=== PATIENT | female | born 1940 | race Caucasian/White ===

== ENCOUNTER 2019-08-21 01:46 | Emergency (ER) | payer OTHER, MEDICARE ==
[2019-08-21] MEDS ORDERED: LIDOCAINE 1% MPF 5 ML VIAL ONE (03:45)
[2019-08-21] MEDS ORDERED: TETANUS & DIPHTHERIA TOX,ADULT 0.5 ML VIAL ONE (05:00)
--- NOTE | 2019-08-21 06:25 | EDPHYS ---
Physician Documentation [facility] Name: Martina Martini Age: 79 yrs Sex: Female : 1940 Arrival Date: 08/21/2019 Time: 01:55 Bed 3 Private MD: ED Physician Osvaldo Mckeon HPI: 08/20 03:03 This 79 yrs old Female presents to ER via EMS with complaints of Fall Injury. 7 03:03 Details of fall: The patient fell from an upright position, while walking. Onset: The [facility] symptoms/episode began/occurred today. Associated injuries: The patient sustained injury to the head, laceration. Severity of symptoms: At their worst the symptoms were moderate, earlier today, in the emergency department the symptoms have improved, moderately. Patient states that she slipped and fell while walking to bathroom. She hit her head on some furniture during the fall and sustained a laceration to her right forehead area. She denies any LOC or other injuries. She denies any symptoms prior to falling including headache, chest pain, abdominal pain, SOB, nausea, vomiting, dizziness, numbness/tingling, or weakness.. Historical: - Allergies: 02:00 "pain meds make me crazy"; rr5 02:00 PENICILLINS; rr5 02:00 Phenergan; rr5 - Home Meds: 03:03 levothyroxine oral [Active]; Atenolol Oral [Active]; Prednisone Oral [Active]; rr5 Amiodarone Oral [Active]; citalopram oral [Active]; pravastatin oral oral [Active]; Furosemide Oral [Active]; gabapentin oral oral [Active]; Omeprazole Oral [Active]; Metformin Oral [Active]; cetirizine oral oral [Active]; areds 2 [Active]; Vitamin B-12 Oral [Active]; pramipexole oral oral [Active]; Aspirin Oral [Active]; Ferrous Sulfate Oral [Active]; donepezil oral oral [Active]; - PMHx: 02:00 Anemia; Asthma; Diabetes - NIDDM; Hyperlipidemia; Hypertension; Hypothyroidism; rr5 Myocardial infarction; open heart sx; - PSHx: 02:00 Appendectomy; Cholecystectomy; rr5 - Immunization history:: Adult Immunizations up to date, Last tetanus immunization: unknown. - Social history:: Smoking status: unknown Patient/guardian denies using alcohol, street drugs. ROS: 03:03 Constitutional: Negative for fever, chills, and weight loss, Eyes: Negative for injury, mh7 pain, redness, and discharge, ENT: Negative for injury, pain, and discharge, Neck: Negative for injury, pain, and swelling, Cardiovascular: Negative for chest pain, palpitations, and edema, Respiratory: Negative for shortness of breath, cough, wheezing, and pleuritic chest pain, Abdomen/GI: Negative for abdominal pain, nausea, vomiting, diarrhea, and constipation, Back: Negative for injury and pain, : Negative for injury, bleeding, discharge, and swelling, MS/Extremity: Negative for injury and deformity, Neuro: Negative for headache, weakness, numbness, tingling, and seizure, Psych: Negative for depression, anxiety, suicide ideation, homicidal ideation, and hallucinations, Allergy/Immunology: Negative for hives, rash, and allergies, Endocrine: Negative for neck swelling, polydipsia, polyuria, polyphagia, and marked weight changes, Hematologic/Lymphatic: Negative for swollen nodes, abnormal bleeding, and unusual bruising. Exam: 03:03 Constitutional: This is a well developed, well nourished patient who is awake, alert, mh7 and in no acute distress. 03:03 Eyes: Pupils equal round and reactive to light, extra-ocular motions intact. Lids and lashes normal. Conjunctiva and sclera are non-icteric and not injected. Cornea within normal limits. Periorbital areas with no swelling, redness, or edema. ENT: Nares patent. No nasal discharge, no septal abnormalities noted. Tympanic membranes are normal and external auditory canals are clear. Oropharynx with no redness, swelling, or masses, exudates, or evidence of obstruction, uvula midline. Mucous membranes moist. Neck: Trachea midline, no thyromegaly or masses palpated, and no cervical lymphadenopathy. Supple, full range of motion without nuchal rigidity, or vertebral point tenderness. No Meningismus. Chest/axilla: Normal chest wall appearance and motion. Nontender with no deformity. No lesions are appreciated. Cardiovascular: Regular rate and rhythm with a normal S1 and S2. No gallops, murmurs, or rubs. Normal PMI, no JVD. No pulse deficits. Respiratory: Lungs have equal breath sounds bilaterally, clear to auscultation and percussion. No rales, rhonchi or wheezes noted. No increased work of breathing, no retractions or nasal flaring. Abdomen/GI: Soft, non-tender, with normal bowel sounds. No distension or tympany. No guarding or rebound. No evidence of tenderness throughout. Back: No spinal tenderness. No costovertebral tenderness. Full range of motion. MS/ Extremity: Pulses equal, no cyanosis. Neurovascular intact. Full, normal range of motion. Neuro: Awake and alert, GCS 15, oriented to person, place, time, and situation. Cranial nerves II-XII grossly intact. Motor strength 5/5 in all extremities. Sensory grossly intact. Cerebellar exam normal. Normal gait. Psych: Awake, alert, with orientation to person, place and time. Behavior, mood, and affect are within normal limits. 03:03 Head/face: Noted is a laceration(s), that is deep. 03:03 Skin: injury, laceration(s). Vital Signs: 02:00 BP 210 / 105; Pulse 71; Resp 16; Temp 98.2; Pulse Ox 100% ; Weight 65.77 kg; Height 5 rr5 ft. 1 in. (154.94 cm); 03:00 BP 175 / 89; Pulse 75; Resp 17; Pulse Ox 99% ; rr5 04:00 BP 156 / 85; Pulse 80; Resp 19; Pulse Ox 98% ; rr5 05:00 BP 149 / 95; Pulse 70; Resp 16; Pulse Ox 98% on R/A; rr5 06:00 BP 199 / 98; Pulse 79; Resp 17; Pulse Ox 100% ; rr5 06:44 BP 188 / 84; Pulse 75; Resp 19; Pulse Ox 98% ; rr5 02:00 Body Mass Index 27.40 (65.77 kg, 154.94 cm) rr5 [place] Coma Score: 02:00 Eye Response: spontaneous(4). Verbal Response: oriented(5). Motor Response: obeys rr5 commands(6). Total: 15. Trauma Score (Adult): 02:00 Eye Response: spontaneous(1); Verbal Response: oriented(1); Motor Response: obeys rr5 commands(2); Systolic BP: > 89 mm Hg(4); Respiratory Rate: 10 to 29 per min(4); Samantha Score: 15; Trauma Score: 12 Laceration: 06:19 Wound Repair of 6cm ( 2.4in ) subcutaneous laceration to forehead. Distal mh7 neuro/vascular/tendon intact. Anesthesia: Local anesthetic administered with 5 mls of 1% lidocaine. Wound prep: Extensive cleansing with hibiclenz by me, Wound irrigation with saline by me, Wound explored extensively. Subcutaneous tissue closed with 8 5-0 Vicryl using simple sutures and sterile technique. Skin closed with 16 6-0 Prolene using interrupted sutures and sterile technique. Dressed with Neosporin, 4x4's. Patient tolerated well. MDM: 02:27 Patient medically screened. [facility] 06:19 Differential diagnosis: abrasion, closed head injury, contusion, fracture, laceration. [facility] Data reviewed: vital signs, nurses notes, EMS record, radiologic studies, CT scan. Data interpreted: pvc monitor: rate is 70 beats/min, rhythm is normal sinus rhythm, regular, Interpretation: normal rate, normal rhythm, Pulse oximetry: on room air is 98 %. Interpretation: normal. Counseling: I had a detailed discussion with the patient and/or guardian regarding: the historical points, exam findings, and any diagnostic results supporting the discharge/admit diagnosis, the presence of at least one elevated blood pressure reading (>120/80) during this emergency department visit, radiology results, the need for outpatient follow up, to return to the emergency department if symptoms worsen or persist or if there are any questions or concerns that arise at home. Response to treatment: the patient's symptoms have markedly improved after treatment. 07:01 Refusal of service: The patient/guardian displays adequate decision making capability [facility] and despite a detailed discussion of alternatives, benefits, risks, and consequences refuses: all lab tests. 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 Exp: rr5 03/27/2021. Lot #: [id number]. } Route: IM; Site: right deltoid; 06:00 Follow up: Response: No adverse reaction rr5 05:10 Drug: Lidocaine (1 %) 5 ml {Note: Administered by MD Mckeon.} Volume: 5 ml; Route: wh Infiltration; Site: affected area; Disposition: 08/21/19 06:24 Discharged to Home. Impression: Fall-Mechanical, Facial Laceration. - Condition is Stable. - Discharge Instructions: Laceration Care, Adult, [id number], Facial Laceration, [id number], Fall Prevention in the Home, [id number]. - Medication Reconciliation Form, Thank You Letter, Antibiotic Education, Prescription Opioid Use form. - Follow up: Private Physician; When: 1 - 2 days; Reason: Worsening of condition, Recheck today's complaints, Re-evaluation by your physician. Follow up: Emergency Department; When: 48 Hours; Reason: Wound Recheck, Worsening of condition, Recheck today's complaints. Follow up: Magdiel Matamoros MD; When: 1 - 2 days; Reason: Worsening of condition, Recheck today's complaints. - Problem is an acute exacerbation. - Symptoms have improved. Signatures: Dispatcher [employer] EDMS Jose Mendez Raymond, RN RN rr5 Osvaldo Mckeon MD MD mh7 Corrections: (The following items were deleted from the chart) 06:54 06:24 08/21/2019 06:24 Discharged to Home. Impression: Fall-Mechanical; Facial rr5 Laceration. Condition is Stable. Forms are Medication Reconciliation Form, Thank You Letter, Antibiotic Education, Prescription Opioid Use. Follow up: Private Physician; When: 1 - 2 days; Reason: Worsening of condition, Recheck today's complaints, Re-evaluation by your physician. Follow up: Emergency Department; When: 48 Hours; Reason: Wound Recheck, Worsening of condition, Recheck today's complaints. Follow up: Magdiel Matamoros; When: 1 - 2 days; Reason: Worsening of condition, Recheck today's complaints. Problem is an acute exacerbation. Symptoms have improved. mh7
--- NOTE | 2019-08-21 06:25 | ER ---
Nurse's Notes [facility] Name: Martina Martini Age: 79 yrs Sex: Female : 1940 Arrival Date: 08/21/2019 Time: 01:55 Bed 3 Private MD: Diagnosis: Fall-Mechanical;Facial Laceration Presentation: 08/20 02:00 Chief complaint: EMS states: patient sits up, lose footing and hit her head on the rr5 corner of filling cabinet. denies LOC, not on blood thinner. 02:00 Coronavirus screen: Proceed with normal triage. Ebola Screen: Patient negative for rr5 fever greater than or equal to 101.5 degrees Fahrenheit, and additional compatible Ebola Virus Disease symptoms Patient denies exposure to infectious person. Patient denies travel to an Ebola-affected area in the 21 days before illness onset. Initial Sepsis Screen: Does the patient meet any 2 criteria? No. Patient's initial sepsis screen is negative. Does the patient have a suspected source of infection? No. Patient's initial sepsis screen is negative. Risk Assessment: Do you want to hurt yourself or someone else? Patient reports no desire to harm self or others. Onset of symptoms was August 21, 2019. 02:00 Method Of Arrival: EMS: [facility] rr5 02:00 Acuity: KRISTA 3 rr5 02:00 Care prior to arrival: None. Mechanism of Injury: Fall from standing position. Trauma rr5 event details: Injury occurred in the [facility], Injury occurred: at home. Injury occurred: August 21, 2019. Trauma Activation: Not Applicable Physician: ED Physician; Name: ; Notified At: ; Arrived At: Physician: General Surgeon; Name: ; Notified At: ; Arrived At: Physician: Radiology; Name: ; Notified At: ; Arrived At: Physician: Respiratory; Name: ; Notified At: ; Arrived At: Physician: Lab; Name: ; Notified At: ; Arrived At: Historical: - Allergies: 02:00 "pain meds make me crazy"; rr5 02:00 PENICILLINS; rr5 02:00 Phenergan; rr5 - Home Meds: 03:03 levothyroxine oral [Active]; Atenolol Oral [Active]; Prednisone Oral [Active]; rr5 Amiodarone Oral [Active]; citalopram oral [Active]; pravastatin oral oral [Active]; Furosemide Oral [Active]; gabapentin oral oral [Active]; Omeprazole Oral [Active]; Metformin Oral [Active]; cetirizine oral oral [Active]; areds 2 [Active]; Vitamin B-12 Oral [Active]; pramipexole oral oral [Active]; Aspirin Oral [Active]; Ferrous Sulfate Oral [Active]; donepezil oral oral [Active]; - PMHx: 02:00 Anemia; Asthma; Diabetes - NIDDM; Hyperlipidemia; Hypertension; Hypothyroidism; rr5 Myocardial infarction; open heart sx; - PSHx: 02:00 Appendectomy; Cholecystectomy; rr5 - Immunization history:: Adult Immunizations up to date, Last tetanus immunization: unknown. - Social history:: Smoking status: unknown Patient/guardian denies using alcohol, street drugs. Screenin:10 Abuse screen: Denies threats or abuse. Denies injuries from another. Nutritional rr5 screening: On. Tuberculosis screening: No symptoms or risk factors identified. Fall Risk Fall in past 12 months (25 points). IV access (20 points). Total Lerner Fall Scale indicates High Risk Score (45 or more points). Fall prevention measures have been instituted. Side Rails Up X 2 Frequent Obs/Assessments Occuring As available patient and family educated on Fall Prevention Program and Strategies. Primary Survey: 02:05 NO uncontrolled hemorrhage observed. A: The patient is alert. Airway: patent. rr5 Breathing/Chest: Respiratory pattern: regular, Respiratory effort: spontaneous, unlabored, Breath sounds: clear, bilaterally. Chest inspection: symmetrical rise and fall of the chest. Circulation: Heart tones present. Pulses: palpable right radial artery, right dorsalis pedis artery, left radial artery and left dorsalis pedis artery. Skin color: pink, Skin temperature: warm, dry. Disability Alert. Exposure/Environment: Obvious injury(ies) are noted at this time: avulsed wound right forehead A warming method has been applied:. 03:00 Reassessment Airway Airway Patent Breathing/Chest Respiratory pattern Regular rr5 Respiratory effort Spontaneous Unlabored Breath sounds Clear Chest inspection Symmetrical Circulation Heart tones Present Pulses Palpable Color [place] Disability Alert. Secondary Survey: 02:10 HEENT: Face Other avulsed wound right side of forehead Eyes: Ecchymosis noted right rr5 upper eyelid. 02:10 Gastrointestinal: No deficits noted. : No signs and/or symptoms were reported rr5 regarding the genitourinary system. Musculoskeletal: No signs and/or symptoms reported regarding the musculoskeletal system. Injury Description: Avulsion sustained to forehead. Assessment: 02:00 General: Appears in no apparent distress. comfortable, Behavior is calm, cooperative, rr5 appropriate for age. 02:00 Pain: Complains of pain in forehead Pain does not radiate. Pain currently is 5 out of rr5 10 on a pain scale. Quality of pain is described as aching, Pain began suddenly, Is intermittent. Neuro: Oriented to person, place, time, situation, Denies dizziness, loc. Cardiovascular: Capillary refill < 3 seconds Patient's skin is warm and dry. Respiratory: Airway is patent Respiratory effort is even, unlabored, Respiratory pattern is regular, symmetrical. GI: No signs and/or symptoms were reported involving the gastrointestinal system. Patient currently denies nausea, vomiting. : Parent/caregiver report the patient having urinary frequency. EENT: No signs and/or symptoms were reported regarding the EENT system. Derm: Wound noted forehead Wound is avulsed wound right side of the forehead. Musculoskeletal: Capillary refill < 3 seconds. 03:00 Reassessment: Patient appears in no apparent distress at this time. No changes from rr5 previously documented assessment. Patient is alert, oriented x 3, equal unlabored respirations, skin warm/dry/pink. 03:30 Reassessment: according to the patient's daughter the BP of the patient always on the rr5 higher side. 04:10 Reassessment: Patient appears in no apparent distress at this time. Patient is alert, rr5 oriented x 3, equal unlabored respirations, skin warm/dry/pink. awaiting for result of CT scan. 05:30 Reassessment: Patient appears in no apparent distress at this time. Patient and/or rr5 family updated on plan of care and expected duration. Pain level reassessed. Patient is alert, oriented x 3, equal unlabored respirations, skin warm/dry/pink. 06:44 Reassessment: Patient appears in no apparent distress at this time. Patient is alert, rr5 oriented x 3, equal unlabored respirations, skin warm/dry/pink. discharge instruction given and explained without complaints made. Vital Signs: 02:00 BP 210 / 105; Pulse 71; Resp 16; Temp 98.2; Pulse Ox 100% ; Weight 65.77 kg; Height 5 rr5 ft. 1 in. (154.94 cm); 03:00 BP 175 / 89; Pulse 75; Resp 17; Pulse Ox 99% ; rr5 04:00 BP 156 / 85; Pulse 80; Resp 19; Pulse Ox 98% ; rr5 05:00 BP 149 / 95; Pulse 70; Resp 16; Pulse Ox 98% on R/A; rr5 06:00 BP 199 / 98; Pulse 79; Resp 17; Pulse Ox 100% ; rr5 06:44 BP 188 / 84; Pulse 75; Resp 19; Pulse Ox 98% ; rr5 02:00 Body Mass Index 27.40 (65.77 kg, 154.94 cm) rr5 [place] Coma Score: 02:00 Eye Response: spontaneous(4). Verbal Response: oriented(5). Motor Response: obeys rr5 commands(6). Total: 15. Trauma Score (Adult): 02:00 Eye Response: spontaneous(1); Verbal Response: oriented(1); Motor Response: obeys rr5 commands(2); Systolic BP: > 89 mm Hg(4); Respiratory Rate: 10 to 29 per min(4); Samantha Score: 15; Trauma Score: 12 ED Course: 01:55 Patient arrived in ED. cl3 01:59 Charbel Rascon, RN is Primary Nurse. rr5 02:00 Arm band placed on. rr5 02:03 Patient maintains SpO2 saturation greater than 95% on room air. rr5 02:05 Patient has correct armband on for positive identification. Placed in gown. Bed in low rr5 position. Call light in reach. 02:05 Thermoregulation: warm blanket given to patient. rr5 02:10 Triage completed. rr5 02:12 Osvaldo Mckeon MD is Attending Physician. mh7 03:45 CT Head C Spine In Process Unspecified. EDMS 03:46 CT Facial Bones W/O Con In Process Unspecified. EDMS 05:23 Assist provider with laceration repair on forehead that was between 2.6 to 7.5 cm using rr5 sutures. Set up tray. Performed by Osvaldo Mckeon MD Dressed with 4X4s, Neosporin, Patient tolerated well. 06:23 Magdiel Matamoros MD is Referral Physician. [facility] 06:45 Patient did not have IV access during this emergency room visit. 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 Exp: rr5 03/27/2021. Lot #: [id number]. } Route: IM; Site: right deltoid; 06:00 Follow up: Response: No adverse reaction rr5 05:10 Drug: Lidocaine (1 %) 5 ml {Note: Administered by MD Mckeon.} Volume: 5 ml; Route: wh Infiltration; Site: affected area; Intake: 06:30 PO: 0ml; Total: 0ml. rr5 Outcome: 06:24 Discharge ordered by . [facility] 06:45 Discharged to home via wheelchair, with family. rr5 06:45 Condition: stable 06:45 Discharge instructions given to patient, family, Instructed on discharge instructions, follow up and referral plans. Demonstrated understanding of instructions, follow-up care. 06:50 Patient's length of stay was not longer than 2 hours. not a code traumaPatient's length rr5 of stay extended due to 06:54 Patient left the ED. rr5 Signatures: Dispatcher [employer] EDMS Jose Mendez Raymond, RN RN rr5 Erica Stoll cl3 Osvaldo Mckeon MD MD 7 Corrections: (The following items were deleted from the chart) 03:23 03:23 HEENT: Head rr5 rr5
[2019-08-21 07:26] VITALS: TEMP 98.2
[2019-08-21 07:32] VITALS: BP 188/84; O2SAT 98
--- NOTE | 2019-08-21 19:25 | RAD REPORT ---
EXAM DESCRIPTION: CT HEAD AND CT CERVICAL SPINE WITHOUT CONTRAST 08/21/2019 CLINICAL HISTORY: Fall COMPARISON: None TECHNIQUE: Axial [address] imaging of the brain. Axial [address] imaging of the cervical spine. Reformatted coronal and sagittal images obtai richie. This examination was performed according to our departmental dose optimization program, which include s automated exposure control, adjustment of the mA and/or kV according to patient size and/or use of iterative reconstruction technique. FINDINGS: CT Head: Moderate prominence of the ventricles and sulci due to cortical volume loss. There is mild decreased white matter attenuation due to chronic vascular ischemic change. There are senescent bilateral basal ganglia calcifications. There is no intracranial bleed, mass, edema, or midline shift. No acute infa rction evident. Normal cerebellum and vermis. Fourth ventricle is midline. Prepontine cisterns are no t effaced. Normal sella contents. There is significant right periorbital and right frontal scalp edema with superficial skin irregulari ty compatible with laceration. No foreign body. There is no depressed or linear skull fracture. Skull base is intact. Clear mastoid air cells. CT cervical spine: There is mild reversal of midcervical lordosis. There is no compression fracture. There is no traumat ic subluxation. There is slight degenerative anterior subluxation of C3 on C4. There is moderate dege nerative disc space narrowing with hypertrophic end plate changes at C4-5 and C5-6. Uncovertebral ozzie nt hypertrophy at C5-6 contributes to mild bilateral foraminal stenosis. There is moderate right C2-3 and left C3-4 facet arthropathy. There is no fracture within the posterior elements, odontoid proces s, lateral masses. No prevertebral edema. The parapharyngeal soft tissues and mucosal spaces appear unremarkable. Normal thyroid. Minimal left apical atelectasis. IMPRESSION: 1. Mild to moderate senescent brain changes. No intracranial hemorrhage or skull fractur e. 2. Right frontal and periorbital soft tissue edema with a laceration. No foreign body or subcutaneous emphysema. 3. Left sphenoid sinus fluid could represent minimal blood products or incidental sinusitis. 4. Cervical spondylosis as detailed above. No acute cervical spine fracture or traumatic subluxation. Electronically signed by: Donna Garner DO 08/21/2019 3:56 AM CDT Due to temporary technical issues with the PACS/Fluency reporting system, reports are being signed by the in house radiologist without review as a courtesy to ensure prompt reporting. The interpreting r adiologist is fully responsible for the content of the report.
--- NOTE | 2019-08-21 19:26 | RAD REPORT ---
EXAM DESCRIPTION: Facial Bones W/ Mpr CLINICAL HISTORY: FACIAL PAIN COMPARISON: None available TECHNIQUE: Axial CT of the facial bone obtained without contrast. Coronal and sagittal reformatted i mages available. FINDINGS: Orbits: Orbital floors and mancini are intact. Intraorbital contents: The globes are intact. Extraocular muscles are symmetric. No intraconal fat st randing. Nasal bones: Intact. Maxilla: The maxillary hard palate is intact. Maxillary antral mancini are intact. Sinuses: Paranasal sinuses are well aerated. Zygomatic processes: Intact Pterygoid plates: Intact Mandible: Intact. No mandibular condylar dislocation. Skull base/cervical spine: Visualized portions of the skull base and cervical spine are intact. Visua lized mastoid air cells are well aerated. Subcutaneous soft tissues: Laceration and contusion in the right frontal subcutaneous soft tissues. Neck soft tissues: No definite abnormality involving the nasopharynx, oropharynx, or hypopharynx. Fos sa of [place] are clear. Parotid glands and submandibular glands are unremarkable. No cervical ly mphadenopathy. Carotid artery atherosclerosis. IMPRESSION: 1. No acute facial bone fracture identified. This exam was performed according to our departmental dose-optimization program, which includes autom ated exposure control, adjustment of the mA and/or kV according to patient size and/or use of iterati ve reconstruction technique. Electronically signed by: Stephen Covington 08/21/2019 3:56 AM CDT Due to temporary technical issues with the PACS/Fluency reporting system, reports are being signed by the in house radiologist without review as a courtesy to ensure prompt reporting. The interpreting r adiologist is fully responsible for the content of the report.
== END 2019-08-21 06:54 | disposition home or self-care (01) ==
LOC: ER 01:46
PROC: 0JQ10ZZ Repair Face Subcutaneous Tissue and Fascia, Open Approach (ICD-10-PCS; principal; 2019-08-21)
DX: S01.81XA Laceration without foreign body of other part of head, initial encounter (principal); W01.0XXA Fall on same level from slipping, tripping and stumbling without subsequent striking against object, initial encounter; Y93.01 Activity, walking, marching and hiking; Y92.89 Other specified places as the place of occurrence of the external cause; Z23 Encounter for immunization; I10 Essential (primary) hypertension; E11.9 Type 2 diabetes mellitus without complications; E78.5 Hyperlipidemia, unspecified; E03.9 Hypothyroidism, unspecified; Z88.0 Allergy status to penicillin; Z88.6 Allergy status to analgesic agent; Z88.8 Allergy status to other drugs, medicaments and biological substances
CPT/HCPCS: 70450; 70486; 72125; 76377; 90471; 90714; 99284

== ENCOUNTER 2019-08-23 11:41 | Emergency (ER) | payer OTHER, MEDICARE ==
--- OUTSIDE RECORDS SUMMARY | 2019-08-23 11:44 | XMS REPORT | Clinical Summary ---
:1940 Author Organization [facility] Address [address] [place] [address] Care Team Providers Name Role Phone José Miguel Landa MD Primary Care Provider Allergies Active Allergy Reactions Severity Noted Date Comments Lorazepam Other (See Comments) High 12/16/2016 "Acts l elizabeth a crazy person," per family repo rt Penicillins 11/01/2016 Promethazine 11/01/2016 Medications Medication Sig Dispensed Refills Start Date End Date Status omeprazole (PriLOSEC) Take 1 capsule 1 07/31/2016 Active 40 MG capsule by mouth 2 (two) times a day. gabapentin Take 1 capsule 0 10/03/2016 Act lesley (NEURONTIN) 300 mg by mouth 2 (two) capsule times a day. aspirin (ECOTRIN) 81 Take 81 mg by 0 Active MG enteric coated mouth daily. tablet biotin 5,000 mcg Take 1 tablet by 0 Active tablet,disintegrating mouth daily. cyanocobalamin 1000 Take 1,000 mcg 0 Active MCG tablet by mouth daily. budesonide-formoterol Inhale 2 puffs 2 0 Active (SYMBICORT) 160-4.5 (two) times a mcg/actuation inhaler day. docusate sodium Take 100 mg by 0 Active (COLACE) 100 MG mouth daily as capsule needed for constipation. tiotropium bromide Inhale 2.5 mcg 0 Active (SPIRIVA RESPIMAT) daily. 2.5 mcg/actuation mist VIT Take 1 tablet by 0 Act lesley C/E/ZN/COPPR/LUTEIN/Z mouth 2 (two) EAXAN (PRESERVISION times a day. AREDS 2 ORAL) albuterol (PROAIR Inhale 2 puffs 0 03/14/2017 Active HFA,PROVENTIL every 4 (four) HFA,VENTOLIN HFA) 90 hours as needed mcg/actuation inhaler for wheezing or shortness of breath. metFORMIN Take 500 mg by 0 Activ e (GLUCOPHAGE) 500 mg mouth 2 (two) tablet times a day with meals. levothyroxine Take 50 mcg by 0 A ctive (SYNTHROID, LEVOXYL) mouth every 50 mcg tablet morning. amIODarone (PACERONE) Take 200 mg by 0 Active 200 MG tablet mouth daily before breakfast. citalopram (CeleXA) Take 40 mg by 0 Active 40 MG tablet mouth every morning. pravastatin Take 40 mg by 0 Acti ve (PRAVACHOL) 40 MG mouth daily. tablet furosemide (LASIX) 20 Take 20 mg by 0 Active mg tablet mouth daily. senna (SENOKOT) 8.6 Take 1 tablet by 0 Active mg tablet mouth daily. CALCIUM ORAL Take 1 tablet by 0 Active mouth daily. cholecalciferol, Take 1 tablet by 0 Active vitamin D3, (VITAMIN mouth daily. D3 ORAL) magnesium oxide Take 400 mg by 0 Active (MAG-OX) 400 mg mouth 2 (two) (241.3 mg magnesium) times a day. tablet ferrous sulfate 325 Take 325 mg by 0 Active (65 FE) MG tablet mouth 2 (two) times a day. ascorbic acid, Take 500 mg by 0 Active vitamin C, (VITAMIN mouth 2 (two) C) 500 MG tablet times a day. pramipexole (MIRAPEX) Take 0.25 mg by 0 Active 0.25 MG tablet mouth every evening. temazepam (RESTORIL) Take 15 mg by 0 Active 15 mg capsule mouth nightly. linaclotide (LINZESS Take 1 tablet by 0 Active ORAL) mouth daily as needed (constipation). polyethylene glycol Take 17 g by 0 Active (MIRALAX) 17 gram mouth daily as packet needed for constipation. donepezil (ARICEPT) Take 1 tablet 30 tablet 11 02/28/201802/28 10 MG tablet (10 mg total) by mouth nightly. Active Problems Problem Noted Date Hypertension 07/13/2018 UTI (urinary tract infection) 07/11/2018 Rash 05/18/2018 Mild cognitive impairment 02/09/2018 Gait disorder 05/26/2017 S/P vertebroplasty 05/26/2017 Fracture of lumbar spine 04/25/2017 T12 compression fracture 04/24/2017 Iron deficiency anemia 03/16/2017 Shortness of breath 03/14/2017 Acute diastolic congestive heart failure 12/17/2016 Temporal arteritis 12/17/2016 NSTEMI (non-ST elevated myocardial infarction) 017 Vision disturbance 11/01/2016 Type 2 diabetes mellitus 11/01/2016 Essential hypertension 11/01/2016 Hypothyroidism due to acquired atrophy of thyroid 10/13 Encounters Date Type Specialty Care Team Description 05/17/2019 Refill Neurology Leon Strickland MD 02/15/2019 Refill Neurology Leon Strickland MD 01/27/2019 Office Visit Orthopedic Surgery Gary Hadley Chondro calcMD jeny Cordero (Pr imary Dx) 01/27/2019 Orders Only Orthopedic Surgery Carballo, Right kne e pain, [place], [place] unspecified chr onicity (Primary Dx) 01/13/2019 Office Visit Orthopedic Surgery Gary Hadley Chondro calcMD jeny Cordero (Pr imary Dx) 01/12/2019 Orders Only Orthopedic Surgery Carballo, Right kne e pain, [place], [place] unspecified chr onicity (Primary Dx) 12/31/2018 Transcribe Orders Access Cordell, Right knee pain, José Miguel O. Sr., unspecified c hronicity (Primary Dx) 11/21/2018 Hospital Encounter Radiology Cordell, Impending José Miguel O. Sr., cerebrovascul ar accident ([facility]) 11/20/2018 Transcribe Orders Access Cordell, Impending José Miguel O. Sr., cerebrovascul ar accident ([facility]) (Primary Dx) after 08/22/2018 Family History Medical History Relation Name Comments Heart block Father Colon cancer Mother Stroke Mother Cancer Sister Diabetes Sister Relation Name Status Comments Father Mother Sister Sister Alive Social History Tobacco Use Types Packs/Day Years Used Date Never Smoker Smokeless Tobacco: Never Used Alcohol Use Drinks/Week oz/Week Comments No Sex Assigned at Date Recorded Not on file Job Start Date Occupation Industry Not on file Not on file Not on file Travel History Travel Start Travel End No recent travel history available. Last Filed Vital Signs Vital Sign Reading Time Taken Comments Blood Pressure - - Pulse - - Temperature - - Respiratory Rate - - Oxygen Saturation - - Inhaled Oxygen Concentration - - Weight 72.1 kg (159 lb) 01/13/2019 2:45 PM [facility] Height 154.9 cm (5' 1") 01/13/2019 2:45 PM [facility] Body Mass Index 30.04 01/13/2019 2:45 PM [facility] Plan of Treatment Health Maintenance Due Date Last Done Comments DIABETIC RETINAL EYE EXAM 1940 DIABETIC FOOT EXAM 02/23/1948 URINE MICROALBUMIN 02/23/1948 SHINGLES VACCINES (#1) 02/23/1988 65+ PNEUMOCOCCAL VACCINE (1 of 2 - PCV13) 2003 INFLUENZA VACCINE 09/12/2019 Implants Implanted Type [facility] Insurance Clerk Device Shelf Model / Identifier Expiration Serial / Lot Date Kit Cmnt Spinal Hiviscocty 11ml Confidence Plus - [id number] Spi nal N/A: N/A DEPUY SPINE 01/10/2019 [id number] / Implanted: 04/26/2017 at [facility] (Quantity not on file) Implants / [id number] Procedures Procedure Name Priority Date/Time Associated Diagnosis Comme nts XR KNEE 3 VW RIGHT Routine 01/27/2019 1:35 Right knee pain, R esults for PM [facility] unspecified chronicity this procedure are in the results section. XR KNEE 3 VW RIGHT Routine 01/13/2019 2:48 Right knee pain, R esults for PM [facility] unspecified chronicity this procedure are in the results section. XR LEG LENGTH Routine 01/13/2019 2:48 Right knee pain, Result s for EVALUATION PM [facility] unspecified chronicity this procedure are in the results section. NM ARTHROCENTESIS Routine 01/13/2019 2:30 Chondrocalcinosis R esults for ASPIR&/INJ MAJOR PM [facility] articularis this proced ure JT/BURSA W/O US are in the results section. MRI LOWER EXTREMITY Routine 01/01/2019 12:28 Right knee pain, Results for JOINT WO CONTRAST PM [facility] unspecified chronicity this procedure RIGHT are in the results section. CT HEAD WO CONTRAST Routine 11/21/2018 12:53 Impending Resu lts for PM CDT cerebrovascular accident thi s procedure (HCC) are in the results section. after 08/22/2018 Results XR Knee 3 Vw Right (01/27/2019 1:35 PM [facility])Only the most recent of2 results within the time period is included. Specimen Narrative Performed At This result has an attachment that is no t available. AP of both knees and 3 views of the right knee reveal mild varus deformity [facility] with narrowing of the medial joint space of the right knee. 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 This is very dense calci fic deposition disease. Performing Organization Address City/[facility]/Zipcode Phone Number [facility] [address] [place] [address] XR Leg Length Evaluation (01/13/2019 2:48 PM [facility]) Specimen Narrative Performed At This result has an attachment that is no t available. Long leg films reveal good general overall alignment of both lower HM [facility] extremities with mild narrowing of the medial joint sp aces of the knees bilaterally and evidence of chondrocalcinosis articula ris noted in both knees. 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 and site/side marked as required Supporting Documentation Indications: joint swelling and pain Procedure Details Preparation: Patient was prepped and miguel ped in the usual sterile fashion Ultrasound guided: no Location: knee - R knee Right side: Needle size: 20 G Approach: anterolateral Right knee medications administered: 1 each triamcinol one acetonide 32 mg Patient tolerance: patient tolerated the procedure wel l with no immediate complications MRI Lower Extremity Joint Wo Contrast Right (01/01/2019 12:28 PM [facility]) Specimen Narrative Performed At This result has an attachment that is no t available. EXAMINATION: MRI LOWER EXTREMITY JOINT WO CONTRAST RIGHT [facility] CLINICAL HISTORY: M25.561 Pain in right knee, KNEE P AIN TECHNIQUE: Multiplanar multisequence M R imaging of the knee was performed without contrast. COMPARISON: None FINDINGS: Please note that sequences are limited by mo tion artifacts. Cruciate ligaments: Intact. Collateral ligaments: Intact. Medial Meniscus: Degeneration and degene rative type tearing of the posterior horn medial meniscus at the root attachment. Medial Compartment Cartilage: Areas of h igh-grade partial-thickness cartilage loss of the posterior medial femoral condyle and areas of surface fissuring involving the medial tibial plateau. Lateral Meniscus: Degeneration of the anterior horn, b darcy and posterior horn. Lateral Compartment Cartilage: Multifoca l areas of surface fissuring without focal full-thickness defects. Patellofemoral Compartment:Full-thicknes s cartilage loss at the median ridge and medial patellar facet. Areas of full-thickness fissuring of the trochlear/trochlear sulcus Extensor mechanism: Intact. Effusion: Moderate joint effusion. Bone marrow: No fracture or marrow placement lesion. Soft tissues: Nonspecific subcutaneous edema of the an terolateral knee. IMPRESSION: 1.Complex and degenerative type tearing of the posterior horn medial meniscus at the posterior root attachment. 2.Qzpm-we-daqiqaaj medial and moderate p atellofemoral compartment degenerative changes. [facility]-[id number] Procedure Note Hm Interface, Radiology Results Incoming - 01/01/2019 3:08 PM [facility] EXAMINATION: MRI LOWER EXTREMITY JOINT WO CONTRAST RIGHT CLINICAL HISTORY: M25.561 Pain in right knee, KNEE PAIN TECHNIQUE: Multiplanar multisequence MR imaging of the knee was performed without contrast. COMPARISON: None FINDINGS: Please note that sequences are limited by motion artifacts. Cruciate ligaments: Intact. Collateral ligaments: Intact. Medial Meniscus: Degeneration and degene rative type tearing of the posterior horn medial meniscus at the root attachment. Medial Compartment Cartilage: Areas of h igh-grade partial-thickness cartilage loss of the posterior medial femoral condyle and areas of surface fissuring involving the medial tibial plateau. Lateral Meniscus: Degeneration of the an terior horn, body and posterior horn. Lateral Compartment Cartilage: Multifoca l areas of surface fissuring without focal full-thickness defects. Patellofemoral Compartment:Full-thicknes s cartilage loss at the median ridge and medial patellar facet. Areas of full-thickness fissuring of the trochlear/trochlear sulcus Extensor mechanism: Intact. Effusion: Moderate joint effusion. Bone marrow: No fracture or marrow place ment lesion. Soft tissues: Nonspecific subcutaneous e irina of the anterolateral knee. IMPRESSION: 1.Complex and degenerative type tearing of the posterior horn medial meniscus at the posterior root attachment. 2.Nvxg-ne-ajlyrajv medial and moderate p atellofemoral compartment degenerative changes. [facility]-[id number] Performing Organization Address [facility]/Zipcode Phone Number [facility] [address] [place] [address] CT Head Wo Contrast (11/21/2018 12:53 PM CDT) Specimen Narrative Performed At EXAMINATION: CT HEAD WO CONTRAST [facility] COMPARISON: July 14, 2018 CLINICAL HISTORY I63.9 Cerebral infarcti on unspecified, I63.9. TECHNIQUE: Non-contrast CT scan of the head with thin- section contiguous transaxial images from the skull base to the vertex. CT scans are performed using radiation dose reduction techniques. Technical factors are evaluated and adjusted to ensure appropriate moderation of exposure. Automated dose management architect nology is applied to adjust radiation exposure while achie ving a highly diagnostic quality image. FINDINGS: Nonenhanced emergency cranial CT was performed at appr oximately 1238 hours. There is atrophic ventricular and sulcal dilatation. There are mild chronic nonspecific microvascular ische ct changes in the centrum semiovale bilaterally. There is no acute hemorrhage or interval changes. There is no evidence of skull fracture. IMPRESSION: Stable generalized involutional changes. No definite acute hemorrhage or hyperden se vessels. [facility]-[id number] Procedure Note Hm Interface, Radiology Results Incoming - 11/21/2018 12:57 PM CDT EXAMINATION: CT HEAD WO CONTRAST COMPARISON: July 14, 2018 CLINICAL HISTORY I63.9 Cerebral infarcti on unspecified, I63.9. TECHNIQUE: Non-contrast CT scan of the h ead with thin-section contiguous transaxial images from the skull base to the vertex. CT scans are performed using radiation dose reduction techniques. Technical factors are evaluated and adjusted to ensure appropriate moderation of exposure. Automated dose management technology is applied to adjust radiation exposure while achievin g a highly diagnostic quality image. FINDINGS: Nonenhanced emergency cranial CT was per formed at approximately 1238 hours. There is atrophic ventricular and sulcal dilatation. There are mild chronic nonspecific micro vascular ischemic changes in the centrum semiovale bilaterally. There is no acute hemorrhage or interval changes. There is no evidence of skull fracture. IMPRESSION: Stable generalized involutional changes. No definite acute hemorrhage or hyperden se vessels. [facility]-[id number] Performing Organization Address City/[facility]/Zipcode Phone Number [facility] [address] [place] [address] after 08/22/2018 Insurance Payer Benefit Plan / Subscriber ID Effective Dates Phone Addre ss Type Group MEDICARE MEDICARE PART A xxxxxxxxxxx 2003-Present [place], [place] Medicare AND B AARP AARP SUPPLEMENT xxxxxxxxxxx 2005-Present Commercial Guarantor Name Account Type Relation to Date of Phone Bill ing Patient Address Martina Martini Personal/Family Self 1940 [address] (Home) [place] [address] Advance Directives For more information, please contact: [phone] Type Date Recorded Patient Drafter Patent Explanati on Advance Directives, Living Will 03/14/2017 1:42 PM and Medical Power of Facility Worker Code Status Date Activated Date Inactivated Comments Full Code 04/24/2017 1:43 PM 04/27/2017 5:06 PM Code Status decision reached by: Patient Full Code 04/24/2017 1:26 PM 04/24/2017 1:43 PM Code Status decision reached by: Patient Full Code 03/14/2017 5:39 PM 03/20/2017 9:09 PM Code Status decision reached by: Patient Full Code 03/14/2017 5:05 PM 03/14/2017 5:39 PM Code Status decision reached by: Patient Full Code 12/16/2016 11:25 PM 12/20/2016 7:18 PM Code Status decision reached by: Patient
--- NOTE | 2019-08-23 12:25 | ER ---
Nurse's Notes [facility] Name: Martina Martini Age: 79 yrs Sex: Female : 1940 Arrival Date: 08/23/2019 Time: 11:43 Bed 13 Private MD: Diagnosis: Forehead laceration - wound recheck Presentation: 08/22 12:18 Chief complaint: Patient states: needs wound check on lac repair to head that occurred iw 08-20, has follow up with her PCP on Saturday to have sutures removed. Coronavirus screen: Proceed with normal triage. Patient denies a cough. Patient denies shortness of breath or difficulty breathing. Patient denies measured and/or subjective temperature greater than 100.4F prior to today's visit. Patient denies travel on a cruise ship or to a country the [facility] currently lists as an affected area. Patient denies contact with known and/or suspected case of COVID-19. Ebola Screen: Patient negative for fever greater than or equal to 101.5 degrees Fahrenheit, and additional compatible Ebola Virus Disease symptoms Patient denies exposure to infectious person. Patient denies travel to an Ebola-affected area in the 21 days before illness onset. No symptoms or risks identified at this time. Initial Sepsis Screen: Does the patient meet any 2 criteria? No. Patient's initial sepsis screen is negative. Does the patient have a suspected source of infection? No. Patient's initial sepsis screen is negative. Risk Assessment: Do you want to hurt yourself or someone else? Patient reports no desire to harm self or others. Onset of symptoms was August 21, 2019. 12:18 Method Of Arrival: Wheelchair iw 12:18 Acuity: KRISTA 5 iw Historical: - Allergies: 12:22 "pain meds make me crazy"; iw 12:22 PENICILLINS; iw 12:22 Phenergan; iw - PMHx: 12:22 Anemia; Asthma; Diabetes - NIDDM; Hyperlipidemia; Hypertension; Hypothyroidism; iw Myocardial infarction; open heart sx; - Immunization history:: Adult Immunizations up to date. - Social history:: Smoking status: Patient denies any tobacco usage or history of. - Family history:: not pertinent. - Hospitalizations: : No recent hospitalization is reported. Screenin:23 Abuse screen: Denies threats or abuse. Denies injuries from another. Nutritional iw screening: No deficits noted. Tuberculosis screening: No symptoms or risk factors identified. Fall Risk Fall in past 12 months (25 points). Assessment: 12:22 General: Appears in no apparent distress. Behavior is calm, cooperative. Pain: iw Complains of pain in face. Neuro: Level of Consciousness is awake, alert, obeys commands, Oriented to person, place, time, situation, Moves all extremities. Cardiovascular: Patient's skin is warm and dry. Respiratory: Respiratory effort is even, unlabored, Respiratory pattern is symmetrical. Derm: Skin is fragile. Musculoskeletal: Range of motion: intact in all extremities. Injury Description: large lac repair with sutures in place to right forehead , no s/s infection. Vital Signs: 12:30 BP 159 / 67; Pulse 63; Resp 17 S; Temp 97.4(TE); Pulse Ox 95% on R/A; ca1 12:30 BP 159 / 67; Pulse 63; Resp 17 S; Temp 97.4(TE); Pulse Ox 95% on R/A; ca1 ED Course: 11:43 Patient arrived in ED. ag5 12:12 Dony Tong MD is Attending Physician. rn 12:18 Elsie Landa RN is Primary Nurse. iw 12:21 Triage completed. iw 12:22 Arm band placed on. iw 12:25 Patient has correct armband on for positive identification. Bed in low position. Call ca1 light in reach. Side rails up X 1. Pulse ox on. NIBP on. 12:45 No provider procedures requiring assistance completed. Patient did not have IV access ca1 during this emergency room visit. Administered Medications: No medications were administered Outcome: 12:24 Discharge ordered by . rn 12:50 Discharged to home via wheelchair, with family. ca1 12:50 Condition: stable 12:50 Discharge instructions given to patient, Instructed on discharge instructions, follow up and referral plans. Demonstrated understanding of instructions, follow-up care. 12:54 Patient left the ED. mt Signatures: Elsie Landa RN RN iw Nieto, Roman, MD MD rn Thompson, Moriah ky Parviz, ABIMBOLA Santos RN, Ajare ag5
--- NOTE | 2019-08-23 12:25 | EDPHYS ---
Physician Documentation [facility] Name: Martina Martini Age: 79 yrs Sex: Female : 1940 Arrival Date: 08/23/2019 Time: 11:43 Bed 13 Private MD: ED Physician Dony Tong HPI: 08/22 12:19 This 79 yrs old Female presents to ER via Unassigned with complaints of rn Follow Up. 12:19 Patient presents to ED for recheck of: laceration. The affected area is on the right rn forehead. Previous treatment: The patient was initially treated 2 day(s) ago, the care was rendered at [facility]. Progress: The patient reports excellent improvement in the affected area. There has been resolution, improvement, or non-development of any drainage, fever, pain, redness or swelling. The patient has not experienced similar symptoms in the past. Reports fall, head laceration 2 days ago, told to come back for wound recheck, no new problems, is doing well, no focal neuro complaints, no new injuries found. . Historical: - Allergies: 12:22 "pain meds make me crazy"; iw 12:22 PENICILLINS; iw 12:22 Phenergan; iw - PMHx: 12:22 Anemia; Asthma; Diabetes - NIDDM; Hyperlipidemia; Hypertension; Hypothyroidism; iw Myocardial infarction; open heart sx; - Immunization history:: Adult Immunizations up to date. - Social history:: Smoking status: Patient denies any tobacco usage or history of. - Family history:: not pertinent. - Hospitalizations: : No recent hospitalization is reported. ROS: 12:19 Constitutional: Negative for fever, chills, and weight loss, Cardiovascular: Negative rn for chest pain, palpitations, and edema, Respiratory: Negative for shortness of breath, cough, wheezing, and pleuritic chest pain, Abdomen/GI: Negative for abdominal pain, nausea, vomiting, diarrhea, and constipation, Back: Negative for injury and pain, MS/Extremity: Negative for injury and deformity, Skin: + healing laceration to right forehead Neuro: Negative for headache, weakness, numbness, tingling, and seizure. Exam: 12:19 Constitutional: This is a well developed, well nourished patient who is awake, alert, rn and in no acute distress. Head/Face: + right forehead laceration, curvilinear, with prolene sutures in place, healing well, intact, + mild right periorbital ecchymosis. Eyes: Pupils equal round and reactive to light Respiratory: Speaking full sentences. No increased work of breathing, no retractions or nasal flaring. MS/ Extremity: Pulses equal, no cyanosis. Neurovascular intact. Full, normal range of motion. Equal circumference. Neuro: Awake and alert, GCS 15, oriented to person, place, time, and situation. Cranial nerves II-XII grossly intact. Motor strength 5/5 in all extremities. Sensory grossly intact. Cerebellar exam normal. Vital Signs: 12:30 BP 159 / 67; Pulse 63; Resp 17 S; Temp 97.4(TE); Pulse Ox 95% on R/A; ca1 12:30 BP 159 / 67; Pulse 63; Resp 17 S; Temp 97.4(TE); Pulse Ox 95% on R/A; ca1 MDM: 12:12 Patient medically screened. rn 12:19 Data reviewed: vital signs, nurses notes, and as a result, I will discharge patient. rn Counseling: I had a detailed discussion with the patient and/or guardian regarding: the historical points, exam findings, and any diagnostic results supporting the discharge/admit diagnosis, the need for outpatient follow up, to return to the emergency department if symptoms worsen or persist or if there are any questions or concerns that arise at home. Special discussion: I discussed with the patient/guardian in detail that at this point there is no indication for admission to the hospital. It is understood, however, that if the symptoms persist or worsen the patient needs to return immediately for re-evaluation. ED course: Has appt with pcp for suture removal on Saturday, which would be 7 days, told her she can either keep the appt for wound check and if ready can be removed, or can reschedule to make appt the following Saturday to ensure wound healing time and minimize chance of wound dehiscence. . Administered Medications: No medications were administered Disposition: 08/23/19 12:24 Discharged to Home. Impression: Forehead laceration - wound recheck. - Condition is Stable. - Discharge Instructions: Sutured Wound Care. - Medication Reconciliation Form, Thank You Letter, Antibiotic Education, Prescription Opioid Use form. - Follow up: Private Physician; When: 5 - 6 days; Reason: Wound Recheck, Staple/Suture removal. - Problem is new. - Symptoms have improved. Signatures: Elsie Landa RN RN iw Nieto, Roman, MD MD rn Thompson, Virgen la Corrections: (The following items were deleted from the chart) 12:54 12:24 08/23/2019 12:24 Discharged to Home. Impression: Forehead laceration - wound mt recheck. Condition is Stable. Forms are Medication Reconciliation Form, Thank You Letter, Antibiotic Education, Prescription Opioid Use. Follow up: Private Physician; When: 5 - 6 days; Reason: Wound Recheck, Staple/Suture removal. Problem is new. Symptoms have improved. rn
== END 2019-08-23 12:54 | disposition home or self-care (01) ==
LOC: ER 11:41
DX: Z48.00 Encounter for change or removal of nonsurgical wound dressing (principal)
CPT/HCPCS: 99283

== ENCOUNTER 2020-06-13 12:54 | Emergency (ER) | payer OTHER, MEDICARE ==
--- OUTSIDE RECORDS SUMMARY | 2020-06-13 12:56 | XMS REPORT | Continuity of Care Document ---
:1940 Author Organization [facility] t Address [address] [place] [address] Care Team Providers Name Role Phone Vinod Moreno MD, O. Primary Care Physician VINOD Attending Clinician Unavailable Payers Payer Name Policy Type Policy Effective Date Expiration Date Sour ce Number MEDICAREMEDICARE PART [id number] 2003 Laith Solorio AND 00:00:00 [facility] [id number] 2003[place] [id number] 2005 [place] [id number] 00:00:00 Met soto 2005-PresentCom rcial Problems Condition Condition Condition Status Onset Resolution Last Treating Co mments Source Name Details Category Date Date Treatment Clinician Date Hypertensi Hypertensi Disease Active [place] on on 07-13 [facility] 00:00: st 00 UTI UTI Disease Active [place] (urinary (urinary 5-31 Method i tract tract 00:00: st infection) infection) 00 Rash Rash Disease Active [place] 07 [facility] 00:00: st 00 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 2-30 Meth angel impairment impairment 00:00: st 00 Gait Gait 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 4-15 Method i 00:00: st 00 S/P S/P Disease Active [place] vertebropl vertebropl 4-15 Me thodi asty asty 00:00: st 00 Fracture Fracture Disease Active [place] of lumbar of lumbar 3-15 Meth angel spine spine 00:00: st 00 T12 T12 Disease Active [place] compressio compressio 3-14 Me thodi n fracture n fracture 00:00: st 00 Iron Iron Disease Active [place] deficiency deficiency 2-03 Me [facility] anemia anemia 00:00: st 00 Shortness Shortness Disease Active [facility] ston of breath of breath 2-01 Meth anegl 00:00: st 00 Acute Acute Disease Active 2016-02 [place] diastolic diastolic 1-06 [facility] congestive congestive 00:00: st heart heart 00 failure failure Temporal [facility] angel 00:00: st 00 NSTEMI NSTEMI Disease Active 2016-02 [place] (non-ST (non-ST 02-15 [facility] elevated elevated 00:00: st myocardial myocardial 00 infarction infarction ) ) Vision Vision Disease Active [place] disturbanc disturbanc 11-01 Me [facility] e e 00:00: st 00 Type 2 Type 2 Disease Active [place]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 11-01 Method i mellitus mellitus 00:00: st 00 Essential Essential Disease Active [facility] hypertensi hypertensi 11-01 [facility] on on 00:00: st 00 Hypothyroi Hypothyroi Disease Active [place] dism due dism due 11-01 Method i to to 00:00: st 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 Allergies, Adverse Reactions, Alerts Allergy Allergy Status Severity Reaction(s) Onset Inactive Treating Comm ents Source Name Type Date Date Clinician Navjot Hernandezi Active Other (See 2016-02 "Acts Ho alice m ty to Comments) 02-15 like a [facility] adverse 00:00: crazy st reaction 00 person," s to per drug family report Prometha Propensi Active [place] zine ty to 11-01 [facility] adverse 00:00: st reaction 00 s to drug Penicill Propensi Active [place] ins ty to 11-01 [facility] adverse 00:00: st reaction 00 s to drug Family History Family Member Diagnosis Comments Start Date Stop Date Source Natural mother Colon cancer [place] [facility] Natural mother Stroke [place] [facility]ist Natural sister Cancer [facility] thodist Natural sister Diabetes [place] [facility] thodist Natural father Heart block [facility] ethodist Social History Social Habit Start Date Stop Date Quantity Comments Source Tobacco use and 2019-01-13 2019-01-13 Never used [facility] ethodist exposure 00:00:00 00:00:00 Alcohol intake 2019-01-13 2019-01-13 Current [facility] thodist 00:00:00 00:00:00 non-drinker of alcohol (finding) Sex [birth year] [facility] whipple[facility]ist 00:00:00 00:00:00 Smoking Status Start Date Stop Date Source Never smoker [facility] t Medications Ordered Filled Start Stop Current Ordering Indication Dosage Frequency Signature Comments Components Source Medication Medication Date Date Medication? Clinician (SIG) Name Name aspirin Yes 81mg QD Take 81 mg [place] (ECOTRIN) 6-07 by mouth Method i 81 MG 19:08: daily. st enteric 35 coated tablet biotin Yes 1{tbl} QD Take 1 [place] 5,000 mcg 6-07 tablet by Metho di tablet,disi 19:08: mouth st ntegrating 35 daily. cyanocobala Yes 1000ug QD Take 1,000 [place] min 1000 6-07 mcg by [facility] MCG tablet 19:08: mouth st 35 daily. budesonide- Yes 2{puff} Q.5D Inhale 2 [place] formoterol 6-07 puffs 2 Method i (SYMBICORT) 19:08: (two) st 160-4.5 35 times a mcg/actuati day. on inhaler docusate Yes 100mg Q24H Take 100 [place] sodium 6-07 mg by [facility] (COLACE) 19:08: mouth st 100 MG 35 daily as capsule needed for constipati on. tiotropium Yes 2.5ug QD Inhale 2.5 [place] bromide 6-07 mcg daily. Method i (SPIRIVA 19:08: st RESPIMAT) 35 2.5 mcg/actuati on mist VIT Yes 1{tbl} Q.5D Take 1 [place] C/E/ZN/MAGEN 6-07 tablet by Met felicita R/LUTEIN/ZE 19:08: mouth 2 st AXAN 35 (two) (PRESERVISI times a ON AREDS 2 day. ORAL) metFORMIN Yes 500mg Q.5D Take 500 [facility] [facility] (GLUCOPHAGE 6-07 mg by [facility] ) 500 mg 19:08: mouth 2 st tablet 35 (two) times a day with meals. levothyroxi 2019-0 Yes 50ug QD Take 50 [place] [facility] ne 6-07 mcg by [facility] (SYNTHROID, 19:08: mouth st LEVOXYL) 50 35 every mcg tablet morning. amIODarone 2019-0 Yes 200mg QD Take 200 [place] (PACERONE) 6-07 mg by [facility] 200 MG 19:08: mouth st tablet 35 daily before breakfast. citalopram 2019-0 Yes 40mg QD Take 40 mg [place] (CeleXA) 40 6-07 by mouth Meth angel MG tablet 19:08: every st 35 morning. pravastatin 2019-0 Yes 40mg QD Take 40 mg [place] (PRAVACHOL) 6-07 by mouth Meth angel 40 MG 19:08: daily. st tablet 35 furosemide 2019-0 Yes 20mg QD Take 20 mg [place] (LASIX) 20 6-07 by mouth Metho di mg tablet 19:08: daily. st 35 senna 2019-0 Yes 1{tbl} QD Take 1 [place] (SENOKOT) 6-07 tablet by Metho di 8.6 mg 19:08: mouth st tablet 35 daily. CALCIUM 2019-0 Yes 1{tbl} QD Take 1 [place] ORAL 6-07 tablet by [facility] 19:08: mouth st 35 daily. cholecalcif 2019-0 Yes 1{tbl} QD Take 1 [place] eusebia, 6-07 tablet by [facility] vitamin D3, 19:08: mouth st (VITAMIN D3 35 daily. ORAL) magnesium 2019-0 Yes 400mg Q.5D Take 400 [place] [facility] oxide 6-07 mg by [facility] (MAG-OX) 19:08: mouth 2 st 400 mg 35 (two) (241.3 mg times a magnesium) day. tablet ferrous 2019-0 Yes 325mg Q.5D Take 325 [place] sulfate 325 6-07 mg by [facility] (65 FE) MG 19:08: mouth 2 st tablet 35 (two) times a day. ascorbic 2019-0 Yes 500mg Q.5D Take 500 [place] acid, 6-07 mg by [facility] vitamin C, 19:08: mouth 2 st (VITAMIN C) 35 (two) 500 MG times a tablet day. pramipexole 2019- Yes .25mg QD Take 0.25 [place] (MIRAPEX) 6-07 mg by [facility] 0.25 MG 19:08: mouth st tablet 35 every evening. temazepam 2019- Yes 15mg QD Take 15 mg [place] (RESTORIL) 6-07 by mouth Metho di 15 mg 19:08: nightly. st capsule 35 linaclotide 2018- Yes 1{tbl} Q24H Take 1 [place] (LINZESS 6-07 tablet by Method i ORAL) 19:08: mouth st 35 daily as needed (constipat ion). polyethylen Yes 17g Q24H Take 17 g [place] e glycol 6-07 by mouth [facility] (MIRALAX) 19:08: daily as st 17 gram 35 needed for packet constipati on. albuterol Yes 2{puff} Q4H Inhale 2 [place] (PROAIR 2-01 puffs [facility] HFA,PROVENT 00:00: every 4 st [place] 00 (four) HFA,VENTOLI hours as N HFA) 90 needed for mcg/actuati wheezing on inhaler or shortness of breath. gabapentin 2016- Yes 1{capsu Q.5D Take 1 [place] (NEURONTIN) 8-23 le} capsule by Me thodi 300 mg 00:00: mouth 2 st capsule 00 (two) times a day. omeprazole Yes 1{capsu Q.5D Take 1 [place] (PriLOSEC) 6-20 le} capsule by Met hodi 40 MG 00:00: mouth 2 st capsule 00 (two) times a day. Procedures Procedure Date / Time Performed Performing Clinician Sourc e COVID-19 QUALITATIVE PCR 2019-09-29 10:08:00 Elizabeth Landa Plan of Care Planned Activity Planned Date Details Comments Source Future Scheduled 2020-09-11 INFLUENZA VACCINE [place] [facility] 00:00:00 [code = INFLUENZA VACCINE] Future Scheduled 1988-02-23 SHINGLES VACCINES (#1) [facility] [facility] 00:00:00 [code = SHINGLES VACCINES (#1)] Future Scheduled 1954 COVID-19 VACCINE (1) [facility] 00:00:00 [code = COVID-19 VACCINE (1)] Future Scheduled 1948-02-23 DIABETES: RETINAL EYE [place] [facility] 00:00:00 EXAM [code = DIABETES: RETINAL EYE EXAM] Future Scheduled 1948-02-23 DIABETIC FOOT EXAM [place] [facility] 00:00:00 [code = DIABETIC FOOT EXAM] Future Scheduled 1948-02-23 URINE MICROALBUMIN [place] [facility] 00:00:00 [code = URINE MICROALBUMIN] Future Scheduled 1944-02-23 65+ PNEUMOCOCCAL [place] [facility] Test 00:00:00 VACCINE (1 of 2 - PPSV23) [code = 65+ PNEUMOCOCCAL VACCINE (1 of 2 - PPSV23)] Encounters Start End Encounter Admission Attending Care Care Encounter Source Date/Time Date/Time Type Type Clinicians Facility Department ID 2019-09-29 2019-09-29 Outpatient [facility] [id number] [facility]ji 00:00:00 00:00:00 ELIZABETH [address] Results This patient has no known results.
[2020-06-13 13:42] LABS: Urine Blood Negative (Negative); Urine Glucose Negative (Negative); Urine Protein Negative (Negative)
[2020-06-13 13:55] LABS: Absolute Lymphocytes (CBC) 0.9 K/uL (0.7-4.9); Basophils % 0.4 % (0-1.3); Hematocrit 26.1 % (36.0-45.0); Lymphocytes % 7.9 % (15.3-44.8); MPV 6.6 fL (7.6-11.3); RBC Red Blood Cell Count 2.99 M/uL (3.86-4.86)
[2020-06-13 13:56] LABS: Protime INR 1.18
[2020-06-13] MEDS ORDERED: LEVALBUTEROL 1.25 MG/3 ML NEB ONE (14:03)
[2020-06-13] MEDS ORDERED: METHYLPREDNISOLONE 125 MG INJ ONE (14:03)
[2020-06-13] MEDS ORDERED: AZITHROMYCIN 500 MG INJ IVPB ONE (14:04)
[2020-06-13] MEDS ORDERED: NA CHLORIDE 0.9% 250 ML ONE ×2 (14:04→15:14)
--- NOTE | 2020-06-13 14:06 | RAD REPORT ---
EXAM DESCRIPTION: RAD - Chest Single View - 06/13/2020 1:44 pm CLINICAL HISTORY: CONGESTION COMPARISON: Portable April 2017 TECHNIQUE: AP portable chest image was obtained 06/13/2020 1:44 pm . FINDINGS: Lung volumes are low. Portable technique and large body habitus accentuate chest findings. Cardiomegaly and vascular engorgement are present. Interstitial pattern has increased from prior ivonne ging. Sternotomy wires are in place. Trachea is midline. No measurable pleural effusion and no pneumo thorax. No acute bony abnormality seen. No acute aortic findings suspected. IMPRESSION: Mild to moderate CHF/ volume overload pattern.
[2020-06-13 14:14] LABS: ALT/SGPT 19 U/L (12-78); AST/SGOT 13 U/L (15-37); Albumin 3.6 g/dL (3.4-5.0); Alkaline Phosphatase 56 U/L (45-117); BUN Blood Urea Nitrogen 15 mg/dL (7-18); Bicarbonate 32 mmol/L (21-32); Bilirubin Direct 0.2 mg/dL (0-0.2); Bilirubin Total 0.6 mg/dL (0.2-1.0); Glucose Level 178 mg/dL (74-106); Magnesium 1.7 mg/dL (1.8-2.4); NT PRO-BNP 1409 pg/mL (<450); Potassium 3.2 mmol/L (3.5-5.1); Protein, Total 7.7 g/dL (6.4-8.2); Sodium Level 140 mmol/L (136-145); Troponin (Emerg Dept Use Only) < 0.02 ng/mL (0.0-0.045)
[2020-06-13] MEDS ORDERED: FUROSEMIDE 40 MG/4 ML VIAL ONE (15:14)
[2020-06-13] MEDS ORDERED: KCL 20 MEQ/100 mL IVPB 20 MEQ/100 ML BAG IV ONE (15:14)
[2020-06-13] MEDS ORDERED: FLEET ENEMA ADULT PR ONE (15:14)
--- NOTE | 2020-06-13 15:52 | ER ---
Nurse's Notes [facility] Name: Martina Martini Age: 80 yrs Sex: Female : 1940 Arrival Date: 06/13/2020 Time: 12:56 Bed 3 Private MD: Diagnosis: Essential (primary) hypertension Presentation: 06/13 12:51 Chief complaint: EMS states: called out by family for pt having hypertension since sv yesterday 210s/100s. They called their PCP and were told to give an extra dose of Norvasc, which was given but still no change in BP. Pt denies SOB and CP. Coronavirus screen: Client denies travel out of the [place] in the last 14 days. At this time, the client does not indicate any symptoms associated with coronavirus-19. Ebola Screen: No symptoms or risks identified at this time. Initial Sepsis Screen: Does the patient meet any 2 criteria? RR > 20 per min. HR > 90 bpm. Does the patient have a suspected source of infection? No. Patient's initial sepsis screen is negative. Risk Assessment: Do you want to hurt yourself or someone else? Patient reports no desire to harm self or others. Onset of symptoms was June 12, 2020. 12:51 Method Of Arrival: EMS: [facility] sv 12:51 Acuity: KRISTA 3 sv Triage Assessment: 12:51 General: Appears in no apparent distress. comfortable, well groomed, well developed, sv well nourished, Behavior is calm, cooperative, appropriate for age. Pain: Denies pain. Neuro: Level of Consciousness is awake, alert, obeys commands, Oriented to person, place, situation, Moves all extremities. Full function Speech is normal. Cardiovascular: Denies chest pain. Respiratory: Airway is patent Respiratory effort is even, unlabored, Respiratory pattern is regular, tachypnea Denies shortness of breath. Derm: Skin is pale. Historical: - Allergies: 13:00 "pain meds make me crazy"; sv 13:00 PENICILLINS; sv 13:00 Phenergan; sv - PMHx: 13:00 Anemia; Hyperlipidemia; Hypertension; Asthma; Hypothyroidism; Diabetes - NIDDM; open sv heart sx; Myocardial infarction; 13:00 Dementia; sv - Immunization history:: Adult Immunizations up to date. - Social history:: Smoking status: Patient denies any tobacco usage or history of. Patient/guardian denies using alcohol, street drugs, The patient lives with family. - Family history:: not pertinent. Screenin:00 Abuse screen: Denies threats or abuse. Denies injuries from another. Nutritional sv screening: No deficits noted. Tuberculosis screening: No symptoms or risk factors identified. Fall Risk None identified. Assessment: 13:55 Reassessment: Patient appears in no apparent distress at this time. No changes from sv previously documented assessment. Patient and/or family updated on plan of care and expected duration. Pain level reassessed. 14:43 Reassessment: Patient appears in no apparent distress at this time. No changes from sv previously documented assessment. Patient and/or family updated on plan of care and expected duration. Pain level reassessed. 16:18 Reassessment: Pt has had a BM and urine mixed in, unable to measure output. sv 16:54 Reassessment: Patient appears in no apparent distress at this time. Patient and/or sv family updated on plan of care and expected duration. Pain level reassessed. Patient is alert, oriented x 3, equal unlabored respirations, skin warm/dry/pink. Patient states symptoms have improved. Vital Signs: 12:51 BP 122 / 98; Pulse 91; Resp 26; Temp 98.8; Pulse Ox 88% on R/A; sv 13:45 BP 177 / 93; Pulse 59; Resp 26; Pulse Ox 100% on 2 lpm NC; sv 14:43 BP 105 / 75; Pulse 61; Resp 26; Pulse Ox 94% on 2 lpm NC; sv 15:30 BP 122 / 96; Pulse 60; Resp 26; Pulse Ox 98% on 2 lpm NC; sv 12:51 Pt placed on O2 \\T\\ 2L per NC. sv ED Course: 12:56 Patient arrived in ED. sv 12:57 Anneliese Lockhart RN is Primary Nurse. sv 12:59 Triage completed. sv 13:00 Arm band placed on. sv 13:00 Patient has correct armband on for positive identification. Bed in low position. Call light in reach. Side rails up X2. secured entrance monitor on. Pulse ox on. NIBP on. Door closed. Warm blanket given. Head of bed elevated. 13:02 Dina Keller MD is Attending Physician. ma2 13:43 X-ray completed. Portable x-ray completed in exam room. Patient tolerated procedure mh1 well. 13:44 XRAY Chest (1 view) In Process Unspecified. EDMS 13:45 Inserted saline lock: 20 gauge in right forearm, using aseptic technique. Blood sv collected. Flushed right forearm with 5 ml normal saline. 13:56 Basic Metabolic Panel Sent. sv 16:54 No provider procedures requiring assistance completed. IV discontinued, intact, sv bleeding controlled, No redness/swelling at site. Pressure dressing applied. 19:48 Primary Nurse role handed off by Anneliese Lockhart RN sv Administered Medications: 13:55 Drug: MethylPrednisoLONE 125 mg Route: IVP; Site: right forearm; sv 14:49 Follow up: Response: No adverse reaction sv 13:55 Drug: AZITHromycin 500 mg Route: IVPB; Infused Over: 1 hrs; Site: right forearm; sv 14:55 Follow up: Response: No adverse reaction; IV Status: Completed infusion; IV Intake: sv 250ml 13:56 Drug: Xopenex (levalbuterol) 1.25 mg Route: Inhalation; sv 15:07 Drug: Lasix (furosemide) 40 mg Route: IVP; Site: right forearm; sv 16:00 Follow up: Response: No adverse reaction sv 15:07 Drug: Fleet Enema (sodium phosphate) 133 ml Route: AK; sv 16:00 Follow up: Response: No adverse reaction sv 15:07 Drug: Potassium Chloride 10 mEq Route: IV; Rate: calculated rate; Site: right forearm; sv 16:05 Follow up: Response: No adverse reaction; IV Status: Completed infusion; IV Intake: 50mlsv Intake: 14:55 IV: 250ml; Total: 250ml. sv 16:05 IV: 50ml; Total: 300ml. sv Outcome: 15:51 Discharge ordered by MD. ma2 16:54 Patient left the ED. hb 16:54 Discharged to home via wheelchair, with family. sv 16:54 Condition: stable 16:54 Discharge instructions given to patient, family, Instructed on discharge instructions, follow up and referral plans. Demonstrated understanding of instructions, follow-up care. Signatures: Dispatcher [employer] EDID Anneliese Lockhart RN RN Viki White [facility] Quiroz, Malou, RN RN hb Alzahri, Mohammad, MD MD ma2
--- NOTE | 2020-06-13 15:52 | EDPHYS ---
Physician Documentation [facility] Name: Martina Martini Age: 80 yrs Sex: Female : 1940 Arrival Date: 06/13/2020 Time: 12:56 Bed 3 Private MD: ED Physician Dina Keller HPI: 06/13 15:50 This 80 yrs old Female presents to ER via EMS with complaints of High Blood ma2 Pressure. 15:50 The patient has elevated blood pressure and discovered this at home. Onset: The ma2 symptoms/episode began/occurred gradually, 1 day(s) ago. Associated signs and symptoms: Pertinent negatives: dyspnea, headache, nausea, visual changes. Severity of symptoms: At its worst the blood pressure was mild, in the emergency department the blood pressure is unchanged. The patient has experienced similar episodes in the past. no chest pain or le edema. Historical: - Allergies: 13:00 "pain meds make me crazy"; sv 13:00 PENICILLINS; sv 13:00 Phenergan; sv - PMHx: 13:00 Anemia; Hyperlipidemia; Hypertension; Asthma; Hypothyroidism; Diabetes - NIDDM; open sv heart sx; Myocardial infarction; 13:00 Dementia; sv - Immunization history:: Adult Immunizations up to date. - Social history:: Smoking status: Patient denies any tobacco usage or history of. Patient/guardian denies using alcohol, street drugs, The patient lives with family. - Family history:: not pertinent. ROS: 15:50 Constitutional: Negative for fever, chills, and weight loss. ma2 15:50 All other systems are negative. Exam: 15:50 Constitutional: This is a well developed, well nourished patient who is awake, alert, ma2 and in no acute distress. Eyes: Pupils equal round and reactive to light, extra-ocular motions intact. Lids and lashes normal. Conjunctiva and sclera are non-icteric and not injected. Cornea within normal limits. Periorbital areas with no swelling, redness, or edema. ENT: Nares patent. No nasal discharge, no septal abnormalities noted. Tympanic membranes are normal and external auditory canals are clear. Oropharynx with no redness, swelling, or masses, exudates, or evidence of obstruction, uvula midline. Mucous membranes moist. Neck: Trachea midline, no thyromegaly or masses palpated, and no cervical lymphadenopathy. Supple, full range of motion without nuchal rigidity, or vertebral point tenderness. No Meningismus. Chest/axilla: Normal chest wall appearance and motion. Nontender with no deformity. No lesions are appreciated. Cardiovascular: Regular rate and rhythm with a normal S1 and S2. No gallops, murmurs, or rubs. Normal PMI, no JVD. No pulse deficits. Respiratory: Lungs have equal breath sounds bilaterally, clear to auscultation and percussion. No rales, rhonchi or wheezes noted. No increased work of breathing, no retractions or nasal flaring. Abdomen/GI: Soft, non-tender, with normal bowel sounds. No distension or tympany. No guarding or rebound. No evidence of tenderness throughout. Back: No spinal tenderness. No costovertebral tenderness. Full range of motion. Skin: Warm, dry with normal turgor. Normal color with no rashes, no lesions, and no evidence of cellulitis. MS/ Extremity: Pulses equal, no cyanosis. Neurovascular intact. Full, normal range of motion. Neuro: Awake and alert, GCS 15, oriented to person, place, time, and situation. Cranial nerves II-XII grossly intact. Motor strength 5/5 in all extremities. Sensory grossly intact. Cerebellar exam normal. Normal gait. Vital Signs: 12:51 BP 122 / 98; Pulse 91; Resp 26; Temp 98.8; Pulse Ox 88% on R/A; sv 13:45 BP 177 / 93; Pulse 59; Resp 26; Pulse Ox 100% on 2 lpm NC; sv 14:43 BP 105 / 75; Pulse 61; Resp 26; Pulse Ox 94% on 2 lpm NC; sv 15:30 BP 122 / 96; Pulse 60; Resp 26; Pulse Ox 98% on 2 lpm NC; sv 12:51 Pt placed on O2 \\T\\ 2L per NC. sv MDM: 13:02 Patient medically screened. ma2 15:50 Differential diagnosis: hypertensive crisis, Malignant HTN, HTN. Data reviewed: vital ma2 signs, nurses notes, EMS record. Counseling: I had a detailed discussion with the patient and/or guardian regarding: the historical points, exam findings, and any diagnostic results supporting the discharge/admit diagnosis, the presence of at least one elevated blood pressure reading (>120/80) during this emergency department visit, the need for outpatient follow up. Response to treatment: the patient's symptoms have markedly improved after treatment. 06/13 13:04 Order name: Basic Metabolic Panel ma2 06/13 13:04 Order name: CBC with Diff; Complete Time: 14:34 ma2 06/13 13:04 Order name: LFT's; Complete Time: 14:34 ma2 06/13 13:04 Order name: Magnesium; Complete Time: 14:34 ma2 06/13 13:04 Order name: NT PRO-BNP; Complete Time: 14:34 ma2 06/13 13:04 Order name: PT-INR; Complete Time: 14:34 ma2 06/13 13:04 Order name: Troponin (emerg Dept Use Only); Complete Time: 14:34 ma2 06/13 13:04 Order name: XRAY Chest (1 view); Complete Time: 14:34 ma2 06/13 13:05 Order name: Basic Metabolic Panel; Complete Time: 14:34 EDMS 06/13 13:41 Order name: Urine Dipstick-Ancillary; Complete Time: 14:34 EDMS 06/13 13:04 Order name: EKG; Complete Time: 13:05 ma2 06/13 13:04 Order name: Cardiac monitoring; Complete Time: 13:56 ma2 06/13 13:04 Order name: EKG - Nurse/Tech; Complete Time: 13:56 ma2 06/13 13:04 Order name: IV Saline Lock; Complete Time: 13:56 ma2 06/13 13:04 Order name: Labs collected and sent; Complete Time: 13:56 ma2 06/13 13:04 Order name: O2 Per Protocol; Complete Time: 13:56 ma2 06/13 13:04 Order name: O2 Sat Monitoring; Complete Time: 13:56 ma2 Administered Medications: 13:55 Drug: MethylPrednisoLONE 125 mg Route: IVP; Site: right forearm; sv 14:49 Follow up: Response: No adverse reaction sv 13:55 Drug: AZITHromycin 500 mg Route: IVPB; Infused Over: 1 hrs; Site: right forearm; sv 14:55 Follow up: Response: No adverse reaction; IV Status: Completed infusion; IV Intake: sv 250ml 13:56 Drug: Xopenex (levalbuterol) 1.25 mg Route: Inhalation; sv 15:07 Drug: Lasix (furosemide) 40 mg Route: IVP; Site: right forearm; sv 16:00 Follow up: Response: No adverse reaction sv 15:07 Drug: Fleet Enema (sodium phosphate) 133 ml Route: IL; sv 16:00 Follow up: Response: No adverse reaction sv 15:07 Drug: Potassium Chloride 10 mEq Route: IV; Rate: calculated rate; Site: right forearm; sv 16:05 Follow up: Response: No adverse reaction; IV Status: Completed infusion; IV Intake: 50mlsv Disposition: 06/13/20 15:51 Discharged to Home. Impression: Essential (primary) hypertension. - Condition is Stable. - Discharge Instructions: Potassium Content of Foods, Hypertension. - Medication Reconciliation Form, Thank You Letter, Antibiotic Education, Prescription Opioid Use form. - Follow up: Private Physician; When: Tomorrow; Reason: If symptoms return, Continuance of care. Signatures: Dispatcher [employer] Anneliese Rodas RN RN sv Baxter, Heather, RN RN hb Alzahri, Mohammad, MD MD ma2 Corrections: (The following items were deleted from the chart) 16:54 15:51 06/13/2020 15:51 Discharged to Home. Impression: Essential (primary) hb hypertension. Condition is Stable. Forms are Medication Reconciliation Form, Thank You Letter, Antibiotic Education, Prescription Opioid Use. Follow up: Private Physician; When: Tomorrow; Reason: If symptoms return, Continuance of care. ma2
[2020-06-13 17:04] VITALS: BP 122/96; O2SAT 98
--- NOTE | 2020-06-14 11:20 | EKG ---
Test Date: 2020-06-13 Test Time: 13:33:32 Stand In: HB MEASUREMENT RESULTS: Intervals: Rate: 62 MO: 170 QRSD: 88 QT: 472 QTc: 479 Eclectic: P: 31 MO: 170 QRS: 41 T: -48 INTERPRETIVE STATEMENTS: Sinus rhythm with premature atrial complexes ST & T wave abnormality, consider inferior ischemia Prolonged QT Abnormal ECG Compared to ECG 04/23/2017 16:42:29 Atrial premature complex(es) now present ST (T wave) deviation now present Possible ischemia now present Prolonged QT interval now present Electronically Signed On 06-14-20 11:17:15 CDT by Meño Obrien
== END 2020-06-13 16:54 | disposition home or self-care (01) ==
LOC: ER 12:54
DX: I10 Essential (primary) hypertension (principal); I25.2 Old myocardial infarction; F03.90 Unspecified dementia, unspecified severity, without behavioral disturbance, psychotic disturbance, mood disturbance, and anxiety; Z88.0 Allergy status to penicillin; Z88.6 Allergy status to analgesic agent; Z88.8 Allergy status to other drugs, medicaments and biological substances
CPT/HCPCS: 93005; 85025; 80048; 36415; 83735; 85610; 80076; 81003; 84484; 83880; 71045; J1940; J0456; J3480; J7050 ×2; J2930; 96365; 96367; 96375; 99285

== ENCOUNTER 2021-08-07 13:54 | Inpatient (IN) | payer OTHER, MEDICARE ==
--- NOTE | 2021-08-07 16:05 | R.PREADM ---
PRE-ADMISSION SCREENING FORM SCREENING DATE AND TIME 08/07/2021 14:04 (CDT) ANTICIPATED REHAB ADMISSION DATE 08/09/2021 REFERRING FACILITY [facility] REFERRAL DATE AND TIME 08/07/2021 14:04 (CDT) REFERRAL ROOM# 8 N ACUTE ADMIT DATE 07/12/2021 Previous Rehabilitation(s): No. ACUTE WELLNESS TRAINER/DC SR. DIRECTOR KEVIN ATTENDING PHYSICIAN ELIZABETH BROCK SR., MD REFERRING PHYSICIAN ELIZABETH BROCK SR., MD REHAB FACILITY [facility] CLINICAL LIAISON Ayush Mi PHYSICIAN REVIEWER Dr. Matthew West M.D. MR# [id number] NAME CHELA STORM ADDRESS [address] [place] [address] PHONE [facility] [id number] DATE OF 1940 AGE 81 SSN# [id number] GENDER female MARITAL STATUS ADMIT FROM 02 - [facility] PRE-HOSPITAL LIVING SETTING 01 - Home (private home/apt. board/care, assisted living, intermediate, transitional living) HOME TYPE AND DETAILS Type of home: single family house # of levels in the residence: 1 # of steps within the residence: 0 # of steps to enter the residence: 0 PRE-HOSPITAL LIVING WITH Family/Relatives FAMILY SUPPORT Yes PRIMARY FAMILY CONTACT NAME ANICETO DURBIN PRIMARY FAMILY CONTACT PHONE PRIMARY FAMILY CONTACT RELATIONSHIP DAUGHTER PHONE PRIMARY FAMILY CONTACT ON ADM.? no IS PRIMARY FAMILY CONTACT AUTH. REP.? no 1ST EMERGENCY CONTACT ANICETO DURBIN 1ST CONTACT PHONE 1ST CONTACT RELATIONSHIP DAUGHTER PHONE 1ST CONTACT ON ADM. no IS 1ST CONTACT AUTH. REP.? no PHONE 2ND CONTACT ON ADM.? no PATIENT EMPLOYMENT STATUS Retired (for age) PATIENT EMPLOYER No Employer PAYOR INFORMATION: 1ST PAYOR NAME MEDICARE 1ST PAYOR PHONE 1ST PAYOR INJURY/ILLNESS DUE TO ACCIDENT? No ANOTHER DEMOCRAT RESPONSIBLE? No PRIMARY REHAB/ACUTE DIAGNOSIS: A FIB ONSET DATE 07/12/2021 REHAB IMPAIRMENT CATEGORY (PANCHO): 14 Cardiac does NOT meet 60% rule PRIMARY DIAGNOSIS-RELATED SURGERIES: N/A INTERVENTIONS: - A-Fib monitor for complications - DIABETES Monitor blood glucose levels and administer medication as indicated by Physician RISK FOR COMPLICATIONS: - CARDIC monitoring heart rate/signs and symptoms for cardiac distress - SKIN BREAKDOWN Nursing will assess skin daily using assessment tool and will place on Skin Breakdown Precautions as Indicated per protocol - WEAKNESS Nursing and therapy will help to get patient stronger - FALLS Patient will be evaluated for Fall Precautions and will be placed on Fall Precautions as indicated pe r protocol. - DEMENTIA continue with home medications SUMMARY OF ACUTE HOSPITALIZATION: Pt. is a 81 yo Right-handed female. On 07/12/2021 she was admitted to [facility] with diagnosis A FIB. Her impairment category is Cardiac 09 - Cardiac Disorders (). Pre-morbidly, Pt. was independent/mod-I in Locomotion, Safety Awareness, Social Cognition, Balance, T ransfers Control, and Sphincter Control; and she had good Self-Care, Communication, and Endurance. Currently, she has deficits of Locomotion, Social Cognition, Safety Awareness, Balance, Sphincter Con trol, Transfers Control, Self-Care, Endurance, and Communication. Pt. is now referred to [facility] for acute in-patient rehabilitation in order to maximize patient's functional independence in activities of daily living, strength, ROM, and mobi lity. Patient has realistic goal of being discharged at assistance level 7-Ind to reside at Home with Fami ly/Relatives. PAST MEDICAL HISTORY COPD GI BLEED CORONARY ARTERY ARTHRITIS ASTMA DIABETES RESTLESS LEG SYNDROME HYPERTENSION DISEASE OF THYROID GLAND PAST SURGICAL HISTORY: APPENDECTOMY CARDIAC SURGERY CHOLECYSTECTOMY COLONOSCOPY ESOPHAGOGASTRODUODENOSCOPY SMALL BOWEL CAPSULE MEDICATION ALLERGIES: ATIVAN PENICILLINS PHENERGAN ENVIRONMENTAL ALLERGIES: - Substance Allergies None Known - Other Allergies None Known CODE STATUS: Full code WEIGHT/HEIGHT/BMI: WEIGHT 172 lbs HEIGHT 5' 1" BMI 32.5 DIET: - Diet Type Regular - Diet - Solid Texture Regular - Diet - Liquid Texture Regular - Tube Feed N/A SKIN DIAGRAM: on Chest; extent - small; stage - NS(Not Stageable). Treatment - . REVIEW OF SYSTEMS: - Gen Alert and awake Lying in bed No apparent distress Oriented to: person, time, and place - Vital Signs Temperature: 98.2 F SBP/DBP: 129/70 Pulse: 75 Resp: 23 Vital signs stable, afebrile - CVS RRR VITAL SIGNS Temperature: 98.2 F SBP/DBP: 129/70 Pulse: 75 Resp: 23 Vital signs stable, afebrile MEDICATIONS/TREATMENT: Other- See attached MAR (Medication Administration Record). CURRENT SPHINCTER CONTROL: Pre-hospital bladder status: unspecified # of bladder accidents in the last 7 days prior to screenin Pre-hospital bowel status: unspecified # of bowel accidents in the last 7 days prior to screenin Last Bowel Movement Date: 08/07/2021 CURRENT LOCOMOTION STATUS: distance walked 10 feet DETAILED CURRENT FUNCTIONAL STATUS: - Bladder accident frequency: 7-Ind - No accidents in the past 7 days - Bowel accident frequency: 7-Ind - No accidents in the past 7 days - Walking score based on distance walked: 0(N/A) score based on distance walked: 1(<=50ft) - Wheelchair score based on distance traveled: 0(N/A) QI SCORES: - Self-Care A. Eating 03-Partial/moderate assistance B. Oral hygiene 03-Partial/moderate assistance C. Toileting hygiene 03-Partial/moderate assistance E. Shower/bathe self 03-Partial/moderate assistance F. Upper body dressing 03-Partial/moderate assistance G. Lower body dressing 03-Partial/moderate assistance H. Putting on/taking off footwear 03-Partial/moderate assistance - Mobility A. Roll left and right 03-Partial/moderate assistance B. Sit to lying 03-Partial/moderate assistance C. Lying to sitting on side of bed 03-Partial/moderate assistance D. Sit to stand 03-Partial/moderate assistance E. Chair/qxm-hu-tvecz transfer 03-Partial/moderate assistance F. Toilet transfer 03-Partial/moderate assistance G. Car transfer 03-Partial/moderate assistance I. Walk 10 feet 03-Partial/moderate assistance J. Walk 50 feet with two turns 88-Not attempted due to medical condition or safety concerns K. Walk 150 feet 88-Not attempted due to medical condition or safety concerns L. Walking 10 feet on uneven surfaces 88-Not attempted due to medical condition or safety concerns M. 1 step (curb) 88-Not attempted due to medical condition or safety concerns N. 4 steps 88-Not attempted due to medical condition or safety concerns O. 12 steps 88-Not attempted due to medical condition or safety concerns P. Picking up object 88-Not attempted due to medical condition or safety concerns R. Wheel 50 feet with two turns 88-Not attempted due to medical condition or safety concerns S. Wheel 150 feet - Bladder and Bowel Bladder continence Bowel continence - Endurance Fair - Balance Fair - Safety Awareness Fair CURRENT FUNC. DEFICITS: Self-Care, Mobility, Endurance, Balance, and Safety Awareness CURRENT / PREVIOUS ASSISTIVE DEVICES: Rolling Walker HISTORY OF FALLS. HAS THE PATIENT HAD TWO OR MORE FALLS IN THE PAST YEAR OR ANY FALL WITH INJURY IN T HE PAST YEAR?: No PRIOR SURGERY. DID THE PATIENT HAVE MAJOR SURGERY DURING THE 100 DAYS PRIOR TO ADMISSION?: No THERAPY NOTES FROM ACUTE CARE: Attached. SPECIAL NEEDS: - Safety Concerns Skin breakdown precautions needed due to skin breakdown risk PATIENT NEEDS ACTIVE AND ONGOING THERAPEUTIC INTERVENTION OF MULTIPLE THERAPY DISCIPLINES, INCLUDING: - Dietary and Nutrition Adequate Nutrition. Nutritional Education. Nutritional Supplements. Evaluate and Treat. - Occupational Therapy Cognitive Retraining. Patient needs Occupational Therapy for a daily minimum of 1.5 hours at least 5 out of 7 days, to improve Activities of Daily Living, including: Eating, Grooming, Bathing, Dressing, Toileting, Toilet Transfers, Community Reintegration, Higher functional activities, Adaptive Equipme nt, Splinting, Household Tasks, and Other activities as determined. Visual Perceptual Training. Evalu ate and Treat. Safety Awareness. ADL Training. Household Tasks. Transfer Training. Patient/Family Edu cation. - Speech Therapy Cognitive Training. Expressive Language Skills. Memory Strategies. Patient needs Speech Therapy for a daily minimum of 1.5 hours at least 5 out of 7 days, to improve: Swallowing, Cognition, Language Ski lls, and Compensatory Strategies. Evaluate and Treat. Receptive Language Skills. Speech Intelligibili ty Training. - Physical Therapy Patient needs Physical Therapy for a daily minimum of 1.5 hours at least 5 out of 7 days, to improve: Mobility, Strengthening, Transfers, Stretching, ROM, Endurance, Ability to manage stairs, Gait, and Balance. Balance Training. Gait Training. Safety Awareness. Evaluate and Treat. Patient/Family Educat ion. LE Strengthening. Transfer Training. PATIENT NEEDS CLOSE MEDICAL SUPERVISION BY A REHABILITATION PHYSICIAN FOR: Coordination of Treatment Team Wound Care PATIENT REQUIRES 24X7 REHAB NURSING FOR MEDICAL AND FUNCTIONAL MGT. OF THE FOLLOWING DEFICITS: Disease Management Medication Management Patient requires 24x7 Rehabilitation Nursing for: Pain Issues, Identifying and preventing risk factor s, Monitoring and reporting current medical conditions, Assisting with ambulation and transfer, Evans ting with all ADL-s, Teaching patients about disease process and medications, Family teaching, Provid ing safe environment, Bowel and Bladder Issues, Skin Integrity, and Medication Management Patient/Family Education Providing Safe Environment Skin Integrity PATIENT REQUIRES INTENSIVE, COORDINATED INTERDISCIPLINARY APPROACH TO REHAB: Arranging Home Equipment/Services Discharge Planning Family Intervention/Training Patient needs Dietary and Nutrition Services for: Adequate Nutrition, Nutritional Supplements, and Nu tritional Education Patient needs Major Gifts Manager and/or Case Management for: Discharge Planning, Arranging Home Equipmen t or Services, and Family Interventions Major Gifts Manager/Case Management PATIENT REHAB POTENTIAL: Brenda STORM is able and expected to receive 3 hours of individualized therapy daily on at least 5 of ev karlene 7 days Brenda STORM'ubaldo prognosis for significant practical improvement within a reasonable period of time appear s Good Expected level of measurable improvement will be of a practical value to Brenda STORM's functional capac ity or adaptations to impairments Has a viable Discharge Plan Medically appropriate; condition is sufficiently stable to participate in intensive rehab program DISCHARGE PLAN: - Estimated Length of Stay (days) 10. - Consensus on plan Discharge plan has been discussed with primary caregiver. Patient/Family is in agreement with the tania n. Primary caregiver is in agreement with the plan. - Patient/Family Goals Return home independently. - Planned Living Setting Upon Discharge Home, to live with Family/Relatives. Transitional Living. RECOMMENDED CARE LEVEL: IRF RECOMMENDATION DETAILS: Recommended Admission to Comprehensive Rehabilitation Program to Increase Functional [place] SCREENER'S COMPLETENESS CONFIRMATION: - Screening Confirmation The patient data collection on this preadmission screening form is finished PHYSICIANS REVIEW AND ADMISSION DETERMINATION Admit - Based on my review of the Pre-Admission Screening results, in my medical judgment and experie nce, I concur with the findings and recommend admission to [facility], as this patient requires an IRF level of care. SIGNATURE PANEL: Hand Straightener - ___Sofia Rosario 08/07/2021 at 15:39 (CDT) Hand Straightener - [electronically] signed by Ayush Mi on 08/07/2021 at 15:27 (CDT) Clinical Liaison - [electronically] signed by Sofia Rosario PTA on 08/07/2021 at 15:41 (CDT) Physician Reviewer - [electronically] signed by Dr. Matthew West M.D. on 08/07/2021 at 16:04 (CDT )
--- OUTSIDE RECORDS SUMMARY | 2021-08-07 19:30 | XMS REPORT | Continuity of Care Document ---
:1940 Author Organization [facility] Address [address] [place] [address] Care Team Providers Name Role Phone ATTAR Attending Clinician Unavailable VINOD Attending Clinician Unavailable TERRY Attending Clinician Unavailable MD Brenda BROCK Attending Clinician Unavailable VINOD Admitting Clinician Unavailable MD Brenda BROCK Admitting Clinician Unavailable Problems This patient has no known problems. Allergies, Adverse Reactions, Alerts This patient has no known allergies or adverse reactions. Medications This patient has no known medications. Procedures This patient has no known procedures. Encounters Start End Encounter Admission Attending Care Care Encounter Source Date/Time Date/Time Type Type Clinicians Facility Department ID 2021-07-12 2021-08-[address] [facility] [id number] [place] 00:00:00 00:00:00 [facility] [address] 2021-07-17 2021-07-17 Inpatient VINOD, [facility] [id number] [place] 00:00:00 00:00:00 ELIZABETH [address] 2021-07-17 2021-07-17 Outpatient [facility] [id number] [place] 00:00:00 00:00:00 ELIZABETH [address] 2021-04-27 2021-04-27 Outpatient TERRY, [facility] [id number] [place] 00:00:00 00:00:00 CARLOS [address] 2021-04-05 2021-04-05 Outpatient [facility] [id number] [place] 00:00:00 00:00:00 ELIZABETH [address] 2021-04-05 2021-04-05 Outpatient VINOD, [facility] [id number] [place] 00:00:00 00:00:00 ELIZABETH [address] 2020-06-27 2020-07-[address] [id number] [place] 00:00:00 00:00:00 ELIZABETH [address] 2019-09-29 2019-09-29 Outpatient VINOD, [facility] [id number] [place] 00:00:00 00:00:00 ELIZABETH [address] Results Test Description Test Time Test Comments Results Result Comments Source SARS-CoV-2 (COVID-19) RNA [Presence] in Respiratory sp ecimen by 2021-08-01 23:03:25 ROLF with probe detection Test Item Value Reference Range Interpretation Comme nts SARS-CoV-2 (COVID-19) RNA [Presence] in Respiratory specimen by Not detected ROLF with probe detection (test code = 36254-5) Whether patient is employed in a healthcare setting (test code = Un known 24315-8) Whether the patient has symptoms related to condition of interest U nknown (test code = 45232-4) Whether the patient was hospitalized for condition of interest Unkn own (test code = 98549-1) Whether the patient was admitted to intensive care unit (ICU) for U nknown condition of interest (test code = 86379-9) Whether patient resides in a congregate care setting (test code = U nknown 79737-6) status (test code = 83756-1) Unknown Date and time of symptom onset (test code = 03151-5) Unknown SARS-CoV-2 (COVID-19) RNA [Presence] in Respiratory specimen by ROLF with probe [id number] 12:55:38 Test Item Value Reference Range Interpretation Comments SARS-CoV-2 (COVID-19) RNA Not detected [Presence] in Respiratory specimen by ROLF with probe detection (test code = 52492-5) Whether patient is employed in a Unknown healthcare setting (test code = 70889-3) Whether the patient has symptoms Unknown related to condition of interest (test code = 95121-8) Whether the patient was Unknown hospitalized for condition of interest (test code = 95701-7) Whether the patient was admitted Unknown to intensive care unit (ICU) for condition of interest (test code = 97600-3) Whether patient resides in a Unknown congregate care setting (test code = 48718-4) status (test code = Unknown 31875-2) Date and time of symptom onset Unknown (test code = 96184-1) SARS-CoV-2 (COVID-19) RNA [Presence] in Respiratory specimen by ROLF with probe [id number] 17:15:25 Test Item Value Reference Range Interpretation Comments SARS-CoV-2 (COVID-19) RNA Not detected [Presence] in Respiratory specimen by ROLF with probe detection (test code = 06568-5) Whether patient is employed in a Unknown healthcare setting (test code = 38013-3) Whether the patient has symptoms Unknown related to condition of interest (test code = 96032-7) Whether the patient was Unknown hospitalized for condition of interest (test code = 77230-2) Whether the patient was admitted Unknown to intensive care unit (ICU) for condition of interest (test code = 66586-0) Whether patient resides in a Unknown congregate care setting (test code = 22669-4) status (test code = Unknown 95654-1) Date and time of symptom onset Unknown (test code = 00363-8) SARS-CoV-2 (COVID-19) RNA [Presence] in Respiratory specimen by ROLF with probe [id number] 19:33:29 Test Item Value Reference Range Interpretation Comments SARS-CoV-2 (COVID-19) RNA Not detected [Presence] in Respiratory specimen by ROLF with probe detection (test code = 75445-9) Whether patient is employed in a Unknown healthcare setting (test code = 36878-4) Whether the patient has symptoms Unknown related to condition of interest (test code = 72634-5) Whether the patient was Unknown hospitalized for condition of interest (test code = 74801-8) Whether the patient was admitted Unknown to intensive care unit (ICU) for condition of interest (test code = 71058-8) Whether patient resides in a Unknown congregate care setting (test code = 49015-4) status (test code = Unknown 20094-8) Date and time of symptom onset Unknown (test code = 09335-5) SARS-CoV-2 (COVID-19) RNA [Presence] in Respiratory specimen by ROLF with probe [id number] 06:01:59 Test Item Value Reference Range Interpretation Comments SARS-CoV-2 (COVID-19) RNA Not detected Not-Detected [Presence] in Respiratory specimen by ROLF with probe detection (test code = 09317-5) Whether patient is employed in a healthcare setting (test code = 73332-6) Whether the patient has symptoms related to condition of interest (test code = 90621-8) Patient was hospitalized because of this condition (test code = 61635-8) Whether the patient was admitted to intensive care unit (ICU) for condition of interest (test code = 69083-4) Whether patient resides in a congregate care setting (test code = 24567-7) SARS-CoV-2 (COVID-19) RNA [Presence] in Respiratory specimen by ROLF with probe [id number] 18:55:46 Test Item Value Reference Range Interpretation Comments SARS-CoV-2 (COVID-19) RNA Not detected Not-Detected [Presence] in Respiratory specimen by ROLF with probe detection (test code = 07830-8)
[2021-08-07 19:50] VITALS: BMI 32.5
[2021-08-07] MEDS ORDERED: BISACODYL 10 MG RECTAL SUPP PR PRN (20:00)
[2021-08-07] MEDS ORDERED: ALBUTEROL INHALER 60 PUFF/8 GM IH PRN (20:12)
[2021-08-07] MEDS ORDERED: LEVALBUTEROL 0.63 MG/3 ML NEB NEB PRN (20:15)
[2021-08-07] MEDS ORDERED: D50W 25 GM/50 ML SYRINGE IV PRN (20:19)
[2021-08-07] MEDS ORDERED: GLUCAGON 1 MG/VIAL IM PRN (20:19)
[2021-08-07] MEDS ORDERED: D10W 125 ML IV PRN (20:23)
[2021-08-07] MEDS: INSULIN -REGULAR HUMAN 50 UNIT/0.5 ML ML SQ SCH (20:37)
[2021-08-07] MEDS: ASPIRIN 81 MG CHEWABLE TABLET PO SCH (20:43)
[2021-08-07] MEDS: NYSTATIN 500,000 UNIT/5 ML UDC PO SCH (20:43)
[2021-08-07] MEDS: HYDRALAZINE HCL 25 MG TABLET PO SCH (20:43)
[2021-08-07] MEDS: DONEPEZIL HCL 5 MG TAB PO SCH (20:44)
[2021-08-07 21:15] LABS: Urine Appearance Clear (Clear); Urine Bilirubin Negative (Negative); Urine Blood Negative (Negative); Urine Color Yellow (Yellow); Urine Glucose Negative (Negative); Urine Protein Negative (Negative)
[2021-08-07 21:19] LABS: Urine Bacteria <20 /HPF (<20); Urine RBC NONE SEEN /HPF (NONE SEEN); Urine Urothelial Cells <5 /HPF (NONE SEEN); Urine Yeast PRESENT (NONE SEEN); Urine Yeast with Hyphae PRESENT
[2021-08-07] MEDS: ARFORMOTEROL TARTRATE 15 MCG/2 ML VIAL.NEB NEB SCH (22:15)
[2021-08-07] MEDS: BUDESONIDE 0.5 MG/2 ML NEB NEB SCH (22:15)
[2021-08-07] MEDS: TRAMADOL HCL 50 MG TAB PO PRN (22:20)
[2021-08-08] MEDS: IPRATROPIUM BROM 0.5MG/2.5ML NEB SCH ×3 (01:49→14:00)
[2021-08-08] MEDS: TRAMADOL HCL 50 MG TAB PO PRN ×3 (03:21→12:55)
[2021-08-08 05:56] LABS: Absolute Lymphocytes (CBC) 1.3 K/uL (0.7-4.9); Hematocrit 24.1 % (36.0-45.0); Lymphocytes % 17.7 % (15.3-44.8); MCV 99.1 fL (80-100); MPV 6.6 fL (7.6-11.3); RBC Red Blood Cell Count 2.43 M/uL (3.86-4.86)
[2021-08-08 06:21] LABS: Albumin 2.9 g/dL (3.4-5.0); Magnesium 1.5 mg/dL (1.8-2.4); Potassium 3.5 mmol/L (3.5-5.1)
[2021-08-08] MEDS ORDERED: atenoloL 25 MG TAB ONE ×2 (07:17→20:02)
[2021-08-08 07:19] LABS: Anisocytosis 2+; Blood Morphology Comment NOTED (NOT SEEN); Macrocytosis 1+; Platelet Estimate ADEQ; White Blood Cell Scan OK (OK)
[2021-08-08] MEDS: INSULIN -REGULAR HUMAN 50 UNIT/0.5 ML ML SQ SCH ×4 (07:30→20:53)
[2021-08-08] MEDS: PANTOPRAZOLE 40MG TABLET PO SCH (07:38)
[2021-08-08] MEDS ORDERED: ASPIRIN 81 MG CHEWABLE TABLET PO SCH (08:00)
[2021-08-08] MEDS ORDERED: AMIODARONE HCL 200 MG TAB PO SCH (08:00)
[2021-08-08] MEDS: ARFORMOTEROL TARTRATE 15 MCG/2 ML VIAL.NEB NEB SCH ×2 (08:00→20:50)
[2021-08-08] MEDS: LIDOCAINE 4% PATCH TOP SCH (08:42)
[2021-08-08] MEDS: AMIODARONE HCL 200 MG TAB PO SCH (08:45)
[2021-08-08] MEDS: VITAMIN D 1000 UNIT TAB PO SCH (08:45)
[2021-08-08] MEDS: MULTIVITAMIN TAB PO SCH (08:45)
[2021-08-08] MEDS: HYDRALAZINE HCL 25 MG TABLET PO SCH ×3 (08:46→19:59)
[2021-08-08] MEDS: atenoloL 50 MG TAB PO SCH ×2 (08:47→19:59)
[2021-08-08] MEDS: ATORVASTATIN 10 MG TAB PO SCH (08:48)
[2021-08-08] MEDS: NYSTATIN 500,000 UNIT/5 ML UDC PO SCH ×4 (08:50→19:59)
[2021-08-08] MEDS: BUDESONIDE 0.5 MG/2 ML NEB NEB SCH ×2 (09:05→20:50)
[2021-08-08] MEDS: lisinopriL 20 MG TAB PO SCH ×2 (10:55→19:57)
[2021-08-08] MEDS ORDERED: MAGNESIUM SULFATE 1 gm IVPB 1 GM/100 ML BAG IV ONE (14:10)
[2021-08-08] MEDS ORDERED: POTASSIUM CL SA 10 MEQ TAB PO ONE (14:13)
[2021-08-08] MEDS ORDERED: IPRATROPIUM BROM 0.5MG/2.5ML NEB PRN (15:04)
[2021-08-08] MEDS ORDERED: MAGNESIUM OXIDE 400 MG TAB PO ONE (16:05)
--- NOTE | 2021-08-08 18:01 | R.HP ---
HISTORY AND PHYSICAL FACILITY: [facility] ENCOUNTER DATE AND TIME: 08/08/2021 17:54 (CDT) MR#: [id number] NAME CHELA STORM ADDRESS: [address] [place] [address] CITY: [facility] [id number] PHONE: DATE OF : 1940 AGE: 81 SSN# [id number] GENDER: Female MARITAL STATUS PRE-HOSPITAL LIVING SETTING 01 - Home (private home/apt. board/care, [place] living, [place] [facility], transitional living) PRE-HOSPITAL LIVING WITH Family/Relatives ENCOUNTER PHYSICIAN: Dr. Matthew West M.D. REFERRING DOCTOR: ELIZABETH BROCK SR., MD DATE OF ADMISSION: 08/07/2021 19:27 (CDT) REFERRING FACILITY [facility] HOME TYPE AND DETAILS: Type of home: single family house # of levels in the residence: 1 # of steps within the residence: 0 # of steps to enter the residence: 0 ONSET DATE: 07/12/2021 PRIMARY DIAGNOSIS-RELATED SURGERIES: N/A HISTORY OF PRESENT ILLNESS (HPI): Pt. is a 81 yo Right-handed female. On 07/12/2021 she was admitted to [facility] with diagnosis A FIB, debility. Her impairment category is Cardiac 09 - Cardiac Disorders (09). Pre-morbidly, Pt. was independent/mod-I in Locomotion, Safety Awareness, Social Cognition, Balance, T ransfers Control, and Sphincter Control; and she had good Self-Care, Communication, and Endurance. Currently, she has deficits of Locomotion, Social Cognition, Safety Awareness, Balance, Sphincter Con trol, Transfers Control, Self-Care, Endurance, and Communication. Pt. is now referred to [facility] for acute in-patient rehabilitation in order to maximize patient's functional independence in activities of daily living, strength, ROM, and mobi lity. Patient has realistic goal of being discharged at assistance level 7-Ind to reside at Home with Fami ly/Relatives. MEDICATION ALLERGIES: ATIVAN PENICILLINS PHENERGAN ENVIRONMENTAL ALLERGIES: - Substance Allergies None Known - Other Allergies None Known PAST MEDICAL HISTORY: COPD GI BLEED CORONARY ARTERY ARTHRITIS ASTMA DIABETES RESTLESS LEG SYNDROME HYPERTENSION DISEASE OF THYROID GLAND PAST SURGICAL HISTORY: APPENDECTOMY CARDIAC SURGERY CHOLECYSTECTOMY COLONOSCOPY ESOPHAGOGASTRODUODENOSCOPY SMALL BOWEL CAPSULE SOCIAL HISTORY: - Home Living Family/Relatives REVIEW OF SYSTEMS: - Gen No Chills No Fatigue No Fever - Eyes No Double Vision No itchiness - ENMT No Difficulty Swallowing - CVS Chest Discomfort No Chest Pain No Fatigue No Weight Gain - Resp No Cough No Shortness of Breath - GI Continent No Abdominal Pain No Constipation No Diarrhea Loss of Appetite - Continent No Kidney Pain No Painful Urination No Urinary Urgency - MSK No Joint Pain No Muscle Cramps Stiffness - Skin No Itching No Rash No Suspicious Lesions - Neuro Coordination Difficulty Difficulty with Concentration Memory Loss No Seizures Weakness - Psych No Anxiety No Depression No HIV Exposure No Persistent Infections No Seasonal Allergies - Endo No Cold/Heat Intolerance No Excessive Hunger No Excessive Thirst No Excessive Urination PHYSICAL EXAM - Gen Alert and awake Lying in bed No apparent distress Oriented to: person, time, and place - Skin No breakdowns No abnormalities - Eyes No abnormalities - ENMT No abnormalities - Neck No abnormalities - CVS RRR - Chest No abnormalities - Resp No wheezing - Abd Soft - GI + bowel sounds - No abnormalities - Ext Mild bilateral lower extremity edema. - MSK 4/5 weakness in both lower extremities. - Neuro No focal deficits - Psych Mild depression. VITAL SIGNS Temperature: 98.6 F SBP/DBP: 137/76 Pulse: 97 Resp: 16 NURSING: - Shower allowing shower ACTIVITIES OOB only with supervision QI SCORES: - Self-Care A. Eating 03-Partial/moderate assistance B. Oral hygiene 03-Partial/moderate assistance C. Toileting hygiene 03-Partial/moderate assistance E. Shower/bathe self 03-Partial/moderate assistance F. Upper body dressing 03-Partial/moderate assistance G. Lower body dressing 03-Partial/moderate assistance H. Putting on/taking off footwear 03-Partial/moderate assistance - Mobility A. Roll left and right 03-Partial/moderate assistance B. Sit to lying 03-Partial/moderate assistance C. Lying to sitting on side of bed 03-Partial/moderate assistance D. Sit to stand 03-Partial/moderate assistance E. Chair/axp-lt-bckvj transfer 03-Partial/moderate assistance F. Toilet transfer 03-Partial/moderate assistance G. Car transfer 03-Partial/moderate assistance I. Walk 10 feet 03-Partial/moderate assistance J. Walk 50 feet with two turns 88-Not attempted due to medical condition or safety concerns K. Walk 150 feet 88-Not attempted due to medical condition or safety concerns L. Walking 10 feet on uneven surfaces 88-Not attempted due to medical condition or safety concerns M. 1 step (curb) 88-Not attempted due to medical condition or safety concerns N. 4 steps 88-Not attempted due to medical condition or safety concerns O. 12 steps 88-Not attempted due to medical condition or safety concerns P. Picking up object 88-Not attempted due to medical condition or safety concerns R. Wheel 50 feet with two turns 88-Not attempted due to medical condition or safety concerns S. Wheel 150 feet - Bladder and Bowel Bladder continence Bowel continence - Endurance Fair - Balance Fair - Safety Awareness Fair CURRENT FUNC. DEFICITS: Self-Care, Mobility, Endurance, Balance, and Safety Awareness MEDICATIONS: - Other See attached MAR (Medication Administration Record) ASSESSMENT: Pt. is a 81 yo Right-handed female.On 07/12/2021 she was admitted to [facility] with diagnosis A FIB, debility.Her impairment category is Cardiac 09 - Cardiac Disorders ().Pre-morbidly, Pt. was indepe ndent/mod-I in Locomotion, Safety Awareness, Social Cognition, Balance, Transfers Control, and Sphinc ter Control; and she had good Self-Care, Communication, and Endurance.Currently, she has deficits of Locomotion, Social Cognition, Safety Awareness, Balance, Sphincter Control, Transfers Control, Self-C are, Endurance, and Communication.Pt. is now referred to [facility] for acute in-patient rehabilitation in order to maximize patient's functional independence in activities of mary ly living, strength, ROM, and mobility.- Rehab Goal Patient has realistic goal of being discharged at assistance level 7-Ind to reside at Home with Fami ly/Relatives. - Physical Therapy Weakness - to improve, our physical therapists will perform initial evaluation of pt's status upon a dmission and devise an individualized program for Aquatic Therapy, Neuromuscular Reeducation, and Str engthening Poor balance - to improve, our physical therapists will perform initial evaluation of pt's status up on admission and devise an individualized program for Balance Training Inability to transfer - to improve, our physical therapists will perform initial evaluation of pt's status upon admission and devise an individualized program for Bed mobility Need in caregiver upon discharge - to improve, our physical therapists will perform initial evaluati on of pt's status upon admission and devise an individualized program for Caregiver Training Poor endurance - to improve, our physical therapists will perform initial evaluation of pt's status upon admission and devise an individualized program for Endurance Training Gait dysfunction - to improve, our physical therapists will perform initial evaluation of pt's statu s upon admission and devise an individualized program for Gait Training, and Wheel Chair mobility Need for home safety evaluation - to improve, our physical therapists will perform initial evaluatio n of pt's status upon admission and devise an individualized program for Home Evaluation New precaution - to improve, our physical therapists will perform initial evaluation of pt's status upon admission and devise an individualized program for Patient precaution education Edema - to improve, our physical therapists will perform initial evaluation of pt's status upon admi ssion and devise an individualized program for Elevation Training, and Lymphedema Therapy - Occupational Therapy Weakness - to improve, our occupation therapists will perform initial evaluation of pt's status upon admission and devise an individualized program for Aquatic Therapy, Balance, Endurance, UE ROM, and UE strengthening ADL deficits - to improve, our occupation therapists will perform initial evaluation of pt's status upon admission and devise an individualized program for Bathing, Bed mobility, Community Reintegratio n, Cooking, Dressing, Eating, Fine Motor Skills, Grooming, Homemaking, Kitchen Mobility, Laundry, Pat ient Education, Safety Awareness, Splinting - Positioning, Transfers(Toilet, Tub, Shower), and Wheel Chair Management Need for home care and home health aides teacher - to improve, our occupation therapists will perform initial evaluation of pt's status upon admission and devise an individualized program for Caregiver Training Cognitive deficits - to improve, our occupation therapists will perform initial evaluation of pt's s tatus upon admission and devise an individualized program for Cognition - orientation - Balance for Weakness - Bed mobility for ADL deficits MEDICAL PLAN: - Diet Type Start Regular - Diet - Liquid Texture Start Regular - Tube Feed Start N/A - Other See attached MAR (Medication Administration Record) - Diet - Solid Texture Regular - Shower shower DISCHARGE PLAN: - Estimated Length of Stay (days) 10. - Consensus on plan Discharge plan has been discussed with primary caregiver. Patient/Family is in agreement with the tania n. Primary caregiver is in agreement with the plan. - Patient/Family Goals Return home independently. - Planned Living Setting Upon Discharge Home, to live with Family/Relatives. Transitional Living. SIGNATURE PANEL: (CDT)
--- NOTE | 2021-08-08 18:02 | PAPE ---
POST ADMISSION PHYSICIAN EVALUATION PATIENT: [facility] MR# [id number] REFERRING DOCTOR ELIZABETH BROCK SR., MD EVALUATION DATE AND TIME 08/08/2021 18:00 (CDT) NAME CHELA STORM DATE OF 1940 AGE 81 PHONE SSN# [id number] GENDER female EVALUATING PHYSICIAN Dr. Matthew West M.D. ADMISSION DIAGNOSIS: A FIB, debility ONSET DATE 07/12/2021 POST-ADMISSION FUNCTIONAL/MEDICAL STATUS: - Bladder Same accident frequency: 7-Ind - No accidents in the past 7 days - Bowel Same accident frequency: 7-Ind - No accidents in the past 7 days - Walking Same score based on distance walked: 0(N/A) Same score based on distance walked: 1(<=50ft) - Wheelchair Same score based on distance traveled: 0(N/A) STATUS CHANGE EVALUATION: No change in Functional or Medical Status is identified compared with Pre-Admission screening. PATIENT NEEDS CLOSE MEDICAL SUPERVISION BY A REHABILITATION PHYSICIAN FOR: Coordination of Treatment Team Wound Care PATIENT REQUIRES 24X7 REHAB NURSING FOR MEDICAL AND FUNCTIONAL MGT. OF THE FOLLOWING DEFICITS: Disease Management Medication Management Patient requires 24x7 Rehabilitation Nursing for: Pain Issues, Identifying and preventing risk factor s, Monitoring and reporting current medical conditions, Assisting with ambulation and transfer, Evans ting with all ADL-s, Teaching patients about disease process and medications, Family teaching, Provid ing safe environment, Bowel and Bladder Issues, Skin Integrity, and Medication Management Patient/Family Education Providing Safe Environment Skin Integrity PATIENT REQUIRES INTENSIVE, COORDINATED INTERDISCIPLINARY APPROACH TO REHAB: Arranging Home Equipment/Services Discharge Planning Family Intervention/Training Patient needs Dietary and Nutrition Services for: Adequate Nutrition, Nutritional Supplements, and Nu tritional Education Patient needs Gasket Winder and/or Case Management for: Discharge Planning, Arranging Home Equipmen t or Services, and Family Interventions Gasket Winder/Case Management LIST OF IDENTIFIED AND POTENTIAL PROBLEMS: Alteration in leisure activities Bladder, Incontinence Bowel, Incontinence Infection, Actual or Potential Mobility Impaired Pain, Alteration in Comfort Self Care Deficit Skin Integrity, Actual or Potential Urinary Tract Infection (UTI), Actual or Potential RISK FOR COMPLICATIONS - CARDIC monitoring heart rate/signs and symptoms for cardiac distress. - SKIN BREAKDOWN Nursing will assess skin daily using assessment tool and will place on Skin Breakdown Precautions as Indicated per protocol. - WEAKNESS Nursing and therapy will help to get patient stronger. - FALLS Patient will be evaluated for Fall Precautions and will be placed on Fall Precautions as indicated pe r protocol. - DEMENTIA continue with home medications. INTERVENTIONS - A-Fib monitor for complications. - DIABETES Monitor blood glucose levels and administer medication as indicated by Physician. PATIENT COULD BE AT RISK FOR COMPLICATIONS FROM ADVERSE MEDICAL CONDITIONS DUE TO HIS/HER COMORBIDITI ES AND THE RIGORS OF THE INTENSIVE REHABILLITATION PROGRAM. METHODS OR INTERVENTIONS TO AVOID COMPLIC ATIONS INCLUDE: - Bleeding Assess lab values and manage abnormalities. Nursing to teach precautions for anti-coagulation therapy . Wound to be assessed every shift. - Infection Clinical staff to assess and manage the signs and symptoms of infection including fever, redness, war mth, etc. - Urinary Tract Infection - Falls Patient will be evaluated for Fall Precautions and will be placed on Fall Precautions as indicated pe r protocol. - Skin Breakdown Nursing will assess skin daily using assessment tool and will place on Skin Breakdown Precautions as indicated per protocol. - Pain Clinical staff may employ non-medication methods such as massage, distraction, decrease stimulus, etc . as needed. Clinical staff will assess patient's pain level every shift per protocol to assess and e nsure pain management effectiveness. Medications will be given and the pain level re-assessed. PRELIMINARY PLAN OF CARE: - Physical Therapy Patient needs Physical Therapy for a daily minimum of 1.5 hours at least 5 out of 7 days, to improve: Mobility, Strengthening, Transfers, Stretching, ROM, Endurance, Ability to manage stairs, Gait, and Balance. - Speech Therapy Patient needs Speech Therapy for a daily minimum of 0.5 hours at least 5 out of 7 days, to improve: S wallowing, Cognition, Language Skills, and Compensatory Strategies. - Rehabilitation Nursing Patient requires 24x7 Rehabilitation Nursing for: Pain Issues, Identifying and preventing risk factor s, Monitoring and reporting current medical conditions, Assisting with ambulation and transfer, Evans ting with all ADL-s, Teaching patients about disease process and medications, Family teaching, Provid ing safe environment, Bowel and Bladder Issues, Skin Integrity, and Medication Management. Patient needs Gasket Winder and/or Case Management for: Discharge Planning, Arranging Home Equipmen t or Services, and Family Interventions. - Dietary and Nutrition Services Patient needs Dietary and Nutrition Services for: Adequate Nutrition, Nutritional Supplements, and Nu tritional Education. - Occupational Therapy Patient needs Occupational Therapy for a daily minimum of 1.5 hours at least 5 out of 7 days, to impr ove Activities of Daily Living, including: Eating, Grooming, Bathing, Dressing, Toileting, Toilet Tra nsfers, Community Reintegration, Higher functional activities, Adaptive Equipment, Splinting, Househo ld Tasks, and Other activities as determined. QI SCORES: - Self-Care A. Eating 03-Partial/moderate assistance B. Oral hygiene 03-Partial/moderate assistance C. Toileting hygiene 03-Partial/moderate assistance E. Shower/bathe self 03-Partial/moderate assistance F. Upper body dressing 03-Partial/moderate assistance G. Lower body dressing 03-Partial/moderate assistance H. Putting on/taking off footwear 03-Partial/moderate assistance - Mobility A. Roll left and right 03-Partial/moderate assistance B. Sit to lying 03-Partial/moderate assistance C. Lying to sitting on side of bed 03-Partial/moderate assistance D. Sit to stand 03-Partial/moderate assistance E. Chair/gww-hm-bchbw transfer 03-Partial/moderate assistance F. Toilet transfer 03-Partial/moderate assistance G. Car transfer 03-Partial/moderate assistance I. Walk 10 feet 03-Partial/moderate assistance J. Walk 50 feet with two turns 88-Not attempted due to medical condition or safety concerns K. Walk 150 feet 88-Not attempted due to medical condition or safety concerns L. Walking 10 feet on uneven surfaces 88-Not attempted due to medical condition or safety concerns M. 1 step (curb) 88-Not attempted due to medical condition or safety concerns N. 4 steps 88-Not attempted due to medical condition or safety concerns O. 12 steps 88-Not attempted due to medical condition or safety concerns P. Picking up object 88-Not attempted due to medical condition or safety concerns R. Wheel 50 feet with two turns 88-Not attempted due to medical condition or safety concerns S. Wheel 150 feet - Bladder and Bowel Bladder continence Bowel continence - Endurance Fair - Balance Fair - Safety Awareness Fair POTENTIAL FUNCTIONAL GOALS FOR PATIENT TO ACHIEVE BY DISCHARGE: - Safety Precaution Patient will remain free from falls or injury at time of discharge. - Bed Mobility Patient will perform bed mobility at 4-Hima level of assistance. - Transfers Patient will complete transfers from bed to chair at 4-Hima level of assistance. - Mobility Patient will ambulate 150 ft with 4-Hima level of assistance with RW. PATIENT REHAB POTENTIAL Brenda STORM is able and expected to receive 3 hours of individualized therapy daily on at least 5 of ev karlene 7 days Brenda STORM'ubaldo prognosis for significant practical improvement within a reasonable period of time appear s Good Expected level of measurable improvement will be of a practical value to Brenda Cantu functional capac ity or adaptations to impairments Has a viable Discharge Plan Medically appropriate; condition is sufficiently stable to participate in intensive rehab program DISCHARGE PLAN: - Estimated Length of Stay (days) 10. - Consensus on plan Discharge plan has been discussed with primary caregiver. Patient/Family is in agreement with the tania n. Primary caregiver is in agreement with the plan. - Patient/Family Goals Return home independently. - Planned Living Setting Upon Discharge Home, to live with Family/Relatives. Transitional Living. CONCLUSION ON REHABILITATION NECESSITY: I have evaluated patient's pre-admission functional status and, comparing it to the patient's post-ad mission functional status now, I conclude that the pre-admission assessment was accurate. Patient's c ondition on admission supports the medical necessity of admission to IRF. It is safe to proceed with patient's therapy program. SIGNATURE PANEL: (CDT)
[2021-08-08] MEDS: APIXABAN 2.5 MG TABLET PO SCH (19:56)
[2021-08-08] MEDS: CRANBERRY FRUIT EXTRACT 400 MG CAP PO SCH (19:56)
[2021-08-08] MEDS: MEGESTROL 40 MG TAB PO SCH (19:57)
[2021-08-08] MEDS: GABAPENTIN 100 MG CAP PO SCH (19:57)
[2021-08-08] MEDS: MAGNESIUM OXIDE 400 MG TAB PO SCH (19:57)
[2021-08-08] MEDS: TAMSULOSIN 0.4 MG SR CAP PO SCH (19:58)
[2021-08-08] MEDS: DONEPEZIL HCL 5 MG TAB PO SCH (19:58)
[2021-08-08] MEDS: ASPIRIN 81 MG CHEWABLE TABLET PO SCH (19:59)
[2021-08-08] MEDS: DOCUSATE NA/SENNA CONC 1 TAB PO PRN (20:00)
[2021-08-08] MEDS ORDERED: MAGNESIUM OXIDE 400 MG TAB PO SCH (20:00)
[2021-08-08] MEDS: GLUCERNA SHAKE 237 ML CAN PO SCH (20:00)
[2021-08-08] MEDS: MELATONIN 3 MG TABLET PO PRN (20:00)
[2021-08-09 05:02] LABS: Magnesium 2.2 mg/dL (1.8-2.4); Potassium 3.6 mmol/L (3.5-5.1)
[2021-08-09] MEDS ORDERED: atenoloL 25 MG TAB ONE (06:51)
[2021-08-09] MEDS: PANTOPRAZOLE 40MG TABLET PO SCH (07:18)
[2021-08-09] MEDS: INSULIN -REGULAR HUMAN 50 UNIT/0.5 ML ML SQ SCH ×4 (07:30→21:06)
[2021-08-09] MEDS: VITAMIN D 1000 UNIT TAB PO SCH (07:47)
[2021-08-09] MEDS: NYSTATIN 500,000 UNIT/5 ML UDC PO SCH ×4 (07:47→20:47)
[2021-08-09] MEDS: FE SULF/FA/VIT B COMP & C TAB PO SCH (07:48)
[2021-08-09] MEDS: CRANBERRY FRUIT EXTRACT 400 MG CAP PO SCH ×2 (07:48→20:48)
[2021-08-09] MEDS: FERROUS SULFATE 325 MG TAB PO SCH (07:48)
[2021-08-09] MEDS: ATORVASTATIN 10 MG TAB PO SCH (07:48)
[2021-08-09] MEDS: MEGESTROL 40 MG TAB PO SCH ×2 (07:48→20:48)
[2021-08-09] MEDS: MULTIVITAMIN TAB PO SCH (07:48)
[2021-08-09] MEDS: APIXABAN 2.5 MG TABLET PO SCH ×2 (07:49→20:49)
[2021-08-09] MEDS: MAGNESIUM OXIDE 400 MG TAB PO SCH ×2 (07:49→20:48)
[2021-08-09] MEDS: CYANOCOBALAMIN 1,000 MCG TAB PO SCH (07:49)
[2021-08-09] MEDS: predniSONE 10 MG TAB PO SCH (07:49)
[2021-08-09] MEDS: lisinopriL 20 MG TAB PO SCH ×2 (07:49→20:00)
[2021-08-09] MEDS: GABAPENTIN 100 MG CAP PO SCH ×2 (07:50→20:47)
[2021-08-09] MEDS: AMIODARONE HCL 200 MG TAB PO SCH (07:50)
[2021-08-09] MEDS: GLUCERNA SHAKE 237 ML CAN PO SCH ×2 (07:51→20:00)
[2021-08-09] MEDS: atenoloL 50 MG TAB PO SCH ×2 (07:52→20:00)
--- NOTE | 2021-08-09 08:08 | RAD REPORT ---
EXAM DESCRIPTION: RAD - Chest Single View - 08/09/2021 5:53 am CLINICAL HISTORY: hx copd, asthma COMPARISON: Chest Single View dated 06/13/2020; Chest Single View dated 04/23/2017; Chest Pa And Lat (2 Views) dated 10/04/2016; Chest Pa And Lat (2 Views) dated 07/17/2016 FINDINGS: Lines: None. Lungs: Coarsening of the interstitium. Pleural: No significant pleural effusions or pneumothorax. Cardiac: Cardiomegaly. Bones: No acute fractures. Sternotomy. Other: IMPRESSION: Nonspecific coarsened interstitium could reflect either mild edema or infection/inflamma tion. No consolidative pneumonia.
[2021-08-09] MEDS: HYDRALAZINE HCL 25 MG TABLET PO SCH ×3 (09:00→20:49)
[2021-08-09] MEDS: TRAMADOL HCL 50 MG TAB PO PRN (09:05)
[2021-08-09] MEDS: ARFORMOTEROL TARTRATE 15 MCG/2 ML VIAL.NEB NEB SCH ×2 (09:35→20:00)
[2021-08-09] MEDS: BUDESONIDE 0.5 MG/2 ML NEB NEB SCH ×2 (09:35→20:00)
[2021-08-09] MEDS: LIDOCAINE 4% PATCH TOP SCH (11:06)
--- NOTE | 2021-08-09 12:55 | EKG ---
Test Date: 2021-08-08 Test Time: 13:34:45 Driller And Reamer: VICKIE MEASUREMENT RESULTS: Intervals: Rate: 86 WA: QRSD: 84 QT: 392 QTc: 469 Kamuela: P: WA: QRS: 43 T: -79 INTERPRETIVE STATEMENTS: Atrial fibrillation with a competing junctional pacemaker ST & T wave abnormality, consider inferior ischemia or digitalis effect ST & T wave abnormality, consider anterior ischemia or digitalis effect Abnormal ECG Compared to ECG 06/13/2020 13:33:32 Sinus rhythm no longer present Atrial premature complex(es) no longer present Prolonged QT interval no longer present ST (T wave) deviation still present Possible ischemia still present Electronically Signed On 08-09-21 12:53:57 CDT by Meño Obrien
--- NOTE | 2021-08-09 17:56 | R.PN ---
PROGRESS NOTES ENCOUNTER DATE AND TIME: 08/09/2021 17:47 (CDT) NAME CHELA STORM DATE OF : 1940 DATE OF ADMISSION: 08/07/2021 19:27 (CDT) A FIB, debilityCHIEF COMPLAINT: Debility and afib. SUBJECTIVE: Pt denied any Shortness of Breath. Pt denied any depression. WBC 7.2, Hgb 8.0, Full Stack Engineer 0.52, glu 113 to 152, Mg 2.2, covid-19 is negative 08-07-21. Ambulated 30' with minimum assistance using a rolling walker. Wheelchair mobility 50' with standby as sistance. Blood pressure was 76 to 95/52 to 60. VITAL SIGNS Temperature: 98.6 F SBP/DBP: 137/76 Pulse: 97 Resp: 16 MEDICATION ALLERGIES: ATIVAN PENICILLINS PHENERGAN ENVIRONMENTAL ALLERGIES: - Substance Allergies None Known - Other Allergies None Known NURSING: - Shower allowing shower ACTIVITIES OOB only with supervision THERAPIES: - Dietary and Nutrition Adequate Nutrition. Nutritional Education. Nutritional Supplements. Evaluate and Treat. - Occupational Therapy Cognitive Retraining. Patient needs Occupational Therapy for a daily minimum of 1.5 hours at least 5 out of 7 days, to improve Activities of Daily Living, including: Eating, Grooming, Bathing, Dressing, Toileting, Toilet Transfers, Community Reintegration, Higher functional activities, Adaptive Equipme nt, Splinting, Household Tasks, and Other activities as determined. Visual Perceptual Training. Evalu ate and Treat. Safety Awareness. ADL Training. Household Tasks. Transfer Training. Patient/Family Edu cation. - Speech Therapy Cognitive Training. Expressive Language Skills. Memory Strategies. Patient needs Speech Therapy for a daily minimum of 1.5 hours at least 5 out of 7 days, to improve: Swallowing, Cognition, Language Ski lls, and Compensatory Strategies. Evaluate and Treat. Receptive Language Skills. Speech Intelligibili ty Training. - Physical Therapy Patient needs Physical Therapy for a daily minimum of 1.5 hours at least 5 out of 7 days, to improve: Mobility, Strengthening, Transfers, Stretching, ROM, Endurance, Ability to manage stairs, Gait, and Balance. Balance Training. Gait Training. Safety Awareness. Evaluate and Treat. Patient/Family Educat ion. LE Strengthening. Transfer Training. PHYSICAL EXAM - Gen Alert and awake Lying in bed No apparent distress Oriented to: person, time, and place - Skin No breakdowns No abnormalities - Eyes No abnormalities - ENMT No abnormalities - Neck No abnormalities - CVS RRR - Chest No abnormalities - Resp No wheezing - Abd Soft - GI + bowel sounds - No abnormalities - Ext Mild bilateral lower extremity edema. - MSK 4/5 weakness in both lower extremities. - Neuro No focal deficits - Psych Mild depression. ASSESSMENT: Pt. is a 81 yo Right-handed female.On 07/12/2021 she was admitted to [facility] with diagnosis A FIB, debility.Her impairment category is Cardiac 09 - Cardiac Disorders ().Pre-morbidly, Pt. was indepe ndent/mod-I in Locomotion, Safety Awareness, Social Cognition, Balance, Transfers Control, and Sphinc ter Control; and she had good Self-Care, Communication, and Endurance.Currently, she has deficits of Locomotion, Social Cognition, Safety Awareness, Balance, Sphincter Control, Transfers Control, Self-C are, Endurance, and Communication.Pt. is now referred to [facility] for acute in-patient rehabilitation in order to maximize patient's functional independence in activities of mary ly living, strength, ROM, and mobility.- Rehab Goal Patient has realistic goal of being discharged at assistance level 7-Ind to reside at Home with Fami ly/Relatives. MDM/PLAN: - Physical Therapy Weakness - to improve, our physical therapists will perform initial evaluation of pt's status upon ad mission and devise an individualized program for Aquatic Therapy, Neuromuscular Reeducation, and Stre ngthening Poor balance - to improve, our physical therapists will perform initial evaluation of pt's status upo n admission and devise an individualized program for Balance Training Inability to transfer - to improve, our physical therapists will perform initial evaluation of pt's s tatus upon admission and devise an individualized program for Bed mobility Need in caregiver upon discharge - to improve, our physical therapists will perform initial evaluatio n of pt's status upon admission and devise an individualized program for Caregiver Training Poor endurance - to improve, our physical therapists will perform initial evaluation of pt's status u aguilar admission and devise an individualized program for Endurance Training Gait dysfunction - to improve, our physical therapists will perform initial evaluation of pt's status upon admission and devise an individualized program for Gait Training, and Wheel Chair mobility Need for home safety evaluation - to improve, our physical therapists will perform initial evaluation of pt's status upon admission and devise an individualized program for Home Evaluation New precaution - to improve, our physical therapists will perform initial evaluation of pt's status u aguilar admission and devise an individualized program for Patient precaution education Edema - to improve, our physical therapists will perform initial evaluation of pt's status upon admis celestino and devise an individualized program for Elevation Training, and Lymphedema Therapy - Occupational Therapy Weakness - to improve, our occupation therapists will perform initial evaluation of pt's status upon admission and devise an individualized program for Aquatic Therapy, Balance, Endurance, UE ROM, and U E strengthening ADL deficits - to improve, our occupation therapists will perform initial evaluation of pt's status u aguilar admission and devise an individualized program for Bathing, Bed mobility, Community Reintegration , Cooking, Dressing, Eating, Fine Motor Skills, Grooming, Homemaking, Kitchen Mobility, Laundry, Ramandeep ent Education, Safety Awareness, Splinting - Positioning, Transfers(Toilet, Tub, Shower), and Wheel C hair Management Need for daycare assistant - to improve, our occupation therapists will perform initial evaluation of pt's s tatus upon admission and devise an individualized program for Caregiver Training Cognitive deficits - to improve, our occupation therapists will perform initial evaluation of pt's st atus upon admission and devise an individualized program for Cognition - orientation - Other See attached MAR (Medication Administration Record) - Diet Type Continue Regular - Diet - Liquid Texture Continue Regular - Tube Feed Continue N/A - Diet - Solid Texture Continue Regular - Shower allowing shower - Balance for Weakness - Bed mobility for ADL deficits FUNCTIONAL STATUS: UPDATED AT WEEKLY TEAM CONFERENCE - Bladder Same accident frequency: 7-Ind - No accidents in the past 7 days - Bowel Same accident frequency: 7-Ind - No accidents in the past 7 days - Walking Same score based on distance walked: 0(N/A) Same score based on distance walked: 1(<=50ft) - Wheelchair Same score based on distance traveled: 0(N/A) FUNCTIONAL STATUS: - Self-Care A. Eating Ind B. Grooming sup C. Bathing modA D. Dressing - Upper Hima E. Dressing - Lower modA F. Toileting sup - Sphincter Control G. Bladder control Yazmin H. Bowel control Yazmin - Transfers Control I. Bed/Chair/Wheelchair modA J. Toilet modA K. Tub/Shower modA - Locomotion L. Walk/Wheelchair (B) modA M. Stairs Dep - Communication N. Comprehension (B) Yazmin O. Expression (B) Yazmin - Social Cognition P. Social Interaction Yazmin Q. Problem Solving sup R. Memory Yazmin - Endurance Poor - Balance Fair - Safety Awareness Good QI SCORES: - Self-Care A. Eating 03-Partial/moderate assistance B. Oral hygiene 03-Partial/moderate assistance C. Toileting hygiene 03-Partial/moderate assistance E. Shower/bathe self 03-Partial/moderate assistance F. Upper body dressing 03-Partial/moderate assistance G. Lower body dressing 03-Partial/moderate assistance H. Putting on/taking off footwear 03-Partial/moderate assistance - Mobility A. Roll left and right 03-Partial/moderate assistance B. Sit to lying 03-Partial/moderate assistance C. Lying to sitting on side of bed 03-Partial/moderate assistance D. Sit to stand 03-Partial/moderate assistance E. Chair/tqy-hp-yxuak transfer 03-Partial/moderate assistance F. Toilet transfer 03-Partial/moderate assistance G. Car transfer 03-Partial/moderate assistance I. Walk 10 feet 03-Partial/moderate assistance J. Walk 50 feet with two turns 88-Not attempted due to medical condition or safety concerns K. Walk 150 feet 88-Not attempted due to medical condition or safety concerns L. Walking 10 feet on uneven surfaces 88-Not attempted due to medical condition or safety concerns M. 1 step (curb) 88-Not attempted due to medical condition or safety concerns N. 4 steps 88-Not attempted due to medical condition or safety concerns O. 12 steps 88-Not attempted due to medical condition or safety concerns P. Picking up object 88-Not attempted due to medical condition or safety concerns R. Wheel 50 feet with two turns 88-Not attempted due to medical condition or safety concerns S. Wheel 150 feet - Bladder and Bowel Bladder continence Bowel continence - Endurance Fair - Balance Fair - Safety Awareness [facility]IC[facility]: Self-Care, Mobility, Endurance, Balance, and Safety Awareness SIGNATURE PANEL: (CDT)
[2021-08-09] MEDS: ASPIRIN 81 MG CHEWABLE TABLET PO SCH (20:47)
[2021-08-09] MEDS: TAMSULOSIN 0.4 MG SR CAP PO SCH (20:47)
[2021-08-09] MEDS: DONEPEZIL HCL 5 MG TAB PO SCH (20:48)
[2021-08-09] MEDS: MELATONIN 3 MG TABLET PO PRN (20:48)
[2021-08-10 05:03] LABS: Hematocrit 24.7 % (36.0-45.0); Lymphocytes % 19.4 % (15.3-44.8); MCV 98.8 fL (80-100); MPV 6.8 fL (7.6-11.3)
[2021-08-10 05:15] LABS: Albumin 2.8 g/dL (3.4-5.0); Magnesium 2.2 mg/dL (1.8-2.4); Potassium 3.4 mmol/L (3.5-5.1)
[2021-08-10] MEDS: PANTOPRAZOLE 40MG TABLET PO SCH (06:21)
[2021-08-10] MEDS: INSULIN -REGULAR HUMAN 50 UNIT/0.5 ML ML SQ SCH ×4 (07:30→20:16)
[2021-08-10] MEDS: FE SULF/FA/VIT B COMP & C TAB PO SCH (07:58)
[2021-08-10] MEDS: MAGNESIUM OXIDE 400 MG TAB PO SCH ×2 (07:58→20:14)
[2021-08-10] MEDS: CRANBERRY FRUIT EXTRACT 400 MG CAP PO SCH ×2 (07:58→20:14)
[2021-08-10] MEDS: NYSTATIN 500,000 UNIT/5 ML UDC PO SCH ×4 (07:58→20:13)
[2021-08-10] MEDS: MULTIVITAMIN TAB PO SCH (07:59)
[2021-08-10] MEDS: GABAPENTIN 100 MG CAP PO SCH ×2 (07:59→20:14)
[2021-08-10] MEDS: MEGESTROL 40 MG TAB PO SCH (07:59)
[2021-08-10] MEDS: VITAMIN D 1000 UNIT TAB PO SCH (07:59)
[2021-08-10] MEDS: POTASSIUM CL SA 10 MEQ TAB PO SCH ×2 (07:59→20:14)
[2021-08-10] MEDS: APIXABAN 2.5 MG TABLET PO SCH ×2 (07:59→20:14)
[2021-08-10] MEDS: ATORVASTATIN 10 MG TAB PO SCH (07:59)
[2021-08-10] MEDS: lisinopriL 20 MG TAB PO SCH ×2 (08:00→20:00)
[2021-08-10] MEDS: CYANOCOBALAMIN 1,000 MCG TAB PO SCH (08:00)
[2021-08-10] MEDS: atenoloL 50 MG TAB PO SCH ×2 (08:00→20:00)
[2021-08-10] MEDS: FERROUS SULFATE 325 MG TAB PO SCH (08:00)
[2021-08-10] MEDS: AMIODARONE HCL 200 MG TAB PO SCH (08:01)
[2021-08-10] MEDS: GLUCERNA SHAKE 237 ML CAN PO SCH ×2 (08:01→20:16)
[2021-08-10] MEDS: HYDRALAZINE HCL 25 MG TABLET PO SCH ×3 (08:04→20:17)
[2021-08-10] MEDS: ARFORMOTEROL TARTRATE 15 MCG/2 ML VIAL.NEB NEB SCH ×2 (09:27→20:00)
[2021-08-10] MEDS: BUDESONIDE 0.5 MG/2 ML NEB NEB SCH ×2 (09:27→20:00)
[2021-08-10] MEDS: LIDOCAINE 4% PATCH TOP SCH (10:10)
--- NOTE | 2021-08-10 12:32 | CON ---
Date of Consultation: 08/09/2021 Reason For Consultation: Atrial fibrillation. History Of Present Illness: Ms. Martini is an 81-year-old woman, very well known to me from previous office visit and admission. She has had paroxysmal atrial fibrillation. We had attempted at one [facility] to do a cardioversion; however, when she started to take anticoagulation, she became very anemic a nd ended up going to [facility] for transfuse and workup. She was sent back here for rehab. H er hemoglobin is 8.0. She remains on multiple medications; however, she is in atrial fibrillation at a rate of 78, rate controlled and no symptoms. 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 Allergies: SHE IS ALLERGIC TO PENICILLIN, FENTANYL, COMPAZINE, AND LORAZEPAM. Review of Systems: Negative. Social History: Negative. Family History: Noncontributory. Medications: Include Pravachol, lisinopril, amiodarone 200 mg daily, Eliquis, aspirin, Lipitor, inha lers, hydralazine, benazepril, Neurontin, and atenolol. Physical Examination: General: She was in no acute distress. Vital Signs: Stable. Atrial fibrillation at a rate of 78. HEENT: Negative. Neck: Supple with no bruit. Chest: Clear. Cardiac: Revealed atrial fibrillation. Abdomen: Obese, but benign. Extremities: Revealed no clubbing, cyanosis, or edema. Diagnostic Data: Unremarkable except for hemoglobin of 8. Impression And Plan: 1.Atrial fibrillation, paroxysmal, to change her medical therapy. Continue atenolol as w ell. 2.Anemia, well controlled hemoglobin is 8. 3.Dyslipidemia, on Lipitor. 4.Chronic obstructive pulmonary disease, on inhalers. 5.Hypertension, well controlled. 6.Dementia. 7.Neuropathy. 8.Coronary artery disease, status post surgery at one point that is stable. Has had a negative stre ss test in the office . Again, continue present regimen. I will continue to follow her as needed. MAAME/SILVAL Voice ID: [id number] Report ID: [id number]
--- NOTE | 2021-08-10 13:40 | PN ---
Date of Progress Note: 08/10/2021 Ms. Martini was admitted to Dr. West on 08/07/2021 for cardiac rehab, physical therapy, occupation al therapy after being admitted to [facility] for severe anemia and transfusion and negative GI workup. We have seen her because of paroxysmal atrial fibrillation. The patient remained in AFib , rate of 70s, no symptoms. Adequate O2 saturation. No cardiac symptoms. No evidence of edema. We will continue amiodarone, Eliquis, aspirin, Lipitor, inhalers, hydralazine, atenolol, Neurontin, lis inopril, and Pravachol. Her problems including diabetes, COPD, CAD are stable. I will be available for questions if the need arises. MAAME/THADDEUS Voice ID: [id number] Report ID: [id number]
--- NOTE | 2021-08-10 17:23 | R.PN ---
PROGRESS NOTES ENCOUNTER DATE AND TIME: 08/10/2021 17:15 (CDT) NAME CHELA STORM DATE OF : 1940 DATE OF ADMISSION: 08/07/2021 19:27 (CDT) A FIB, debilityCHIEF COMPLAINT: Debility and afib. SUBJECTIVE: Pt denied any Shortness of Breath. Pt denied any depression. WBC 5.0, Hgb 8.1, Bilingual Nanny 0.52, glu 84 to 132, Mg 2.2, prealbumin 12.0,covid-19 is negative 08-07-21. Ambulated 125' with minimum assistance using a rolling walker. Wheelchair mobility 160' with standby assistance. Blood pressure was 76 to 95/52 to 60. VITAL SIGNS Temperature: 98.6 F SBP/DBP: 105/54 Pulse: 97 Resp: 16 Orthostatic blood pressure changed from 205/86, pulse 80 standing and 105/54, pulse 78 standing. MEDICATION ALLERGIES: ATIVAN PENICILLINS PHENERGAN ENVIRONMENTAL ALLERGIES: - Substance Allergies None Known - Other Allergies None Known NURSING: - Shower allowing shower ACTIVITIES OOB only with supervision THERAPIES: - Dietary and Nutrition Adequate Nutrition. Nutritional Education. Nutritional Supplements. Evaluate and Treat. - Occupational Therapy Cognitive Retraining. Patient needs Occupational Therapy for a daily minimum of 1.5 hours at least 5 out of 7 days, to improve Activities of Daily Living, including: Eating, Grooming, Bathing, Dressing, Toileting, Toilet Transfers, Community Reintegration, Higher functional activities, Adaptive Equipme nt, Splinting, Household Tasks, and Other activities as determined. Visual Perceptual Training. Evalu ate and Treat. Safety Awareness. ADL Training. Household Tasks. Transfer Training. Patient/Family Edu cation. - Speech Therapy Cognitive Training. Expressive Language Skills. Memory Strategies. Patient needs Speech Therapy for a daily minimum of 1.5 hours at least 5 out of 7 days, to improve: Swallowing, Cognition, Language Ski lls, and Compensatory Strategies. Evaluate and Treat. Receptive Language Skills. Speech Intelligibili ty Training. - Physical Therapy Patient needs Physical Therapy for a daily minimum of 1.5 hours at least 5 out of 7 days, to improve: Mobility, Strengthening, Transfers, Stretching, ROM, Endurance, Ability to manage stairs, Gait, and Balance. Balance Training. Gait Training. Safety Awareness. Evaluate and Treat. Patient/Family Educat ion. LE Strengthening. Transfer Training. PHYSICAL EXAM - Gen Alert and awake Lying in bed No apparent distress Oriented to: person, time, and place - Skin No breakdowns No abnormalities - Eyes No abnormalities - ENMT No abnormalities - Neck No abnormalities - CVS RRR - Chest No abnormalities - Resp No wheezing - Abd Soft - GI + bowel sounds - No abnormalities - Ext Mild bilateral lower extremity edema. - MSK 4/5 weakness in both lower extremities. - Neuro No focal deficits - Psych Mild depression. ASSESSMENT: Pt. is a 81 yo Right-handed female.On 07/12/2021 she was admitted to [facility] with diagnosis A FIB, debility.Her impairment category is Cardiac 09 - Cardiac Disorders ().Pre-morbidly, Pt. was indepe ndent/mod-I in Locomotion, Safety Awareness, Social Cognition, Balance, Transfers Control, and Sphinc ter Control; and she had good Self-Care, Communication, and Endurance.Currently, she has deficits of Locomotion, Social Cognition, Safety Awareness, Balance, Sphincter Control, Transfers Control, Self-C are, Endurance, and Communication.Pt. is now referred to [facility] for acute in-patient rehabilitation in order to maximize patient's functional independence in activities of mary ly living, strength, ROM, and mobility.- Rehab Goal Patient has realistic goal of being discharged at assistance level 7-Ind to reside at Home with Fami ly/Relatives. MDM/PLAN: - Physical Therapy Weakness - to improve, our physical therapists will perform initial evaluation of pt's status upon a dmission and devise an individualized program for Aquatic Therapy, Neuromuscular Reeducation, and Str engthening Poor balance - to improve, our physical therapists will perform initial evaluation of pt's status up on admission and devise an individualized program for Balance Training Inability to transfer - to improve, our physical therapists will perform initial evaluation of pt's status upon admission and devise an individualized program for Bed mobility Need in caregiver upon discharge - to improve, our physical therapists will perform initial evaluati on of pt's status upon admission and devise an individualized program for Caregiver Training Poor endurance - to improve, our physical therapists will perform initial evaluation of pt's status upon admission and devise an individualized program for Endurance Training Gait dysfunction - to improve, our physical therapists will perform initial evaluation of pt's statu s upon admission and devise an individualized program for Gait Training, and Wheel Chair mobility Need for home safety evaluation - to improve, our physical therapists will perform initial evaluatio n of pt's status upon admission and devise an individualized program for Home Evaluation New precaution - to improve, our physical therapists will perform initial evaluation of pt's status upon admission and devise an individualized program for Patient precaution education Edema - to improve, our physical therapists will perform initial evaluation of pt's status upon admi ssion and devise an individualized program for Elevation Training, and Lymphedema Therapy - Occupational Therapy Weakness - to improve, our occupation therapists will perform initial evaluation of pt's status upon admission and devise an individualized program for Aquatic Therapy, Balance, Endurance, UE ROM, and UE strengthening ADL deficits - to improve, our occupation therapists will perform initial evaluation of pt's status upon admission and devise an individualized program for Bathing, Bed mobility, Community Reintegratio n, Cooking, Dressing, Eating, Fine Motor Skills, Grooming, Homemaking, Kitchen Mobility, Laundry, Pat ient Education, Safety Awareness, Splinting - Positioning, Transfers(Toilet, Tub, Shower), and Wheel Chair Management Need for customer care agent - to improve, our occupation therapists will perform initial evaluation of pt's status upon admission and devise an individualized program for Caregiver Training Cognitive deficits - to improve, our occupation therapists will perform initial evaluation of pt's s tatus upon admission and devise an individualized program for Cognition - orientation - Other See attached MAR (Medication Administration Record) - Diet Type Continue Regular - Diet - Liquid Texture Continue Regular - Tube Feed Continue N/A - Diet - Solid Texture Continue Regular - Shower allowing shower - Balance for Weakness - Bed mobility for ADL deficits FUNCTIONAL STATUS: UPDATED AT WEEKLY TEAM CONFERENCE - Bladder Same accident frequency: 7-Ind - No accidents in the past 7 days - Bowel Same accident frequency: 7-Ind - No accidents in the past 7 days - Walking Same score based on distance walked: 0(N/A) Same score based on distance walked: 1(<=50ft) - Wheelchair Same score based on distance traveled: 0(N/A) FUNCTIONAL STATUS: - Self-Care A. Eating Ind B. Grooming sup C. Bathing modA D. Dressing - Upper Hima E. Dressing - Lower modA F. Toileting sup - Sphincter Control G. Bladder control Yazmin H. Bowel control Yazmin - Transfers Control I. Bed/Chair/Wheelchair modA J. Toilet modA K. Tub/Shower modA - Locomotion L. Walk/Wheelchair (B) modA M. Stairs Dep - Communication N. Comprehension (B) Yazmin O. Expression (B) Yazmin - Social Cognition P. Social Interaction Yazmin Q. Problem Solving sup R. Memory Yazmin - Endurance Poor - Balance Fair - Safety Awareness Good QI SCORES: - Self-Care A. Eating 03-Partial/moderate assistance B. Oral hygiene 03-Partial/moderate assistance C. Toileting hygiene 03-Partial/moderate assistance E. Shower/bathe self 03-Partial/moderate assistance F. Upper body dressing 03-Partial/moderate assistance G. Lower body dressing 03-Partial/moderate assistance H. Putting on/taking off footwear 03-Partial/moderate assistance - Mobility A. Roll left and right 03-Partial/moderate assistance B. Sit to lying 03-Partial/moderate assistance C. Lying to sitting on side of bed 03-Partial/moderate assistance D. Sit to stand 03-Partial/moderate assistance E. Chair/[id number] transfer 03-Partial/moderate assistance F. Toilet transfer 03-Partial/moderate assistance G. Car transfer 03-Partial/moderate assistance I. Walk 10 feet 03-Partial/moderate assistance J. Walk 50 feet with two turns 88-Not attempted due to medical condition or safety concerns K. Walk 150 feet 88-Not attempted due to medical condition or safety concerns L. Walking 10 feet on uneven surfaces 88-Not attempted due to medical condition or safety concerns M. 1 step (curb) 88-Not attempted due to medical condition or safety concerns N. 4 steps 88-Not attempted due to medical condition or safety concerns O. 12 steps 88-Not attempted due to medical condition or safety concerns P. Picking up object 88-Not attempted due to medical condition or safety concerns R. Wheel 50 feet with two turns 88-Not attempted due to medical condition or safety concerns S. Wheel 150 feet - Bladder and Bowel Bladder continence Bowel continence - Endurance Fair - Balance Fair - Safety Awareness Fair CURRENT FUNC. DEFICITS: Self-Care, Mobility, Endurance, Balance, and Safety Awareness SIGNATURE PANEL: (CDT)
[2021-08-10] MEDS ORDERED: atenoloL 25 MG TAB ONE (18:43)
[2021-08-10] MEDS: MEGESTROL 400 MG/10 ML UCUP PO SCH (20:12)
[2021-08-10] MEDS: ASPIRIN 81 MG CHEWABLE TABLET PO SCH (20:13)
[2021-08-10] MEDS: DONEPEZIL HCL 5 MG TAB PO SCH (20:14)
[2021-08-10] MEDS: TAMSULOSIN 0.4 MG SR CAP PO SCH (20:15)
[2021-08-11] MEDS: PANTOPRAZOLE 40MG TABLET PO SCH (05:33)
[2021-08-11] MEDS: INSULIN -REGULAR HUMAN 50 UNIT/0.5 ML ML SQ SCH ×4 (07:30→20:04)
[2021-08-11] MEDS: CRANBERRY FRUIT EXTRACT 400 MG CAP PO SCH ×2 (07:33→19:56)
[2021-08-11] MEDS: GABAPENTIN 100 MG CAP PO SCH ×2 (07:33→19:59)
[2021-08-11] MEDS: predniSONE 10 MG TAB PO SCH (07:34)
[2021-08-11] MEDS: VITAMIN D 1000 UNIT TAB PO SCH (07:34)
[2021-08-11] MEDS: POTASSIUM CL SA 10 MEQ TAB PO SCH ×2 (07:34→19:57)
[2021-08-11] MEDS: MAGNESIUM OXIDE 400 MG TAB PO SCH ×2 (07:35→19:57)
[2021-08-11] MEDS: lisinopriL 20 MG TAB PO SCH ×2 (08:00→20:00)
[2021-08-11] MEDS: atenoloL 50 MG TAB PO SCH ×2 (08:00→20:00)
[2021-08-11] MEDS: GLUCERNA SHAKE 237 ML CAN PO SCH ×2 (08:31→19:56)
[2021-08-11] MEDS: HYDRALAZINE HCL 25 MG TABLET PO SCH ×3 (08:34→20:03)
[2021-08-11] MEDS: LIDOCAINE 4% PATCH TOP SCH (09:02)
[2021-08-11] MEDS: AMIODARONE HCL 200 MG TAB PO SCH (09:03)
[2021-08-11] MEDS: CYANOCOBALAMIN 1,000 MCG TAB PO SCH (09:03)
[2021-08-11] MEDS: FERROUS SULFATE 325 MG TAB PO SCH (09:03)
[2021-08-11] MEDS: MEGESTROL 400 MG/10 ML UCUP PO SCH ×2 (09:03→19:58)
[2021-08-11] MEDS: FE SULF/FA/VIT B COMP & C TAB PO SCH (09:03)
[2021-08-11] MEDS: ATORVASTATIN 10 MG TAB PO SCH (09:03)
[2021-08-11] MEDS: NYSTATIN 500,000 UNIT/5 ML UDC PO SCH ×4 (09:03→20:03)
[2021-08-11] MEDS: MULTIVITAMIN TAB PO SCH (09:03)
[2021-08-11] MEDS: APIXABAN 2.5 MG TABLET PO SCH ×2 (09:04→19:56)
--- NOTE | 2021-08-11 09:43 | P.RH.PN ---
Estimated Length of Stay: 15 Expected Discharge Date: 08/22/21 Discharge Disposition Plan: Home Family Support: Yes [facility] Goal: Mobility, Transfers, Self Care Vital Signs: Last Vital Signs Temp 98.6 F 08/11/21 07:20 Pulse 97 H 08/11/21 08:00 Resp 16 08/11/21 07:20 BP 87/77 L 08/11/21 08:00 Pulse Ox 94 08/11/21 07:20 Laboratory: Laboratory Last Values WBC 5.0 K/uL (4.3-10.9) D 08/10/21 04:07 RBC 2.50 M/uL (3.86-4.86) L 08/10/21 04:07 Hgb 8.1 g/dL (12.0-15.0) L 08/10/21 04:07 Hct 24.7 % (36.0-45.0) L 08/10/21 04:07 MCV 98.8 fL (80-100) 08/10/21 04:07 MCH 32.4 pg (27.0-35.0) 08/10/21 04:07 MCHC 32.8 g/dL (32.0-36.0) 08/10/21 04:07 RDW 24.5 % (12.1-15.2) H 08/10/21 04:07 Plt Count 274 K/uL (152-406) 08/10/21 04:07 MPV 6.8 fL (7.6-11.3) L 08/10/21 04:07 Neutrophils % 63.8 % (41.7-73.7) 08/10/21 04:07 Lymphocytes % 19.4 % (15.3-44.8) 08/10/21 04:07 Monocytes % 14.5 % (3.3-12.3) H 08/10/21 04:07 Eosinophils % 2.1 % (0-4.4) 08/10/21 04:07 Basophils % 0.2 % (0-1.3) 08/10/21 04:07 Absolute Neutrophils 3.2 K/uL (1.8-8.0) 08/10/21 04:07 Absolute Lymphocytes 1.0 K/uL (0.7-4.9) 08/10/21 04:07 Absolute Monocytes 0.7 K/uL (0.1-1.3) 08/10/21 04:07 Absolute Eosinophils 0.1 K/uL (0-0.5) 08/10/21 04:07 Absolute Basophils 0.0 K/uL (0-0.5) 08/10/21 04:07 Platelet Estimate Adeq 08/08/21 05:36 Anisocytosis 2+ 08/08/21 05:36 Macrocytosis 1+ 08/08/21 05:36 Morphology Comment Noted (NOT SEEN) 08/08/21 05:36 Sodium 141 mmol/L (136-145) 08/10/21 04:07 Potassium 3.4 mmol/L (3.5-5.1) L 08/10/21 04:07 Chloride 106 mmol/L (98-107) 08/10/21 04:07 Carbon Dioxide 30 mmol/L (21-32) 08/10/21 04:07 Anion Gap 8.4 mEq/L (5.0-15.0) 08/10/21 04:07 BUN 12 mg/dL (7-18) 08/10/21 04:07 Creatinine 0.59 mg/dL (0.55-1.3) 08/10/21 04:07 Est GFR (CKD-EPI) 89 ml/min (=/>90) L 08/10/21 04:07 Glucose 95 mg/dL (74-106) 08/10/21 04:07 POC Glucose 77 mg/dL (65-120) 08/11/21 06:48 Calcium 9.7 mg/dL (8.5-10.1) 08/10/21 04:07 Magnesium 2.2 mg/dL (1.8-2.4) 08/10/21 04:07 NT-Pro-B Natriuret Pep 2974 pg/mL (<450) H 08/08/21 05:36 Albumin 2.8 g/dL (3.4-5.0) L 08/10/21 04:07 Prealbumin 12.0 mg/dL (20-40) L 08/10/21 04:07 Urine Color Yellow (Yellow) 08/07/21 21:10 Urine Appearance Clear (Clear) 08/07/21 21:10 Urine pH 7.0 (5.0-7.0) 08/07/21 21:10 Ur Specific [place] 1.020 (1.005-1.030) 08/07/21 21:10 Glucose (UA)(Auto) Negative (Negative) 08/07/21 21:10 Urine Ketones Negative (Negative) 08/07/21 21:10 Urine Blood Negative (Negative) 08/07/21 21:10 Urine Nitrite Negative (Negative) 08/07/21 21:10 Urine Bilirubin Negative (Negative) 08/07/21 21:10 Urine Urobilinogen 4.0 mg/dL (0.2-1.0) H 08/07/21 21:10 Ur Leukocyte Esterase 3+ (Negative) H 08/07/21 21:10 Urine RBC None seen /HPF (NONE SEEN) 08/07/21 21:10 Urine WBC >50 /HPF (<5) H 08/07/21 21:10 Ur Squamous Epith Cells <5 /HPF (NONE SEEN) 08/07/21 21:10 Ur Urothelial Cells <5 /HPF (NONE SEEN) 08/07/21 21:10 Calcium Oxalate Crystal Cancelled 08/07/21 20:54 Uric Acid Crystals Cancelled 08/07/21 20:54 Triple Phos Crystals Cancelled 08/07/21 20:54 Other Crystals Cancelled 08/07/21 20:54 Amorphous Sediment Cancelled 08/07/21 20:54 Glitter Cells Cancelled 08/07/21 20:54 Urine Bacteria <20 /HPF (<20) 08/07/21 21:10 Hyaline Casts Cancelled 08/07/21 20:54 Fine Granular Casts Cancelled 08/07/21 20:54 Coarse Granular Casts Cancelled 08/07/21 20:54 Waxy Casts Cancelled 08/07/21 20:54 RBC Casts Cancelled 08/07/21 20:54 WBC Casts Cancelled 08/07/21 20:54 Urine Mucus Cancelled 08/07/21 20:54 Urine Other Cancelled 08/07/21 20:54 Urine Trichomonas Cancelled 08/07/21 20:54 Urine Yeast Present (NONE SEEN) H 08/07/21 21:10 Ur Yeast w Hyphae Present 08/07/21 21:10 Urine Yeast (Budding) Present (NONE SEEN) H 08/07/21 21:10 Urine Sperm Cancelled 08/07/21 20:54 Urine Culture Reflexed Not needed 08/07/21 21:10 Urine Total Volume Cancelled 08/07/21 20:54 Urine Total Protein Negative (Negative) 08/07/21 21:10 SARS-CoV-2 Rap RNA(RT-PCR) Negative (NEGATIVE) 08/07/21 19:50 Smear Scan Ok (OK) 08/08/21 05:36 Weight: 172 lb Wound Present: No Negative Pressure Wound Therapy Present: No Physician Update: Labs reviewed. Bed mobility mod assistance, min juan c transfering 20' waking min juan c with walker, wheelchair 50 SBA to min assistance. Min juna c for all ADLs needs verbal ques. MMSE 14/30, poor orientation, memory and problem solving. Functional Improvement: pt presents w/ lack of motivation and requires continous VC for encouragment to continue w/ PT services. pt displays decent physical ability, however is self limiting due to above stated. Summary: Patient's care plan and half-way goals have been reviewed and revised as necessary. Please see the Rehabilitation Signature page for all necessary signatures.
[2021-08-11] MEDS: ARFORMOTEROL TARTRATE 15 MCG/2 ML VIAL.NEB NEB SCH ×2 (09:44→20:05)
[2021-08-11] MEDS: BUDESONIDE 0.5 MG/2 ML NEB NEB SCH ×2 (09:44→20:05)
[2021-08-11] MEDS: ACETAMINOPHEN 325 MG TABLET PO PRN (16:03)
[2021-08-11] MEDS ORDERED: atenoloL 25 MG TAB ONE (18:43)
[2021-08-11] MEDS: TAMSULOSIN 0.4 MG SR CAP PO SCH (20:03)
[2021-08-11] MEDS: ASPIRIN 81 MG CHEWABLE TABLET PO SCH (20:03)
[2021-08-11] MEDS: DONEPEZIL HCL 5 MG TAB PO SCH (20:03)
[2021-08-11] MEDS: MELATONIN 3 MG TABLET PO PRN (22:33)
[2021-08-11] MEDS: TRAMADOL HCL 50 MG TAB PO PRN (22:33)
[2021-08-12] MEDS: PANTOPRAZOLE 40MG TABLET PO SCH (05:49)
[2021-08-12] MEDS: TRAMADOL HCL 50 MG TAB PO PRN ×2 (06:19→15:51)
[2021-08-12] MEDS: INSULIN -REGULAR HUMAN 50 UNIT/0.5 ML ML SQ SCH ×5 (07:30→19:50)
[2021-08-12] MEDS: VITAMIN D 1000 UNIT TAB PO SCH (07:34)
[2021-08-12] MEDS: ATORVASTATIN 10 MG TAB PO SCH (07:34)
[2021-08-12] MEDS: GABAPENTIN 100 MG CAP PO SCH ×2 (07:34→19:49)
[2021-08-12] MEDS: APIXABAN 2.5 MG TABLET PO SCH ×2 (07:35→19:49)
[2021-08-12] MEDS: CYANOCOBALAMIN 1,000 MCG TAB PO SCH (07:35)
[2021-08-12] MEDS: lisinopriL 20 MG TAB PO SCH ×2 (07:36→19:51)
[2021-08-12] MEDS: AMIODARONE HCL 200 MG TAB PO SCH (07:36)
[2021-08-12] MEDS: BUDESONIDE 0.5 MG/2 ML NEB NEB SCH ×2 (08:17→20:20)
[2021-08-12] MEDS: ARFORMOTEROL TARTRATE 15 MCG/2 ML VIAL.NEB NEB SCH ×2 (08:17→20:20)
[2021-08-12] MEDS: LIDOCAINE 4% PATCH TOP SCH (08:44)
[2021-08-12] MEDS: MEGESTROL 400 MG/10 ML UCUP PO SCH ×2 (08:44→19:48)
[2021-08-12] MEDS: NYSTATIN 500,000 UNIT/5 ML UDC PO SCH ×2 (08:44→19:48)
[2021-08-12] MEDS: atenoloL 50 MG TAB PO SCH ×2 (08:45→19:51)
[2021-08-12] MEDS: MAGNESIUM OXIDE 400 MG TAB PO SCH ×2 (08:46→19:48)
[2021-08-12] MEDS: MULTIVITAMIN TAB PO SCH (08:46)
[2021-08-12] MEDS: CRANBERRY FRUIT EXTRACT 400 MG CAP PO SCH ×2 (08:46→19:49)
[2021-08-12] MEDS: FE SULF/FA/VIT B COMP & C TAB PO SCH (08:46)
[2021-08-12] MEDS: FERROUS SULFATE 325 MG TAB PO SCH (08:46)
[2021-08-12] MEDS: POTASSIUM CL SA 10 MEQ TAB PO SCH ×2 (08:46→19:49)
[2021-08-12] MEDS: GLUCERNA SHAKE 237 ML CAN PO SCH ×2 (08:47→19:50)
[2021-08-12] MEDS: HYDRALAZINE HCL 25 MG TABLET PO SCH ×4 (08:47→19:51)
[2021-08-12] MEDS ORDERED: atenoloL 25 MG TAB ONE (18:37)
[2021-08-12] MEDS: TAMSULOSIN 0.4 MG SR CAP PO SCH (19:49)
[2021-08-12] MEDS: DOCUSATE NA 100 MG CAP PO PRN (19:49)
[2021-08-12] MEDS: DONEPEZIL HCL 5 MG TAB PO SCH (19:50)
[2021-08-12] MEDS: ASPIRIN 81 MG CHEWABLE TABLET PO SCH (19:50)
[2021-08-13] MEDS: PANTOPRAZOLE 40MG TABLET PO SCH (05:31)
[2021-08-13] MEDS: INSULIN -REGULAR HUMAN 50 UNIT/0.5 ML ML SQ SCH ×2 (07:08→19:34)
[2021-08-13] MEDS: lisinopriL 20 MG TAB PO SCH ×2 (08:00→19:32)
[2021-08-13] MEDS: POTASSIUM CL SA 10 MEQ TAB PO SCH ×2 (08:00→19:31)
[2021-08-13] MEDS: atenoloL 50 MG TAB PO SCH ×4 (08:00→19:28)
[2021-08-13] MEDS: MULTIVITAMIN TAB PO SCH (08:21)
[2021-08-13] MEDS: AMIODARONE HCL 200 MG TAB PO SCH (08:21)
[2021-08-13] MEDS: CYANOCOBALAMIN 1,000 MCG TAB PO SCH (08:21)
[2021-08-13] MEDS: APIXABAN 2.5 MG TABLET PO SCH ×2 (08:21→19:31)
[2021-08-13] MEDS: CRANBERRY FRUIT EXTRACT 400 MG CAP PO SCH ×2 (08:22→19:30)
[2021-08-13] MEDS: VITAMIN D 1000 UNIT TAB PO SCH (08:22)
[2021-08-13] MEDS: FE SULF/FA/VIT B COMP & C TAB PO SCH (08:24)
[2021-08-13] MEDS: predniSONE 10 MG TAB PO SCH (08:24)
[2021-08-13] MEDS: HYDRALAZINE HCL 25 MG TABLET PO SCH ×3 (09:00→19:32)
[2021-08-13] MEDS: MEGESTROL 400 MG/10 ML UCUP PO SCH ×2 (09:05→19:29)
[2021-08-13] MEDS: NYSTATIN 500,000 UNIT/5 ML UDC PO SCH ×2 (09:05→19:30)
[2021-08-13] MEDS: FERROUS SULFATE 325 MG TAB PO SCH (09:06)
[2021-08-13] MEDS: LIDOCAINE 4% PATCH TOP SCH (09:06)
[2021-08-13] MEDS: GABAPENTIN 100 MG CAP PO SCH ×2 (09:07→19:31)
[2021-08-13] MEDS: MAGNESIUM OXIDE 400 MG TAB PO SCH ×2 (09:14→19:31)
[2021-08-13] MEDS: GLUCERNA SHAKE 237 ML CAN PO SCH ×2 (09:14→19:34)
[2021-08-13] MEDS: ARFORMOTEROL TARTRATE 15 MCG/2 ML VIAL.NEB NEB SCH ×2 (09:33→19:50)
[2021-08-13] MEDS: BUDESONIDE 0.5 MG/2 ML NEB NEB SCH ×2 (09:33→19:50)
[2021-08-13] MEDS: TRAMADOL HCL 50 MG TAB PO PRN ×2 (10:47→17:02)
[2021-08-13] MEDS: ONDANSETRON 4 MG (ODT) TAB PO PRN (18:04)
[2021-08-13] MEDS ORDERED: atenoloL 25 MG TAB ONE (19:10)
[2021-08-13] MEDS: ATORVASTATIN 10 MG TAB PO SCH (19:30)
[2021-08-13] MEDS: ASPIRIN 81 MG CHEWABLE TABLET PO SCH (19:30)
[2021-08-13] MEDS: DONEPEZIL HCL 5 MG TAB PO SCH (19:30)
[2021-08-13] MEDS: TAMSULOSIN 0.4 MG SR CAP PO SCH (19:31)
[2021-08-14 04:42] LABS: Absolute Lymphocytes (CBC) 1.2 K/uL (0.7-4.9); Hematocrit 23.2 % (36.0-45.0); Lymphocytes % 19.5 % (15.3-44.8); MPV 6.7 fL (7.6-11.3)
[2021-08-14 04:50] LABS: Potassium 4.4 mmol/L (3.5-5.1)
[2021-08-14] MEDS: PANTOPRAZOLE 40MG TABLET PO SCH (05:45)
[2021-08-14] MEDS: VITAMIN D 1000 UNIT TAB PO SCH (07:48)
[2021-08-14] MEDS: APIXABAN 2.5 MG TABLET PO SCH ×2 (07:48→19:46)
[2021-08-14] MEDS: FE SULF/FA/VIT B COMP & C TAB PO SCH (07:48)
[2021-08-14] MEDS: MEGESTROL 400 MG/10 ML UCUP PO SCH ×2 (07:48→19:46)
[2021-08-14] MEDS: CYANOCOBALAMIN 1,000 MCG TAB PO SCH (07:48)
[2021-08-14] MEDS: CRANBERRY FRUIT EXTRACT 400 MG CAP PO SCH ×2 (07:48→19:46)
[2021-08-14] MEDS: GLUCERNA SHAKE 237 ML CAN PO SCH ×2 (07:49→19:46)
[2021-08-14] MEDS: MULTIVITAMIN TAB PO SCH (07:50)
[2021-08-14] MEDS: GABAPENTIN 100 MG CAP PO SCH ×2 (07:50→19:47)
[2021-08-14] MEDS: MAGNESIUM OXIDE 400 MG TAB PO SCH ×2 (07:50→19:46)
[2021-08-14] MEDS: POTASSIUM CL SA 10 MEQ TAB PO SCH (07:50)
[2021-08-14] MEDS: AMIODARONE HCL 200 MG TAB PO SCH (07:50)
[2021-08-14] MEDS: FERROUS SULFATE 325 MG TAB PO SCH (07:50)
[2021-08-14] MEDS: INSULIN -REGULAR HUMAN 50 UNIT/0.5 ML ML SQ SCH ×2 (07:52→19:35)
[2021-08-14] MEDS: NYSTATIN 500,000 UNIT/5 ML UDC PO SCH ×2 (07:52→19:47)
[2021-08-14] MEDS: atenoloL 50 MG TAB PO SCH ×2 (07:54→19:48)
[2021-08-14] MEDS: lisinopriL 20 MG TAB PO SCH ×2 (07:54→19:47)
[2021-08-14] MEDS: HYDRALAZINE HCL 25 MG TABLET PO SCH ×3 (07:55→19:48)
[2021-08-14] MEDS: LIDOCAINE 4% PATCH TOP SCH (08:13)
[2021-08-14] MEDS: ARFORMOTEROL TARTRATE 15 MCG/2 ML VIAL.NEB NEB SCH ×2 (09:17→20:00)
[2021-08-14] MEDS: BUDESONIDE 0.5 MG/2 ML NEB NEB SCH ×2 (09:17→20:00)
[2021-08-14] MEDS: ONDANSETRON 4 MG (ODT) TAB PO PRN (10:38)
[2021-08-14] MEDS: ACETAMINOPHEN 325 MG TABLET PO PRN (12:01)
[2021-08-14] MEDS: TRAMADOL HCL 50 MG TAB PO PRN (13:12)
[2021-08-14] MEDS: DOCUSATE NA 100 MG CAP PO PRN ×2 (13:12→13:25)
[2021-08-14] MEDS ORDERED: atenoloL 25 MG TAB ONE (18:16)
[2021-08-14] MEDS: DONEPEZIL HCL 5 MG TAB PO SCH (19:48)
[2021-08-14] MEDS: ASPIRIN 81 MG CHEWABLE TABLET PO SCH (19:49)
[2021-08-14] MEDS: TAMSULOSIN 0.4 MG SR CAP PO SCH (19:49)
[2021-08-14] MEDS: ATORVASTATIN 10 MG TAB PO SCH (19:49)
[2021-08-14] MEDS: DOCUSATE NA/SENNA CONC 1 TAB PO PRN (19:52)
[2021-08-15] MEDS: PANTOPRAZOLE 40MG TABLET PO SCH (06:23)
[2021-08-15] MEDS: LIDOCAINE 4% PATCH TOP SCH (06:41)
[2021-08-15] MEDS: MEGESTROL 400 MG/10 ML UCUP PO SCH ×2 (07:31→19:37)
[2021-08-15] MEDS: CRANBERRY FRUIT EXTRACT 400 MG CAP PO SCH ×2 (07:32→19:38)
[2021-08-15] MEDS: FE SULF/FA/VIT B COMP & C TAB PO SCH (07:32)
[2021-08-15] MEDS: predniSONE 10 MG TAB PO SCH (07:32)
[2021-08-15] MEDS: AMIODARONE HCL 200 MG TAB PO SCH (07:32)
[2021-08-15] MEDS: VITAMIN D 1000 UNIT TAB PO SCH (07:32)
[2021-08-15] MEDS: GABAPENTIN 100 MG CAP PO SCH ×2 (07:33→19:39)
[2021-08-15] MEDS: GLUCERNA SHAKE 237 ML CAN PO SCH ×2 (07:33→19:40)
[2021-08-15] MEDS: MULTIVITAMIN TAB PO SCH (07:33)
[2021-08-15] MEDS: FERROUS SULFATE 325 MG TAB PO SCH (07:33)
[2021-08-15] MEDS: CYANOCOBALAMIN 1,000 MCG TAB PO SCH (07:33)
[2021-08-15] MEDS: APIXABAN 2.5 MG TABLET PO SCH ×2 (07:33→19:39)
[2021-08-15] MEDS: POTASSIUM CL SA 10 MEQ TAB PO SCH (07:33)
[2021-08-15] MEDS: MAGNESIUM OXIDE 400 MG TAB PO SCH ×2 (07:33→19:39)
[2021-08-15] MEDS: INSULIN -REGULAR HUMAN 50 UNIT/0.5 ML ML SQ SCH ×2 (07:34→19:40)
[2021-08-15] MEDS: lisinopriL 20 MG TAB PO SCH ×2 (07:35→19:41)
[2021-08-15] MEDS: HYDRALAZINE HCL 25 MG TABLET PO SCH ×3 (07:36→19:42)
[2021-08-15] MEDS: atenoloL 50 MG TAB PO SCH ×2 (07:37→19:41)
[2021-08-15] MEDS: ARFORMOTEROL TARTRATE 15 MCG/2 ML VIAL.NEB NEB SCH ×2 (09:00→20:00)
[2021-08-15] MEDS: BUDESONIDE 0.5 MG/2 ML NEB NEB SCH ×2 (09:00→20:00)
[2021-08-15] MEDS: TRAMADOL HCL 50 MG TAB PO PRN (16:09)
--- NOTE | 2021-08-15 17:31 | R.PN ---
PROGRESS NOTES ENCOUNTER DATE AND TIME: 08/15/2021 17:26 (CDT) NAME CHELA STORM DATE OF : 1940 DATE OF ADMISSION: 08/07/2021 19:27 (CDT) A FIB, debilityCHIEF COMPLAINT: Debility and afib. SUBJECTIVE: Pt denied any Shortness of Breath. Pt denied any depression. WBC 5.0, Hgb 8.1, Canal Lock Tender Chief Operator 0.52, glu 97 to 140, Mg 2.2, prealbumin 12.0,covid-19 is negative 08-07-21. Ambulated 230' with standby assistance using a rolling walker. Wheelchair mobility 250' with standby assistance. VITAL SIGNS Temperature: 98.2 F SBP/DBP: 123/72 Pulse: 97 Resp: 16 Orthostatic blood pressure changed from 136/70, pulse 89 standing and 86/52, pulse 107 standing. MEDICATION ALLERGIES: ATIVAN PENICILLINS PHENERGAN ENVIRONMENTAL ALLERGIES: - Substance Allergies None Known - Other Allergies None Known NURSING: - Shower allowing shower ACTIVITIES OOB only with supervision THERAPIES: - Dietary and Nutrition Adequate Nutrition. Nutritional Education. Nutritional Supplements. Evaluate and Treat. - Occupational Therapy Cognitive Retraining. Patient needs Occupational Therapy for a daily minimum of 1.5 hours at least 5 out of 7 days, to improve Activities of Daily Living, including: Eating, Grooming, Bathing, Dressing, Toileting, Toilet Transfers, Community Reintegration, Higher functional activities, Adaptive Equipme nt, Splinting, Household Tasks, and Other activities as determined. Visual Perceptual Training. Evalu ate and Treat. Safety Awareness. ADL Training. Household Tasks. Transfer Training. Patient/Family Edu cation. - Speech Therapy Cognitive Training. Expressive Language Skills. Memory Strategies. Patient needs Speech Therapy for a daily minimum of 1.5 hours at least 5 out of 7 days, to improve: Swallowing, Cognition, Language Ski lls, and Compensatory Strategies. Evaluate and Treat. Receptive Language Skills. Speech Intelligibili ty Training. - Physical Therapy Patient needs Physical Therapy for a daily minimum of 1.5 hours at least 5 out of 7 days, to improve: Mobility, Strengthening, Transfers, Stretching, ROM, Endurance, Ability to manage stairs, Gait, and Balance. Balance Training. Gait Training. Safety Awareness. Evaluate and Treat. Patient/Family Educat ion. LE Strengthening. Transfer Training. PHYSICAL EXAM - Gen Alert and awake Lying in bed No apparent distress Oriented to: person, time, and place - Skin No breakdowns No abnormalities - Eyes No abnormalities - ENMT No abnormalities - Neck No abnormalities - CVS RRR - Chest No abnormalities - Resp No wheezing - Abd Soft - GI + bowel sounds - No abnormalities - Ext Mild bilateral lower extremity edema. - MSK 4/5 weakness in both lower extremities. - Neuro No focal deficits - Psych Mild depression. ASSESSMENT: Pt. is a 81 yo Right-handed female.On 07/12/2021 she was admitted to [facility] with diagnosis A FIB, debility.Her impairment category is Cardiac 09 - Cardiac Disorders ().Pre-morbidly, Pt. was indepe ndent/mod-I in Locomotion, Safety Awareness, Social Cognition, Balance, Transfers Control, and Sphinc ter Control; and she had good Self-Care, Communication, and Endurance.Currently, she has deficits of Locomotion, Social Cognition, Safety Awareness, Balance, Sphincter Control, Transfers Control, Self-C are, Endurance, and Communication.Pt. is now referred to [facility] for acute in-patient rehabilitation in order to maximize patient's functional independence in activities of mary ly living, strength, ROM, and mobility.- Rehab Goal Patient has realistic goal of being discharged at assistance level 7-Ind to reside at Home with Fami ly/Relatives. MDM/PLAN: - Physical Therapy Weakness - to improve, our physical therapists will perform initial evaluation of pt's status upon a dmission and devise an individualized program for Aquatic Therapy, Neuromuscular Reeducation, and Str engthening Poor balance - to improve, our physical therapists will perform initial evaluation of pt's status up on admission and devise an individualized program for Balance Training Inability to transfer - to improve, our physical therapists will perform initial evaluation of pt's status upon admission and devise an individualized program for Bed mobility Need in caregiver upon discharge - to improve, our physical therapists will perform initial evaluati on of pt's status upon admission and devise an individualized program for Caregiver Training Poor endurance - to improve, our physical therapists will perform initial evaluation of pt's status upon admission and devise an individualized program for Endurance Training Gait dysfunction - to improve, our physical therapists will perform initial evaluation of pt's statu s upon admission and devise an individualized program for Gait Training, and Wheel Chair mobility Need for home safety evaluation - to improve, our physical therapists will perform initial evaluatio n of pt's status upon admission and devise an individualized program for Home Evaluation New precaution - to improve, our physical therapists will perform initial evaluation of pt's status upon admission and devise an individualized program for Patient precaution education Edema - to improve, our physical therapists will perform initial evaluation of pt's status upon admi ssion and devise an individualized program for Elevation Training, and Lymphedema Therapy - Occupational Therapy Weakness - to improve, our occupation therapists will perform initial evaluation of pt's status upon admission and devise an individualized program for Aquatic Therapy, Balance, Endurance, UE ROM, and UE strengthening ADL deficits - to improve, our occupation therapists will perform initial evaluation of pt's status upon admission and devise an individualized program for Bathing, Bed mobility, Community Reintegratio n, Cooking, Dressing, Eating, Fine Motor Skills, Grooming, Homemaking, Kitchen Mobility, Laundry, Pat ient Education, Safety Awareness, Splinting - Positioning, Transfers(Toilet, Tub, Shower), and Wheel Chair Management Need for point of care technician - to improve, our occupation therapists will perform initial evaluation of pt's status upon admission and devise an individualized program for Caregiver Training Cognitive deficits - to improve, our occupation therapists will perform initial evaluation of pt's s tatus upon admission and devise an individualized program for Cognition - orientation - Other See attached MAR (Medication Administration Record) - Diet Type Continue Regular - Diet - Liquid Texture Continue Regular - Tube Feed Continue N/A - Diet - Solid Texture Continue Regular - Shower allowing shower - Balance for Weakness - Bed mobility for ADL deficits FUNCTIONAL STATUS: UPDATED AT WEEKLY TEAM CONFERENCE - Bladder Same accident frequency: 7-Ind - No accidents in the past 7 days - Bowel Same accident frequency: 7-Ind - No accidents in the past 7 days - Walking Same score based on distance walked: 0(N/A) Same score based on distance walked: 1(<=50ft) - Wheelchair Same score based on distance traveled: 0(N/A) FUNCTIONAL STATUS: - Self-Care A. Eating Ind B. Grooming sup C. Bathing modA D. Dressing - Upper Hima E. Dressing - Lower modA F. Toileting sup - Sphincter Control G. Bladder control Yazmin H. Bowel control Yazmin - Transfers Control I. Bed/Chair/Wheelchair modA J. Toilet modA K. Tub/Shower modA - Locomotion L. Walk/Wheelchair (B) modA M. Stairs Dep - Communication N. Comprehension (B) Yazmin O. Expression (B) Yazmin - Social Cognition P. Social Interaction Yazmin Q. Problem Solving sup R. Memory Yazmin - Endurance Poor - Balance Fair - Safety Awareness Good QI SCORES: - Self-Care A. Eating 03-Partial/moderate assistance B. Oral hygiene 03-Partial/moderate assistance C. Toileting hygiene 03-Partial/moderate assistance E. Shower/bathe self 03-Partial/moderate assistance F. Upper body dressing 03-Partial/moderate assistance G. Lower body dressing 03-Partial/moderate assistance H. Putting on/taking off footwear 03-Partial/moderate assistance - Mobility A. Roll left and right 03-Partial/moderate assistance B. Sit to lying 03-Partial/moderate assistance C. Lying to sitting on side of bed 03-Partial/moderate assistance D. Sit to stand 03-Partial/moderate assistance E. Chair/[id number]-[id number] transfer 03-Partial/moderate assistance F. Toilet transfer 03-Partial/moderate assistance G. Car transfer 03-Partial/moderate assistance I. Walk 10 feet 03-Partial/moderate assistance J. Walk 50 feet with two turns 88-Not attempted due to medical condition or safety concerns K. Walk 150 feet 88-Not attempted due to medical condition or safety concerns L. Walking 10 feet on uneven surfaces 88-Not attempted due to medical condition or safety concerns M. 1 step (curb) 88-Not attempted due to medical condition or safety concerns N. 4 steps 88-Not attempted due to medical condition or safety concerns O. 12 steps 88-Not attempted due to medical condition or safety concerns P. Picking up object 88-Not attempted due to medical condition or safety concerns R. Wheel 50 feet with two turns 88-Not attempted due to medical condition or safety concerns S. Wheel 150 feet - Bladder and Bowel Bladder continence Bowel continence - Endurance Fair - Balance Fair - Safety Awareness Fair CURRENT FUNC. DEFICITS: Self-Care, Mobility, Endurance, Balance, and Safety Awareness SIGNATURE PANEL: (CDT)
[2021-08-15] MEDS: ASPIRIN 81 MG CHEWABLE TABLET PO SCH (19:38)
[2021-08-15] MEDS: DONEPEZIL HCL 5 MG TAB PO SCH (19:38)
[2021-08-15] MEDS: ATORVASTATIN 10 MG TAB PO SCH (19:39)
[2021-08-15] MEDS: TAMSULOSIN 0.4 MG SR CAP PO SCH (19:39)
[2021-08-16] MEDS: PANTOPRAZOLE 40MG TABLET PO SCH (06:50)
[2021-08-16] MEDS: atenoloL 50 MG TAB PO SCH ×2 (07:34→19:36)
[2021-08-16] MEDS: APIXABAN 2.5 MG TABLET PO SCH ×2 (07:34→19:57)
[2021-08-16] MEDS: GABAPENTIN 100 MG CAP PO SCH ×2 (07:35→19:56)
[2021-08-16] MEDS: VITAMIN D 1000 UNIT TAB PO SCH (07:36)
[2021-08-16] MEDS: TRAMADOL HCL 50 MG TAB PO PRN (07:36)
[2021-08-16] MEDS: CYANOCOBALAMIN 1,000 MCG TAB PO SCH (07:37)
[2021-08-16] MEDS: AMIODARONE HCL 200 MG TAB PO SCH (07:37)
[2021-08-16] MEDS: lisinopriL 20 MG TAB PO SCH ×2 (08:00→19:36)
[2021-08-16] MEDS: INSULIN -REGULAR HUMAN 50 UNIT/0.5 ML ML SQ SCH ×2 (08:00→19:35)
[2021-08-16] MEDS: BUDESONIDE 0.5 MG/2 ML NEB NEB SCH ×2 (08:20→20:00)
[2021-08-16] MEDS: ARFORMOTEROL TARTRATE 15 MCG/2 ML VIAL.NEB NEB SCH ×2 (08:20→20:00)
[2021-08-16] MEDS: MEGESTROL 400 MG/10 ML UCUP PO SCH ×2 (08:44→19:56)
[2021-08-16] MEDS: LIDOCAINE 4% PATCH TOP SCH (08:44)
[2021-08-16] MEDS: POTASSIUM CL SA 10 MEQ TAB PO SCH (08:45)
[2021-08-16] MEDS: FERROUS SULFATE 325 MG TAB PO SCH (08:45)
[2021-08-16] MEDS: MULTIVITAMIN TAB PO SCH (08:45)
[2021-08-16] MEDS: MAGNESIUM OXIDE 400 MG TAB PO SCH ×2 (08:45→19:56)
[2021-08-16] MEDS: CRANBERRY FRUIT EXTRACT 400 MG CAP PO SCH ×2 (08:46→19:57)
[2021-08-16] MEDS: GLUCERNA SHAKE 237 ML CAN PO SCH ×2 (08:46→19:55)
[2021-08-16] MEDS: FE SULF/FA/VIT B COMP & C TAB PO SCH (08:46)
[2021-08-16] MEDS: HYDRALAZINE HCL 25 MG TABLET PO SCH ×3 (08:55→19:36)
--- NOTE | 2021-08-16 14:07 | R.PN ---
PROGRESS NOTES ENCOUNTER DATE AND TIME: 08/16/2021 13:52 (CDT) NAME CHELA STORM DATE OF : 1940 DATE OF ADMISSION: 08/07/2021 19:27 (CDT) A FIB, debilityCHIEF COMPLAINT: Debility and afib. SUBJECTIVE: Pt denied any Shortness of Breath. Pt denied any depression. 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 Ambulated 230' with standby assistance using a rolling walker. Wheelchair mobility 250' with standby assistance. She had a brief episode of orthostatic hypotension today, BP decreased to 87/55 with pulse 119. She w as put back to bed. BETSEY hose and abdominal binder were applied and midodrine 5 mg twice daily was sta rted. She continues the beta genevieve for heart rate control. VITAL SIGNS Temperature: 97.6 F SBP/DBP: 132/63 Pulse: 106 Resp: 16 MEDICATION ALLERGIES: ATIVAN PENICILLINS PHENERGAN ENVIRONMENTAL ALLERGIES: - Substance Allergies None Known - Other Allergies None Known NURSING: - Shower allowing shower ACTIVITIES OOB only with supervision THERAPIES: - Dietary and Nutrition Adequate Nutrition. Nutritional Education. Nutritional Supplements. Evaluate and Treat. - Occupational Therapy Cognitive Retraining. Patient needs Occupational Therapy for a daily minimum of 1.5 hours at least 5 out of 7 days, to improve Activities of Daily Living, including: Eating, Grooming, Bathing, Dressing, Toileting, Toilet Transfers, Community Reintegration, Higher functional activities, Adaptive Equipme nt, Splinting, Household Tasks, and Other activities as determined. Visual Perceptual Training. Evalu ate and Treat. Safety Awareness. ADL Training. Household Tasks. Transfer Training. Patient/Family Edu cation. - Speech Therapy Cognitive Training. Expressive Language Skills. Memory Strategies. Patient needs Speech Therapy for a daily minimum of 1.5 hours at least 5 out of 7 days, to improve: Swallowing, Cognition, Language Ski lls, and Compensatory Strategies. Evaluate and Treat. Receptive Language Skills. Speech Intelligibili ty Training. - Physical Therapy Patient needs Physical Therapy for a daily minimum of 1.5 hours at least 5 out of 7 days, to improve: Mobility, Strengthening, Transfers, Stretching, ROM, Endurance, Ability to manage stairs, Gait, and Balance. Balance Training. Gait Training. Safety Awareness. Evaluate and Treat. Patient/Family Educat ion. LE Strengthening. Transfer Training. PHYSICAL EXAM - Gen Alert and awake Lying in bed No apparent distress Oriented to: person, time, and place - Skin No breakdowns No abnormalities - Eyes No abnormalities - ENMT No abnormalities - Neck No abnormalities - CVS RRR - Chest No abnormalities - Resp No wheezing - Abd Soft - GI + bowel sounds - No abnormalities - Ext Mild bilateral lower extremity edema. - MSK 4/5 weakness in both lower extremities. - Neuro No focal deficits - Psych Mild depression. ASSESSMENT: Pt. is a 81 yo Right-handed female.On 07/12/2021 she was admitted to [facility] with diagnosis A FIB, debility.Her impairment category is Cardiac 09 - Cardiac Disorders ().Pre-morbidly, Pt. was indepe ndent/mod-I in Locomotion, Safety Awareness, Social Cognition, Balance, Transfers Control, and Sphinc ter Control; and she had good Self-Care, Communication, and Endurance.Currently, she has deficits of Locomotion, Social Cognition, Safety Awareness, Balance, Sphincter Control, Transfers Control, Self-C are, Endurance, and Communication.Pt. is now referred to [facility] for acute in-patient rehabilitation in order to maximize patient's functional independence in activities of mary ly living, strength, ROM, and mobility.- Rehab Goal Patient has realistic goal of being discharged at assistance level 7-Ind to reside at Home with Fami ly/Relatives. MDM/PLAN: - Physical Therapy Weakness - to improve, our physical therapists will perform initial evaluation of pt's status upon a dmission and devise an individualized program for Aquatic Therapy, Neuromuscular Reeducation, and Str engthening Poor balance - to improve, our physical therapists will perform initial evaluation of pt's status up on admission and devise an individualized program for Balance Training Inability to transfer - to improve, our physical therapists will perform initial evaluation of pt's status upon admission and devise an individualized program for Bed mobility Need in caregiver upon discharge - to improve, our physical therapists will perform initial evaluati on of pt's status upon admission and devise an individualized program for Caregiver Training Poor endurance - to improve, our physical therapists will perform initial evaluation of pt's status upon admission and devise an individualized program for Endurance Training Gait dysfunction - to improve, our physical therapists will perform initial evaluation of pt's statu s upon admission and devise an individualized program for Gait Training, and Wheel Chair mobility Need for home safety evaluation - to improve, our physical therapists will perform initial evaluatio n of pt's status upon admission and devise an individualized program for Home Evaluation New precaution - to improve, our physical therapists will perform initial evaluation of pt's status upon admission and devise an individualized program for Patient precaution education Edema - to improve, our physical therapists will perform initial evaluation of pt's status upon admi ssion and devise an individualized program for Elevation Training, and Lymphedema Therapy - Occupational Therapy Weakness - to improve, our occupation therapists will perform initial evaluation of pt's status upon admission and devise an individualized program for Aquatic Therapy, Balance, Endurance, UE ROM, and UE strengthening ADL deficits - to improve, our occupation therapists will perform initial evaluation of pt's status upon admission and devise an individualized program for Bathing, Bed mobility, Community Reintegratio n, Cooking, Dressing, Eating, Fine Motor Skills, Grooming, Homemaking, Kitchen Mobility, Laundry, Pat ient Education, Safety Awareness, Splinting - Positioning, Transfers(Toilet, Tub, Shower), and Wheel Chair Management Need for caretaker resort - to improve, our occupation therapists will perform initial evaluation of pt's status upon admission and devise an individualized program for Caregiver Training Cognitive deficits - to improve, our occupation therapists will perform initial evaluation of pt's s tatus upon admission and devise an individualized program for Cognition - orientation - Other See attached MAR (Medication Administration Record) - Diet Type Continue Regular - Diet - Liquid Texture Continue Regular - Tube Feed Continue N/A - Diet - Solid Texture Continue Regular - Shower allowing shower - Balance for Weakness - Bed mobility for ADL deficits FUNCTIONAL STATUS: UPDATED AT WEEKLY TEAM CONFERENCE - Bladder Same accident frequency: 7-Ind - No accidents in the past 7 days - Bowel Same accident frequency: 7-Ind - No accidents in the past 7 days - Walking Same score based on distance walked: 0(N/A) Same score based on distance walked: 1(<=50ft) - Wheelchair Same score based on distance traveled: 0(N/A) FUNCTIONAL STATUS: - Self-Care A. Eating Ind B. Grooming sup C. Bathing modA D. Dressing - Upper Hima E. Dressing - Lower modA F. Toileting sup - Sphincter Control G. Bladder control Yazmin H. Bowel control Yazmin - Transfers Control I. Bed/Chair/Wheelchair modA J. Toilet modA K. Tub/Shower modA - Locomotion L. Walk/Wheelchair (B) modA M. Stairs Dep - Communication N. Comprehension (B) Yazmin O. Expression (B) Yazmin - Social Cognition P. Social Interaction Yazmin Q. Problem Solving sup R. Memory Yazmin - Endurance Poor - Balance Fair - Safety Awareness Good QI SCORES: - Self-Care A. Eating 03-Partial/moderate assistance B. Oral hygiene 03-Partial/moderate assistance C. Toileting hygiene 03-Partial/moderate assistance E. Shower/bathe self 03-Partial/moderate assistance F. Upper body dressing 03-Partial/moderate assistance G. Lower body dressing 03-Partial/moderate assistance H. Putting on/taking off footwear 03-Partial/moderate assistance - Mobility A. Roll left and right 03-Partial/moderate assistance B. Sit to lying 03-Partial/moderate assistance C. Lying to sitting on side of bed 03-Partial/moderate assistance D. Sit to stand 03-Partial/moderate assistance E. Chair/[id number] transfer 03-Partial/moderate assistance F. Toilet transfer 03-Partial/moderate assistance G. Car transfer 03-Partial/moderate assistance I. Walk 10 feet 03-Partial/moderate assistance J. Walk 50 feet with two turns 88-Not attempted due to medical condition or safety concerns K. Walk 150 feet 88-Not attempted due to medical condition or safety concerns L. Walking 10 feet on uneven surfaces 88-Not attempted due to medical condition or safety concerns M. 1 step (curb) 88-Not attempted due to medical condition or safety concerns N. 4 steps 88-Not attempted due to medical condition or safety concerns O. 12 steps 88-Not attempted due to medical condition or safety concerns P. Picking up object 88-Not attempted due to medical condition or safety concerns R. Wheel 50 feet with two turns 88-Not attempted due to medical condition or safety concerns S. Wheel 150 feet - Bladder and Bowel Bladder continence Bowel continence - Endurance Fair - Balance Fair - Safety Awareness Fair CURRENT FUNC. DEFICITS: Self-Care, Mobility, Endurance, Balance, and Safety Awareness SIGNATURE PANEL: (CDT)
[2021-08-16] MEDS: DOCUSATE NA 100 MG CAP PO PRN (19:56)
[2021-08-16] MEDS: MIDODRINE HCL 5 MG TABLET PO SCH (19:56)
[2021-08-16] MEDS: ASPIRIN 81 MG CHEWABLE TABLET PO SCH (19:56)
[2021-08-16] MEDS: DONEPEZIL HCL 5 MG TAB PO SCH (19:57)
[2021-08-16] MEDS: ATORVASTATIN 10 MG TAB PO SCH (19:57)
[2021-08-16] MEDS: TAMSULOSIN 0.4 MG SR CAP PO SCH (19:57)
[2021-08-17] MEDS: PANTOPRAZOLE 40MG TABLET PO SCH (05:30)
[2021-08-17 06:06] LABS: Absolute Lymphocytes (CBC) 1.4 K/uL (0.7-4.9); Hematocrit 26.1 % (36.0-45.0); Lymphocytes % 28.4 % (15.3-44.8); MCV 102.5 fL (80-100); MPV 6.3 fL (7.6-11.3); RBC Red Blood Cell Count 2.54 M/uL (3.86-4.86)
[2021-08-17 06:19] LABS: Albumin 3.2 g/dL (3.4-5.0); Magnesium 2.1 mg/dL (1.8-2.4); Potassium 4.3 mmol/L (3.5-5.1); Prealbumin 28.6 mg/dL (20-40)
[2021-08-17 07:03] LABS: Anisocytosis 1+; Blood Morphology Comment NOTED (NOT SEEN); Macrocytosis 1+; Platelet Estimate ADEQ; White Blood Cell Scan OK (OK)
[2021-08-17] MEDS: atenoloL 50 MG TAB PO SCH ×2 (07:59→19:13)
[2021-08-17] MEDS: INSULIN -REGULAR HUMAN 50 UNIT/0.5 ML ML SQ SCH ×2 (08:00→19:08)
[2021-08-17] MEDS: LIDOCAINE 4% PATCH TOP SCH (08:00)
[2021-08-17] MEDS: BUDESONIDE 0.5 MG/2 ML NEB NEB SCH ×2 (08:00→20:00)
[2021-08-17] MEDS: lisinopriL 20 MG TAB PO SCH ×2 (08:00→19:11)
[2021-08-17] MEDS: ARFORMOTEROL TARTRATE 15 MCG/2 ML VIAL.NEB NEB SCH ×2 (08:00→20:00)
[2021-08-17] MEDS: DOCUSATE NA 100 MG CAP PO SCH (08:01)
[2021-08-17] MEDS: MIDODRINE HCL 5 MG TABLET PO SCH ×2 (08:01→19:07)
[2021-08-17] MEDS: APIXABAN 2.5 MG TABLET PO SCH ×2 (08:02→20:19)
[2021-08-17] MEDS: TRAMADOL HCL 50 MG TAB PO PRN ×2 (08:02→16:32)
[2021-08-17] MEDS: predniSONE 10 MG TAB PO SCH (08:02)
[2021-08-17] MEDS: GABAPENTIN 100 MG CAP PO SCH ×2 (08:02→19:07)
[2021-08-17] MEDS: CYANOCOBALAMIN 1,000 MCG TAB PO SCH (08:02)
[2021-08-17] MEDS: CRANBERRY FRUIT EXTRACT 400 MG CAP PO SCH ×2 (08:03→19:07)
[2021-08-17] MEDS: FE SULF/FA/VIT B COMP & C TAB PO SCH (08:03)
[2021-08-17] MEDS: FERROUS SULFATE 325 MG TAB PO SCH (08:04)
[2021-08-17] MEDS: MULTIVITAMIN TAB PO SCH (08:04)
[2021-08-17] MEDS: AMIODARONE HCL 200 MG TAB PO SCH (08:04)
[2021-08-17] MEDS: MEGESTROL 400 MG/10 ML UCUP PO SCH ×2 (08:04→19:06)
[2021-08-17] MEDS: POTASSIUM CL SA 10 MEQ TAB PO SCH (08:04)
[2021-08-17] MEDS: VITAMIN D 1000 UNIT TAB PO SCH (08:07)
[2021-08-17] MEDS: MAGNESIUM OXIDE 400 MG TAB PO SCH ×2 (08:08→19:06)
[2021-08-17] MEDS: GLUCERNA SHAKE 237 ML CAN PO SCH ×2 (08:14→19:08)
[2021-08-17] MEDS: HYDRALAZINE HCL 25 MG TABLET PO SCH (09:00)
--- NOTE | 2021-08-17 14:53 | R.PN ---
PROGRESS NOTES ENCOUNTER DATE AND TIME: 08/17/2021 14:47 (CDT) NAME CHELA STORM DATE OF : 1940 DATE OF ADMISSION: 08/07/2021 19:27 (CDT) A FIB, debilityCHIEF COMPLAINT: Debility and afib. SUBJECTIVE: Pt denied any Shortness of Breath. Pt denied any depression. 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 Ambulated 100' with standby assistance using a rolling walker. Wheelchair mobility 250' with standby assistance. VITAL SIGNS Temperature: 97.6 F SBP/DBP: 115/68 Pulse: 64 Resp: 16 MEDICATION ALLERGIES: ATIVAN PENICILLINS PHENERGAN ENVIRONMENTAL ALLERGIES: - Substance Allergies None Known - Other Allergies None Known NURSING: - Shower allowing shower ACTIVITIES OOB only with supervision THERAPIES: - Dietary and Nutrition Adequate Nutrition. Nutritional Education. Nutritional Supplements. Evaluate and Treat. - Occupational Therapy Cognitive Retraining. Patient needs Occupational Therapy for a daily minimum of 1.5 hours at least 5 out of 7 days, to improve Activities of Daily Living, including: Eating, Grooming, Bathing, Dressing, Toileting, Toilet Transfers, Community Reintegration, Higher functional activities, Adaptive Equipme nt, Splinting, Household Tasks, and Other activities as determined. Visual Perceptual Training. Evalu ate and Treat. Safety Awareness. ADL Training. Household Tasks. Transfer Training. Patient/Family Edu cation. - Speech Therapy Cognitive Training. Expressive Language Skills. Memory Strategies. Patient needs Speech Therapy for a daily minimum of 1.5 hours at least 5 out of 7 days, to improve: Swallowing, Cognition, Language Ski lls, and Compensatory Strategies. Evaluate and Treat. Receptive Language Skills. Speech Intelligibili ty Training. - Physical Therapy Patient needs Physical Therapy for a daily minimum of 1.5 hours at least 5 out of 7 days, to improve: Mobility, Strengthening, Transfers, Stretching, ROM, Endurance, Ability to manage stairs, Gait, and Balance. Balance Training. Gait Training. Safety Awareness. Evaluate and Treat. Patient/Family Educat ion. LE Strengthening. Transfer Training. PHYSICAL EXAM - Gen Alert and awake Lying in bed No apparent distress Oriented to: person, time, and place - Skin No breakdowns No abnormalities - Eyes No abnormalities - ENMT No abnormalities - Neck No abnormalities - CVS RRR - Chest No abnormalities - Resp No wheezing - Abd Soft - GI + bowel sounds - No abnormalities - Ext Mild bilateral lower extremity edema. - MSK 4/5 weakness in both lower extremities. - Neuro No focal deficits - Psych Mild depression. ASSESSMENT: Pt. is a 81 yo Right-handed female.On 07/12/2021 she was admitted to [facility] with diagnosis A FIB, debility.Her impairment category is Cardiac 09 - Cardiac Disorders ().Pre-morbidly, Pt. was indepe ndent/mod-I in Locomotion, Safety Awareness, Social Cognition, Balance, Transfers Control, and Sphinc ter Control; and she had good Self-Care, Communication, and Endurance.Currently, she has deficits of Locomotion, Social Cognition, Safety Awareness, Balance, Sphincter Control, Transfers Control, Self-C are, Endurance, and Communication.Pt. is now referred to [facility] for acute in-patient rehabilitation in order to maximize patient's functional independence in activities of mary ly living, strength, ROM, and mobility.- Rehab Goal Patient has realistic goal of being discharged at assistance level 7-Ind to reside at Home with Fami ly/Relatives. MDM/PLAN: - Physical Therapy Weakness - to improve, our physical therapists will perform initial evaluation of pt's status upon a dmission and devise an individualized program for Aquatic Therapy, Neuromuscular Reeducation, and Str engthening Poor balance - to improve, our physical therapists will perform initial evaluation of pt's status up on admission and devise an individualized program for Balance Training Inability to transfer - to improve, our physical therapists will perform initial evaluation of pt's status upon admission and devise an individualized program for Bed mobility Need in caregiver upon discharge - to improve, our physical therapists will perform initial evaluati on of pt's status upon admission and devise an individualized program for Caregiver Training Poor endurance - to improve, our physical therapists will perform initial evaluation of pt's status upon admission and devise an individualized program for Endurance Training Gait dysfunction - to improve, our physical therapists will perform initial evaluation of pt's statu s upon admission and devise an individualized program for Gait Training, and Wheel Chair mobility Need for home safety evaluation - to improve, our physical therapists will perform initial evaluatio n of pt's status upon admission and devise an individualized program for Home Evaluation New precaution - to improve, our physical therapists will perform initial evaluation of pt's status upon admission and devise an individualized program for Patient precaution education Edema - to improve, our physical therapists will perform initial evaluation of pt's status upon admi ssion and devise an individualized program for Elevation Training, and Lymphedema Therapy - Occupational Therapy Weakness - to improve, our occupation therapists will perform initial evaluation of pt's status upon admission and devise an individualized program for Aquatic Therapy, Balance, Endurance, UE ROM, and UE strengthening ADL deficits - to improve, our occupation therapists will perform initial evaluation of pt's status upon admission and devise an individualized program for Bathing, Bed mobility, Community Reintegratio n, Cooking, Dressing, Eating, Fine Motor Skills, Grooming, Homemaking, Kitchen Mobility, Laundry, Pat ient Education, Safety Awareness, Splinting - Positioning, Transfers(Toilet, Tub, Shower), and Wheel Chair Management Need for ostomy care nurse - to improve, our occupation therapists will perform initial evaluation of pt's status upon admission and devise an individualized program for Caregiver Training Cognitive deficits - to improve, our occupation therapists will perform initial evaluation of pt's s tatus upon admission and devise an individualized program for Cognition - orientation - Other See attached MAR (Medication Administration Record) - Diet Type Continue Regular - Diet - Liquid Texture Continue Regular - Tube Feed Continue N/A - Diet - Solid Texture Continue Regular - Shower allowing shower - Balance for Weakness - Bed mobility for ADL deficits FUNCTIONAL STATUS: UPDATED AT WEEKLY TEAM CONFERENCE - Bladder Same accident frequency: 7-Ind - No accidents in the past 7 days - Bowel Same accident frequency: 7-Ind - No accidents in the past 7 days - Walking Same score based on distance walked: 0(N/A) Same score based on distance walked: 1(<=50ft) - Wheelchair Same score based on distance traveled: 0(N/A) FUNCTIONAL STATUS: - Self-Care A. Eating Ind B. Grooming sup C. Bathing modA D. Dressing - Upper Hima E. Dressing - Lower modA F. Toileting sup - Sphincter Control G. Bladder control Yazmin H. Bowel control Yazmin - Transfers Control I. Bed/Chair/Wheelchair modA J. Toilet modA K. Tub/Shower modA - Locomotion L. Walk/Wheelchair (B) modA M. Stairs Dep - Communication N. Comprehension (B) Yazmin O. Expression (B) Yazmin - Social Cognition P. Social Interaction Yazmin Q. Problem Solving sup R. Memory Yazmin - Endurance Poor - Balance Fair - Safety Awareness Good QI SCORES: - Self-Care A. Eating 03-Partial/moderate assistance B. Oral hygiene 03-Partial/moderate assistance C. Toileting hygiene 03-Partial/moderate assistance E. Shower/bathe self 03-Partial/moderate assistance F. Upper body dressing 03-Partial/moderate assistance G. Lower body dressing 03-Partial/moderate assistance H. Putting on/taking off footwear 03-Partial/moderate assistance - Mobility A. Roll left and right 03-Partial/moderate assistance B. Sit to lying 03-Partial/moderate assistance C. Lying to sitting on side of bed 03-Partial/moderate assistance D. Sit to stand 03-Partial/moderate assistance E. Chair/[id number] transfer 03-Partial/moderate assistance F. Toilet transfer 03-Partial/moderate assistance G. Car transfer 03-Partial/moderate assistance I. Walk 10 feet 03-Partial/moderate assistance J. Walk 50 feet with two turns 88-Not attempted due to medical condition or safety concerns K. Walk 150 feet 88-Not attempted due to medical condition or safety concerns L. Walking 10 feet on uneven surfaces 88-Not attempted due to medical condition or safety concerns M. 1 step (curb) 88-Not attempted due to medical condition or safety concerns N. 4 steps 88-Not attempted due to medical condition or safety concerns O. 12 steps 88-Not attempted due to medical condition or safety concerns P. Picking up object 88-Not attempted due to medical condition or safety concerns R. Wheel 50 feet with two turns 88-Not attempted due to medical condition or safety concerns S. Wheel 150 feet - Bladder and Bowel Bladder continence Bowel continence - Endurance Fair - Balance Fair - Safety Awareness Fair CURRENT FUNC. DEFICITS: Self-Care, Mobility, Endurance, Balance, and Safety Awareness SIGNATURE PANEL: (CDT)
[2021-08-17] MEDS: DONEPEZIL HCL 5 MG TAB PO SCH (19:07)
[2021-08-17] MEDS: DOCUSATE NA/SENNA CONC 1 TAB PO PRN (19:07)
[2021-08-17] MEDS: ASPIRIN 81 MG CHEWABLE TABLET PO SCH (19:07)
[2021-08-17] MEDS: TAMSULOSIN 0.4 MG SR CAP PO SCH (19:07)
[2021-08-17] MEDS: ATORVASTATIN 10 MG TAB PO SCH (19:07)
[2021-08-17] MEDS ORDERED: atenoloL 25 MG TAB ONE (19:18)
[2021-08-18] MEDS: PANTOPRAZOLE 40MG TABLET PO SCH (05:34)
[2021-08-18] MEDS: MEGESTROL 400 MG/10 ML UCUP PO SCH ×2 (07:54→20:45)
[2021-08-18] MEDS: MAGNESIUM OXIDE 400 MG TAB PO SCH ×2 (07:54→20:47)
[2021-08-18] MEDS: GLUCERNA SHAKE 237 ML CAN PO SCH ×2 (07:54→20:47)
[2021-08-18] MEDS: DOCUSATE NA 100 MG CAP PO SCH (07:55)
[2021-08-18] MEDS: GABAPENTIN 100 MG CAP PO SCH ×2 (07:55→20:45)
[2021-08-18] MEDS: CRANBERRY FRUIT EXTRACT 400 MG CAP PO SCH ×2 (07:55→20:45)
[2021-08-18] MEDS: MULTIVITAMIN TAB PO SCH (07:55)
[2021-08-18] MEDS: FERROUS SULFATE 325 MG TAB PO SCH (07:55)
[2021-08-18] MEDS: FE SULF/FA/VIT B COMP & C TAB PO SCH (07:56)
[2021-08-18] MEDS: VITAMIN D 1000 UNIT TAB PO SCH (07:56)
[2021-08-18] MEDS: APIXABAN 2.5 MG TABLET PO SCH ×2 (07:56→20:47)
[2021-08-18] MEDS: MIDODRINE HCL 5 MG TABLET PO SCH ×2 (07:56→20:46)
[2021-08-18] MEDS: AMIODARONE HCL 200 MG TAB PO SCH (07:56)
[2021-08-18] MEDS: CYANOCOBALAMIN 1,000 MCG TAB PO SCH (07:56)
[2021-08-18] MEDS: POTASSIUM CL SA 10 MEQ TAB PO SCH (07:57)
[2021-08-18] MEDS: INSULIN -REGULAR HUMAN 50 UNIT/0.5 ML ML SQ SCH ×2 (07:57→20:00)
[2021-08-18] MEDS: TRAMADOL HCL 50 MG TAB PO PRN (07:59)
[2021-08-18] MEDS: lisinopriL 20 MG TAB PO SCH ×2 (08:00→20:00)
[2021-08-18] MEDS: BUDESONIDE 0.5 MG/2 ML NEB NEB SCH ×2 (08:00→20:00)
[2021-08-18] MEDS: atenoloL 50 MG TAB PO SCH ×2 (08:00→20:00)
[2021-08-18] MEDS: ARFORMOTEROL TARTRATE 15 MCG/2 ML VIAL.NEB NEB SCH ×2 (08:00→20:00)
--- NOTE | 2021-08-18 09:44 | P.RH.PN ---
Estimated Length of Stay: 15 Expected Discharge Date: 08/21/21 Discharge Disposition Plan: Home Family Support: Yes Correction Goal: Mobility, Transfers, Self Care Vital Signs: Last Vital Signs Temp 97.8 F 08/18/21 07:55 Pulse 86 08/18/21 07:55 Resp 16 08/18/21 08:59 BP 123/60 08/18/21 07:55 Pulse Ox 95 08/18/21 08:59 Laboratory: Laboratory Last Values WBC 4.9 K/uL (4.3-10.9) D 08/17/21 05:52 RBC 2.54 M/uL (3.86-4.86) L 08/17/21 05:52 Hgb 8.5 g/dL (12.0-15.0) L 08/17/21 05:52 Hct 26.1 % (36.0-45.0) L 08/17/21 05:52 MCV 102.5 fL (80-100) H 08/17/21 05:52 MCH 33.3 pg (27.0-35.0) 08/17/21 05:52 MCHC 32.5 g/dL (32.0-36.0) 08/17/21 05:52 RDW 24.0 % (12.1-15.2) H 08/17/21 05:52 Plt Count 374 K/uL (152-406) 08/17/21 05:52 MPV 6.3 fL (7.6-11.3) L 08/17/21 05:52 Neutrophils % 56.5 % (41.7-73.7) 08/17/21 05:52 Lymphocytes % 28.4 % (15.3-44.8) 08/17/21 05:52 Monocytes % 13.1 % (3.3-12.3) H 08/17/21 05:52 Eosinophils % 1.8 % (0-4.4) 08/17/21 05:52 Basophils % 0.2 % (0-1.3) 08/17/21 05:52 Absolute Neutrophils 2.8 K/uL (1.8-8.0) 08/17/21 05:52 Absolute Lymphocytes 1.4 K/uL (0.7-4.9) 08/17/21 05:52 Absolute Monocytes 0.6 K/uL (0.1-1.3) 08/17/21 05:52 Absolute Eosinophils 0.1 K/uL (0-0.5) 08/17/21 05:52 Absolute Basophils 0.0 K/uL (0-0.5) 08/17/21 05:52 Platelet Estimate Adeq 08/17/21 05:52 Anisocytosis 1+ 08/17/21 05:52 Macrocytosis 1+ 08/17/21 05:52 Morphology Comment Noted (NOT SEEN) 08/17/21 05:52 Sodium 139 mmol/L (136-145) 08/17/21 05:52 Potassium 4.3 mmol/L (3.5-5.1) 08/17/21 05:52 Chloride 108 mmol/L (98-107) H 08/17/21 05:52 Carbon Dioxide 28 mmol/L (21-32) 08/17/21 05:52 Anion Gap 7.3 mEq/L (5.0-15.0) 08/17/21 05:52 BUN 17 mg/dL (7-18) 08/17/21 05:52 Creatinine 0.73 mg/dL (0.55-1.3) 08/17/21 05:52 Est GFR (CKD-EPI) 82 ml/min (=/>90) L 08/17/21 05:52 Glucose 110 mg/dL (74-106) H 08/17/21 05:52 POC Glucose 123 mg/dL (65-120) H 08/18/21 07:38 Calcium 9.8 mg/dL (8.5-10.1) 08/17/21 05:52 Magnesium 2.1 mg/dL (1.8-2.4) 08/17/21 05:52 NT-Pro-B Natriuret Pep 2974 pg/mL (<450) H 08/08/21 05:36 Albumin 3.2 g/dL (3.4-5.0) L 08/17/21 05:52 Prealbumin 28.6 mg/dL (20-40) 08/17/21 05:52 Urine Color Yellow (Yellow) 08/07/21 21:10 Urine Appearance Clear (Clear) 08/07/21 21:10 Urine pH 7.0 (5.0-7.0) 08/07/21 21:10 Ur Specific [place] 1.020 (1.005-1.030) 08/07/21 21:10 Glucose (UA)(Auto) Negative (Negative) 08/07/21 21:10 Urine Ketones Negative (Negative) 08/07/21 21:10 Urine Blood Negative (Negative) 08/07/21 21:10 Urine Nitrite Negative (Negative) 08/07/21 21:10 Urine Bilirubin Negative (Negative) 08/07/21 21:10 Urine Urobilinogen 4.0 mg/dL (0.2-1.0) H 08/07/21 21:10 Ur Leukocyte Esterase 3+ (Negative) H 08/07/21 21:10 Urine RBC None seen /HPF (NONE SEEN) 08/07/21 21:10 Urine WBC >50 /HPF (<5) H 08/07/21 21:10 Ur Squamous Epith Cells <5 /HPF (NONE SEEN) 08/07/21 21:10 Ur Urothelial Cells <5 /HPF (NONE SEEN) 08/07/21 21:10 Calcium Oxalate Crystal Cancelled 08/07/21 20:54 Uric Acid Crystals Cancelled 08/07/21 20:54 Triple Phos Crystals Cancelled 08/07/21 20:54 Other Crystals Cancelled 08/07/21 20:54 Amorphous Sediment Cancelled 08/07/21 20:54 Glitter Cells Cancelled 08/07/21 20:54 Urine Bacteria <20 /HPF (<20) 08/07/21 21:10 Hyaline Casts Cancelled 08/07/21 20:54 Fine Granular Casts Cancelled 08/07/21 20:54 Coarse Granular Casts Cancelled 08/07/21 20:54 Waxy Casts Cancelled 08/07/21 20:54 RBC Casts Cancelled 08/07/21 20:54 WBC Casts Cancelled 08/07/21 20:54 Urine Mucus Cancelled 08/07/21 20:54 Urine Other Cancelled 08/07/21 20:54 Urine Trichomonas Cancelled 08/07/21 20:54 Urine Yeast Present (NONE SEEN) H 08/07/21 21:10 Ur Yeast w Hyphae Present 08/07/21 21:10 Urine Yeast (Budding) Present (NONE SEEN) H 08/07/21 21:10 Urine Sperm Cancelled 08/07/21 20:54 Urine Culture Reflexed Not needed 08/07/21 21:10 Urine Total Volume Cancelled 08/07/21 20:54 Urine Total Protein Negative (Negative) 08/07/21 21:10 SARS-CoV-2 Rap RNA(RT-PCR) Negative (NEGATIVE) 08/14/21 06:50 Smear Scan Ok (OK) 08/17/21 05:52 Weight: 172 lb Wound Present: No Closed Surgical Incision Present: No Negative Pressure Wound Therapy Present: No Physician Update: Labs reviewed and are stable. Bed mobility CGA, min assist with sit to stand, supervision transfers, WC 250' with SBA. Supevision with verbal ques, constantly asks what next with ADLs. Memory is 70% recall and counting is 100%. Functional Improvement: pt has met all short term goals and the majority of mcc goals at this time. pt has progressed well physically, however continues to need on going VC for participation in therapy. 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 Please see the Rehabilitation Signature page for all necessary signatures.
[2021-08-18] MEDS: LIDOCAINE 4% PATCH TOP SCH (09:45)
[2021-08-18] MEDS: HYDRALAZINE HCL 25 MG TABLET PO SCH (12:12)
[2021-08-18] MEDS: ACETAMINOPHEN 325 MG TABLET PO PRN (15:24)
[2021-08-18] MEDS ORDERED: atenoloL 25 MG TAB ONE (19:18)
[2021-08-18] MEDS: DONEPEZIL HCL 5 MG TAB PO SCH (20:45)
[2021-08-18] MEDS: ASPIRIN 81 MG CHEWABLE TABLET PO SCH (20:45)
[2021-08-18] MEDS: TAMSULOSIN 0.4 MG SR CAP PO SCH (20:46)
[2021-08-19] MEDS: PANTOPRAZOLE 40MG TABLET PO SCH (07:03)
[2021-08-19] MEDS: ARFORMOTEROL TARTRATE 15 MCG/2 ML VIAL.NEB NEB SCH ×3 (07:36→21:00)
[2021-08-19] MEDS: BUDESONIDE 0.5 MG/2 ML NEB NEB SCH ×3 (07:36→21:00)
[2021-08-19] MEDS: lisinopriL 20 MG TAB PO SCH ×2 (08:00→20:00)
[2021-08-19] MEDS: INSULIN -REGULAR HUMAN 50 UNIT/0.5 ML ML SQ SCH ×2 (08:00→20:00)
[2021-08-19] MEDS: TRAMADOL HCL 50 MG TAB PO PRN (08:16)
[2021-08-19] MEDS: MEGESTROL 400 MG/10 ML UCUP PO SCH ×2 (08:17→20:21)
[2021-08-19] MEDS: LIDOCAINE 4% PATCH TOP SCH (08:17)
[2021-08-19] MEDS: DOCUSATE NA 100 MG CAP PO SCH (08:18)
[2021-08-19] MEDS: FERROUS SULFATE 325 MG TAB PO SCH (08:18)
[2021-08-19] MEDS: GABAPENTIN 100 MG CAP PO SCH ×2 (08:18→20:22)
[2021-08-19] MEDS: APIXABAN 2.5 MG TABLET PO SCH ×2 (08:18→20:22)
[2021-08-19] MEDS: POTASSIUM CL SA 10 MEQ TAB PO SCH (08:18)
[2021-08-19] MEDS: predniSONE 10 MG TAB PO SCH (08:18)
[2021-08-19] MEDS: FE SULF/FA/VIT B COMP & C TAB PO SCH (08:18)
[2021-08-19] MEDS: CRANBERRY FRUIT EXTRACT 400 MG CAP PO SCH ×2 (08:19→20:21)
[2021-08-19] MEDS: MULTIVITAMIN TAB PO SCH (08:19)
[2021-08-19] MEDS: CYANOCOBALAMIN 1,000 MCG TAB PO SCH (08:19)
[2021-08-19] MEDS: VITAMIN D 1000 UNIT TAB PO SCH (08:19)
[2021-08-19] MEDS: AMIODARONE HCL 200 MG TAB PO SCH (08:20)
[2021-08-19] MEDS: MIDODRINE HCL 5 MG TABLET PO SCH ×2 (08:25→20:22)
[2021-08-19] MEDS: atenoloL 50 MG TAB PO SCH ×2 (08:25→20:21)
[2021-08-19] MEDS: MAGNESIUM OXIDE 400 MG TAB PO SCH ×2 (09:42→20:22)
[2021-08-19] MEDS: GLUCERNA SHAKE 237 ML CAN PO SCH ×2 (09:42→20:22)
[2021-08-19] MEDS: HYDRALAZINE HCL 25 MG TABLET PO SCH (12:00)
[2021-08-19] MEDS ORDERED: atenoloL 25 MG TAB ONE (18:44)
--- NOTE | 2021-08-19 20:17 | R.PN ---
PROGRESS NOTES ENCOUNTER DATE AND TIME: 08/19/2021 20:12 (CDT) NAME CHELA STORM DATE OF : 1940 DATE OF ADMISSION: 08/07/2021 19:27 (CDT) A FIB, debilityCHIEF COMPLAINT: Debility and afib. SUBJECTIVE: Pt denied any Shortness of Breath. Pt denied any depression. 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 Bed mobility and therapeutic exercises done with min assistance. VITAL SIGNS Temperature: 97.0 F SBP/DBP: 116/58 Pulse: 93 Resp: 15 MEDICATION ALLERGIES: ATIVAN PENICILLINS PHENERGAN ENVIRONMENTAL ALLERGIES: - Substance Allergies None Known - Other Allergies None Known NURSING: - Shower allowing shower ACTIVITIES OOB only with supervision THERAPIES: - Dietary and Nutrition Adequate Nutrition. Nutritional Education. Nutritional Supplements. Evaluate and Treat. - Occupational Therapy Cognitive Retraining. Patient needs Occupational Therapy for a daily minimum of 1.5 hours at least 5 out of 7 days, to improve Activities of Daily Living, including: Eating, Grooming, Bathing, Dressing, Toileting, Toilet Transfers, Community Reintegration, Higher functional activities, Adaptive Equipme nt, Splinting, Household Tasks, and Other activities as determined. Visual Perceptual Training. Evalu ate and Treat. Safety Awareness. ADL Training. Household Tasks. Transfer Training. Patient/Family Edu cation. - Speech Therapy Cognitive Training. Expressive Language Skills. Memory Strategies. Patient needs Speech Therapy for a daily minimum of 1.5 hours at least 5 out of 7 days, to improve: Swallowing, Cognition, Language Ski lls, and Compensatory Strategies. Evaluate and Treat. Receptive Language Skills. Speech Intelligibili ty Training. - Physical Therapy Patient needs Physical Therapy for a daily minimum of 1.5 hours at least 5 out of 7 days, to improve: Mobility, Strengthening, Transfers, Stretching, ROM, Endurance, Ability to manage stairs, Gait, and Balance. Balance Training. Gait Training. Safety Awareness. Evaluate and Treat. Patient/Family Educat ion. LE Strengthening. Transfer Training. PHYSICAL EXAM - Gen Alert and awake Lying in bed No apparent distress Oriented to: person, time, and place - Skin No breakdowns No abnormalities - Eyes No abnormalities - ENMT No abnormalities - Neck No abnormalities - CVS RRR - Chest No abnormalities - Resp No wheezing - Abd Soft - GI + bowel sounds - No abnormalities - Ext Mild bilateral lower extremity edema. - MSK 4/5 weakness in both lower extremities. - Neuro No focal deficits - Psych Mild depression. ASSESSMENT: Pt. is a 81 yo Right-handed female.On 07/12/2021 she was admitted to [facility] with diagnosis A FIB, debility.Her impairment category is Cardiac 09 - Cardiac Disorders ().Pre-morbidly, Pt. was indepe ndent/mod-I in Locomotion, Safety Awareness, Social Cognition, Balance, Transfers Control, and Sphinc ter Control; and she had good Self-Care, Communication, and Endurance.Currently, she has deficits of Locomotion, Social Cognition, Safety Awareness, Balance, Sphincter Control, Transfers Control, Self-C are, Endurance, and Communication.Pt. is now referred to [facility] for acute in-patient rehabilitation in order to maximize patient's functional independence in activities of mary ly living, strength, ROM, and mobility.- Rehab Goal Patient has realistic goal of being discharged at assistance level 7-Ind to reside at Home with Fami ly/Relatives. MDM/PLAN: - Physical Therapy Weakness - to improve, our physical therapists will perform initial evaluation of pt's status upon a dmission and devise an individualized program for Aquatic Therapy, Neuromuscular Reeducation, and Str engthening Poor balance - to improve, our physical therapists will perform initial evaluation of pt's status up on admission and devise an individualized program for Balance Training Inability to transfer - to improve, our physical therapists will perform initial evaluation of pt's status upon admission and devise an individualized program for Bed mobility Need in caregiver upon discharge - to improve, our physical therapists will perform initial evaluati on of pt's status upon admission and devise an individualized program for Caregiver Training Poor endurance - to improve, our physical therapists will perform initial evaluation of pt's status upon admission and devise an individualized program for Endurance Training Gait dysfunction - to improve, our physical therapists will perform initial evaluation of pt's statu s upon admission and devise an individualized program for Gait Training, and Wheel Chair mobility Need for home safety evaluation - to improve, our physical therapists will perform initial evaluatio n of pt's status upon admission and devise an individualized program for Home Evaluation New precaution - to improve, our physical therapists will perform initial evaluation of pt's status upon admission and devise an individualized program for Patient precaution education Edema - to improve, our physical therapists will perform initial evaluation of pt's status upon admi ssion and devise an individualized program for Elevation Training, and Lymphedema Therapy - Occupational Therapy Weakness - to improve, our occupation therapists will perform initial evaluation of pt's status upon admission and devise an individualized program for Aquatic Therapy, Balance, Endurance, UE ROM, and UE strengthening ADL deficits - to improve, our occupation therapists will perform initial evaluation of pt's status upon admission and devise an individualized program for Bathing, Bed mobility, Community Reintegratio n, Cooking, Dressing, Eating, Fine Motor Skills, Grooming, Homemaking, Kitchen Mobility, Laundry, Pat ient Education, Safety Awareness, Splinting - Positioning, Transfers(Toilet, Tub, Shower), and Wheel Chair Management Need for nursing care attendant - to improve, our occupation therapists will perform initial evaluation of pt's status upon admission and devise an individualized program for Caregiver Training Cognitive deficits - to improve, our occupation therapists will perform initial evaluation of pt's s tatus upon admission and devise an individualized program for Cognition - orientation - Other See attached MAR (Medication Administration Record) - Diet Type Continue Regular - Diet - Liquid Texture Continue Regular - Tube Feed Continue N/A - Diet - Solid Texture Continue Regular - Shower allowing shower - Balance for Weakness - Bed mobility for ADL deficits FUNCTIONAL STATUS: UPDATED AT WEEKLY TEAM CONFERENCE - Bladder Same accident frequency: 7-Ind - No accidents in the past 7 days - Bowel Same accident frequency: 7-Ind - No accidents in the past 7 days - Walking Same score based on distance walked: 0(N/A) Same score based on distance walked: 1(<=50ft) - Wheelchair Same score based on distance traveled: 0(N/A) FUNCTIONAL STATUS: - Self-Care A. Eating Ind B. Grooming sup C. Bathing modA D. Dressing - Upper Hima E. Dressing - Lower modA F. Toileting sup - Sphincter Control G. Bladder control Yazmin H. Bowel control Yazmin - Transfers Control I. Bed/Chair/Wheelchair modA J. Toilet modA K. Tub/Shower modA - Locomotion L. Walk/Wheelchair (B) modA M. Stairs Dep - Communication N. Comprehension (B) Yazmin O. Expression (B) Yazmin - Social Cognition P. Social Interaction Yazmin Q. Problem Solving sup R. Memory Yazmin - Endurance Poor - Balance Fair - Safety Awareness Good QI SCORES: - Self-Care A. Eating 03-Partial/moderate assistance B. Oral hygiene 03-Partial/moderate assistance C. Toileting hygiene 03-Partial/moderate assistance E. Shower/bathe self 03-Partial/moderate assistance F. Upper body dressing 03-Partial/moderate assistance G. Lower body dressing 03-Partial/moderate assistance H. Putting on/taking off footwear 03-Partial/moderate assistance - Mobility A. Roll left and right 03-Partial/moderate assistance B. Sit to lying 03-Partial/moderate assistance C. Lying to sitting on side of bed 03-Partial/moderate assistance D. Sit to stand 03-Partial/moderate assistance E. Chair/[id number] transfer 03-Partial/moderate assistance F. Toilet transfer 03-Partial/moderate assistance G. Car transfer 03-Partial/moderate assistance I. Walk 10 feet 03-Partial/moderate assistance J. Walk 50 feet with two turns 88-Not attempted due to medical condition or safety concerns K. Walk 150 feet 88-Not attempted due to medical condition or safety concerns L. Walking 10 feet on uneven surfaces 88-Not attempted due to medical condition or safety concerns M. 1 step (curb) 88-Not attempted due to medical condition or safety concerns N. 4 steps 88-Not attempted due to medical condition or safety concerns O. 12 steps 88-Not attempted due to medical condition or safety concerns P. Picking up object 88-Not attempted due to medical condition or safety concerns R. Wheel 50 feet with two turns 88-Not attempted due to medical condition or safety concerns S. Wheel 150 feet - Bladder and Bowel Bladder continence Bowel continence - Endurance Fair - Balance Fair - Safety Awareness Fair CURRENT FUNC. DEFICITS: Self-Care, Mobility, Endurance, Balance, and Safety Awareness SIGNATURE PANEL: (CDT)
[2021-08-19] MEDS: ATORVASTATIN 10 MG TAB PO SCH (20:21)
[2021-08-19] MEDS: ASPIRIN 81 MG CHEWABLE TABLET PO SCH (20:22)
[2021-08-19] MEDS: DONEPEZIL HCL 5 MG TAB PO SCH (20:22)
[2021-08-19] MEDS: TAMSULOSIN 0.4 MG SR CAP PO SCH (20:22)
[2021-08-20] MEDS: DOCUSATE NA/SENNA CONC 1 TAB PO PRN ×2 (03:19→20:06)
[2021-08-20] MEDS: PANTOPRAZOLE 40MG TABLET PO SCH (05:17)
[2021-08-20] MEDS: LIDOCAINE 4% PATCH TOP SCH (07:29)
[2021-08-20] MEDS: BUDESONIDE 0.5 MG/2 ML NEB NEB SCH ×2 (08:00→20:00)
[2021-08-20] MEDS: lisinopriL 20 MG TAB PO SCH ×2 (08:00→20:00)
[2021-08-20] MEDS: INSULIN -REGULAR HUMAN 50 UNIT/0.5 ML ML SQ SCH ×2 (08:00→20:00)
[2021-08-20] MEDS: ARFORMOTEROL TARTRATE 15 MCG/2 ML VIAL.NEB NEB SCH ×2 (08:00→20:00)
[2021-08-20] MEDS: atenoloL 50 MG TAB PO SCH ×2 (08:00→20:06)
[2021-08-20] MEDS: FLUCONAZOLE 100 MG TAB PO SCH (08:23)
[2021-08-20] MEDS: CRANBERRY FRUIT EXTRACT 400 MG CAP PO SCH ×2 (08:24→20:06)
[2021-08-20] MEDS: MEGESTROL 400 MG/10 ML UCUP PO SCH ×2 (08:24→20:06)
[2021-08-20] MEDS: FE SULF/FA/VIT B COMP & C TAB PO SCH (08:24)
[2021-08-20] MEDS: APIXABAN 2.5 MG TABLET PO SCH ×2 (08:24→20:08)
[2021-08-20] MEDS: DOCUSATE NA 100 MG CAP PO SCH (08:24)
[2021-08-20] MEDS: GABAPENTIN 100 MG CAP PO SCH ×2 (08:25→20:06)
[2021-08-20] MEDS: CYANOCOBALAMIN 1,000 MCG TAB PO SCH (08:25)
[2021-08-20] MEDS: AMIODARONE HCL 200 MG TAB PO SCH (08:26)
[2021-08-20] MEDS: MAGNESIUM OXIDE 400 MG TAB PO SCH ×2 (08:26→20:08)
[2021-08-20] MEDS: MULTIVITAMIN TAB PO SCH (08:26)
[2021-08-20] MEDS: GLUCERNA SHAKE 237 ML CAN PO SCH ×2 (08:26→20:08)
[2021-08-20] MEDS: VITAMIN D 1000 UNIT TAB PO SCH (08:26)
[2021-08-20] MEDS: MIDODRINE HCL 5 MG TABLET PO SCH ×2 (08:26→20:07)
[2021-08-20] MEDS: FERROUS SULFATE 325 MG TAB PO SCH (08:26)
[2021-08-20] MEDS: POTASSIUM CL SA 10 MEQ TAB PO SCH (08:27)
[2021-08-20] MEDS: TRAMADOL HCL 50 MG TAB PO PRN ×2 (08:54→20:08)
[2021-08-20] MEDS: HYDRALAZINE HCL 25 MG TABLET PO SCH (12:31)
[2021-08-20 14:59] LABS: Urine Appearance Clear (Clear); Urine Bilirubin Negative (Negative); Urine Blood Negative (Negative); Urine Color Yellow (Yellow); Urine Glucose Negative (Negative); Urine Protein Negative (Negative); Urine Urobilinogen 0.2 mg/dL (0.2-1.0); Urine pH 6.5 (5.0-7.0)
[2021-08-20 15:27] LABS: Urine Bacteria <20 /HPF (<20); Urine RBC NONE SEEN /HPF (NONE SEEN)
[2021-08-20] MEDS: ACETAMINOPHEN 325 MG TABLET PO PRN (16:22)
[2021-08-20] MEDS ORDERED: atenoloL 25 MG TAB ONE (19:15)
[2021-08-20] MEDS: ASPIRIN 81 MG CHEWABLE TABLET PO SCH (20:06)
[2021-08-20] MEDS: ATORVASTATIN 10 MG TAB PO SCH (20:06)
[2021-08-20] MEDS: TAMSULOSIN 0.4 MG SR CAP PO SCH (20:06)
[2021-08-20] MEDS: DONEPEZIL HCL 5 MG TAB PO SCH (20:08)
[2021-08-21 04:49] LABS: Absolute Lymphocytes (CBC) 1.3 K/uL (0.7-4.9); Hematocrit 29.4 % (36.0-45.0); Lymphocytes % 22.1 % (15.3-44.8); MCV 104.1 fL (80-100); MPV 6.6 fL (7.6-11.3); RBC Red Blood Cell Count 2.82 M/uL (3.86-4.86)
[2021-08-21] MEDS: PANTOPRAZOLE 40MG TABLET PO SCH (05:17)
[2021-08-21 05:25] VITALS: O2SAT 98
[2021-08-21] MEDS: MULTIVITAMIN TAB PO SCH (07:53)
[2021-08-21] MEDS: MAGNESIUM OXIDE 400 MG TAB PO SCH ×2 (07:53→20:01)
[2021-08-21] MEDS: DOCUSATE NA 100 MG CAP PO SCH (07:53)
[2021-08-21] MEDS: predniSONE 10 MG TAB PO SCH (07:53)
[2021-08-21] MEDS: APIXABAN 2.5 MG TABLET PO SCH ×2 (07:53→20:01)
[2021-08-21] MEDS: GABAPENTIN 100 MG CAP PO SCH ×2 (07:54→20:02)
[2021-08-21] MEDS: CYANOCOBALAMIN 1,000 MCG TAB PO SCH (07:54)
[2021-08-21] MEDS: MIDODRINE HCL 5 MG TABLET PO SCH ×2 (07:54→20:02)
[2021-08-21] MEDS: AMIODARONE HCL 200 MG TAB PO SCH (07:54)
[2021-08-21] MEDS: VITAMIN D 1000 UNIT TAB PO SCH (07:54)
[2021-08-21] MEDS: CRANBERRY FRUIT EXTRACT 400 MG CAP PO SCH ×2 (07:55→20:01)
[2021-08-21] MEDS: MEGESTROL 400 MG/10 ML UCUP PO SCH ×2 (07:55→20:01)
[2021-08-21] MEDS: FERROUS SULFATE 325 MG TAB PO SCH (07:55)
[2021-08-21] MEDS: POTASSIUM CL SA 10 MEQ TAB PO SCH (07:55)
[2021-08-21] MEDS: FE SULF/FA/VIT B COMP & C TAB PO SCH (07:55)
[2021-08-21] MEDS: GLUCERNA SHAKE 237 ML CAN PO SCH ×2 (07:56→19:50)
[2021-08-21] MEDS: BUDESONIDE 0.5 MG/2 ML NEB NEB SCH ×2 (08:00→20:00)
[2021-08-21] MEDS: INSULIN -REGULAR HUMAN 50 UNIT/0.5 ML ML SQ SCH ×2 (08:00→20:00)
[2021-08-21] MEDS: lisinopriL 20 MG TAB PO SCH (08:00)
[2021-08-21] MEDS: ARFORMOTEROL TARTRATE 15 MCG/2 ML VIAL.NEB NEB SCH ×2 (08:00→20:00)
[2021-08-21] MEDS: FLUCONAZOLE 100 MG TAB PO SCH (08:09)
[2021-08-21] MEDS: LIDOCAINE 4% PATCH TOP SCH (08:09)
[2021-08-21] MEDS: atenoloL 50 MG TAB PO SCH ×2 (08:10→20:02)
[2021-08-21] MEDS: HYDRALAZINE HCL 25 MG TABLET PO SCH (12:00)
--- NOTE | 2021-08-21 13:56 | EKG ---
Test Date: 2021-08-18 Test Time: 11:27:19 Attractions Associate: VICKIE MEASUREMENT RESULTS: Intervals: Rate: 80 VT: QRSD: 88 QT: 378 QTc: 435 [place]: P: VT: QRS: 50 T: 46 INTERPRETIVE STATEMENTS: Atrial fibrillation Nonspecific ST abnormality, probably digitalis effect Abnormal ECG Compared to ECG 08/08/2021 13:34:45 Possible ischemia no longer present ST (T wave) deviation still present Electronically Signed On 08-21-21 13:49:38 CDT by Pieter Galvan
--- NOTE | 2021-08-21 18:25 | R.PN ---
PROGRESS NOTES ENCOUNTER DATE AND TIME: 08/21/2021 18:20 (CDT) NAME CHELA STORM DATE OF : 1940 DATE OF ADMISSION: 08/07/2021 19:27 (CDT) A FIB, debilityCHIEF COMPLAINT: Debility and afib. SUBJECTIVE: Pt denied any Shortness of Breath. Pt denied any depression. WBC 6.0, Hgb 9.4, Bag Filler 0.73, glu 101 jto 198, Mg 2.1, prealbumin 28.6,covid-19 is negative 08-07-21. EKG from 08-21-21 shows atrial fibrillation with rate 80. Ambulated 150' with SBA using a rolling walker. VITAL SIGNS Temperature: 97.5 F SBP/DBP: 109/73 Pulse: 94 Resp: 16 MEDICATION ALLERGIES: ATIVAN PENICILLINS PHENERGAN ENVIRONMENTAL ALLERGIES: - Substance Allergies None Known - Other Allergies None Known NURSING: - Shower allowing shower ACTIVITIES OOB only with supervision THERAPIES: - Dietary and Nutrition Adequate Nutrition. Nutritional Education. Nutritional Supplements. Evaluate and Treat. - Occupational Therapy Cognitive Retraining. Patient needs Occupational Therapy for a daily minimum of 1.5 hours at least 5 out of 7 days, to improve Activities of Daily Living, including: Eating, Grooming, Bathing, Dressing, Toileting, Toilet Transfers, Community Reintegration, Higher functional activities, Adaptive Equipme nt, Splinting, Household Tasks, and Other activities as determined. Visual Perceptual Training. Evalu ate and Treat. Safety Awareness. ADL Training. Household Tasks. Transfer Training. Patient/Family Edu cation. - Speech Therapy Cognitive Training. Expressive Language Skills. Memory Strategies. Patient needs Speech Therapy for a daily minimum of 1.5 hours at least 5 out of 7 days, to improve: Swallowing, Cognition, Language Ski lls, and Compensatory Strategies. Evaluate and Treat. Receptive Language Skills. Speech Intelligibili ty Training. - Physical Therapy Patient needs Physical Therapy for a daily minimum of 1.5 hours at least 5 out of 7 days, to improve: Mobility, Strengthening, Transfers, Stretching, ROM, Endurance, Ability to manage stairs, Gait, and Balance. Balance Training. Gait Training. Safety Awareness. Evaluate and Treat. Patient/Family Educat ion. LE Strengthening. Transfer Training. PHYSICAL EXAM - Gen Alert and awake Lying in bed No apparent distress Oriented to: person, time, and place - Skin No breakdowns No abnormalities - Eyes No abnormalities - ENMT No abnormalities - Neck No abnormalities - CVS RRR - Chest No abnormalities - Resp No wheezing - Abd Soft - GI + bowel sounds - No abnormalities - Ext Mild bilateral lower extremity edema. - MSK 4/5 weakness in both lower extremities. - Neuro No focal deficits - Psych Mild depression. ASSESSMENT: Pt. is a 81 yo Right-handed female.On 07/12/2021 she was admitted to [facility] with diagnosis A FIB, debility.Her impairment category is Cardiac 09 - Cardiac Disorders ().Pre-morbidly, Pt. was indepe ndent/mod-I in Locomotion, Safety Awareness, Social Cognition, Balance, Transfers Control, and Sphinc ter Control; and she had good Self-Care, Communication, and Endurance.Currently, she has deficits of Locomotion, Social Cognition, Safety Awareness, Balance, Sphincter Control, Transfers Control, Self-C are, Endurance, and Communication.Pt. is now referred to [facility] for acute in-patient rehabilitation in order to maximize patient's functional independence in activities of mary ly living, strength, ROM, and mobility.- Rehab Goal Patient has realistic goal of being discharged at assistance level 7-Ind to reside at Home with Fami ly/Relatives. MDM/PLAN: - Physical Therapy Weakness - to improve, our physical therapists will perform initial evaluation of pt's status upon a dmission and devise an individualized program for Aquatic Therapy, Neuromuscular Reeducation, and Str engthening Poor balance - to improve, our physical therapists will perform initial evaluation of pt's status up on admission and devise an individualized program for Balance Training Inability to transfer - to improve, our physical therapists will perform initial evaluation of pt's status upon admission and devise an individualized program for Bed mobility Need in caregiver upon discharge - to improve, our physical therapists will perform initial evaluati on of pt's status upon admission and devise an individualized program for Caregiver Training Poor endurance - to improve, our physical therapists will perform initial evaluation of pt's status upon admission and devise an individualized program for Endurance Training Gait dysfunction - to improve, our physical therapists will perform initial evaluation of pt's statu s upon admission and devise an individualized program for Gait Training, and Wheel Chair mobility Need for home safety evaluation - to improve, our physical therapists will perform initial evaluatio n of pt's status upon admission and devise an individualized program for Home Evaluation New precaution - to improve, our physical therapists will perform initial evaluation of pt's status upon admission and devise an individualized program for Patient precaution education Edema - to improve, our physical therapists will perform initial evaluation of pt's status upon admi ssion and devise an individualized program for Elevation Training, and Lymphedema Therapy - Occupational Therapy Weakness - to improve, our occupation therapists will perform initial evaluation of pt's status upon admission and devise an individualized program for Aquatic Therapy, Balance, Endurance, UE ROM, and UE strengthening ADL deficits - to improve, our occupation therapists will perform initial evaluation of pt's status upon admission and devise an individualized program for Bathing, Bed mobility, Community Reintegratio n, Cooking, Dressing, Eating, Fine Motor Skills, Grooming, Homemaking, Kitchen Mobility, Laundry, Pat ient Education, Safety Awareness, Splinting - Positioning, Transfers(Toilet, Tub, Shower), and Wheel Chair Management Need for skin care technician - to improve, our occupation therapists will perform initial evaluation of pt's status upon admission and devise an individualized program for Caregiver Training Cognitive deficits - to improve, our occupation therapists will perform initial evaluation of pt's s tatus upon admission and devise an individualized program for Cognition - orientation - Other See attached MAR (Medication Administration Record) - Diet Type Continue Regular - Diet - Liquid Texture Continue Regular - Tube Feed Continue N/A - Diet - Solid Texture Continue Regular - Shower allowing shower - Balance for Weakness - Bed mobility for ADL deficits FUNCTIONAL STATUS: UPDATED AT WEEKLY TEAM CONFERENCE - Bladder Same accident frequency: 7-Ind - No accidents in the past 7 days - Bowel Same accident frequency: 7-Ind - No accidents in the past 7 days - Walking Same score based on distance walked: 0(N/A) Same score based on distance walked: 1(<=50ft) - Wheelchair Same score based on distance traveled: 0(N/A) FUNCTIONAL STATUS: - Self-Care A. Eating Ind B. Grooming sup C. Bathing modA D. Dressing - Upper Hima E. Dressing - Lower modA F. Toileting sup - Sphincter Control G. Bladder control Yazmin H. Bowel control Yazmin - Transfers Control I. Bed/Chair/Wheelchair modA J. Toilet modA K. Tub/Shower modA - Locomotion L. Walk/Wheelchair (B) modA M. Stairs Dep - Communication N. Comprehension (B) Yazmin O. Expression (B) Yazmin - Social Cognition P. Social Interaction Yazmin Q. Problem Solving sup R. Memory Yazmin - Endurance Poor - Balance Fair - Safety Awareness Good QI SCORES: - Self-Care A. Eating 03-Partial/moderate assistance B. Oral hygiene 03-Partial/moderate assistance C. Toileting hygiene 03-Partial/moderate assistance E. Shower/bathe self 03-Partial/moderate assistance F. Upper body dressing 03-Partial/moderate assistance G. Lower body dressing 03-Partial/moderate assistance H. Putting on/taking off footwear 03-Partial/moderate assistance - Mobility A. Roll left and right 03-Partial/moderate assistance B. Sit to lying 03-Partial/moderate assistance C. Lying to sitting on side of bed 03-Partial/moderate assistance D. Sit to stand 03-Partial/moderate assistance E. Chair/[id number] transfer 03-Partial/moderate assistance F. Toilet transfer 03-Partial/moderate assistance G. Car transfer 03-Partial/moderate assistance I. Walk 10 feet 03-Partial/moderate assistance J. Walk 50 feet with two turns 88-Not attempted due to medical condition or safety concerns K. Walk 150 feet 88-Not attempted due to medical condition or safety concerns L. Walking 10 feet on uneven surfaces 88-Not attempted due to medical condition or safety concerns M. 1 step (curb) 88-Not attempted due to medical condition or safety concerns N. 4 steps 88-Not attempted due to medical condition or safety concerns O. 12 steps 88-Not attempted due to medical condition or safety concerns P. Picking up object 88-Not attempted due to medical condition or safety concerns R. Wheel 50 feet with two turns 88-Not attempted due to medical condition or safety concerns S. Wheel 150 feet - Bladder and Bowel Bladder continence Bowel continence - Endurance Fair - Balance Fair - Safety Awareness Fair CURRENT FUNC. DEFICITS: Self-Care, Mobility, Endurance, Balance, and Safety Awareness SIGNATURE PANEL: (CDT)
[2021-08-21] MEDS ORDERED: atenoloL 25 MG TAB ONE (19:05)
[2021-08-21] MEDS ORDERED: atenoloL 50 MG TAB PO SCH (20:00)
[2021-08-21] MEDS: ATORVASTATIN 10 MG TAB PO SCH (20:03)
[2021-08-21] MEDS: TAMSULOSIN 0.4 MG SR CAP PO SCH (20:03)
[2021-08-21] MEDS: ASPIRIN 81 MG CHEWABLE TABLET PO SCH (20:03)
[2021-08-21] MEDS: DONEPEZIL HCL 5 MG TAB PO SCH (20:03)
[2021-08-21 22:24] VITALS: TEMP 97.4
[2021-08-22] MEDS: LIDOCAINE 4% PATCH TOP SCH (07:20)
[2021-08-22] MEDS: VITAMIN D 1000 UNIT TAB PO SCH (07:21)
[2021-08-22] MEDS: MIDODRINE HCL 5 MG TABLET PO SCH (07:21)
[2021-08-22] MEDS: APIXABAN 2.5 MG TABLET PO SCH (07:21)
[2021-08-22] MEDS: PANTOPRAZOLE 40MG TABLET PO SCH (07:22)
[2021-08-22] MEDS: GABAPENTIN 100 MG CAP PO SCH (07:22)
[2021-08-22] MEDS: CYANOCOBALAMIN 1,000 MCG TAB PO SCH (07:22)
[2021-08-22] MEDS: MAGNESIUM OXIDE 400 MG TAB PO SCH (07:22)
[2021-08-22] MEDS: DOCUSATE NA 100 MG CAP PO SCH (07:22)
[2021-08-22] MEDS: AMIODARONE HCL 200 MG TAB PO SCH (07:22)
[2021-08-22] MEDS: ARFORMOTEROL TARTRATE 15 MCG/2 ML VIAL.NEB NEB SCH (08:00)
[2021-08-22] MEDS: MEGESTROL 400 MG/10 ML UCUP PO SCH (08:00)
[2021-08-22] MEDS: BUDESONIDE 0.5 MG/2 ML NEB NEB SCH (08:00)
[2021-08-22] MEDS: INSULIN -REGULAR HUMAN 50 UNIT/0.5 ML ML SQ SCH (08:00)
[2021-08-22] MEDS: GLUCERNA SHAKE 237 ML CAN PO SCH (08:00)
[2021-08-22] MEDS: POTASSIUM CL SA 10 MEQ TAB PO SCH (08:00)
[2021-08-22] MEDS: TRAMADOL HCL 50 MG TAB PO PRN (08:57)
[2021-08-22] MEDS: CRANBERRY FRUIT EXTRACT 400 MG CAP PO SCH (08:58)
[2021-08-22] MEDS: FE SULF/FA/VIT B COMP & C TAB PO SCH (08:58)
[2021-08-22] MEDS: MULTIVITAMIN TAB PO SCH (08:58)
[2021-08-22] MEDS: FERROUS SULFATE 325 MG TAB PO SCH (08:58)
[2021-08-22] MEDS: ONDANSETRON 4 MG (ODT) TAB PO PRN (09:00)
[2021-08-22] MEDS: FLUCONAZOLE 100 MG TAB PO SCH (09:01)
[2021-08-22] MEDS: atenoloL 50 MG TAB PO SCH (09:01)
[2021-08-22 09:03] VITALS: BP 105/68
--- NOTE | 2021-08-22 18:14 | R.PN ---
PROGRESS NOTES ENCOUNTER DATE AND TIME: 08/22/2021 18:11 (CDT) NAME CHELA STORM DATE OF : 1940 DATE OF ADMISSION: 08/07/2021 19:27 (CDT) A FIB, debilityCHIEF COMPLAINT: Debility and afib. SUBJECTIVE: Pt denied any Shortness of Breath. Pt denied any depression. WBC 6.0, Hgb 9.4, Drug Inspector 0.73, glu 101 jto 198, Mg 2.1, prealbumin 28.6,covid-19 is negative 08-07-21. EKG from 08-21-21 shows atrial fibrillation with rate 80. Ambulated 150' with SBA using a rolling walker. Up and down 10 steps with bilateral handrails and CGA. VITAL SIGNS Temperature: 97.4 F SBP/DBP: 105/68 Pulse: 109 Resp: 16 MEDICATION ALLERGIES: ATIVAN PENICILLINS PHENERGAN ENVIRONMENTAL ALLERGIES: - Substance Allergies None Known - Other Allergies None Known NURSING: - Shower allowing shower ACTIVITIES OOB only with supervision THERAPIES: - Dietary and Nutrition Adequate Nutrition. Nutritional Education. Nutritional Supplements. Evaluate and Treat. - Occupational Therapy Cognitive Retraining. Patient needs Occupational Therapy for a daily minimum of 1.5 hours at least 5 out of 7 days, to improve Activities of Daily Living, including: Eating, Grooming, Bathing, Dressing, Toileting, Toilet Transfers, Community Reintegration, Higher functional activities, Adaptive Equipme nt, Splinting, Household Tasks, and Other activities as determined. Visual Perceptual Training. Evalu ate and Treat. Safety Awareness. ADL Training. Household Tasks. Transfer Training. Patient/Family Edu cation. - Speech Therapy Cognitive Training. Expressive Language Skills. Memory Strategies. Patient needs Speech Therapy for a daily minimum of 1.5 hours at least 5 out of 7 days, to improve: Swallowing, Cognition, Language Ski lls, and Compensatory Strategies. Evaluate and Treat. Receptive Language Skills. Speech Intelligibili ty Training. - Physical Therapy Patient needs Physical Therapy for a daily minimum of 1.5 hours at least 5 out of 7 days, to improve: Mobility, Strengthening, Transfers, Stretching, ROM, Endurance, Ability to manage stairs, Gait, and Balance. Balance Training. Gait Training. Safety Awareness. Evaluate and Treat. Patient/Family Educat ion. LE Strengthening. Transfer Training. PHYSICAL EXAM - Gen Alert and awake Lying in bed No apparent distress Oriented to: person, time, and place - Skin No breakdowns No abnormalities - Eyes No abnormalities - ENMT No abnormalities - Neck No abnormalities - CVS RRR - Chest No abnormalities - Resp No wheezing - Abd Soft - GI + bowel sounds - No abnormalities - Ext Mild bilateral lower extremity edema. - MSK 4/5 weakness in both lower extremities. - Neuro No focal deficits - Psych Mild depression. ASSESSMENT: Pt. is a 81 yo Right-handed female.On 07/12/2021 she was admitted to [facility] with diagnosis A FIB, debility.Her impairment category is Cardiac 09 - Cardiac Disorders ().Pre-morbidly, Pt. was indepe ndent/mod-I in Locomotion, Safety Awareness, Social Cognition, Balance, Transfers Control, and Sphinc ter Control; and she had good Self-Care, Communication, and Endurance.Currently, she has deficits of Locomotion, Social Cognition, Safety Awareness, Balance, Sphincter Control, Transfers Control, Self-C are, Endurance, and Communication.Pt. is now referred to [facility] for acute in-patient rehabilitation in order to maximize patient's functional independence in activities of mary ly living, strength, ROM, and mobility.- Rehab Goal Patient has realistic goal of being discharged at assistance level 7-Ind to reside at Home with Fami ly/Relatives. MDM/PLAN: - Physical Therapy Weakness - to improve, our physical therapists will perform initial evaluation of pt's status upon a dmission and devise an individualized program for Aquatic Therapy, Neuromuscular Reeducation, and Str engthening Poor balance - to improve, our physical therapists will perform initial evaluation of pt's status up on admission and devise an individualized program for Balance Training Inability to transfer - to improve, our physical therapists will perform initial evaluation of pt's status upon admission and devise an individualized program for Bed mobility Need in caregiver upon discharge - to improve, our physical therapists will perform initial evaluati on of pt's status upon admission and devise an individualized program for Caregiver Training Poor endurance - to improve, our physical therapists will perform initial evaluation of pt's status upon admission and devise an individualized program for Endurance Training Gait dysfunction - to improve, our physical therapists will perform initial evaluation of pt's statu s upon admission and devise an individualized program for Gait Training, and Wheel Chair mobility Need for home safety evaluation - to improve, our physical therapists will perform initial evaluatio n of pt's status upon admission and devise an individualized program for Home Evaluation New precaution - to improve, our physical therapists will perform initial evaluation of pt's status upon admission and devise an individualized program for Patient precaution education Edema - to improve, our physical therapists will perform initial evaluation of pt's status upon admi ssion and devise an individualized program for Elevation Training, and Lymphedema Therapy - Occupational Therapy Weakness - to improve, our occupation therapists will perform initial evaluation of pt's status upon admission and devise an individualized program for Aquatic Therapy, Balance, Endurance, UE ROM, and UE strengthening ADL deficits - to improve, our occupation therapists will perform initial evaluation of pt's status upon admission and devise an individualized program for Bathing, Bed mobility, Community Reintegratio n, Cooking, Dressing, Eating, Fine Motor Skills, Grooming, Homemaking, Kitchen Mobility, Laundry, Pat ient Education, Safety Awareness, Splinting - Positioning, Transfers(Toilet, Tub, Shower), and Wheel Chair Management Need for housekeeper caregiver - to improve, our occupation therapists will perform initial evaluation of pt's status upon admission and devise an individualized program for Caregiver Training Cognitive deficits - to improve, our occupation therapists will perform initial evaluation of pt's s tatus upon admission and devise an individualized program for Cognition - orientation - Other See attached MAR (Medication Administration Record) - Diet Type Continue Regular - Diet - Liquid Texture Continue Regular - Tube Feed Continue N/A - Diet - Solid Texture Continue Regular - Shower allowing shower - Balance for Weakness - Bed mobility for ADL deficits FUNCTIONAL STATUS: UPDATED AT WEEKLY TEAM CONFERENCE - Bladder Same accident frequency: 7-Ind - No accidents in the past 7 days - Bowel Same accident frequency: 7-Ind - No accidents in the past 7 days - Walking Same score based on distance walked: 0(N/A) Same score based on distance walked: 1(<=50ft) - Wheelchair Same score based on distance traveled: 0(N/A) FUNCTIONAL STATUS: - Self-Care A. Eating Ind B. Grooming sup C. Bathing modA D. Dressing - Upper Hima E. Dressing - Lower modA F. Toileting sup - Sphincter Control G. Bladder control Yazmin H. Bowel control Yazmin - Transfers Control I. Bed/Chair/Wheelchair modA J. Toilet modA K. Tub/Shower modA - Locomotion L. Walk/Wheelchair (B) modA M. Stairs Dep - Communication N. Comprehension (B) Yazmin O. Expression (B) Yazmin - Social Cognition P. Social Interaction Yazmin Q. Problem Solving sup R. Memory Yazmin - Endurance Poor - Balance Fair - Safety Awareness Good QI SCORES: - Self-Care A. Eating 03-Partial/moderate assistance B. Oral hygiene 03-Partial/moderate assistance C. Toileting hygiene 03-Partial/moderate assistance E. Shower/bathe self 03-Partial/moderate assistance F. Upper body dressing 03-Partial/moderate assistance G. Lower body dressing 03-Partial/moderate assistance H. Putting on/taking off footwear 03-Partial/moderate assistance - Mobility A. Roll left and right 03-Partial/moderate assistance B. Sit to lying 03-Partial/moderate assistance C. Lying to sitting on side of bed 03-Partial/moderate assistance D. Sit to stand 03-Partial/moderate assistance E. Chair/iho-ve-aggin transfer 03-Partial/moderate assistance F. Toilet transfer 03-Partial/moderate assistance G. Car transfer 03-Partial/moderate assistance I. Walk 10 feet 03-Partial/moderate assistance J. Walk 50 feet with two turns 88-Not attempted due to medical condition or safety concerns K. Walk 150 feet 88-Not attempted due to medical condition or safety concerns L. Walking 10 feet on uneven surfaces 88-Not attempted due to medical condition or safety concerns M. 1 step (curb) 88-Not attempted due to medical condition or safety concerns N. 4 steps 88-Not attempted due to medical condition or safety concerns O. 12 steps 88-Not attempted due to medical condition or safety concerns P. Picking up object 88-Not attempted due to medical condition or safety concerns R. Wheel 50 feet with two turns 88-Not attempted due to medical condition or safety concerns S. Wheel 150 feet - Bladder and Bowel Bladder continence Bowel continence - Endurance Fair - Balance Fair - Safety Awareness Fair CURRENT FUNC. DEFICITS: Self-Care, Mobility, Endurance, Balance, and Safety Awareness SIGNATURE PANEL: (CDT)
== END 2021-08-22 14:30 | disposition home health service (06) | DRG 310 ==
LOC: 5TH 19:27
PROVIDERS: ADMIT Psychiatry & Neurology Neurology with Special Qualifications in Child Neurology; ATTEND Psychiatry & Neurology Neurology with Special Qualifications in Child Neurology
DX: I48.0 Paroxysmal atrial fibrillation (principal); R53.81 Other malaise; J44.9 Chronic obstructive pulmonary disease, unspecified; I25.10 Atherosclerotic heart disease of native coronary artery without angina pectoris; E11.9 Type 2 diabetes mellitus without complications; I10 Essential (primary) hypertension; I95.1 Orthostatic hypotension; Z95.1 Presence of aortocoronary bypass graft; Z88.0 Allergy status to penicillin; Z20.822 Contact with and (suspected) exposure to COVID-19
CPT/HCPCS: 36415; 71045; 80048; 81003; 81015; 82040; 82274; 82947; 83735; 83880; 84134; 85025; 87077; 87086; 87088; 87186; 92507; 92523; 93005; 94010; 94640; 97110; 97116; 97129; 97130; 97161; 97165; 97530; 97542; J1815; J2001; J3475; J7512; J7605; Q0162; U0003

== ENCOUNTER 2022-07-12 12:58 | Emergency (ER) | payer OTHER, MEDICARE ==
--- OUTSIDE RECORDS SUMMARY | 2022-07-12 13:03 | XMS REPORT | Continuity of Care Document ---
:1940 Author Organization [facility] t Address [address] [place] [address] Care Team Providers Name Role Phone Vinod Moreno MD, Elizabeth Gutierrez Primary Care Physician [phone] Elizabeth Brock MD Attending Clinician Ori SHEN, Nalini Attending Clinician April Mcclendon MD Attending Clinician Gorge SHEN, Isidro Walter Attending Clinician Scott SHEN, Eleno Merrill Attending Clinician [phone] Clark Ayers Attending Clinician Julianna Vu MD Attending Clinician Carin Guerrier MA Attending Clinician Unavailable CARLOS STEWART Attending Clinician Unavailable MD ELIZABETH BROCK Attending Clinician Unavailable ELIZABETH BROCK Admitting Clinician Unavailable MD ELIZABETH BROCK Admitting Clinician Unavailable Payers Payer Name Policy Type Policy Number Effective Date Expiration Date S ource Problems Condition Condition Condition Status Onset Resolution Last Treating Co mments Source Name Details Category Date Date Treatment Clinician Date Melena Melena Disease Active [facility] 07-27 00:[facility]: Hospita 00 l Delirium Delirium Disease Active [facility] di 07-24 00:00: Hospita 00 l Lymphoma Lymphoma Disease Active [facility] 6-13 st 00:00: [facility]ospita 00 l Atrial Atrial Disease Active [facility] fibrillati fibrillati 6-05 st on on 00:00: Hospita 00 l Anemia Anemia Disease Active [facility] 6 st 00:00: [facility]ospita 00 l Hypoxia Hypoxia Disease Active [facility] st 00:00: Hospita 00 l CHF CHF Disease Active [facility] (congestiv (congestiv 25 st e heart e heart 00:00: Hospita failure), failure), 00 l NYHA class NYHA class I, acute I, acute on on chronic, chronic, 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 00:00: Ho spita 00 l Change in Change in Disease Active Met hodi mental mental [address] [facility] status status 00:00: Hospita 00 l Hypertensi Hypertensi Disease Active M ethodi on on 07-13 st 00:00: Hospita 00 l UTI UTI Disease Active [facility] (urinary (urinary 07-11 st tract tract 00:00: Hospita infection) infection) 00 l Rash Rash Disease Active [facility] 4-07 st 00:00: [facility]ospita 00 l 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 00:00: Ho spita 00 l Gait Gait Disease Active [facility] disorder disorder 4-15 st 00:00: Hospita 00 l S/P S/P Disease Active [facility] vertebropl vertebropl 4-15 st asty asty 00:00: Hospita 00 l Fracture Fracture Disease Active [facility]o di of lumbar of lumbar 3-15 st spine spine 00:00: Hospita 00 l T12 T12 Disease Active [facility] compressio compressio 3-14 st n fracture n fracture 00:00: Ho spita 00 l Iron Iron Disease Active [facility] deficiency deficiency 2-03 st anemia anemia 00:00: Hospita 00 l Shortness Shortness Disease Active [facility] of breath of breath 2-01 st 00:00: Hospita 00 l Acute Acute Disease Active 2016-02 [facility] diastolic diastolic 1-06 st congestive congestive 00:00: Ho spita heart heart 00 l failure failure Temporal Temporal Disease Active 2016-02 [facility] di arteritis arteritis 02-16 st 00:00: Hospita 00 l NSTEMI NSTEMI Disease Active 2016-02 [facility] (non-ST (non-ST 02-15 st elevated elevated 00:00: Hospit a myocardial myocardial 00 l infarction infarction ) ) Vision Vision Disease Active [facility] disturbanc disturbanc 11-01 e e 00:00: Hospita 00 l Type 2 Type 2 Disease Active [facility]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 11-01 mellitus mellitus 00:00: Hospit a 00 l Essential Essential Disease Active Met [facility] hypertensi hypertensi 11-01 on on 00:00: Hospita 00 l Hypothyroi Hypothyroi Disease Active M ethodi dism due dism due 11-01 to to 00:00: Hospita 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 Hospita reaction 00 Was a l s to kid. drug Unknown reaction to daughter. Prometha Propensi Active Hallucinatio "crazy" Methodi zine ty to ns 11-01 st adverse 00:00: Hospita reaction 00 l s to drug Family History Family Member Diagnosis Comments Start Date Stop Date Source Natural father Heart block [facility] Natural mother Colon cancer [facility] Natural mother Stroke [facility] Natural sister Cancer [facility] Natural sister Diabetes [facility] Social History Social Habit Start Date Stop Date Quantity Comments Source Gender identity [facility] Sexual orientation [facility] History of Social 2022-05-16 2022-05-[address] function 00:00:00 00:00:00 Hospital Alcohol intake 2021-08-04 2021-08-04 Current [facility] 00:00:00 00:00:00 non-drinker of Hospital alcohol (finding) Tobacco use and 2016-11-01 2016-11-01 Smokeless [facility] exposure 00:00:00 00:00:00 tobacco non-user Hospital Sex Assigned At [birth year] [facility] 00:00:00 00:00:00 Hospital Smoking Status Start Date Stop Date Source Never smoked tobacco [facility] Medications Ordered Filled Start Stop Current Ordering Indication Dosage Frequency Signature Comments Components Source Medication Medication Date Date Medication? Clinician (SIG) Name Name predniSONE 2021- No 10mg Q2D Take 1 Meth angel (DELTASONE) 08-09 tablet (10 s t 10 mg 00:00: 04:59 mg total) Hospit a tablet 00 :00 by mouth l every other day for 30 days. lidocaine 2021- No 1{patch Q24H Place 1 M ethodi (LIDODERM) 08-08 } patch on st 5 % 00:00: 04:59 the skin Hospita 00 :00 daily for l 30 days. Remove & Discard patch within 12 hours or as directed by pantoprazol No 40mg QD Take 1 Met hodi e 08-08 tablet (40 st (PROTONIX) 00:00: 04:59 mg total) H ospita 40 MG EC 00 :00 by mouth l tablet daily for 30 days. VIT 2021- No 1{tbl} Q.5D Take 1 Methodi C/E/ZN/MAGEN 08-[address] R/LUTEIN/ZE 18:32: 00:00 mouth 2 Ho spita AXAN 41 :00 (two) l (PRESERVISI times a ON AREDS 2 day. ORAL) metFORMIN 2021- No 500mg QD Take 500 Me thodi (GLUCOPHAGE 08-07- mg by st ) 500 mg 18:32: 00:00 mouth Hospita tablet 41 :00 nightly. l linaclotide 2021- No 1{tbl} Q24H Take 1 M ethodi (LINZESS 08-07- tablet by st ORAL) 18:32: 00:00 mouth Hospita 41 :00 daily as l needed (constipat ion). donepeziL 2022-0 Yes 10mg QD Take 10 mg Me thodi (ARICEPT) 6-[address] 10 MG 18:32: nightly. Hospita tablet 40 l aspirin Yes 81mg QD Take 81 mg Meth angel (ECOTRIN) 6-[address] 81 MG 18:32: nightly. Hospita enteric 40 l coated tablet docusate Yes 100mg Q24H Take 100 Meth angel sodium 6-[address] (COLACE) 18:32: mouth Hospita 100 MG 40 daily as l capsule needed for constipati on. amIODarone Yes 200mg QD Take 200 Me thodi (PACERONE) 6-[address] 200 MG 18:32: mouth Hospita tablet 40 daily l before breakfast. pravastatin Yes 40mg QD Take 40 mg [facility] (PRAVACHOL) 6-[address] 40 MG 18:32: daily. Hospita tablet 40 l senna Yes 1{tbl} Q24H Take 1 [facility] (SENOKOT) 6- tablet by st 8.6 mg 18:32: mouth Hospita tablet 40 daily as l needed for constipati on. cholecalcif Yes 1{tbl} QD Take 1 Me thodi eusebia, 08-[address] vitamin D3, 18:32: mouth Hospi ta (VITAMIN D3 40 daily. l ORAL) levalbutero Yes 1{ampul Q4H Take 1 M ethodi l (XOPENEX) 08-07 e} ampule by st 0.63 mg/3 18:32: nebulizati Ho spita mL 40 on every 4 l nebulizer (four) solution hours as needed (Asthma). multivitami Yes 1{tbl} QD Take 1 Me thodi n tablet 08-[address] 18:32: mouth Hospita 40 daily. l atenoloL 2021- No 100mg Q.5D Take 1 Metho di (TENORMIN) 08-07-[address] 100 MG 00:00: 04:59 (100 mg Hospita tablet 00 :00 total) by l mouth 2 (two) times a day for 30 days. acetaminoph 2021- No 650mg Q6H Take 2 Me thodi en 08-07- tablets st (TYLENOL) 00:00: 04:59 (650 mg Hosp dhruv 325 MG 00 :00 total) by l tablet mouth every 6 (six) hours as needed for mild pain for up to 30 days. arformotero 2021- No [id number] 15ug Q.5D Take 2 mL Methodi L (BROVANA) 08-07 ([address] 15 mcg/2 mL 00:: 04:59 total) by Hospita solution 00 :00 nebulizati l for on 2 (two) nebulizatio times a n day for 30 days. bisacodyL 2021- No 10mg Q24H Insert 1 Met hodi (DULCOLAX) 08-[address] 10 mg 00:: :59 y (10 mg Hospita suppository 00 :00 total) l into the rectum daily as needed for constipati on for up to 30 days. budesonide 2021- No [id number] .5mg Q.5D Take 2 mL [facility] (PULMICORT) 08-07 (0.[address] 0.5 mg/2 mL 00:00: 04:59 total) by Hospita nebulizer 00 :00 nebulizati l solution on 2 (two) times a day for 30 days. dextrose 10 2021- No 40mL/h Infuse 40 Method[facility] % infusion 08-07 mL/hr into st 00:: 04:59 a venous Hospita 00 :00 catheter l continuous ly as needed (For bedside glucose LESS than 70 mg/dL) for up to 30 days. dextrose 2021- No 12.5g Infuse 25 Me thodi 50% syringe 08-07 mL (12.5 g s t 00:00: 04:59 total) Hospita 00 :00 into a l venous catheter every 20 (twenty) minutes as needed (If blood glucose is between 41-69 mg/dL) for up to 30 days. dextrose 2021- No 25g Infuse 50 Met hodi 50% syringe 08-07- mL ([address] 00:00: 04:59 total) Hospita 00 :00 into a l venous catheter every 20 (twenty) minutes as needed (if blood glucose is less than or equal 40 mg/dL) for up to 30 days. glucagon 1 2021- No 1mg Inject 1 Me thodi mg/mL recon 08-[address]n 00:00: 04:59 the Hospita 00 :00 shoulder, l thigh, or buttocks every 15 (fifteen) minutes as needed (if patient NPO, unable to swallow safely with no IV access.) for up to 30 days. hydrALAZINE 2021- No 25mg Q.[id number] Take 1 [facility] (APRESOLINE 08-07 [id number] tablet (25 st ) 25 MG 00:00: 04:59 3D mg total) Hosp dhruv tablet 00 :00 by mouth l every 8 (eight) hours for 30 days. insulin 2021- No 0U [id number] Inject M ethodi lispro 08-07 [id number] 0-[address] (ADMELOG) 00:00: 04:59 3D under the Ho spita 100 unit/mL 00 :00 skin 3 l injection (three) times a day with meals for 30 days. ipratropium 2021- No [id number] .5mg Q.[id number] Take 2.5 [facility] (ATROVENT) 08-07 [id number] mL (0.[address] 0.02 % 00:00: 04:59 3D total) by [facility] ta nebulizer 00 :00 nebulizati l solution on every 6 (six) hours while awake for 30 days. lidocaine 2021- No 2{patch Q24H Place 2 M ethodi (LIDODERM) 08-07 } patches on st 5 % 00:00: 04:59 the skin Hospita 00 :00 daily for l 30 days. Remove & Discard patch within 12 hours or as directed by lisinopriL 2021- No 20mg Q.5D Take 1 Meth angel (PRINIVIL) 08-07 tablet (20 st 20 mg 00:00: 04:59 mg total) Hospit a tablet 00 :00 by mouth 2 l (two) times a day for 30 days. ramelteon 8mg QD Take 1 Metho di (ROZEREM) 8 08-07-28 tablet (8 st mg tablet 00:00: 04:59 mg total) Ho spita 00 :00 by mouth l nightly as needed for sleep for up [place] [id number] 50mg Q6H Take 1 Metho di (ULTRAM) 50 08-07-08 tablet (50 s t mg tablet 00:00: 04:59 mg total) Ho spita 00 :00 by mouth l every 6 (six) hours as needed for severe pain for up to 10 days .acute pain. nystatin 10mL Q.25D Take 10 mL M ethodi (MYCOSTATIN 08-07 by mouth 4 s t ) 100,000 00:00: 04:59 (four) Hospi ta unit/mL 00 :00 times a l suspension day for 7 days. Swish in mouth albuterol Yes 2{puff} Q4H Inhale 2 M ethodi (PROAIR 2-[address] HFA,PROVENT 00:00: every 4 Hos kofi [place] 00 (four) l HFA,VENTOLI hours as N HFA) 90 needed for mcg/actuati wheezing on inhaler or shortness of breath. gabapentin 600mg Q.[id number] Take 600 [facility] (NEURONTIN) 10-[id number] 300 mg 00:00: 00:00 3D mouth 3 Hospita capsule 00 :00 (three) l times a day. omeprazole No 1{capsu Q.5D Take 1 M ethodi (PriLOSEC) 07-31 le} capsule by st 40 MG 00:00: 00:00 mouth 2 Hospita capsule 00 :00 (two) l times a day as needed. atenoloL No 50mg QD Take 50 mg Me thodi (TENORMIN) 05-[address] 50 MG 00:00: 00:00 every Hospita tablet 00 :00 morning. l Vital Signs Vital Name Observation Time Observation Value Comments Source Systolic blood 2021-08-07 20:28:40 118 mm[Hg] [facility] pressure Diastolic blood 2021-08-07 20:28:40 59 mm[Hg] [facility] pressure Heart rate 2021-08-07 20:28:40 83 /min [facility] Body temperature 2021-08-07 20:28:40 36.17 Lary [facility] Oxygen saturation in 2021-08-07 20:28:40 98 /min [facility] Arterial blood by Pulse oximetry Respiratory rate 2021-08-07 19:23:00 19 /min [facility] Body weight 2021-08-03 11:37:00 71.1 kg [facility] BMI 2021-08-03 11:37:00 29.62 kg/m2 [facility] Body height 2021-07-29 09:00:00 154.9 cm [facility] Procedures Procedure Date / Time Performing Source Performed Clinician POC GLUCOSE 2021-08-07 Elizabeth Brock 17:35:00 O. Hospital POC GLUCOSE 2021-08-07 Elizabeth Brock 13:27:00 O. Hospital CBC WITH PLATELET AND DIFFERENTIAL 2021-08-07 Matt Brock 08:56:00 O. Hospital SMEAR REVIEW 2021-08-07 Elizabeth Brock 08:56:00 O. Hospital POC GLUCOSE 2021-08-07 Elizabeth Brock 02:00:00 O. Hospital POC GLUCOSE 2021-08-06 Elizabeth Brock 23:50:00 O. Hospital POC GLUCOSE 2021-08-06 Elizabeth Brock 17:47:00 O. Hospital POC GLUCOSE 2021-08-06 Elizabeth Brock 13:47:00 O. Hospital BASIC METABOLIC PANEL 2021-08-06 Latesha Bustillos 09:11:00 [facility] CBC WITH PLATELET AND DIFFERENTIAL 2021-08-06 Edwardo Bustillos 09:11:00 [facility] MAGNESIUM LEVEL 2021-08-06 Latesha Bustillos 09:11:00 [facility] PHOSPHORUS LEVEL 2021-08-06 Latesha Bustillos 09:11:00 [facility] ESTIMATED GFR 2021-08-06 Latesha Bustillos 09:11:00 [facility] SMEAR REVIEW 2021-08-06 Latesha Bustillos 09:11:00 [facility] POC GLUCOSE 2021-08-06 Elizabeth Brock 02:02:00 O. Hospital POC GLUCOSE 2021-08-05 Elizabeth Brock 23:28:00 O. Hospital POC GLUCOSE 2021-08-05 Elizabeth Brock 18:14:00 O. Hospital POC GLUCOSE 2021-08-05 Elizabeth Brock 14:43:00 O. Hospital POTASSIUM LEVEL 2021-08-05 Elizabeth Brock 14:27:00 O. Hospital CBC WITH PLATELET AND DIFFERENTIAL 2021-08-05 Matt Brock 12:35:00 O. Hospital SMEAR REVIEW 2021-08-05 Elizabeth Brock 12:35:00 O. Hospital BASIC METABOLIC PANEL 2021-08-05 Latesha Bustillos 10:39:00 [facility] CBC WITH PLATELET AND DIFFERENTIAL 2021-08-05 Edwardo Bustillos 10:39:00 [facility] MAGNESIUM LEVEL 2021-08-05 Latesha Bustillos 10:39:00 [facility] PHOSPHORUS LEVEL 2021-08-05 Latesha Bustillos 10:39:00 [facility] IONIZED CALCIUM 2021-08-05 Latesha Bustillos 10:39:00 [facility] ESTIMATED GFR 2021-08-05 Latesha Bustillos 10:39:00 [facility] POC GLUCOSE 2021-08-05 Elizabeth Brock 01:47:00 O. Hospital POC GLUCOSE 2021-08-04 Elizabeth Brock 23:01:00 O. Hospital POC GLUCOSE 2021-08-04 Elizabeth Brock 17:22:00 O. Hospital POC GLUCOSE 2021-08-04 Elizabeth Brock 13:36:00 O. Hospital BASIC METABOLIC PANEL 2021-08-04 Latesha Bustillos 08:33:00 [facility] CBC WITH PLATELET AND DIFFERENTIAL 2021-08-04 Edwardo Bustillos 08:33:00 [facility] MAGNESIUM LEVEL 2021-08-04 Latesha Bustillos 08:33:00 [facility] PHOSPHORUS LEVEL 2021-08-04 Latesha Bustillos 08:33:00 [facility] IONIZED CALCIUM 2021-08-04 Latesha Bustillos 08:33:00 [facility] ESTIMATED GFR 2021-08-04 ApolloLatesha bella 08:33:00 [facility] SMEAR REVIEW 2021-08-04 Latesha Bustillos 08:33:00 [facility] Hospital POC GLUCOSE 2021-08-04 Elizabeth Brock 08:31:00 O. Hospital POC GLUCOSE 2021-08-04 Elizabeth Brock 01:33:00 O. Hospital POC GLUCOSE 2021-08-03 Elizabeth Brock 22:41:00 O. Hospital HEMOGLOBIN & HEMATOCRIT 2021-08-03 Carmen Brand t 22:08:[address] [facility] POC GLUCOSE 2021-08-03 Elizabeth Brock 17:47:00 O. Hospital POC GLUCOSE 2021-08-03 Elizabeth Brock 13:26:00 O. Hospital BASIC METABOLIC PANEL 2021-08-03 Latesha Bustillos 10:13:00 [facility] Hospital CBC WITH PLATELET AND DIFFERENTIAL 2021-08-03 Edwardo Bustillos 10:13:00 [facility] MAGNESIUM LEVEL 2021-08-03 Latesha Bustillos 10:13:00 [facility] PHOSPHORUS LEVEL 2021-08-03 Latesha Bustillos 10:13:00 [facility] Hospital IONIZED CALCIUM 2021-08-03 Latesha Bustillos 10:13:00 [facility] Hospital ESTIMATED GFR 2021-08-03 Latesha Bustillos 10:13:00 [facility] Hospital SMEAR REVIEW 2021-08-03 Latesha Bustillos 10:13:00 [facility] Hospital POC GLUCOSE 2021-08-03 Elizabeth Brock 01:54:00 O. Hospital POC GLUCOSE 2021-08-02 Elizabeth Brock 22:56:00 O. Hospital POC GLUCOSE 2021-08-02 Elizabeth Brock 19:45:00 O. Hospital SMALL BOWEL CAPSULE 2021-08-02 April Mcclendon 18:10:00 Hospital POC GLUCOSE 2021-08-02 Elizabeth Brock 17:49:00 O. Hospital COLONOSCOPY 2021-08-02 April Mcclendon 16:53:00 Hospital POC GLUCOSE 2021-08-02 Elizabeth Brock 16:51:00 O. Hospital CBC WITH PLATELET AND DIFFERENTIAL 2021-08-02 Yoselyn Osman 12:32:00 Hospital BASIC METABOLIC PANEL 2021-08-02 Yoselyn Osman 12:32:00 Hospital ESTIMATED GFR 2021-08-02 Yoselyn Osman 12:32:00 Hospital SMEAR REVIEW 2021-08-02 Yoselyn Osman 12:32:00 Hospital POC GLUCOSE 2021-08-02 Elizabeth Brock 01:13:00 O. Hospital POC GLUCOSE 2021-08-01 Elizabeth Brock 23:06:00 O. Hospital COVID-19 QUALITATIVE RT-PCR 2021-08-01 Sabine Guy 21:52:00 [facility] POC GLUCOSE 2021-08-01 Elizabeth Brock 17:29:00 O. Hospital POC GLUCOSE 2021-08-01 Elizabeth Brock 13:37:00 O. Hospital TYPE AND SCREEN 2021-08-01 Yoselyn Osman 11:03:00 Hospital HEMOGLOBIN & HEMATOCRIT 2021-08-01 Yoselyn Osman t 11:03:00 Hospital PREPARE RBC 2021-08-01 Priya Pearl 11:03:00 Hospital CBC WITH PLATELET AND DIFFERENTIAL 2021-08-01 Yoselyn Osman 09:43:00 Hospital SMEAR REVIEW 2021-08-01 Yoselyn Osman 09:43:00 Hospital POC GLUCOSE 2021-08-01 Elizabeth Brock 01:07:00 O. Hospital POC GLUCOSE 2021-07-31 Elizabeth Brock 23:06:00 O. Hospital IR VERTEBRO LUM UNI OR URI 2021-07-31 Elizabeth Brock 21:30:45 O. Hospital MN AN ELECTIVE ENDOTRACHEAL AIRWAY 2021-07-31 Elyse Chavez 20:23:00 [facility] POC GLUCOSE 2021-07-31 Elizabeth Brock 17:52:00 O. Hospital POC GLUCOSE 2021-07-31 Elizabeth Brock 13:44:00 O. Hospital XR CHEST 1 VW PORTABLE 2021-07-[address] 13:15:00 Hospital VENOUS BLOOD GAS 2021-07-31 Yoselyn Osman 10:32:00 Hospital BASIC METABOLIC PANEL 2021-07-31 Latasha PorterKristofer Methodis t 09:21:00 Hospital ESTIMATED GFR 2021-07-31 Latasha [facility]Krist[facility] 09:21:00 Hospital CBC WITH PLATELET AND DIFFERENTIAL 2021-07-31 Yoselyn Osman 08:52:00 Hospital B NATRIURETIC PEPTIDE 2021-07-31 Latasha Porter Methodis t 08:52:00 Hospital SMEAR REVIEW 2021-07-31 Yoselyn Osman 08:52:00 Hospital POC GLUCOSE 2021-07-31 Elizabeth Brock 01:36:00 O. Hospital POC GLUCOSE 2021-07-30 Elizabeth Brock 23:03:00 O. Hospital XR CHEST 1 VW PORTABLE 2021-07-[address] 20:26:00 Hospital POC GLUCOSE 2021-07-30 Elizabeth Brock 17:28:00 O. Hospital POC GLUCOSE 2021-07-30 Elizabeth Brock 13:20:00 O. Hospital BASIC METABOLIC PANEL 2021-07-30 Yoselyn Osman 09:03:00 Hospital CBC WITH PLATELET AND DIFFERENTIAL 2021-07-30 Yoselyn Osman 09:03:00 Hospital ESTIMATED GFR 2021-07-30 Yoselyn Osman 09:03:00 Hospital SMEAR REVIEW 2021-07-30 Yoselyn Osman 09:03:00 Hospital HEMOGLOBIN & HEMATOCRIT 2021-07-30 Charlotte Latasha F. Method ist 01:24:00 Hospital POC GLUCOSE 2021-07-30 Elizabeth Brock 01:17:00 O. Hospital POC GLUCOSE 2021-07-29 Elizabeth Brock 23:41:00 O. Hospital POC GLUCOSE 2021-07-29 Elizabeth Brock 17:35:00 O. Hospital CBC WITH PLATELET AND DIFFERENTIAL 2021-07-29 Lizandro Porterist 16:27:00 Hospital BASIC METABOLIC PANEL 2021-07-29 Latasha Porter Methodis t 16:27:00 Hospital ESTIMATED GFR 2021-07-29 Latasha Porter Greyson Pappas 16:27:00 Hospital SMEAR REVIEW 2021-07-29 Latasha Porterist 16:27:00 Hospital POC GLUCOSE 2021-07-29 Elizabeth Brock 13:24:00 O. Hospital POC GLUCOSE 2021-07-29 Elizabeth Brock 02:03:00 O. Hospital POC GLUCOSE 2021-07-28 Elizabeth Brock 22:54:00 O. Hospital POC GLUCOSE 2021-07-28 Elizabeth Brock 17:29:00 O. Hospital SURGICAL PATHOLOGY REQUEST 2021-07-28 Elizabeth Brock odist 16:05:00 O. Hospital POC GLUCOSE 2021-07-28 Elizabeth Brock 15:58:00 O. Hospital ESOPHAGOGASTRODUODENOSCOPY (EGD) 2021-07-28 Julianna Vu 14:18:00 Hospital POC GLUCOSE 2021-07-28 Elizabeth Brock 13:03:00 O. Hospital CBC WITH PLATELET AND DIFFERENTIAL 2021-07-28 Pilar Blanton 09:38:00 [facility] BASIC METABOLIC PANEL 2021-07-28 Pilar Blanton 09:38:00 [facility] MAGNESIUM LEVEL 2021-07-28 Pilar Blanton 09:38:00 [facility] ESTIMATED GFR 2021-07-28 Pilar Blanton 09:38:00 [facility] SMEAR REVIEW 2021-07-28 Pilar Blanton 09:38:00 [facility] POC GLUCOSE 2021-07-28 Elizabeth Brock 01:52:00 O. Hospital POC GLUCOSE 2021-07-27 Elizabeth Brock 23:01:00 O. Hospital HEMOGLOBIN & HEMATOCRIT 2021-07-27 Priya Pearl t 19:46:00 Hospital POC GLUCOSE 2021-07-27 Elizabeth Brock 17:30:00 O. Hospital BASIC METABOLIC PANEL 2021-07-27 Pilar Blanton 14:36:00 [facility] ESTIMATED GFR 2021-07-27 Pilar Blanton 14:36:00 [facility] COVID-19 QUALITATIVE RT-PCR 2021-07-27 Luz Paiz hodist 14:31:00 Hospital POC GLUCOSE 2021-07-27 Elizabeth Brock 13:31:00 O. Hospital BASIC METABOLIC PANEL 2021-07-27 Elizabeth Brock 07:49:00 O. Hospital CBC HEMOGRAM 2021-07-27 Elizabeth Brock 07:49:00 O. Hospital ESTIMATED GFR 2021-07-27 Elizabeth Brock 07:49:00 O. Hospital POC GLUCOSE 2021-07-27 Elizabeth Brock 01:07:00 O. Hospital POC GLUCOSE 2021-07-26 Elizabeth Brock 23:14:00 O. Hospital HEMOGLOBIN & HEMATOCRIT 2021-07-26 Priya Pearl t 19:44:00 Hospital POC GLUCOSE 2021-07-26 Elizabeth Brock 17:38:00 O. Hospital POC GLUCOSE 2021-07-26 Elizabeth Brock 13:24:00 O. Hospital BASIC METABOLIC PANEL 2021-07-26 Elizabeth Brock 10:28:00 O. Hospital CBC HEMOGRAM 2021-07-26 Elizabeth Brock 10:28:00 O. Hospital ESTIMATED GFR 2021-07-26 Elizabeth Brock 10:28:00 O. Hospital POC GLUCOSE 2021-07-26 Elizabeth Brock 01:11:00 O. Hospital POC GLUCOSE 2021-07-25 Elizabeth Brock 23:24:00 O. Hospital POC GLUCOSE 2021-07-25 Elizabeth Brock 17:51:00 O. Hospital POC GLUCOSE 2021-07-25 Elizabeth Brock 13:13:00 O. Hospital BASIC METABOLIC PANEL 2021-07-25 Elizabeth Brock 09:30:00 O. Hospital CBC HEMOGRAM 2021-07-25 Elizabeth Brock 09:30:00 O. Hospital B NATRIURETIC PEPTIDE 2021-07-25 Elizabeth Brock 09:30:00 O. Hospital VENOUS BLOOD GAS 2021-07-25 Pilar Blanton 09:30:00 [facility] ESTIMATED GFR 2021-07-25 Elizabeth Brock 09:30:00 O. Hospital POC GLUCOSE 2021-07-25 Elizabeth Brock 01:08:00 O. Hospital POC GLUCOSE 2021-07-24 Elizabeth Brock 23:22:00 O. Hospital HEMOGLOBIN & HEMATOCRIT 2021-07-24 Priya Pearl Yoanyd t 20:07:00 Hospital POC GLUCOSE 2021-07-24 Elizabeth Brock 17:26:00 O. Hospital POC GLUCOSE 2021-07-24 Elizabeth Brock 13:27:00 O. Hospital VENOUS BLOOD GAS 2021-07-24 Latasha Porter [facility] 10:10:00 Hospital CBC WITH PLATELET AND DIFFERENTIAL 2021-07-24 Lizandro Porter [facility] 10:10:00 Hospital BASIC METABOLIC PANEL 2021-07-24 Latasha Porter [facility] t 10:10:00 Hospital B NATRIURETIC PEPTIDE 2021-07-24 Latasha Porter t 10:10:00 Hospital ESTIMATED GFR 2021-07-24 Latasha Porterist 10:10:00 Hospital SMEAR REVIEW 2021-07-24 Latasha Porterist 10:10:00 Hospital POC GLUCOSE 2021-07-24 Elizabeth Brock 01:16:00 O. Hospital POC GLUCOSE 2021-07-23 Elizabeth Brock 22:41:00 O. Hospital POC GLUCOSE 2021-07-23 Elizabeth Brock 18:04:00 O. Hospital TTE COMPLETE, WO CONTRAST, W 2021-07-23 Latasha Porter ethodist DOPPLER ([id number]) 16:27:00 Hospital POC GLUCOSE 2021-07-23 Elizabeth Brock 13:03:00 O. Hospital CBC WITH PLATELET AND DIFFERENTIAL 2021-07-23 Yoselyn Osman 09:17:00 Hospital BASIC METABOLIC PANEL 2021-07-23 Yoselyn Osman 09:17:00 Hospital VENOUS BLOOD GAS 2021-07-23 Yoselyn Osman 09:17:00 Hospital ESTIMATED GFR 2021-07-23 Yoselyn Osman 09:17:00 Hospital SMEAR REVIEW 2021-07-23 Yoselyn Osman 09:17:00 Hospital POC GLUCOSE 2021-07-23 Elizabeth Brock 02:08:00 O. Hospital POC GLUCOSE 2021-07-22 Elizabeth Brock 22:47:00 O. Hospital POC GLUCOSE 2021-07-22 Elizabeth Brock 17:22:00 O. Hospital VENOUS BLOOD GAS 2021-07-22 Porter Latashatye Frankist 16:19:00 Hospital POC GLUCOSE 2021-07-22 Elizabeth Brock 13:27:00 O. Hospital XR CHEST 1 VW PORTABLE 2021-07-[address] 12:11:46 Hospital CBC WITH PLATELET AND DIFFERENTIAL 2021-07-22 Lizandro Porterist 08:34:00 Hospital BASIC METABOLIC PANEL 2021-07-22 Charlotte Latashazoila Frankis t 08:34:00 Hospital C-REACTIVE PROTEIN 2021-07-22 Charlotte Latasha F[facility] 08:34:00 Hospital D-DIMER 2021-07-22 Charlotte Latasha F[facility] 08:34:00 Hospital LACTIC ACID LEVEL 2021-07-22 Latasha Porter [facility] 08:34:00 Hospital VENOUS BLOOD GAS 2021-07-22 Latasha Porter [facility] 08:34:00 Hospital PHOSPHORUS LEVEL 2021-07-22 Charlotte Latasha F. [facility] 08:34:00 Hospital MAGNESIUM LEVEL 2021-07-22 Charlotte Latasha F[facility] 08:34:00 Hospital ESTIMATED GFR 2021-07-22 Porter, Latasha F[facility] 08:34:00 Hospital SMEAR REVIEW 2021-07-22 Latasha Porter [facility] 08:34:00 Hospital URINALYSIS SCREEN AND MICROSCOPY, 2021-07-22 Latasha Porterist WITH REFLEX TO CULTURE 07:50:00 Hospital URINE CULTURE 2021-07-22 Latasha Porterist 07:30:00 Hospital POC GLUCOSE 2021-07-22 Elizabeth Brock 01:37:00 O. Hospital POC GLUCOSE 2021-07-21 Elizabeth Brock 22:55:00 O. Hospital ARTERIAL BLOOD GAS 2021-07-21 Latasha Porter 21:48:00 Hospital C-REACTIVE PROTEIN 2021-07-21 Nell Huntley 20:12:00 Hospital SEDIMENTATION RATE 2021-07-21 Nell Huntley 20:12:00 Hospital PROCALCITONIN 2021-07-21 Nell Huntley 20:12:00 Hospital B NATRIURETIC PEPTIDE 2021-07-21 Latasha Porter Zacis t 20:12:00 Hospital POTASSIUM LEVEL 2021-07-21 Latasha Porter [facility] 20:12:00 Hospital VENOUS BLOOD GAS 2021-07-21 Latasha Porter [facility] 20:11:00 Hospital XR CHEST 1 VW PORTABLE 2021-07-[address] 20:04:39 Hospital POC GLUCOSE 2021-07-21 Elizabeth Brock 17:47:00 O. Hospital ARTERIAL BLOOD GAS 2021-07-21 Elizabeth Brock 15:33:[address] HEAD WO CONTRAST 2021-07-21 Elizabeth Brock 13:42:06 O. Hospital POC GLUCOSE 2021-07-21 Elizabeth Brock 12:36:00 O. Hospital ARTERIAL BLOOD GAS 2021-07-21 Elizabeth Brock 10:07:00 O. Hospital PROTHROMBIN TIME WITH INR 2021-07-21 Dede Singleton ist 09:46:00 [facility] BASIC METABOLIC PANEL 2021-07-21 Elizabeth Brock 09:46:00 O. Hospital CBC HEMOGRAM 2021-07-21 Elizabeth Brock 09:46:00 O. Hospital ESTIMATED GFR 2021-07-21 Elizabeth Brock 09:46:00 O. Hospital MAGNESIUM LEVEL 2021-07-21 Elizabeth Brock 09:46:00 O. Hospital POC GLUCOSE 2021-07-21 Elizabeth Brock 02:11:00 O. Hospital POC GLUCOSE 2021-07-20 Elizabeth Brock 23:07:00 O. Hospital COVID-19 QUALITATIVE RT-PCR 2021-07-20 ChenchoLuz hodist 18:44:00 Hospital POC GLUCOSE 2021-07-20 Elizabeth Brock 17:45:00 O. Hospital BASIC METABOLIC PANEL 2021-07-20 Elizabeth Brock 09:30:00 O. Hospital CBC HEMOGRAM 2021-07-20 Elizabeth Brock 09:30:00 O. Hospital ESTIMATED GFR 2021-07-20 Elizabeth Brock 09:30:00 O. Hospital POC GLUCOSE 2021-07-20 Elizabeth Brock 02:03:00 O. Hospital POC GLUCOSE 2021-07-19 Elizabeth Brcok 17:48:00 O. Hospital POC GLUCOSE 2021-07-19 Elizabeth Brock 12:11:00 O. Hospital POC GLUCOSE 2021-07-19 Elizabeth Brock 02:12:00 O. Hospital POC GLUCOSE 2021-07-18 Elizabeth Brock 23:22:00 O. Hospital HEMOGLOBIN & HEMATOCRIT 2021-07-18 Yoandy Guy t 20:37:00 [facility] POC GLUCOSE 2021-07-18 Elizabeth Brock 17:53:00 O. Hospital POC GLUCOSE 2021-07-18 Elizabeth Brock 14:25:00 O. Hospital CREATE PERIPHERAL SMEAR FOR 2021-07-18 Sabine Guy ORDERING PROVIDER'S REVIEW 11:10:00 [facility] lukas RETICULOCYTE COUNT 2021-07-18 Elyse Guy 11:10:00 [facility] FOLATE LEVEL 2021-07-18 Elyse Guy 11:10:00 [facility] HAPTOGLOBIN 2021-07-18 Elyse Guy 11:10:00 [facility] LDH 2021-07-18 Elyse Guy 11:10:00 [facility] THYROID STIMULATING HORMONE 2021-07-18 Sabine Guy 11:10:00 [facility] VITAMIN B12 LEVEL 2021-07-18 Elyse Guy 11:10:00 [facility] US CHEST 2021-07-18 Elizabeth Brock 04:10:30 O. Hospital POC GLUCOSE 2021-07-18 Elizabeth Brock 03:51:00 O. Hospital POC GLUCOSE 2021-07-18 Elizabeth Brock 02:38:00 O. Hospital POC GLUCOSE 2021-07-18 Elizabeth Brock 01:00:00 O. Hospital POC GLUCOSE 2021-07-17 Elizabeth Brock 18:41:00 O. Hospital POC GLUCOSE 2021-07-17 Elizabeth Brock 17:55:00 O. Hospital CV CTA CORONARY POST AFIB ABALTION 2021-07-17 Elyse Acosta 14:33:58 [facility] POC GLUCOSE 2021-07-17 Elizabeth Brock 12:31:00 O. Hospital CBC WITH PLATELET AND DIFFERENTIAL 2021-07-17 Matt Brock 10:14:00 O. Hospital BASIC METABOLIC PANEL 2021-07-17 Elizabeth Brock 10:14:00 O. Hospital DIGOXIN LEVEL 2021-07-17 Elyse Acosta 10:14:00 [facility] MAGNESIUM LEVEL 2021-07-17 OkunemilianomiElyse 10:14:00 [facility] ESTIMATED GFR 2021-07-17 Elizabeth Brock 10:14:00 O. Hospital PHOSPHORUS LEVEL 2021-07-17 Elizabeth Brock 10:14:00 O. Hospital SMEAR REVIEW 2021-07-17 Elizabeth Brock 10:14:00 O. Hospital POC GLUCOSE 2021-07-17 Elizabeth Brock 03:41:00 O. Hospital POC GLUCOSE 2021-07-17 Elizabeth Brock 01:57:00 O. Hospital POC GLUCOSE 2021-07-16 Elizabeth Brock 23:04:00 O. Hospital ECG 12-LEAD 2021-07-16 Elyse Acosta 22:38:23 [facility] POC GLUCOSE 2021-07-16 Elizabeth Brock 18:06:00 O. Hospital POC GLUCOSE 2021-07-16 Elizabeth Brock 14:17:00 O. Hospital POC GLUCOSE 2021-07-16 Elizabeth Brock 13:03:00 O. Hospital CBC WITH PLATELET AND DIFFERENTIAL 2021-07-16 Matt Brock 09:47:00 O. Hospital BASIC METABOLIC PANEL 2021-07-16 Elizabeth Brock 09:47:00 O. Hospital ESTIMATED GFR 2021-07-16 Elizabeth Brock 09:47:00 O. Hospital SMEAR REVIEW 2021-07-16 Elizabeth Brock 09:47:00 O. Hospital POC GLUCOSE 2021-07-16 Elizabeth Brock 03:38:00 O. Hospital ECG 12-LEAD 2021-07-15 Elyse Acosta 23:28:46 [facility] POC GLUCOSE 2021-07-15 Elizabeth Brock 22:11:00 O. Hospital POC GLUCOSE 2021-07-15 Elizabeth Brock 17:50:00 O. Hospital POC GLUCOSE 2021-07-15 Elizabeth Brock 12:22:00 O. Hospital BASIC METABOLIC PANEL 2021-07-15 Elizabeth Brock 09:45:00 O. Hospital CBC WITH PLATELET AND DIFFERENTIAL 2021-07-15 Matt Brockist 09:45:00 O. Hospital ESTIMATED GFR 2021-07-15 Elizabeth Brock 09:45:00 O. Hospital SMEAR REVIEW 2021-07-15 Elizabeth Brock 09:45:00 O. Hospital POC GLUCOSE 2021-07-15 Elizabeth Brock 01:58:00 O. Hospital MAGNESIUM LEVEL 2021-07-14 Michael Kaplanmaeve Pappas 23:38:00 Hospital POC GLUCOSE 2021-07-14 Elizabeth Brock 23:01:00 O. Hospital POC GLUCOSE 2021-07-14 Elizabeth Brock 17:23:00 O. Hospital POC GLUCOSE 2021-07-14 Elizabeth Brock 14:11:00 O. Hospital MRI THORACIC SPINE WO CONTRAST 2021-07-14 Elizabeth Brock 13:23:21 O. Hospital MRI LUMBAR SPINE WO CONTRAST 2021-07-14 Elizabeth Brockodi 12:30:31 O. Hospital CBC WITH PLATELET AND DIFFERENTIAL 2021-07-14 Matt Brock 09:49:00 O. Hospital BASIC METABOLIC PANEL 2021-07-14 Elizabeth Brock 09:49:00 O. Hospital ESTIMATED GFR 2021-07-14 Elizabeth Brock 09:49:00 O. Hospital SMEAR REVIEW 2021-07-14 Elizabeth Brock 09:49:00 O. Hospital POC GLUCOSE 2021-07-14 Elizabeth Brock 02:37:00 O. Hospital CBC WITH PLATELET AND DIFFERENTIAL 2021-07-13 Matt Brock 23:37:00 O. Hospital SMEAR REVIEW 2021-07-13 Elizabeth Brock 23:37:00 O. Hospital POC GLUCOSE 2021-07-13 Elizabeth Brock 22:42:00 O. Hospital POC GLUCOSE 2021-07-13 Elizabeth Brock 17:42:00 O. Hospital TRANSFUSE RED BLOOD CELLS 2021-07-13 Elizabeth Brock Metho dist 17:01:00 O. Hospital VENIPUNC NEED PHYS SKILL,DX OR RX 2021-07-13 Bety Manceraist 15:49:50 Hospital XR CHEST 2 VW 2021-07-13 Elizabeth Brock 15:07:00 O. Hospital XR LUMBAR SPINE 2 OR 3 VW 2021-07-13 Elizabeth Brock Metho dist 15:07:00 O. Hospital POC GLUCOSE 2021-07-13 Elizabeth Brock 12:19:00 O. Hospital TRANSFUSE RED BLOOD CELLS 2021-07-13 Elizabeth Brock Metho dist 07:13:00 O. Hospital TRANSFUSE RED BLOOD CELLS 2021-07-13 Elizabeth Brock Metho dist 03:14:00 O. Hospital POC GLUCOSE 2021-07-13 Elizabeth Brock 02:12:00 O. Hospital POC GLUCOSE 2021-07-12 Elizabeth Brock 23:08:00 O. Hospital ZZCOVID-19 ANTI-SPIKE IGG ANTIBODY 2021-07-12 Matt Brock TITER 19:45:00 O. Hospital CBC WITH PLATELET AND DIFFERENTIAL 2021-07-12 Matt Brock 19:45:00 O. Hospital COMPREHENSIVE METABOLIC PANEL 2021-07-12 Elizabeth Brock ethodist 19:45:00 O. Hospital THYROID STIMULATING HORMONE 2021-07-12 Elizabeth Brock hodist 19:45:00 O. Hospital T4, FREE 2021-07-12 Elizabeth Brock 19:45:00 O. Hospital LIPID PANEL 2021-07-12 Elizabeth Brock 19:45:00 O. Hospital TROPONIN T 2021-07-12 Elizabeth Brock 19:45:00 O. Hospital FERRITIN LEVEL 2021-07-12 Elizabeth Brock 19:45:00 O. Hospital RETICULOCYTE COUNT 2021-07-12 Elizabeth Brock 19:45:00 O. Hospital TOTAL IRON BINDING CAPACITY 2021-07-12 Elizabeth Brock hodist 19:45:00 O. Hospital URIC ACID LEVEL 2021-07-12 Elizabeth Brock 19:45:00 O. Hospital TYPE AND SCREEN 2021-07-12 Elizabeth Brock 19:45:00 O. Hospital ZZCOVID-19 SEROLOGY PATIENT 2021-07-12 Elizabeth Brock Met hodist SURVEILLANCE 19:45:00 O. Hospital ESTIMATED GFR 2021-07-12 Elizabeth Brock 19:45:00 O. Hospital SMEAR REVIEW 2021-07-12 Elizabeth Brock 19:45:00 O. Hospital PREPARE RBC 2021-07-12 Elizabeth Brock 19:45:00 O. Hospital ECG 12-LEAD 2021-07-12 Elizabeth Brock 19:03:48 O. Hospital COVID-19 QUALITATIVE RT-PCR 2021-07-12 Elizabeth Brock Met leslyeist 18:57:00 O. Hospital Plan of Care Planned Activity Planned Date Details Comments Source Future Scheduled 2022-07-11 65+ PNEUMOCOCCAL Methodi [facility] Test 15:41:50 VACCINE (1 - PCV) [code = 65+ PNEUMOCOCCAL VACCINE (1 - PCV)] Future Scheduled 2022-07-11 DIABETES: RETINAL EYE [facility] Test 15:41:50 EXAM [code = DIABETES: RETINAL EYE EXAM] Future Scheduled 2022-07-11 DIABETIC FOOT EXAM [facility] Test 15:41:50 [code = DIABETIC FOOT EXAM] Future Scheduled 2022-07-11 SHINGLES VACCINES (1 [facility] Test 15:41:50 of 2) [code = SHINGLES VACCINES (1 of 2)] Future Scheduled 2022-07-11 COVID-19 VACCINE (2 - Me [facility] Test 15:41:50 Moderna series) [code = COVID-19 VACCINE (2 - Moderna series)] Future Scheduled 2022-07-11 INFLUENZA VACCINE [facility] Test 15:41:50 [code = INFLUENZA VACCINE] Encounters Start End Encounter Admission Attending Care Care Encounter Source Date/Time Date/Time Type Type Clinicians Facility Department ID 2021-07-12 2021-08-07 [facility] Elizabeth Brock O. 1.2.840.1 [id number] Wilmer 11:33:00 18:32:00 Encounter AttNalini griffith 51262.1.[address] 3.430.2.7 Hospit a .3.707848 l .8 2021-07-12 2021-08-07 Inpatient ATTAR, [facility] 012 [id number] [place] 00:00:00 00:00:00 [facility] [address] 2021-08-02 2021-08-02 Surgery Hakan, 1.2.840.1 [id number] Methodi 12:00:00 13:00:[address] 3.430.2.7 Hospit a .3.949388 l .8 2021-08-02 2021-08-02 Anesthesia Gorge, 1.2.840.1 [id number] Methodi 11:53:00 12:45:00 Event Isidro Jose Angel 49156.1.[address] 3.430.2.7 Hospit a .3.645041 l .8 2021-08-02 2021-08-02 Surgery Hakan, 1.2.840.1 [id number] Methodi 10:00:00 11:00:[address] 3.430.2.7 Hospit a .3.270893 l .8 2021-07-31 2021-07-31 Anesthesia Dhother, 1.2.840.1 [id number] Methodi 15:06:00 16:53:00 Event Eleno 86350.1.1 [address] [place] 3.430.2.7 Hospit a .3.226838 l .8 2021-07-28 2021-07-28 Anesthesia Andria, 1.2.840.1 [id number] Methodi 09:18:00 09:48:00 Event Lcark 75783.1.[address] 3.430.2.7 Hospit a .3.705307 l .8 2021-07-28 2021-07-28 Surgery Vu, 1.2.840.1 [id number] Methodi 08:30:00 09:00:[address] 3.430.2.7 Hospit a .3.924469 l .8 2021-07-24 2021-07-24 Telephone Chey, 1.2.840.1 [id number] Methodi 00:00:00 00:00:[address] 3.430.2.7 Hospit a .3.194980 l .8 2021-07-24 2021-07-24 [facility] Chey, 1.2.840.1 [id number] Methodi 00:00:00 00:00:[address] 3.430.2.7 Hospit a .3.211001 l .8 2021-07-17 2021-07-17 [facility] Vindo, 1.2.840.1 [id number] Methodi 23:59:00 23:59:00 Encounter Elizabeth Gutierrez 49027.1.[address] 3.430.2.7 Hospit a .3.351269 l .8 2021-07-17 2021-07-17 [facility] Vinod, 1.2.840.1 [id number] Methodi 07:50:00 23:59:00 Encounter Elizabeth Bailey. 90491.1.[address] 3.430.2.7 Hospit a .3.741169 l .8 2021-07-17 2021-07-17 Inpatient [facility] [id number] [place] 00:00:00 00:00:00 ELIZABETH [address] 2021-07-17 2021-07-17 [id number] [place] 00:00:00 00:00:00 ELIZABETH [address] 2021-07-12 2021-07-12 [facility] Vinod, 1.2.840.1 [id number] Methodi 00:00:00 00:00:00 Only Elizabeth Bailey. 75182.1.[address] 3.430.2.7 Hospit a .3.553089 l .8 2021-07-12 2021-07-12 Travel 1.2.840.1 1.2.550.097 [id number] Methodi 00:00:00 00:00:[address] 3.430.2.7 0.2.7.3.698 Ho spita .3.203569 084.8 l .8 2021-04-27 2021-04-27 Outpatient TERRY, [facility] [id number] [place] 00:00:00 00:00:00 CARLOS [address] 2021-04-05 2021-04-05 Outpatient VINOD [facility] 60 [place] 00:00:00 00:00:00 ELIZABETH [address] 2021-04-05 2021-04-05 Outpatient VINOD [facility] 60 [place] 00:00:00 00:00:00 ELIZABETH [address] 2020-06-27 2020-07-06 Inpatient VINOD [facility] 064 [id number] [place] 00:00:00 00:00:00 ELIZABETH [address] 2019-09-29 2019-09-29 Outpatient VINOD [facility] [id number] [place] 00:00:00 00:00:00 ELIZABETH [address] Results Test Description Test Time Test Comments Results Result Comments Source POC glucose 2021-08-07 17:37:00 Test Item Value Reference Range Interpretation Comme nts POC glucose (test code = 190 mg/dL 65-99 H Ope rator Name: [place] 57960-0) ID: [id number] hartable: [facility] 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 Interpretation (test code = Abnormal 47204-4) [facility] KljnyghrQOCG-WhU-9 (COVID-19) RNA [Presence] in Respiratory specimen by ROLF with probe [id number] 23:03:25 Test Item Value Reference Range Interpretation Comments SARS-CoV-2 (COVID-19) RNA Not detected [Presence] in Respiratory specimen by ROLF with probe detection (test code = 15302-4) Whether patient is employed in a Unknown healthcare setting (test code = 56618-0) Whether the patient has symptoms Unknown related to condition of interest (test code = 84272-5) Whether the patient was Unknown hospitalized for condition of interest (test code = 24167-8) Whether the patient was admitted Unknown to intensive care unit (ICU) for condition of interest (test code = 30154-2) Whether patient resides in a Unknown congregate care setting (test code = 54358-7) status (test code = Unknown 57979-2) Date and time of symptom onset Unknown (test code = 16397-2) ROSELYN CLAIREPrepare RBC, 1 [id number] 14:28:00 Test Item Value Reference Range Interpretation Comments Product name (test code Red Cells AS1 Leukored = 25) Irrad Unit number (test code [id number] = 7310342) Product code (test code [id number] = 3092) Dispense status (test Transfused code = 24) Blood expiration date (test code = 302) Blood type code (test 600 code = 308) Blood type (test code = A NEGATIVE 1314) Compatibility (test Compatible code = 6400) [facility] [id number] 19:57:43 Test Item Value Reference Range Interpretation Comments Case number (test code = [id number]) Surgical pathology See link below for report (test code = PDF Lab Report 5366) Result status (test code This is Final Report = [id number]) for [id number] Elyse RamosARS-CoV-2 (COVID-19) RNA [Presence] in Respiratory specimen by ROLF with probe [id number] 12:55:38 Test Item Value Reference Range Interpretation Comments SARS-CoV-2 (COVID-19) RNA Not detected [Presence] in Respiratory specimen by RLOF with probe detection (test code = 97532-8) Whether patient is employed in a Unknown healthcare setting (test code = 74722-1) Whether the patient has symptoms Unknown related to condition of interest (test code = 15847-4) Whether the patient was Unknown hospitalized for condition of interest (test code = 86664-2) Whether the patient was admitted Unknown to intensive care unit (ICU) for condition of interest (test code = 01832-2) Whether patient resides in a Unknown congregate care setting (test code = 59481-3) status (test code = Unknown 81211-3) Date and time of symptom onset Unknown (test code = 56919-0) ROSELYN PAPPAS DAKOTAHUrine [id number] 10:39:00 Test Item Value Reference Range Interpretation Comments Urine culture (test SEE COMMENT Bacteriu ranjit screen code = 2707200) negative. [facility] OczxyuasIBYZ-KyW-5 (COVID-19) RNA [Presence] in Respiratory specimen by ROLF with probe [id number] 17:15:25 Test Item Value Reference Range Interpretation Comments SARS-CoV-2 (COVID-19) RNA Not detected [Presence] in Respiratory specimen by ROLF with probe detection (test code = 90672-2) Whether patient is employed in a Unknown healthcare setting (test code = 05901-5) Whether the patient has symptoms Unknown related to condition of interest (test code = 40738-8) Whether the patient was Unknown hospitalized for condition of interest (test code = 82052-9) Whether the patient was admitted Unknown to intensive care unit (ICU) for condition of interest (test code = 70983-2) Whether patient resides in a Unknown congregate care setting (test code = 61095-8) status (test code = Unknown 10633-5) Date and time of symptom onset Unknown (test code = 77140-4) WEBSTER ELYSE [facility] 12 [id number] 23:55:51 Test Item Value Reference Range Interpretation Comments Ventricular rate (test 51 code = 253) QRSD interval (test 82 code = 260) QT interval (test code 404 = 264) QTC interval (test 372 code = 265) QRS axis 1 (test code 49 = 268) T wave axis (test code 0 = 270) EKG impression (test Atrial fibrillation code = 273) with slow ventricular response-Abnormal ECG-In automated comparison with ECG of 15-JUL-2021 18:28,-Vent. rate has decreased BY 55 BPM-T wave inversion less evident in Anterolateral leads-QT has shortened-Electronicall y Signed By Scout Campos MD ([id number]) on 07/16/2021 6:55:49 PM [facility] OzbvoyylPEDU-AvK-8 (COVID-19) RNA [Presence] in Respiratory specimen by ROLF with probe [id number] 19:33:29 Test Item Value Reference Range Interpretation Comments SARS-CoV-2 (COVID-19) RNA Not detected [Presence] in Respiratory specimen by ROLF with probe detection (test code = 60862-1) Whether patient is employed in a Unknown healthcare setting (test code = 08773-1) Whether the patient has symptoms Unknown related to condition of interest (test code = 38193-7) Whether the patient was Unknown hospitalized for condition of interest (test code = 72976-4) Whether the patient was admitted Unknown to intensive care unit (ICU) for condition of interest (test code = 36786-6) Whether patient resides in a Unknown congregate care setting (test code = 17891-3) status (test code = Unknown 26531-7) Date and time of symptom onset Unknown (test code = 47199-9) ROSELYN CLAIRESARS-CoV-2 (COVID-19) RNA [Presence] in Respiratory specimen by ROLF with probe [id number] 06:01:59 Test Item Value Reference Range Interpretation Comments SARS-CoV-2 (COVID-19) RNA Not detected Not-Detected [Presence] in Respiratory specimen by ROLF with probe detection (test code = 25378-1) Whether patient is employed in a healthcare setting (test code = 17505-3) Whether the patient has symptoms related to condition of interest (test code = 99528-2) Patient was hospitalized because of this condition (test code = 12579-2) Whether the patient was admitted to intensive care unit (ICU) for condition of interest (test code = 53995-5) Whether patient resides in a congregate care setting (test code = 91911-3) ROSELYN CLAIRESARS-CoV-2 (COVID-19) RNA [Presence] in Respiratory specimen by ROLF with probe [id number] 18:55:46 Test Item Value Reference Range Interpretation Comments SARS-CoV-2 (COVID-19) RNA Not detected Not-Detected [Presence] in Respiratory specimen by ROLF with probe detection (test code = 87771-2) [facility]
[2022-07-12] MEDS ORDERED: ACETAMINOPHEN 500 MG TAB ONE (13:33)
--- NOTE | 2022-07-12 14:49 | RAD REPORT ---
EXAM DESCRIPTION: CT - CTHCSPWOC - 07/12/2022 1:46 pm CLINICAL HISTORY: fall COMPARISON: Head C Spine Mpr Wo Con dated 08/21/2019; CT HEAD CSPINE MPR WO CONTRAST dated 07/11/2014 TECHNIQUE: Axial thin cut noncontrast CT images of the head were obtained. Axial thin cut noncontrast CT images of the cervical spine were obtained. Multiplanar reformatted images were generated and reviewed. All CT scans are performed using dose optimization technique as appropriate and may include automated exposure control or mA/KV adjustment according to patient size. FINDINGS: CT HEAD WITHOUT CONTRAST: No acute hemorrhage, hydrocephalus or extra-axial collection is identified.Mild diffuse parenchymal v olume loss. Mild patchy periventricular and deep white matter hypodensities, nonspecific, most sugges tive of chronic small vessel ischemic changes. Right basal ganglia small focus of near CSF density is stable, could relate to a prominent perivascular space or small remote infarct.No areas of brain hannah ma or midline shift. The paranasal sinuses and mastoids are clear.The calvarium is intact. CT CERVICAL SPINE WITHOUT CONTRAST: Motion artifact at the level of the upper cervical spine limits evaluation. No fracture or subluxatio n.Mild degenerative changes throughout with straightening of normal cervical lordosis, and up to mode rate disc height loss at C5-6.No prevertebral soft tissues swelling is identified. IMPRESSION: No acute traumatic intracranial or cervical spine findings. Chronic findings as above.
--- NOTE | 2022-07-12 14:59 | RAD REPORT ---
EXAM DESCRIPTION: RAD - Humerus Right - 07/12/2022 2:16 pm CLINICAL HISTORY: PAIN COMPARISON: Shoulder Right 2 View dated 07/12/2022 TECHNIQUE: Right humerus, 3 views. FINDINGS: Impacted and mildly comminuted proximal humeral surgical neck fracture. There is no disloc ation or periosteal reaction noted. No foreign body or other soft tissue abnormality. IMPRESSION: Impacted and mildly comminuted proximal humeral surgical neck fracture.
--- NOTE | 2022-07-12 15:02 | RAD REPORT ---
EXAM DESCRIPTION: RAD - Hand Right 2 View - 07/12/2022 2:14 pm CLINICAL HISTORY: PAIN COMPARISON: No comparisons TECHNIQUE: Right hand, 2 views. FINDINGS: No fracture is identified. Scattered arthritic changes throughout the wrist and interphalangeal joints, most pronounced at the s caphoid multangular articulation, and the first and second digit distal interphalangeal joints. There is no dislocation or periosteal reaction noted. No foreign body. Soft tissue swelling about the digits most pronounced along the first through fourth digits. Mineralization along the triangular fi brocartilage region. IMPRESSION: No acute osseous abnormality. Scattered arthritic changes as above. Mineralization along the TFCC region, could relate to the positional arthropathy such as CPPD.
--- NOTE | 2022-07-12 15:16 | RAD REPORT ---
EXAM DESCRIPTION: Shoulder Right 2 View - 07/12/2022 2:15 pm CLINICAL HISTORY: PAIN COMPARISON: Shoulder Right 2 View dated 07/11/2014 TECHNIQUE: Internal and external rotation views of the right shoulder were obtained. FINDINGS: Impacted and mildly comminuted right humeral surgical neck fracture. No dislocation. AC peyton int is normal in appearance. Pronounced periarticular soft tissue edema. IMPRESSION: Impacted and mildly comminuted right humeral surgical neck fracture.
--- NOTE | 2022-07-12 16:44 | ER ---
Nurse's Notes [facility] Name: Martina Martini Age: 82 yrs Sex: Female : 1940 Arrival Date: 07/12/2022 Time: 12:58 Bed 12 Private MD: Diagnosis: Fall on same level, unspecified;Fracture of upper end of humerus;Nondisplaced fracture of proximal phalanx of right little finger, initial encounter for closed fracture;Contusion of right hand Presentation: 07/12 13:19 Chief complaint: Patient's son or daughter states: she fell this morning in her hallway, she was reaching forward and then fell on her right side, c/o right shoulder pain , right pinky is bruised. Coronavirus screen: At this time, the client does not indicate any symptoms associated with coronavirus-19. Ebola Screen: Patient negative for fever greater than or equal to 101.5 degrees Fahrenheit, and additional compatible Ebola Virus Disease symptoms Patient denies exposure to infectious person. Patient denies travel to an Ebola-affected area in the 21 days before illness onset. No symptoms or risks identified at this time. Initial Sepsis Screen: Does the patient meet any 2 criteria? No. Patient's initial sepsis screen is negative. Does the patient have a suspected source of infection? No. Patient's initial sepsis screen is negative. Risk Assessment: Do you want to hurt yourself or someone else? Patient reports no desire to harm self or others. Onset of symptoms was July 12, 2022. 13:19 Method Of Arrival: Wheelchair iw 13:19 Acuity: KRISAT 3 iw Historical: - Allergies: 13:21 "pain meds make me crazy"; iw 13:21 PENICILLINS; iw 13:21 Phenergan; iw - PMHx: 13:21 Anemia; Diabetes - NIDDM; Dementia; Hyperlipidemia; Hypertension; Asthma; iw Hypothyroidism; open heart sx; Myocardial infarction; Vital Signs: 16:23 BP 130 / 60; Pulse 75; Resp 16; Pulse Ox 100% on R/A; iw ED Course: 13:06 Patient arrived in ED. im 13:13 Hector Ceja DO is Attending Physician. ms3 13:21 Triage completed. iw 13:22 Arm band placed on. iw 13:48 Head C Spine Mpr Wo Con In Process Unspecified. EDMS 14:14 Hand Right 2 View In Process Unspecified. EDMS 14:16 Shoulder Right (2 View) XRAY In Process Unspecified. EDMS 14:16 Humerus Right XRAY In Process Unspecified. EDMS 16:22 Reyes Khalil MD is Referral Physician. ms3 16:22 shoulder immobilizer placed ,with dr. carballo. iw 17:30 Elsie Landa, RN is Primary Nurse. iw Administered Medications: 13:29 Drug: Acetaminophen PO 1000 mg Route: PO; iw Outcome: 16:44 Discharge ordered by . ms3 17:30 Patient left the ED. iw Signatures: Dispatcher [employer] Elsie Flores, RN RN iw Hector Ceja DO DO ms3 Adela Arteaga
--- NOTE | 2022-07-12 16:45 | EDPHYS ---
Physician Documentation [facility] Name: Martina Martini Age: 82 yrs Sex: Female : 1940 Arrival Date: 07/12/2022 Time: 12:58 Bed 12 Private MD: ED Physician Hector Ceja HPI: 07/12 15:12 This 82 yrs old Female presents to ER via Wheelchair with complaints of Arm Injury, ms3 Hand Injury. 15:12 82-year-old female with past medical history of anemia, diabetes, hyperlipidemia, ms3 hypertension presents status post fall at 10 AM in her hallway while reaching for the doorway. Patient's daughter states on camera she watched patient fall against the wall and then to the floor. Patient is complaining of right shoulder, right hand pain that she states is moderate. Patient denies alleviating or inciting factors.. Historical: - Allergies: 13:21 "pain meds make me crazy"; iw 13:21 PENICILLINS; iw 13:21 Phenergan; iw - PMHx: 13:21 Anemia; Diabetes - NIDDM; Dementia; Hyperlipidemia; Hypertension; Asthma; iw Hypothyroidism; open heart sx; Myocardial infarction; ROS: 15:12 Constitutional: Negative for fever, and chills. Neck: Negative for injury, pain, and ms3 swelling, Cardiovascular: Negative for chest pain, and palpitations. Respiratory: Negative for shortness of breath, cough, wheezing, and pleuritic chest pain, Abdomen/GI: Negative for abdominal pain, nausea, vomiting, diarrhea, and constipation. 15:12 MS/extremity: Positive for pain, swelling, tenderness. 15:12 All other systems are negative. Exam: 15:12 Constitutional: This is a well developed, well nourished patient who is awake, alert, ms3 and in no acute distress. Head/Face: Normocephalic, atraumatic. Neck: Trachea midline, no cervical lymphadenopathy. Supple, full range of motion without nuchal rigidity, or vertebral point tenderness. No Meningismus. Chest/axilla: Normal chest wall appearance and motion. Nontender with no deformity. Cardiovascular: Regular rate and rhythm with a normal S1 and S2. No gallops, murmurs, or rubs. Normal PMI, no JVD. No pulse deficits. Respiratory: Lungs have equal breath sounds bilaterally, clear to auscultation and percussion. No rales, rhonchi or wheezes noted. No increased work of breathing, no retractions or nasal flaring. Abdomen/GI: Soft, non-tender, with normal bowel sounds. No distension or tympany. No guarding or rebound. No evidence of tenderness throughout. Skin: Warm, dry with normal turgor. Normal color with no rashes, no lesions, and no evidence of cellulitis. 15:12 Musculoskeletal/extremity: Extremities: noted in the Right shoulder: pain, tenderness, noted in the Right fifth digit: ecchymosis, pain, swelling, tenderness, ROM: limited active range of motion due to pain, limited passive range of motion due to pain, Circulation is intact in all extremities. Sensation intact. Vital Signs: 16:23 BP 130 / 60; Pulse 75; Resp 16; Pulse Ox 100% on R/A; iw MDM: 13:35 Patient medically screened. ms3 07/12 13:34 Order name: CT Head Brain wo Cont ms3 07/12 13:34 Order name: CT C Spine ms3 07/12 13:34 Order name: Shoulder Right (2 View) XRAY; Complete Time: 16:17 ms3 07/12 13:34 Order name: Humerus Right XRAY; Complete Time: 16:17 ms3 07/12 13:37 Order name: Head C Spine Mpr Wo Con; Complete Time: 16:17 EDMS 07/12 14:14 Order name: Hand Right 2 View; Complete Time: 17:03 EDMS Administered Medications: 13:29 Drug: Acetaminophen PO 1000 mg Route: PO; iw Disposition Summary: 07/12/22 16:44 Discharge Ordered Location: Home ms3 Condition: Stable ms3 Diagnosis - Fall on same level, unspecified ms3 - Fracture of upper end of humerus ms3 - Nondisplaced fracture of proximal phalanx of right little finger, initial encounter ms3 for closed fracture - Contusion of right hand ms3 Followup: ms3 - With: Reyes Khalil MD - When: 2 - 3 days - Reason: Recheck today's complaints Discharge Instructions: - Discharge Summary Sheet ms3 - Finger Fracture, Adult ms3 - Humerus Fracture Treated With Immobilization ms3 Forms: - Medication Reconciliation Form ms3 - Thank You Letter ms3 - Antibiotic Education ms3 - Prescription Opioid Use ms3 Signatures: Dispatcher [employer] EDElsie Paulino, RN RN iw Hector Ceja, DO ms3 Corrections: (The following items were deleted from the chart) 14:14 13:34 Hand Right 3 View+[email or web address] ordered. EDMS EDMS
[2022-07-12 17:34] VITALS: BP 130/60; O2SAT 100
== END 2022-07-12 17:30 | disposition home or self-care (01) ==
LOC: ER 12:58
DX: S42.201A Unspecified fracture of upper end of right humerus, initial encounter for closed fracture (principal); S62.646A Nondisplaced fracture of proximal phalanx of right little finger, initial encounter for closed fracture; S60.221A Contusion of right hand, initial encounter; W18.30XA Fall on same level, unspecified, initial encounter; I10 Essential (primary) hypertension; F03.90 Unspecified dementia, unspecified severity, without behavioral disturbance, psychotic disturbance, mood disturbance, and anxiety; Z88.0 Allergy status to penicillin; Z88.6 Allergy status to analgesic agent; Z88.8 Allergy status to other drugs, medicaments and biological substances
CPT/HCPCS: 70450; 72125; 99283

== ENCOUNTER 2022-08-02 17:00 | Inpatient (IN) | payer OTHER, MEDICARE ==
--- OUTSIDE RECORDS SUMMARY | 2022-08-02 21:12 | XMS REPORT | Continuity of Care Document ---
:1940 Author Organization [facility] t Address [address] [place] [address]. [address] [place] [address] Care Team Providers Name Role Phone Vinod Moreno MD, Elizabeth Gutierrez Primary Care Physician [phone] Elizabeth Brock MD Attending Clinician Stephen Attending Clinician Unavailable Nalini Rehman MD Attending Clinician April Mcclendon MD Attending Clinician Isidro Pennington MD Attending Clinician Eleno Chavez MD Attending Clinician [phone] [place] Ayers Attending Clinician Julianna Vu MD Attending Clinician Carin Guerrier MA Attending Clinician Unavailable CARLOS STEWART Attending Clinician Unavailable MD ELIZABETH BROCK Attending Clinician Unavailable ELIZABETH BROCK Admitting Clinician Unavailable Stephen Admitting Clinician Unavailable MD ELIZABETH BROCK Admitting Clinician Unavailable Payers Payer Name Policy Type Policy Number Effective Date Expiration Date S funmi MEDICARE B-[place]: [id number] 2003 [employer] 00:00:00 [facility] [id number] 2005 OPTIONS (MEDICARE 00:00:00 SUPPLEMENT) Problems Condition Condition Condition Status Onset Resolution Last Treating Co mments Source Name Details Category Date Date Treatment Clinician Date Altered Altered Disease Active [facility] mental mental 6-21 st status status 00:00: Hospita 00 l Melena Melena Disease Active [facility] 00[facility] 00 l Delirium Delirium Disease Active [facility] 00:00: [facility]ospita 00 l Lymphoma Lymphoma Disease Active [facility] 07-24 st 00:00: Hospita 00 l Atrial Atrial Disease Active [facility] fibrillati fibrillati 07-16 st on on 00:00: Hospita 00 l Anemia Anemia Disease Active [facility] 07-12 st 00:00: [facility]ospita 00 l Hypoxia Hypoxia Disease Active [facility] 07-05 st 00:00: [facility]ospita 00 l CHF CHF Disease Active [facility] (congestiv (congestiv 07-05 st e heart e heart 00:00: Hospita failure), failure), 00 l NYHA class NYHA class I, acute I, acute on on chronic, chronic, 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 00:00: Ho spita 00 l Change in Change in Disease Active [facility] h[facility] mental mental 5-18 st status status 00:00: Hospita 00 l Hypertensi Hypertensi Disease Active M ethodi on on 07-13 00:00: Hospita 00 l UTI UTI Disease Active [facility] (urinary (urinary 5-31 st tract tract 00:00: Hospita infection) infection) 00 l Rash Rash Disease Active [facility] 07 st 00:00: [facility]ospita 00 l 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 00:00: Ho spita 00 l Dementia Dementia Disease Active 2017-[address] [facility] [address] 00:00: Hospita 00 l Gait Gait Disease Active [facility] [...] Acute Disease Active 2016-02 [facility] diastolic diastolic [address] st congestive congestive 00:00: Ho spita heart heart 00 l failure failure Temporal Temporal Disease Active 2016-02 [facility] di arteritis arteritis 1 st 00:00: Hospita 00 l NSTEMI NSTEMI Disease Active 2016-02 [facility] (non-ST (non-ST 1- st elevated elevated 00:00: Hospit a myocardial myocardial 00 l infarction infarction ) ) Vision Vision Disease Active [facility] disturbanc disturbanc 11-01 st e e 00:00: Hospita 00 l Type [...] 2016-02 "Acts [facility] m ty to ns 1-[address] adverse 00:00: crazy Hospita reaction 00 person," l s to per drug family report Prometha Propensi Active Hallucinatio "crazy" [facility] zine ty to ns 11-01 st adverse 00:00: Hospita reaction 00 l s to drug Penicill Propensi Active Other (See It Me thodi ins ty to Comments) 11-[address] adverse 00:00: when Pt. Hospita reaction 00 Was a l s to kid. drug Unknown reaction to daughter. Family History Family Member Diagnosis Comments Start Date Stop Date Source Natural father Heart block [facility] Natural mother Colon cancer [facility] Natural mother Stroke [facility] Natural sister Cancer [facility] Natural sister Diabetes [facility] Social History Social Habit Start Date Stop Date Quantity Comments Source Gender identity [facility] Sexual orientation [facility] History of Social 2022-08-01 2022-08-[address] function 00:00:00 00:00:00 Hospital Alcohol intake 2021-08-04 2021-08-04 Current Scientologist 00:00:00 00:00:00 non-drinker of Hospital alcohol (finding) Tobacco use and 2016-11-01 2016-11-01 Smokeless Scientologist exposure 00:00:00 00:00:00 tobacco non-user Hospital Sex Assigned At [birth year] Scientologist 00:00:00 00:00:00 Hospital Smoking Status Start Date Stop Date Source Never smoked tobacco [facility] Medications Ordered Filled Start Stop Current Ordering Indication Dosage Frequency Signature Comments Components Source Medication Medication Date Date Medication? Clinician (SIG) Name Name amIODarone No 200mg QD Take 200 M ethodi (PACERONE) 6-22 06-[address] 200 MG 19:43: 00:00 mouth Hospita tablet 26 :00 daily l before breakfast. levothyroxi Yes 50ug QD Take 1 Meth angel ne 6-22 tablet (50 st (SYNTHROID) 19:43: mcg total) Hospita 50 mcg 24 by mouth l tablet daily. predniSONE Yes 10mg QD Take 1 [facility] di (DELTASONE) 6-22 tablet (10 st 10 mg 19:43: mg total) Hospita tablet 24 by mouth l daily. Every other day citalopram Yes 20mg QD Take 1 Metho di (CeleXA) 20 6-22 tablet (20 st MG tablet 19:43: mg total) [facility]i 24 by mouth l daily. furosemide Yes 20mg QD Take 1 [facility] di (LASIX) 20 6-22 tablet (20 st mg tablet 19:43: mg total) [facility]i 24 by mouth l daily. gabapentin Yes 200mg Q.[id number] Take 2 [facility] (NEURONTIN) 6-[id number] 100 mg 19:43: 3D (200 mg Hospita capsule 24 total) by l mouth 3 (three) times a day. omeprazole 2023-0 Yes 40mg Q.5D Take 1 [facility] di (PriLOSEC) 6-[address] 40 MG 19:43: (40 mg Hospita capsule 24 total) by l mouth 2 (two) times a day. ferrous 2023-0 Yes 325mg Q.5D Take 1 [facility] sulfate 325 6-[address] (65 FE) MG 19:43: (325 mg Hosp dhruv tablet 24 total) by l mouth 2 (two) times a day. metFORMIN 2023-0 Yes 500mg Q.5D Take 1 [facility] di (GLUCOPHAGE 6-[address] ) 500 mg 19:43: (500 mg Hospit a tablet 24 total) by l mouth 2 (two) times a day with meals. atenoloL 2023-0 Yes 50mg Q.5D Take 1 [facility] (TENORMIN) 6-22 tablet (50 st 50 MG 19:43: mg total) Hospita tablet 24 by mouth 2 l (two) times a day. apixaban 2023-0 Yes 5mg Q.5D Take 1 [facility] (ELIQUIS) 5 6-22 tablet (5 st mg tablet 19:43: mg total) [facility] k[facility]i 24 by mouth 2 l (two) times a day. magnesium 3-0 Yes 400mg QD Take 400 Met [facility]odi oxide 250 6-[address] mg 19:43: mouth Hospita magnesium 24 daily. l tablet pravastatin 2022-0 Yes 40mg QD Take 40 mg [facility] (PRAVACHOL) 6-[address] 40 MG 19:43: daily. Hospita tablet 24 l cholecalcif 2022-0 Yes 1{tbl} QD Take 1 Me thodi eusebia, 6-[address] vitamin D3, 19:43: mouth Hospi ta (VITAMIN D3 24 daily. l ORAL) levalbutero 2022-0 Yes 1{ampul Q4H Take 1 M ethodi l (XOPENEX) 6-22 e} ampule by st 0.63 mg/3 19:43: nebulizati Ho spita mL 24 on every 4 l nebulizer (four) solution hours as needed (Asthma). multivitami 2022-0 Yes 1{tbl} QD Take 1 Me thodi n tablet - tablet by st 19:43: mouth Hospita 24 daily. l donepeziL Yes 10mg QD Take 10 mg Me thodi (ARICEPT) 6-[address] 10 MG 19:43: nightly. Hospita tablet 24 l aspirin 2022- No 81mg QD Take 81 mg Met hodi (ECOTRIN) 08-02-[address] 81 MG 17:38: 00:00 nightly. Hospita enteric 50 :00 l coated tablet docusate 2022- No 100mg Q24H Take 100 Met hodi sodium 08-02- mg by st (COLACE) 17:38: 00:00 mouth Hospita 100 MG 50 :00 daily as l capsule needed for constipati on. senna 2022- No 1{tbl} Q24H Take 1 [facility] (SENOKOT) 08-02- tablet by st 8.6 mg 17:38: 00:00 mouth Hospita tablet 50 :00 daily as l needed for constipati on. insulin Yes 0U Q.[id number] Inject Me thodi lispro 08-02 [id number] 0-12 Units s t (ADMELOG) 00:00: 3D under the Hos kofi 100 unit/mL 00 skin 3 l injection (three) times a day before meals. aspirin 2022- Yes 81mg QD Take 1 [facility] (ECOTRIN) 08-02- tablet (81 st 81 MG 00:00: 04:59 mg total) Hospit a enteric 00 :00 by mouth l coated nightly tablet for 30 days. docusate 2022- Yes 100mg Q24H Take 1 Metho di sodium 08-02- capsule st (COLACE) 00:00: 04:59 (100 mg Hospi ta 100 MG 00 :00 total) by l capsule mouth daily as needed for constipati on for up to 30 days. senna 2022- Yes 1{tbl} Q24H Take 1 [facility] (SENOKOT) 08-02- tablet by st 8.6 mg 00:00: 04:59 mouth Hospita tablet 00 :00 daily as l needed for constipati on for up to 30 days. dextrose 10 2022- Yes 40mL/h Infuse 40 [facility] % infusion 08-02- mL/hr into st 00:: :59 a venous Hospita 00 :00 catheter l continuous ly as needed (For bedside glucose LESS than 70 mg/dL) for up to 30 days. dextrose 2022- Yes 12.5g Infuse 25 Me thodi 50% syringe 08-02-23 mL (12.5 g s t 00:: :59 total) Hospita 00 :00 into a l venous catheter every 20 (twenty) minutes as needed (If blood glucose is between 41-69 mg/dL) for up to 30 days. dextrose 2022- Yes 25g Infuse 50 Met hodi 50% syringe 08-02- mL ([address] 00:: :59 total) Hospita 00 :00 into a l venous catheter every 20 (twenty) minutes as needed (If blood glucose is 40 mg/dL or LESS) for up to 30 days. glucagon 1 2022- Yes 1mg Inject 1 Me thodi mg/mL recon 08-02-[address]n 00:: :59 the Hospita 00 :00 shoulder, l thigh, or buttocks every 15 (fifteen) minutes as needed (if patient NPO, unable to swallow safely with no IV access.) for up to 30 days. meclizine 2022- Yes 12.5mg Q.25D Take 1 Me thodi (ANTIVERT) 08-02-[address] 12.5 mg 00:: :59 (12.5 mg Hospi ta tablet 00 :00 total) by l mouth 4 (four) times a day with meals and nightly for 30 days. naloxone 2022- Yes .2mg Infuse 0.5 Me thodi (NARCAN) 08-02-23 mL (0.[address] 0.4 mg/mL 00:: :59 total) Hospi ta injection 00 :00 into a l venous catheter once as needed for opioid reversal or respirator y depression (as needed for respirator y rate 8 per minute or less OR patient sommnolent and difficult to arouse (POSS GREATER than 3).) for up to 30 days. predniSONE 2021-2021- No 10mg Q2D Take 1 Meth angel (DELTASONE) 08-09- tablet (10 s t 10 mg 00:00: 04:59 mg total) Hospit a tablet 00 :00 by mouth l every other day for 30 days. predniSONE 2021-2021- No 10mg Q2D Take 1 Meth angel (DELTASONE) 08-09- tablet (10 s t 10 mg 00:00: [...] 12 hours or as directed by pantoprazol 2021- No 40mg QD Take 1 Met hodi e 08-08 tablet (40 st (PROTONIX) 00:00: 04:59 mg total) H ospita 40 MG EC 00 :00 by mouth l tablet daily for 30 days. lidocaine 2021- No 1{patch Q24H Place 1 M ethodi (LIDODERM) 08-08 } patch on st 5 % 00:00: 04:59 the skin Hospita 00 :00 daily for l 30 days. Remove & Discard patch within 12 hours or as directed by pantoprazol 2021- No 40mg QD Take 1 Met hodi e 08-08 tablet (40 st (PROTONIX) 00:00: 04:59 mg total) H ospita 40 MG EC 00 :00 by mouth l tablet daily for 30 days. VIT 2021-2021- No 1{tbl} Q.5D Take 1 [facility] C/E/ZN/MAGEN 08-[address] R/LUTEIN/ZE 18:32: 00:00 mouth 2 Ho spita AXAN 41 :00 (two) l (PRESERVISI times a ON AREDS 2 day. ORAL) metFORMIN 2021- No 500mg QD Take 500 Me thodi (GLUCOPHAGE 6-27 06-[address] ) 500 mg 18:32: 00:00 mouth Hospita tablet 41 :00 nightly. l linaclotide 2021-2021- No 1{tbl} Q24H Take 1 M ethodi (LINZESS 6-27 06-[address] ORAL) 18:32: 00:00 mouth Hospita 41 :00 daily as l needed (constipat ion). VIT 2021-2021- No 1{tbl} Q.5D Take 1 [facility] C/E/ZN/MAGEN 6-07 08- tablet by st R/LUTEIN/ZE 18:32: 00:00 mouth 2 Ho spita AXAN 41 :00 (two) l (PRESERVISI times a ON AREDS 2 day. ORAL) metFORMIN 2021- No 500mg QD Take 500 Me thodi (GLUCOPHAGE 6-27 06-[address] ) 500 mg 18:32: 00:00 mouth Hospita tablet 41 :00 nightly. l linaclotide 0 2021- No 1{tbl} Q24H Take 1 M ethodi (LINZESS 6-07 08-[address] ORAL) 18:32: 00:00 mouth Hospita 41 :00 daily as l needed (constipat ion). aspirin Yes 81mg QD Take 81 mg Meth angel (ECOTRIN) 6-[address] 81 MG 18:32: nightly. Hospita enteric 40 l coated tablet docusate 0 Yes 100mg Q24H Take 100 Meth angel sodium 6-[address] (COLACE) 18:32: mouth Hospita 100 MG 40 daily as l capsule needed for constipati on. amIODarone 0 Yes 200mg QD Take 200 Me thodi (PACERONE) 6-[address] 200 MG 18:32: mouth Hospita tablet 40 daily l before breakfast. pravastatin 0 Yes 40mg QD Take 40 mg [facility] (PRAVACHOL) 6-[address] 40 MG 18:32: daily. Hospita tablet 40 l senna 0 Yes 1{tbl} Q24H Take 1 [facility] (SENOKOT) 6-[address] 8.6 mg 18:32: mouth [...] st 18:32: mouth Hospita 40 daily. l donepeziL Yes 10mg QD Take 10 mg Me thodi (ARICEPT) 08-[address] 10 MG 18:32: nightly. Hospita tablet 40 l atenoloL 2021- No 100mg Q.5D Take 1 Metho di (TENORMIN) 08-[address] 100 MG 00:00: 04:59 (100 mg Hospita tablet 00 :00 total) by l mouth 2 (two) times a day for 30 days. acetaminoph 2021- No 650mg Q6H Take 2 Me thodi en 08-[address] (TYLENOL) 00:00: 04:59 (650 mg Hosp dhruv 325 MG 00 :00 total) by l tablet mouth every 6 (six) hours as needed for mild pain for up to 30 days. arformotero 2021- No [id number] 15ug Q.5D Take 2 mL Methodi L (BROVANA) 08-07 ([address] 15 mcg/2 mL 00:00: 04:59 total) by Hospita solution 00 :00 nebulizati l for on 2 (two) nebulizatio times a n day for 30 days. bisacodyL 2021- No 10mg Q24H Insert 1 Met hodi (DULCOLAX) 08-[address] 10 mg 00:00: 04:59 y (10 mg Hospita suppository 00 :00 total) l into the rectum daily as needed for constipati on for up to 30 days. budesonide 2021- No [id number] .5mg Q.5D Take 2 mL [facility] (PULMICORT) 08-07 (0.[address] 0.5 mg/2 mL 00:00: 04:59 total) by Hospita nebulizer 00 :00 nebulizati l solution on 2 (two) times a day for 30 days. dextrose 10 2021- No 40mL/h Infuse 40 [facility] % infusion 08-07 mL/hr into st 00:00: 04:59 a venous Hospita 00 :00 catheter [...] 25g Infuse 50 Met hodi 50% syringe 08-07 mL ([address] 00:00: 04:59 total) [...] to 30 days. hydrALAZINE 2021- No 25mg Q.[id number] Take 1 [facility] (APRESOLINE 08-07 [id number] tablet (25 st ) 25 MG 00:00: 04:59 3D mg total) Hosp dhruv tablet 00 :00 by mouth l every 8 (eight) hours for 30 days. insulin 2021- No 0U Q.[id number] Inject M ethodi lispro 08-07 [id number] 0-[address] (ADMELOG) 00:00: 04:59 3D under the Ho spita 100 unit/mL 00 :00 skin 3 l injection (three) times a day with meals for 30 days. ipratropium 2021- No [id number] .5mg Q.[id number] Take 2.5 [facility] (ATROVENT) 08-07 [id number] mL (0.[address] 0.02 % 00:00: 04:59 3D total) by [facility] ta nebulizer 00 :00 nebulizati l solution [...] times a day for 30 days. ramelteon 2021- No 8mg QD Take 1 Metho di (ROZEREM) 8 08-07 tablet (8 st mg tablet 00:00: 04:59 mg total) Ho spita 00 :00 by mouth l nightly as needed for sleep for up to 30 days. bisacodyL 2021- No 10mg Q24H Insert 1 Met hodi (DULCOLAX) 08-[address] 10 mg 00:00: 04:59 y (10 mg Hospita suppository 00 :00 total) l into the rectum daily as needed for constipati on for up to 30 days. budesonide 2021- No [id number] .5mg Q.5D Take 2 mL [facility] (PULMICORT) 08-07 (0.[address] 0.5 mg/2 mL 00:00: 04:59 total) by Hospita nebulizer 00 :00 nebulizati l solution on 2 (two) times a day for 30 days. dextrose 10 2021- No 40mL/h Infuse 40 Method[facility] % infusion 08-07-28 mL/hr into st 00:00: 04:59 a venous Hospita 00 :00 catheter l continuous ly as needed (For bedside glucose LESS than 70 mg/dL) for up to 30 days. dextrose 2021-2021- No 12.5g Infuse 25 Me thodi 50% syringe 08-07-28 mL (12.5 g s t 00:00: 04:59 total) Hospita 00 :00 into a l venous catheter every 20 (twenty) minutes as needed (If blood glucose is between 41-69 mg/dL) for up to 30 days. dextrose 2021-2021- No 25g Infuse 50 Met hodi 50% syringe 08-07-28 mL ([address] 00:: 04:59 total) Hospita 00 :00 into a l venous catheter every 20 (twenty) minutes as needed (if blood glucose is less than or equal 40 mg/dL) for up to 30 days. glucagon 1 2021- No 1mg Inject 1 Me thodi mg/mL recon 08-07- mg into st soln 00:00: 04:59 the Hospita 00 :00 shoulder, l thigh, or buttocks every 15 (fifteen) minutes as needed (if patient NPO, unable to swallow safely with no IV access.) for up to 30 days. hydrALAZINE 2021- No 25mg Q.[id number] Take 1 [facility] (APRESOLINE 08-07 [id number] tablet (25 st ) 25 MG 00:00: 04:59 3D mg total) Hosp dhruv tablet 00 :00 by mouth l every 8 (eight) hours for 30 days. insulin 2021-2021- No 0U Q.[id number] Inject M ethodi lispro 08-07 [id number] 0-[address] (ADMELOG) 00:00: 04:59 3D under the Ho spita 100 unit/mL 00 :00 skin 3 l injection (three) times a day with meals for 30 days. ipratropium 2021- No [id number] .5mg Q.[id number] Take 2.5 [facility] (ATROVENT) 08-07 [id number] mL (0.[address] 0.02 % 00:00: 04:59 3D total) by Hospi ta nebulizer 00 :00 nebulizati l solution [...] times a day for 30 days. ramelteon 2021- No 8mg QD Take 1 Metho di (ROZEREM) 8 08-07 tablet (8 st mg tablet 00:00: 04:59 mg total) Ho spita 00 :00 by mouth l nightly as needed for sleep for up to 30 days. atenoloL 2021- No 100mg Q.5D Take 1 Metho di (TENORMIN) 08-[address] 100 MG 00:00: 04:59 (100 mg Hospita tablet 00 :00 total) by l mouth 2 (two) times a day for 30 days. acetaminoph 2021- No 650mg Q6H Take 2 Me thodi en 08-[address] (TYLENOL) 00:00: 04:59 (650 mg Hosp dhruv 325 MG 00 :00 total) by l tablet mouth every 6 (six) hours as needed for mild pain for up to 30 days. arformotero 2021- No [id number] 15ug Q.5D Take 2 mL Methodi L (BROVANA) 08-07 ([address] 15 mcg/2 mL 00:00: 04:59 total) by Hospita solution 00 :00 nebulizati l for on 2 (two) nebulizatio times a n day for 30 days. traMADoL 2021- [place] [id number] 50mg Q6H Take 1 Metho di (ULTRAM) 50 6-27 07-08 tablet (50 s t mg tablet 00:00: 04:59 mg total) Ho spita 00 :00 by mouth l every 6 (six) hours as needed for severe pain for up to 10 days .acute pain. traMADoL 2021- No [id number] 50mg Q6H Take 1 Metho di (ULTRAM) 50 6-27 07-08 tablet (50 s t mg tablet 00:00: 04:59 mg total) Ho spita 00 :00 by mouth l every 6 (six) hours as needed for severe pain for up to 10 days .acute pain. nystatin 2021- No 10mL Q.25D Take 10 mL M ethodi (MYCOSTATIN 6-27 07-05 by mouth 4 s t ) 100,000 00:00: 04:59 (four) Hospi ta unit/mL 00 :00 times a l suspension day for 7 days. Swish in mouth nystatin 2021- No 10mL Q.25D Take 10 mL M ethodi (MYCOSTATIN 6-27 07-05 by mouth 4 s t ) 100,000 [...] wheezing on inhaler or shortness of breath. albuterol Yes 2{puff} Q4H Inhale 2 M ethodi (PROAIR 2-[address] HFA,PROVENT 00:00: every 4 Hos kofi [place] 00 (four) l HFA,VENTOLI hours as N HFA) 90 needed for mcg/actuati wheezing on inhaler or shortness of breath. gabapentin 2021- No 600mg Q.[id number] Take 600 [facility] (NEURONTIN) 10-[id number] 300 mg 00:00: 00:00 3D mouth 3 Hospita capsule 00 :00 (three) l times a day. gabapentin No 600mg Q.[id number] Take 600 [facility] (NEURONTIN) 10-[id number] 300 mg 00:00: 00:00 3D mouth 3 Hospita capsule 00 :00 (three) l times a day. omeprazole 1{capsu Q.5D Take 1 M ethodi (PriLOSEC) 07-31 le} capsule by st 40 MG 00:00: 00:00 mouth 2 Hospita capsule 00 :00 (two) l times a day as needed. omeprazole 1{capsu Q.5D Take 1 M ethodi (PriLOSEC) 07-31 le} capsule by st 40 MG 00:00: 00:00 mouth 2 Hospita capsule 00 :00 (two) l times a day as needed. atenoloL No 50mg QD Take 50 mg Me [facility]odi (TENORMIN) 05-[address] 50 MG 00:00: 00:00 every Hospita tablet 00 :00 morning. l atenoloL No 50mg QD Take 50 mg Me thodi (TENORMIN) 05-[address] 50 MG 00:00: 00:00 every Hospita tablet 00 :00 morning. l Vital Signs Vital Name Observation Time Observation Value Comments Source Heart rate 2022-08-02 20:27:02 62 /min [facility] Oxygen saturation in 2022-08-02 20:27:02 95 /min [facility] Arterial blood by Pulse oximetry Systolic blood 2022-08-02 20:26:54 125 mm[Hg] [facility] pressure Diastolic blood 2022-08-02 20:26:54 61 mm[Hg] [facility] pressure Body temperature 2022-08-02 20:26:54 35.61 [facility] Respiratory rate 2022-08-02 18:06:13 20 /min [facility] Body height 2022-08-01 18:10:24 157.5 cm [facility] Body weight 2022-08-01 18:10:24 67.994 kg [facility] BMI 2022-08-01 18:10:24 27.42 kg/m2 [facility] Systolic blood 2021-08-07 20:28:40 118 mm[Hg] Method [facility] pressure Diastolic blood 2021-08-07 20:28:40 59 mm[Hg] [facility] pressure Heart rate 2021-08-07 20:28:40 83 /min [facility] Body temperature 2021-08-07 20:28:40 36.17 [facility] Oxygen saturation in 2021-08-07 20:28:40 98 /min [facility] Arterial blood by Pulse oximetry Respiratory rate 2021-08-07 19:23:00 19 /min [facility] Body weight 2021-08-03 11:37:00 71.1 kg [facility] BMI 2021-08-03 11:37:00 29.62 kg/m2 [facility] Body height 2021-07-29 09:00:00 154.9 cm [facility] Procedures Procedure Date / Time Performing Source Performed Clinician POC GLUCOSE 2022-08-02 Elizabeth Brock 21:34:00 [facility] SEDIMENTATION RATE 2022-08-02 Nell Huntley 20:50:00 [facility] C-REACTIVE PROTEIN 2022-08-02 Nell Huntley 20:50:00 [facility] PROCALCITONIN 2022-08-02 Nell Huntley 20:50:00 [facility] XR CHEST 1 VW PORTABLE 2022-08-02 Nell Huntley 20:06:00 [facility] POC GLUCOSE 2022-08-02 Elizabeth Brock 18:02:00 [facility] Hospital POC GLUCOSE 2022-08-02 Elizabeth Brock 13:46:00 [facility] LIPID PANEL 2022-08-02 Elizabeth Brock 09:33:00 [facility] CBC WITH PLATELET AND DIFFERENTIAL 2022-08-02 Matt Brock 09:33:00 [facility] BASIC METABOLIC PANEL 2022-08-02 Elizabeth Brock 09:33:00 [facility] ESTIMATED GFR 2022-08-02 Elizabeth Brock 09:33:00 [facility] POC GLUCOSE 2022-08-02 Elizabeth Brock 01:59:00 [facility] URINE CULTURE 2022-08-01 Elizabeth Brock 21:18:00 [facility] URINALYSIS SCREEN AND MICROSCOPY, 2022-08-01 Mary Brock in [facility] WITH REFLEX TO CULTURE 21:18:00 [facility] COVID-19 QUALITATIVE RT-PCR 2022-08-01 Elizabeth Brock [facility] 21:01:[address] HEAD WO CONTRAST 2022-08-01 Elizabeth Brock 20:53:09 [facility] CBC WITH PLATELET AND DIFFERENTIAL 2022-08-01 Matt Brock 19:31:00 O. Hospital PROTHROMBIN TIME WITH INR 2022-08-01 Elizabeth Brock Metho dist 19:31:00 [facility] PARTIAL THROMBOPLASTIN TIME (PTT) 2022-08-01 Mary Brock in [facility] 19:31:00 [facility] SEDIMENTATION RATE 2022-08-01 Elizabeth Brock 19:31:00 [facility] COMPREHENSIVE METABOLIC PANEL 2022-08-01 Elizabeth Brock ethodist 19:31:00 O. Hospital HEMOGLOBIN A1C 2022-08-01 Elizabeth Brock 19:31:00 O[facility] Hospital PREALBUMIN LEVEL 2022-08-01 Elizabeth Brock 19:31:00 O[facility] Hospital THYROID STIMULATING HORMONE 2022-08-01 Elizabeth Brock Met [facility]ist 19:31:00 O[facility] T4, FREE 2022-08-01 Elizabeth Brock 19:31:00 [facility] PROCALCITONIN 2022-08-01 Elizabeth Brock 19:31:00 [facility] C-REACTIVE PROTEIN 2022-08-01 Elizabeth Brock 19:31:00 O[facility] ESTIMATED GFR 2022-08-01 Elizabeth Brock 19:31:00 O. Hospital POC GLUCOSE 2021-08-07 Elizabeth Brock 17:35:00 O. Hospital POC GLUCOSE 2021-08-07 Elizabeth Brock 13:27:00 O[facility] CBC WITH PLATELET AND DIFFERENTIAL 2021-08-07 Matt Brock 08:56:00 O[facility] Hospital SMEAR REVIEW 2021-08-07 Elizabeth Brock 08:56:00 O[facility] Hospital POC GLUCOSE 2021-08-07 Elizabeth Brock 02:00:00 O[facility] Hospital POC GLUCOSE 2021-08-06 Elizabeth Brock 23:50:00 O[facility] Hospital POC GLUCOSE 2021-08-06 Elizabeth Brock 17:47:00 O[facility] Hospital POC GLUCOSE 2021-08-06 Elizabeth Borck 13:47:00 O[facility] Hospital BASIC METABOLIC PANEL 2021-08-06 [...] CBC WITH PLATELET AND DIFFERENTIAL 2021-08-05 Edwardo Bustillosist 10:39:00 [facility] MAGNESIUM LEVEL 2021-08-05 Latesha Bustillos 10:39:00 [facility] PHOSPHORUS LEVEL 2021-08-05 Latesha Bustillos [employer] 10:39:00 [facility] IONIZED CALCIUM 2021-08-05 Latesha [...] Hospital IONIZED CALCIUM 2021-08-04 Latesha Bustillos 08:33:00 [facility] Hospital ESTIMATED GFR 2021-08-04 Latesha Bustillos 08:33:00 [facility] SMEAR REVIEW 2021-08-04 Latesha Bustillos 08:33:00 [facility] POC GLUCOSE 2021-08-04 Elizabeth Brock 08:31:00 [facility] POC GLUCOSE 2021-08-04 Elizabeth Brock 01:33:00 [facility] POC GLUCOSE 2021-08-03 Elizabeth Brock 22:41:00 [facility] HEMOGLOBIN & HEMATOCRIT 2021-08-03 NgititCarmenis t 22:08:00 [facility] POC GLUCOSE 2021-08-03 Elizabeth Brock 17:47:00 [facility] POC GLUCOSE 2021-08-03 Elizabeth Brock 13:26:00 [facility] BASIC METABOLIC PANEL 2021-08-03 Latesha Bustillos 10:13:00 [facility] CBC WITH PLATELET AND DIFFERENTIAL 2021-08-03 Edwardo Bustillos 10:13:00 [facility] MAGNESIUM LEVEL 2021-08-03 Latesha Bustillos 10:13:00 [facility] PHOSPHORUS LEVEL 2021-08-03 Latesha Bustillos 10:13:00 [facility] IONIZED CALCIUM 2021-08-03 Latesha Bustillos 10:13:00 [facility] ESTIMATED GFR 2021-08-03 ApolloLatesha bella 10:13:00 [facility] SMEAR REVIEW 2021-08-03 Latesha Bustillos 10:13:00 [facility] POC GLUCOSE 2021-08-03 Elizabeth Brock 01:54:00 [...] COVID-19 QUALITATIVE RT-PCR 2021-08-01 Sabine Guy 21:52:00 [facility] POC GLUCOSE 2021-08-01 Elizabeth Brock 17:29:00 [facility] POC GLUCOSE 2021-08-01 Elizabeth Brock 13:37:00 [facility] TYPE AND SCREEN 2021-08-01 Yoselyn Osman 11:03:00 Hospital HEMOGLOBIN & HEMATOCRIT 2021-08-01 Yoselyn Osman t 11:03:00 Hospital PREPARE RBC 2021-08-01 Priya Pearlist 11:03:00 Hospital CBC WITH PLATELET AND DIFFERENTIAL 2021-08-01 Yoselyn Osman 09:43:00 Hospital SMEAR REVIEW 2021-08-01 Yoselyn Osman 09:43:00 Hospital POC GLUCOSE 2021-08-01 Elizabeth Brock 01:07:00 [facility] POC GLUCOSE 2021-07-31 Elizabeth Brock 23:06:00 [facility] IR VERTEBRO LUM UNI OR URI 2021-07-31 Elizabeth Brock Meth odist 21:30:45 [facility] LA AN ELECTIVE ENDOTRACHEAL AIRWAY 2021-07-31 Elyse Chavez 20:23:00 [facility] POC GLUCOSE 2021-07-31 Elizabeth Brock 17:52:00 [facility] POC GLUCOSE 2021-07-31 Elizabeth Brock 13:44:00 [facility] XR CHEST 1 VW PORTABLE 2021-07-[address] 13:15:00 Hospital VENOUS BLOOD GAS 2021-07-31 Yoselyn Osman 10:32:00 Hospital BASIC METABOLIC PANEL 2021-07-31 Latasha Porter t 09:21:00 Hospital ESTIMATED GFR 2021-07-31 Latasha Porter 09:21:00 Hospital CBC WITH PLATELET AND DIFFERENTIAL 2021-07-31 Yoselyn Osman 08:52:00 Hospital B NATRIURETIC PEPTIDE 2021-07-31 Latasha Porter t 08:52:00 Hospital SMEAR REVIEW 2021-07-31 Yoselyn [...] Osman 09:03:00 Hospital HEMOGLOBIN & HEMATOCRIT 2021-07-30 Latasha Porter Method ist 01:24:00 Hospital POC GLUCOSE 2021-07-30 Elizabeth Brock 01:17:00 [facility] POC GLUCOSE 2021-07-29 Elizabeth Brock 23:41:00 [facility] POC GLUCOSE 2021-07-29 Elizabeth Brock 17:35:00 [facility] CBC WITH PLATELET AND DIFFERENTIAL 2021-07-29 Lizandro Porterist 16:27:00 Hospital BASIC METABOLIC PANEL 2021-07-29 Latasha Porter Methodis t 16:27:00 Hospital ESTIMATED GFR 2021-07-29 Latasha Porterist 16:27:00 Hospital SMEAR REVIEW 2021-07-29 Latasha Porter Scientologist 16:27:00 Hospital POC GLUCOSE 2021-07-29 Elizabeth Brock 13:24:00 [facility] POC GLUCOSE 2021-07-29 Elizabeth Brock 02:03:00 [facility] POC GLUCOSE 2021-07-28 Elizabeth Brock 22:54:00 [facility] POC GLUCOSE 2021-07-28 Elizabeth Brock 17:29:00 [facility] SURGICAL PATHOLOGY REQUEST 2021-07-28 Elizabeth Brock Meth odist 16:05:00 [facility] POC GLUCOSE 2021-07-28 Elizabeth Brock 15:58:00 [facility] ESOPHAGOGASTRODUODENOSCOPY (EGD) 2021-07-28 Julianna Vu 14:18:00 Hospital POC GLUCOSE 2021-07-28 Elizabeth Brock 13:03:00 [facility] CBC WITH PLATELET AND DIFFERENTIAL 2021-07-28 Pilar Blanton 09:38:00 [facility] BASIC METABOLIC PANEL 2021-07-28 Pilar Blanton 09:38:00 [facility] MAGNESIUM LEVEL 2021-07-28 Pilar Blanton 09:38:00 [facility] ESTIMATED GFR 2021-07-28 Pilar Blanton 09:38:00 [facility] SMEAR REVIEW 2021-07-28 Pilar Blanton 09:38:00 [facility] POC GLUCOSE 2021-07-28 Elizabeth Brock 01:52:00 [facility] POC GLUCOSE 2021-07-27 Elizabeth Brock 23:01:00 [facility] HEMOGLOBIN & HEMATOCRIT 2021-07-27 Priya Pearl t 19:46:00 Hospital POC GLUCOSE 2021-07-27 Elizabeth Brock 17:30:00 [facility] BASIC METABOLIC PANEL 2021-07-27 Pilar Blanton 14:36:00 [facility] ESTIMATED GFR 2021-07-27 Pilar Blanton 14:36:00 [facility] COVID-19 QUALITATIVE RT-PCR 2021-07-27 Luz Paiz hodist [...] 09:30:00 [facility] CBC HEMOGRAM 2021-07-25 Elizabeth Brokc 09:30:00 [facility] B NATRIURETIC PEPTIDE 2021-07-25 Elizabeth Brock 09:30:00 O[facility] Hospital VENOUS BLOOD GAS 2021-07-25 Tessa Blantondorian Pappas 09:30:00 [facility] ESTIMATED GFR 2021-07-25 Elizabeth Brock 09:30:00 [facility] POC GLUCOSE 2021-07-25 Elizabeth Brock 01:08:00 [facility] POC GLUCOSE 2021-07-24 Elizabeth Brock 23:22:00 [facility] HEMOGLOBIN & HEMATOCRIT 2021-07-24 Priya Pearl t 20:07:00 Hospital POC GLUCOSE 2021-07-24 Elizabeth Brock 17:26:00 [facility] POC GLUCOSE 2021-07-24 Elizabeth Brock 13:27:00 O[facility] Hospital VENOUS BLOOD GAS 2021-07-24 Latasha Porter 10:10:00 Hospital CBC WITH PLATELET AND DIFFERENTIAL 2021-07-24 Lizandro Porter 10:10:00 Hospital BASIC METABOLIC PANEL 2021-07-24 Latasha Porter t 10:10:00 Hospital B NATRIURETIC PEPTIDE 2021-07-24 Latasha Porter t 10:10:00 Hospital ESTIMATED GFR 2021-07-24 Latasha Porter 10:10:00 Hospital SMEAR REVIEW 2021-07-24 Latasha Porter 10:10:00 Hospital POC GLUCOSE 2021-07-24 Elizabeth Brock 01:16:00 [facility] POC GLUCOSE 2021-07-23 Elizabeth Brock 22:41:00 [facility] POC GLUCOSE 2021-07-23 Elizabeth Brock 18:04:00 O[facility] Hospital TTE COMPLETE, WO CONTRAST, W 2021-07-23 Latasha Porter ethodist DOPPLER ([id number]) 16:27:00 Hospital POC GLUCOSE 2021-07-23 Elizabeth Brock 13:03:00 [facility] CBC WITH PLATELET AND DIFFERENTIAL 2021-07-23 Yoselyn Omsan 09:17:00 Hospital BASIC METABOLIC PANEL 2021-07-23 Yoselyn Osman 09:17:00 Hospital VENOUS BLOOD GAS 2021-07-23 Yoselyn Osman 09:17:00 Hospital ESTIMATED GFR 2021-07-23 Yoselyn Osman 09:17:00 Hospital SMEAR REVIEW 2021-07-23 Yoselyn Osman 09:17:00 Hospital POC GLUCOSE 2021-07-23 Elizabeth Brock 02:08:00 [facility] POC GLUCOSE 2021-07-22 Elizabeth Brock 22:47:00 [facility] POC GLUCOSE 2021-07-22 Elizabeth Brock 17:22:00 O. Hospital VENOUS BLOOD GAS 2021-07-22 Latasha Porter 16:19:00 Hospital POC GLUCOSE 2021-07-22 Elizabeth Brock 13:27:00 O[facility] XR CHEST 1 VW PORTABLE 2021-07-[address] 12:11:46 Hospital CBC WITH PLATELET AND DIFFERENTIAL 2021-07-22 Lizandro Porter 08:34:00 Hospital BASIC METABOLIC PANEL 2021-07-22 Latasha Porteris t 08:34:00 Hospital C-REACTIVE PROTEIN 2021-07-22 Latasha Porter 08:34:00 Hospital D-DIMER 2021-07-22 Latasha Porterist 08:34:00 Hospital LACTIC ACID LEVEL 2021-07-22 Latasha Porter 08:34:00 Hospital VENOUS BLOOD GAS 2021-07-22 Latasha Porter 08:34:00 Hospital PHOSPHORUS LEVEL 2021-07-22 Latasha Porter 08:34:00 Hospital MAGNESIUM LEVEL 2021-07-22 Porter, Latasha F. Scientologist 08:34:00 Hospital ESTIMATED GFR 2021-07-22 Latasha PorterKristofer Scientologist 08:34:00 Hospital SMEAR REVIEW 2021-07-22 Latasha PorterKristofer FrankScientologist 08:34:00 Hospital URINALYSIS SCREEN AND MICROSCOPY, 2021-07-22 Latasha PorterKristofer FrankScientologist WITH REFLEX TO CULTURE 07:50:00 Hospital URINE CULTURE 2021-07-22 Latasha PorterKristofer FrankScientologist 07:30:00 Hospital POC GLUCOSE 2021-07-22 Elizabeth Brock 01:37:00 [facility] POC GLUCOSE 2021-07-21 Elizabeth Brock 22:55:00 O[facility] Hospital ARTERIAL BLOOD GAS 2021-07-21 Latasha PorterKristofer Pappas 21:48:00 Hospital C-REACTIVE PROTEIN 2021-07-21 Nell Huntley 20:12:00 Hospital SEDIMENTATION RATE 2021-07-21 Nell Huntley 20:12:00 Hospital PROCALCITONIN 2021-07-21 Nell Huntley 20:12:00 Hospital B NATRIURETIC PEPTIDE 2021-07-21 Latasha PorterKristofer Pitt t 20:12:00 Hospital POTASSIUM LEVEL 2021-07-21 Latasha PorterKristofer Pappas 20:12:00 Hospital VENOUS BLOOD GAS 2021-07-21 Latasha PorterKristofer Pappas 20:11:00 Hospital XR CHEST 1 VW PORTABLE 2021-07-[address] 20:04:39 Hospital POC GLUCOSE 2021-07-21 Elizabeth Brock 17:47:00 O. Hospital ARTERIAL BLOOD GAS 2021-07-21 Elizabeth Brock 15:33:[address] HEAD WO CONTRAST 2021-07-21 Elizabeth Brock 13:42:06 [facility] POC GLUCOSE 2021-07-21 Elizabeth Brock 12:36:00 O[facility] Hospital ARTERIAL BLOOD GAS 2021-07-21 Elizabeth Brock 10:07:00 O. Hospital PROTHROMBIN TIME WITH INR 2021-07-21 Dede Singleton ist 09:46:00 [facility] BASIC METABOLIC PANEL 2021-07-21 Elizabeth Brock 09:46:00 O[facility] Hospital CBC HEMOGRAM 2021-07-21 Elizabeth Brock 09:46:00 O[facility] Hospital ESTIMATED GFR 2021-07-21 Elizabeth Brock 09:46:00 O[facility] Hospital MAGNESIUM LEVEL 2021-07-21 Elizabeth Brock 09:46:00 [facility] POC GLUCOSE 2021-07-21 Elizabeth Brock 02:11:00 [facility] POC GLUCOSE 2021-07-20 Elizabeth Brock 23:07:00 O[facility] COVID-19 QUALITATIVE RT-PCR 2021-07-20 Luz Paiz Met hodist 18:44:00 Hospital POC GLUCOSE 2021-07-20 Elizabeth Brock 17:45:00 O[facility] BASIC METABOLIC PANEL 2021-07-20 Elizabeth Brock 09:30:00 O[facility] CBC HEMOGRAM 2021-07-20 Elizabeth Brock 09:30:00 O[facility] Hospital ESTIMATED GFR 2021-07-20 Elizabeth Brock 09:30:00 O[facility] POC GLUCOSE 2021-07-20 Elizabeth Brock 02:03:00 [facility] POC GLUCOSE 2021-07-19 Elizabeth Brock 17:48:00 [facility] POC GLUCOSE 2021-07-19 Elizabeth Brock 12:11:00 [facility] POC GLUCOSE 2021-07-19 Elizabeth Brock 02:12:00 [facility] POC GLUCOSE 2021-07-18 Elizabeth Brock 23:22:00 O. Hospital HEMOGLOBIN & HEMATOCRIT 2021-07-18 Yoandy Guy t 20:37:00 [facility] POC GLUCOSE 2021-07-18 Elizabeth Brock 17:53:00 [facility] POC GLUCOSE 2021-07-18 Elizabeth Brock 14:25:00 O[facility] Hospital CREATE PERIPHERAL SMEAR FOR 2021-07-18 Sabine Guy ORDERING PROVIDER'S REVIEW 11:10:00 [facility] RETICULOCYTE COUNT 2021-07-18 Elyse Guy 11:10:00 [facility] FOLATE LEVEL 2021-07-18 Elyse Guy 11:10:00 [facility] HAPTOGLOBIN 2021-07-18 Elyse Guy 11:10:00 [facility] LDH 2021-07-18 Elyse Guy 11:10:00 [facility] THYROID STIMULATING HORMONE 2021-07-18 Sabine Guy 11:10:00 [facility] VITAMIN B12 LEVEL 2021-07-18 Elyse Guy 11:10:00 [facility] US CHEST 2021-07-18 Elizabeth Brock 04:10:30 [facility] POC GLUCOSE 2021-07-18 Elizabeth Brock 03:51:00 [facility] POC GLUCOSE 2021-07-18 Elizabeth Brock 02:38:00 [facility] POC GLUCOSE 2021-07-18 Elizabeth Brock 01:00:00 [facility] POC GLUCOSE 2021-07-17 Elizabeth Brock 18:41:00 [facility] POC GLUCOSE 2021-07-17 Elizabeth Brock 17:55:00 [facility] CV CTA CORONARY POST AFIB ABALTION 2021-07-17 Elyse Acosta 14:33:58 [facility] POC GLUCOSE 2021-07-17 Elizabeth Brock 12:31:00 O[facility] Hospital CBC WITH PLATELET AND DIFFERENTIAL 2021-07-17 Matt Brock 10:14:00 [facility] BASIC METABOLIC PANEL 2021-07-17 Elizabeth Brock 10:14:00 O[facility] DIGOXIN LEVEL 2021-07-17 Elyse Acosta 10:14:00 [facility] MAGNESIUM LEVEL 2021-07-17 Elyse Acosta 10:14:00 [facility] ESTIMATED GFR 2021-07-17 Elizabeth Brock 10:14:00 [facility] PHOSPHORUS LEVEL 2021-07-17 Elizabeth Brock 10:14:00 [facility] SMEAR REVIEW 2021-07-17 Elizabeth Brock 10:14:00 [facility] POC GLUCOSE 2021-07-17 Elizabeth Brock 03:41:00 [facility] POC GLUCOSE 2021-07-17 Elizabeth Brock 01:57:00 [facility] POC GLUCOSE 2021-07-16 Elizabeth Brock 23:04:00 [facility] ECG 12-LEAD 2021-07-16 Elyse Acosta 22:38:23 [facility] POC GLUCOSE 2021-07-16 Elizbaeth Brock 18:06:00 [facility] POC GLUCOSE 2021-07-16 [...] Hospital ECG 12-LEAD 2021-07-15 Elyse Acosta 23:28:46 [facility] POC GLUCOSE 2021-07-15 Elizabeth Brock 22:11:00 [facility] POC GLUCOSE 2021-07-15 Elizabeth Brock 17:50:00 [facility] POC GLUCOSE 2021-07-15 Elizabeth Brock 12:22:00 [facility] BASIC METABOLIC PANEL 2021-07-15 Elizabeth Brock 09:45:00 O[facility] CBC WITH PLATELET AND DIFFERENTIAL 2021-07-15 Matt Brock 09:45:00 O[facility] ESTIMATED GFR 2021-07-15 Elizabeth Brock 09:45:00 O[facility] Hospital SMEAR REVIEW 2021-07-15 Elizabeth Brock 09:45:00 [facility] POC GLUCOSE 2021-07-15 Elizabeth Brock 01:58:00 O[facility] Hospital MAGNESIUM LEVEL 2021-07-14 Michael Kaplan 23:38:00 Hospital POC GLUCOSE 2021-07-14 Elizabeth Brock 23:01:00 [facility] POC GLUCOSE 2021-07-14 Elizabeth Brock 17:23:00 [facility] POC GLUCOSE 2021-07-14 Elizabeth Brock 14:11:00 O[facility] Hospital MRI THORACIC SPINE WO CONTRAST 2021-07-14 Elizabeth Brock 13:23:21 O[facility] MRI LUMBAR SPINE WO CONTRAST 2021-07-14 Elizabeth Brock Nh thodist 12:30:31 O[facility] Hospital CBC WITH PLATELET AND [...] NEED PHYS SKILL,DX OR RX 2021-07-13 Bety Mancera 15:49:50 Hospital XR CHEST 2 VW 2021-07-13 [...] Hospital THYROID STIMULATING HORMONE 2021-07-12 Elizabeth Brock Met hodist 19:45:00 O[facility] Hospital T4, FREE 2021-07-12 Elizabeth Brock 19:45:00 O[facility] Hospital LIPID PANEL 2021-07-12 Elizabeth Brock 19:45:00 O. Hospital TROPONIN T 2021-07-12 Elizabeth Brock 19:45:00 O[facility] Hospital FERRITIN LEVEL 2021-07-12 Elizabeth Brock 19:45:00 O. Hospital RETICULOCYTE COUNT 2021-07-12 Elizabeth Brock 19:45:00 O[facility] Hospital TOTAL IRON BINDING CAPACITY 2021-07-12 Elizabeth Brock Met [facility] 19:45:00 O[facility] Hospital URIC ACID LEVEL [...] COVID-19 QUALITATIVE RT-PCR 2021-07-12 Elizabeth Brock [facility] 18:57:00 [facility] Plan of Care Planned Activity Planned Date Details Comments Source Future Scheduled 2022-08-02 65+ [facility]OCOCCAL [facility] 19:44:48 VACCINE (1 - PCV) [code = 65+ PNEUMOCOCCAL VACCINE (1 - PCV)] Future Scheduled 2022-08-02 DIABETES: RETINAL EYE [facility] Test 19:44:48 EXAM [code = DIABETES: RETINAL EYE EXAM] Future Scheduled 2022-08-02 DIABETIC FOOT EXAM [facility] 19:44:48 [code = DIABETIC FOOT EXAM] Future Scheduled 2022-08-02 [facility]:44[facility]48 of 2) [code = SHINGLES VACCINES (1 of 2)] Future Scheduled 2022-08-02 COVID-19 VACCINE (4 - [facility] Test 19:44:48 Moderna series) [code = COVID-19 VACCINE (4 - Moderna series)] Future Scheduled 2022-08-02 INFLUENZA VACCINE [facility] Hospital Test 19:44:48 [code = INFLUENZA VACCINE] Future Scheduled 2022-07-11 65+ [facility]OCOCC[address] [facility] Test 15:41:50 VACCINE (1 - PCV) [code = 65+ PNEUMOCOCCAL VACCINE (1 - PCV)] Future Scheduled 2022-07-11 DIABETES: RETINAL EYE [facility] Test 15:41:50 EXAM [code = DIABETES: RETINAL EYE EXAM] Future Scheduled 2022-07-11 DIABETIC FOOT EXAM [facility] Test 15:41:50 [code = DIABETIC FOOT EXAM] Future Scheduled 2022-07-11 SHINGLES VACCINES (1 Met [facility] Test 15:41:50 of 2) [code = SHINGLES VACCINES (1 of 2)] Future Scheduled 2022-07-11 COVID-19 VACCINE (2 - [facility] Test 15:41:50 Moderna series) [code = COVID-19 VACCINE (2 - Moderna series)] Future Scheduled 2022-07-11 INFLUENZA VACCINE [facility] Test 15:41:50 [code = INFLUENZA VACCINE] Encounters Start End Encounter Admission Attending Care Care Encounter Source Date/Time Date/Time Type Type Clinicians Facility Department ID 2022-08-01 2022-08-02 Hospital Vinod 1.2.840.1 [id number] Methodi 10:11:00 19:43:00 Encounter Elizabeth Gutierrez 81577.1.[address] 3.430.2.7 Hospit a .3.561590 l .8 2022-08-01 2022-08-02 [id number] [place] 00:00:00 00:00:00 ELIZABETH [address] 2022-08-01 2022-08-01 Orders Vinod .2.840.1 [id number] Methodi 00:00:00 00:00:00 Only Elizabeth Gutierrez 71841.1.[address] 3.430.2.7 Hospit a .3.600623 l .8 2022-07-17 2022-07-17 Outpatient FOG_Burke_R AOSM AOSM [id number] Flavia 00:00:00 00:00:00 Stephen [id number] [facility] 2022-07-13 2022-07-13 Outpatient FOG_Burke_R AOSM AOSM [id number] [id number] Flavia 00:00:00 00:00:00 Stephen [id number] [facility] 2022-07-13 2022-07-13 Outpatient FOG_Burke_R AOSM AOSM [id number] [id number] Flavia 00:00:00 00:00:00 Stephen [id number] Ortho pe dic Sports Medicin e 2021-07-12 2021-08-07 [facility] O. 1.2.840.1 [id number] Methodi 11:33:00 18:32:00 Encounter Nalini Rehman [id number] 3.430.2.7 Hospit a .3.994101 l .8 2021-07-12 2021-08-07 [facility] O. 1.2.840.1 [id number] Methodi 11:33:00 18:32:00 Encounter Nalini Rehman 22773.1.[address] 3.430.2.7 Hospit a .3.875408 l .8 2021-08-02 2021-08-02 Surgery Hakan, 1.2.840.1 [id number] Methodi 12:00:00 13:00:[address] 3.430.2.7 Hospit a .3.615118 l .8 2021-08-02 2021-08-02 Surgery Hakan, 1.2.840.1 [id number] Methodi 12:00:00 13:00:[address] 3.430.2.7 Hospit a .3.766123 l .8 2021-08-02 2021-08-02 Anesthesia Gorge, 1.2.840.1 [id number] Methodi 11:53:00 12:45:00 Event [facility]ro Jose Angel 35083.1.[address] 3.430.2.7 Hospit a .3.828014 l .8 2021-08-02 2021-08-02 Anesthesia Gorge, 1.2.840.1 [id number] Methodi 11:53:00 12:45:00 Event [facility]ro Jose Angel 78434.1.[address] 3.430.2.7 Hospit a .3.284904 l .8 2021-08-02 2021-08-02 Surgery Hakan, 1.2.840.1 [id number] Methodi 10:00:00 11:00:[address] 3.430.2.7 Hospit a .3.275665 l .8 2021-08-02 2021-08-02 Surgery Hakan, 1.2.840.1 [id number] Methodi 10:00:00 11:00:[address] 3.430.2.7 Hospit a .3.490213 l .8 2021-07-31 2021-07-31 Anesthesia Dhother, 1.2.840.1 [id number] Methodi 15:06:00 16:53:00 Event Eleno 88998.1.1 [address] [place] 3.430.2.7 Hospit a .3.275588 l .8 2021-07-28 2021-07-28 Anesthesia Andria, 1.2.840.1 [id number] Methodi 09:18:00 09:48:00 Event Clark 91088.1.[address] 3.430.2.7 Hospit a .3.350761 l .8 2021-07-28 2021-07-28 Surgery Vu, 1.2.840.1 [id number] Methodi 08:30:00 09:00:[address] 16822.1.[address] 3.430.2.7 Hospit a .3.370519 l .8 2021-07-24 2021-07-24 Telephone [facility], 1.2.840.1 [id number] Methodi 00:00:00 00:00:[address] 3.430.2.7 Hospit a .3.661284 l .8 2021-07-24 2021-07-24 [facility] 1.2.840.1 [id number] Methodi 00:00:00 00:00:[address] 3.430.2.7 Hospit a .3.770962 l .8 2021-07-17 2021-07-17 [facility], 1.2.840.1 [id number] Methodi 23:59:00 23:59:00 Encounter Elizabeth Bailey. 23278.1.[address] 3.430.2.7 Hospit a .3.416514 l .8 2021-07-17 2021-07-17 [facility], 1.2.840.1 [id number] Methodi 07:50:00 23:59:00 Encounter Elizabeth O. 64421.1.[address] 3.430.2.7 Hospit a .3.992434 l .8 2021-07-12 2021-07-12 [facility], 1.2.840.1 [id number] Methodi 00:00:00 00:00:00 Only Elizabeth O. 12865.1.[address] 3.430.2.7 Hospit a .3.834730 l .8 2021-07-12 2021-07-12 Travel 1.2.840.1 1.2.454.665 1438 [id number] Methodi 00:00:00 00:00:[address] 3.430.2.7 0.2.7.3.698 Ho spita .3.865993 084.8 l .8 2021-04-27 2021-04-27 [facility] [id number] [place] 00:00:00 00:00:00 CARLOS [address] 2021-04-05 2021-04-05 Outpatient VINOD, [facility] 60 [place] 00:00:00 00:00:00 ELIZABETH [address] 2021-04-05 2021-04-05 Outpatient VINOD [facility] [id number] [place] 00:00:00 00:00:00 ELIZABETH [address] 2020-06-27 2020-07-06 Inpatient VINOD, [facility] [id number] [place] 00:00:00 00:00:00 ELIZABETH [address] 2019-09-29 2019-09-29 Outpatient VINOD [facility] [id number] [place] 00:00:00 00:00:00 ELIZABETH [address] Results Test Description Test Time Test Comments Results Result Comments Source POC glucose 2022-08-02 21:36:00 Test Item Value Reference Range Interpretation Comme nts POC glucose (test code = 209 mg/dL 65-99 H Ope rator Name: Erick Dasilvaevice ID: [id number]) [id number] able: [facility] Notified put in beat adjuster Interpretation (test code = Abnormal 75768-3) [facility] [id number] 23:26:00 Test Item Value Reference Range Interpretation Comments Urine culture (test SEE COMMENT Bacteriu ranjit screen code = 7930277) negative. [facility] RNA [Presence] in Respiratory specimen by ROLF with probe [id number] 22:23:50 Test Item Value Reference Range Interpretation Comments SARS-CoV-2 (COVID-19) RNA Not detected [Presence] in Respiratory specimen by ROLF with probe detection (test code = 41006-2) Whether patient is employed in a Unknown healthcare setting (test code = 40648-9) Whether the patient has symptoms Unknown related to condition of interest (test code = 84548-1) Whether the patient was Unknown hospitalized for condition of interest (test code = 02500-0) Whether the patient was admitted Unknown to intensive care unit (ICU) for condition of interest (test code = 94795-9) Whether patient resides in a Unknown congregate care setting (test code = 24012-8) status (test code = Unknown 22720-3) Date and time of symptom onset Unknown (test code = 21916-6) ROSELYN PAPPAS [facility] [id number] 17:37:00 Test Item Value Reference Range Interpretation Comments POC glucose (test code = 190 mg/dL 65-99 H Ope rator Name: [id number]) [place] ice ID: [id number] able: [facility] Notified put in beat adjuster Interpretation (test Abnormal code = 25863-3) Scientologist YysbsdlsGRXA-YqE-1 (COVID-19) RNA [Presence] in Respiratory specimen by ROLF with probe [id number] 23:03:25 Test Item Value Reference Range Interpretation Comments SARS-CoV-2 (COVID-19) RNA Not detected [Presence] in Respiratory specimen by ROLF with probe detection (test code = 63169-8) Whether patient is employed in a Unknown healthcare setting (test code = 00913-0) Whether the patient has symptoms Unknown related to condition of interest (test code = 24285-3) Whether the patient was Unknown hospitalized for condition of interest (test code = 15325-8) Whether the patient was admitted Unknown to intensive care unit (ICU) for condition of interest (test code = 22181-2) Whether patient resides in a Unknown congregate care setting (test code = 49425-3) status (test code = Unknown 06665-7) Date and time of symptom onset Unknown (test code = 00788-3) ROSELYN CLAIREPrepare RBC, 1 [id number] 14:28:00 Test Item Value Reference Range Interpretation Comments Product name (test code Red Cells AS1 Leukored = 25) Irrad Unit number (test code [id number] = [id number]) Product code (test code C8760X99 = 3092) Dispense status (test Transfused code = 24) Blood expiration date (test code = 302) Blood type code (test 600 code = 308) Blood type (test code = A NEGATIVE 1314) Compatibility (test Compatible code = 6400) [facility] [id number] 19:57:43 Test Item Value Reference Range Interpretation Comments Case number (test code = [id number]) Surgical pathology See link below for report (test code = PDF Lab Report 2259) Result status (test code This is Final Report = [id number]) for [id number] Elyse RamosARS-CoV-2 (COVID-19) RNA [Presence] in Respiratory specimen by ROLF with probe [id number] 12:55:38 Test Item Value Reference Range Interpretation Comments SARS-CoV-2 (COVID-19) RNA Not detected [Presence] in Respiratory specimen by ROLF with probe detection (test code = 41157-9) Whether patient is employed in a Unknown healthcare setting (test code = 30665-9) Whether the patient has symptoms Unknown related to condition of interest (test code = 34238-5) Whether the patient was Unknown hospitalized for condition of interest (test code = 41947-2) Whether the patient was admitted Unknown to intensive care unit (ICU) for condition of interest (test code = 77445-7) Whether patient resides in a Unknown congregate care setting (test code = 56160-1) status (test code = Unknown 28421-2) Date and time of symptom onset Unknown (test code = 81854-8) ROSELYN CLAIREUrine [id number] 10:39:00 Test Item Value Reference Range Interpretation Comments Urine culture (test SEE COMMENT Bacteriu ranjit screen code = [id number]) negative. Elyse RamosARS-CoV-2 (COVID-19) RNA [Presence] in Respiratory specimen by ROLF with probe [id number] 17:15:25 Test Item Value Reference Range Interpretation Comments SARS-CoV-2 (COVID-19) RNA Not detected [Presence] in Respiratory specimen by ROLF with probe detection (test code = 63997-9) Whether patient is employed in a Unknown healthcare setting (test code = 62096-3) Whether the patient has symptoms Unknown related to condition of interest (test code = 53838-9) Whether the patient was Unknown hospitalized for condition of interest (test code = 18375-5) Whether the patient was admitted Unknown to intensive care unit (ICU) for condition of interest (test code = 84238-8) Whether patient resides in a Unknown congregate care setting (test code = 41405-3) status (test code = Unknown 90376-5) Date and time of symptom onset Unknown (test code = 02530-1) ROSELYN PAPPAS CHAOG 12 [id number] 23:55:51 Test Item Value Reference Range Interpretation [...] shortened-Electronicall y Signed By Scout Campos MD ([id number]) on 07/16/2021 6:55:49 PM Elyse Richards-CoV-2 (COVID-19) RNA [Presence] in Respiratory specimen by ROLF with probe [id number] 19:33:29 Test Item Value Reference Range Interpretation Comments SARS-CoV-2 (COVID-19) RNA Not detected [Presence] in Respiratory specimen by ROLF with probe detection (test code = 31210-8) Whether patient is employed in a Unknown healthcare setting (test code = 91482-6) Whether the patient has symptoms Unknown related to condition of interest (test code = 56587-5) Whether the patient was Unknown hospitalized for condition of interest (test code = 11855-5) Whether the patient was admitted Unknown to intensive care unit (ICU) for condition of interest (test code = 88035-4) Whether patient resides in a Unknown congregate care setting (test code = 41649-2) status (test code = Unknown 23043-4) Date and time of symptom onset Unknown (test code = 79763-4) ROSELYN PAPPAS [id number] (COVID-19) RNA [Presence] in Respiratory specimen by ROLF with probe [id number] 06:01:59 Test Item Value Reference Range Interpretation Comments SARS-CoV-2 (COVID-19) RNA Not detected Not-Detected [Presence] in Respiratory specimen by ROLF with probe detection (test code = 73100-5) Whether patient is employed in a healthcare setting (test code = 73918-9) Whether the patient has symptoms related to condition of interest (test code = 38761-4) Patient was hospitalized because of this condition (test code = 05276-5) Whether the patient was admitted to intensive care unit (ICU) for condition of interest (test code = 50979-9) Whether patient resides in a congregate care setting (test code = 45483-4) ROSELYN CLAIRESARS-CoV-2 (COVID-19) RNA [Presence] in Respiratory specimen by ORLF with probe [id number] 18:55:46 Test Item Value Reference Range Interpretation Comments SARS-CoV-2 (COVID-19) RNA Not detected Not-Detected [Presence] in Respiratory specimen by ROLF with probe detection (test code = 18406-0) [facility]
[2022-08-02] MEDS ORDERED: ALBUTEROL INHALER 60 PUFF/8 GM IH PRN (21:40)
[2022-08-02] MEDS ORDERED: DOCUSATE NA 100 MG CAP PO PRN (21:43)
[2022-08-02] MEDS ORDERED: LEVALBUTEROL 0.63 MG/3 ML NEB NEB PRN (21:46)
[2022-08-02] MEDS ORDERED: GLUCAGON 1 MG/VIAL IM PRN (21:55)
[2022-08-02] MEDS ORDERED: D50W 25 GM/50 ML SYRINGE IV PRN (21:55)
[2022-08-02] MEDS ORDERED: D10W 125 ML IV PRN (22:07)
[2022-08-03 06:10] LABS: Absolute Lymphocytes (CBC) 1.2 K/uL (0.7-4.9); Lymphocytes % 22.2 % (15.3-44.8); MCV 104.4 fL (80-100); MPV 6.3 fL (7.6-11.3); RBC Red Blood Cell Count 2.87 M/uL (3.86-4.86)
[2022-08-03 06:28] LABS: Albumin 3.3 g/dL (3.4-5.0); Magnesium 1.9 mg/dL (1.6-2.4); Potassium 3.9 mEq/L (3.5-5.1); Prealbumin 22.4 mg/dL (20-40)
[2022-08-03 06:53] LABS: Urine Bacteria None Seen /HPF (<20); Urine Bilirubin NEGATIVE (Negative); Urine Blood Negative (Negative); Urine Clarity Clear (Clear); Urine Color Yellow (Yellow); Urine Glucose NEGATIVE (Negative); Urine Mucus Slight /HPF (None Seen); Urine Protein TRACE (Negative); Urine RBC <5 /HPF (None Seen); Urine Urobilinogen Normal (Normal); Urine pH 5.5 (5.0-7.0)
[2022-08-03] MEDS: INSULIN -REGULAR HUMAN 50 UNIT/0.5 ML ML SQ SCH ×4 (07:08→21:00)
[2022-08-03] MEDS: LEVOTHYROXINE SOD 0.05 MG TABLET PO SCH (07:08)
[2022-08-03] MEDS: PANTOPRAZOLE 40MG TABLET PO SCH ×2 (07:11→16:59)
[2022-08-03] MEDS: FUROSEMIDE 20 MG TABLET PO SCH (07:20)
[2022-08-03] MEDS: VITAMIN D 1000 UNIT TAB PO SCH (07:21)
[2022-08-03] MEDS: CITALOPRAM 10 MG TABLET PO SCH (07:21)
[2022-08-03] MEDS ORDERED: atenoloL 25 MG TAB ONE (07:22)
[2022-08-03] MEDS: MULTIVITAMIN TAB PO SCH (08:33)
[2022-08-03] MEDS: METFORMIN HCL 500 MG TAB PO SCH ×2 (08:34→16:59)
[2022-08-03] MEDS: FERROUS SULFATE 325 MG TAB PO SCH ×2 (08:34→21:18)
[2022-08-03] MEDS: predniSONE 10 MG TAB PO SCH (08:34)
[2022-08-03] MEDS: MECLIZINE HCL 12.5 MG TAB PO SCH ×4 (08:34→21:19)
[2022-08-03] MEDS: GABAPENTIN 100 MG CAP PO SCH ×3 (08:35→21:19)
[2022-08-03 08:37] VITALS: BMI 27.6
[2022-08-03] MEDS: APIXABAN 5 MG TABLET PO SCH ×2 (09:00→21:17)
[2022-08-03] MEDS: ACETAMINOPHEN 500 MG TAB PO PRN ×2 (09:09→13:13)
[2022-08-03] MEDS: atenoloL 50 MG TAB PO SCH ×2 (09:31→20:00)
[2022-08-03] MEDS: MAGNESIUM OXIDE 400 MG TAB PO SCH (10:29)
[2022-08-03] MEDS: AMIODARONE HCL 200 MG TAB PO SCH (11:58)
--- NOTE | 2022-08-03 13:27 | P.RH.PN ---
Estimated Length of Stay: 12 Expected Discharge Date: 08/08/22 Discharge Disposition Plan: Home Family Support: Yes Correction Goal: Mobility, Transfers, Self Care Vital Signs: Last Vital Signs Temp 97.0 F 08/03/22 09:31 Pulse 52 08/03/22 09:31 Resp 17 08/03/22 09:31 BP 184/66 H 08/03/22 09:31 Pulse Ox 97 08/03/22 09:31 Laboratory: Laboratory Last Values WBC 5.20 thou/uL (4.3-10.9) 08/03/22 05:54 RBC 2.87 M/uL (3.86-4.86) L 08/03/22 05:54 Hgb 9.8 g/dL (12.0-15.0) L 08/03/22 05:54 Hct 30.0 % (36.0-45.0) L 08/03/22 05:54 MCV 104.4 fL (80-100) H 08/03/22 05:54 MCH 34.2 pg (27.0-35.0) 08/03/22 05:54 MCHC 32.7 g/dL (32.0-36.0) 08/03/22 05:54 RDW 17.9 % (12.1-15.2) H 08/03/22 05:54 Plt Count 393 thou/uL (152-406) 08/03/22 05:54 MPV 6.3 fL (7.6-11.3) L 08/03/22 05:54 Neutrophils % 61.3 % (41.7-73.7) 08/03/22 05:54 Lymphocytes % 22.2 % (15.3-44.8) 08/03/22 05:54 Monocytes % 13.7 % (3.3-12.3) H 08/03/22 05:54 Eosinophils % 2.3 % (0-4.4) 08/03/22 05:54 Basophils % 0.5 % (0-1.3) 08/03/22 05:54 Absolute Neutrophils 3.2 K/uL (1.8-8.0) 08/03/22 05:54 Absolute Lymphocytes 1.2 K/uL (0.7-4.9) 08/03/22 05:54 Absolute Monocytes 0.7 K/uL (0.1-1.3) 08/03/22 05:54 Absolute Eosinophils 0.1 K/uL (0-0.5) 08/03/22 05:54 Absolute Basophils 0.0 K/uL (0-0.5) 08/03/22 05:54 Sodium 138 mEq/L (136-145) 08/03/22 05:54 Potassium 3.9 mEq/L (3.5-5.1) 08/03/22 05:54 Chloride 102 mEq/L (98-107) 08/03/22 05:54 Carbon Dioxide 34 mEq/L (21-32) H 08/03/22 05:54 Anion Gap 5.9 mEq/L (5.0-15.0) 08/03/22 05:54 BUN 23 mg/dL (7-18) H 08/03/22 05:54 Creatinine 1.03 mg/dL (0.55-1.02) H 08/03/22 05:54 Est GFR (CKD-EPI) 54 ml/min (=/>90) L 08/03/22 05:54 Glucose 106 mg/dL (74-106) 08/03/22 05:54 POC Glucose 160 mg/dL (65-120) H 08/03/22 11:54 Calcium 10.4 mg/dL (8.5-10.1) H 08/03/22 05:54 Magnesium 1.9 mg/dL (1.6-2.4) 08/03/22 05:54 Albumin 3.3 g/dL (3.4-5.0) L 08/03/22 05:54 Prealbumin 22.4 mg/dL (20-40) 08/03/22 05:54 Urine Color Yellow (Yellow) 08/03/22 06:04 Urine Clarity Clear (Clear) 08/03/22 06:04 Urine pH 5.5 (5.0-7.0) 08/03/22 06:04 Ur Specific [place] 1.020 (1.005-1.030) 08/03/22 06:04 Glucose (UA)(Auto) Negative (Negative) 08/03/22 06:04 Urine Ketones Negative (Negative) 08/03/22 06:04 Urine Blood Negative (Negative) 08/03/22 06:04 Urine Nitrite Negative (Negative) 08/03/22 06:04 Urine Bilirubin Negative (Negative) 08/03/22 06:04 Urine Urobilinogen Normal (Normal) 08/03/22 06:04 Ur Leukocyte Esterase 75 Risa/uL (Negative) H 08/03/22 06:04 Urine RBC <5 /HPF (None Seen) 08/03/22 06:04 Urine WBC 10-20 /HPF (<5) H 08/03/22 06:04 Ur Squamous Epith Cells <5 /HPF (None Seen) 08/03/22 06:04 U Non-Squamous Epi Cells <5 /HPF (None Seen) 08/03/22 06:04 Urine Bacteria None seen /HPF (<20) 08/03/22 06:04 Hyaline Casts 0-5 /LPF (None Seen) 08/03/22 06:04 Urine Mucus Slight /HPF (None Seen) 08/03/22 06:04 Urine Culture Reflexed Reflexed 08/03/22 06:04 Urine Total Protein Trace (Negative) H 08/03/22 06:04 Weight: 146 lb Wound Present: No Physician Update: Labs were reviewed and show low Hgb and elevated calcium. BIMS 4, SLUMS 10. Poor memory, thinking and information processing. Poor balance and requires max juan c 20' with rolling walker. Up and down 5 steps. Could no do car transfer. Max assistance with toilet transfer. Right shoulder pain with broken 5th dight. Will do 2 view of the right shoulder. Summary: Patient's care plan and long term care administrator goals have been reviewed and revised as necessary. Please see the Rehabilitation Signature page for all necessary signatures.
--- NOTE | 2022-08-03 17:38 | RAD REPORT ---
EXAM DESCRIPTION: RAD - Humerus Right - 08/03/2022 5:28 pm CLINICAL HISTORY: pain COMPARISON: Humerus Right dated 07/12/2022 FINDINGS: Mildly impacted proximal right humerus fracture is present. Mild bony bridging likely pres ent. No dislocation.
--- NOTE | 2022-08-03 17:43 | RAD REPORT ---
EXAM DESCRIPTION: RAD - Shoulder Right 2 View - 08/03/2022 5:28 pm CLINICAL HISTORY: to compare w/ previous test Pain and swelling COMPARISON: Shoulder Right 2 View dated 07/12/2022 FINDINGS: Impacted proximal right humerus fracture is seen. Mild bony bridging is noted since 2022. Fracture lucency persists. No dislocation.
--- NOTE | 2022-08-03 17:44 | RAD REPORT ---
EXAM DESCRIPTION: RAD - Hand Right 2 View - 08/03/2022 5:28 pm CLINICAL HISTORY: pain COMPARISON: Hand Right 2 View dated 07/12/2022 FINDINGS: Mildly impacted fracture is seen base of the proximal phalanx of the fifth finger. Mild fr acture sclerosis seen indicating partial healing. Diffuse osteopenia. No dislocation.
[2022-08-03] MEDS ORDERED: POLYETHYL GLY 3350 17 GM/DOSE PO PRN (18:21)
--- NOTE | 2022-08-03 18:54 | HP ---
Date of Admission: 08/02/2022 Time Of Service: 1 p.m. Chief Complaint: "I fell and broke my right arm and I am very weak." History Of Present Illness: Ms. Martini is an 82-year-old patient with multiple medical problems incl uding prior stroke, generalized weakness, dyslipidemia, diabetes mellitus type 2, depression, coronar y artery disease, paroxysmal atrial fibrillation and paroxysmal positional vertigo along with constip ation, peripheral vascular disease, who had an episode of vertigo that resulted in a fall on 07/13/19. She was seen at [facility]. Imaging showed right wrist, right humerus and ring fifth d igit fractures. She was treated conservatively with nonweightbearing with the right upper extremity. However, at home, she did require moderate to maximum assistance for transfers for her gait and cou ld not perform her activities of daily living. In addition, over development of a few weeks, she had worsening urinary tract infection and symptoms of increasing frequency came back to [facility] and then was sent directly to [facility] where she was diagnosed with a urinar y tract infection and electrolyte abnormalities and with more debility. She then began therapy and i t was determined that she needed moderate to maximum assistance for all activities of daily living. She was unable to mobilize with a rolling walker and had to keep the right upper extremity nonweightb earing with a sling and therefore was unable to go home without risk of significant complications. A s a result, she was determined now to be a more appropriate candidate for inpatient rehabilitation fo r physical, occupational, and speech therapy to help with her return to her prior level of functionin g prior to her fall. Past Medical History: As noted above with dyslipidemia, depression, diabetes mellitus type 2, hypert hyroidism, anemia, coronary artery disease, paroxysmal atrial fibrillation, and urinary tract infecti on. Procedures: Fluoroscopic guided cement augmentation and internal fixation of the T11, L1 and L2 comp ression fractures with vertebroplasty, also appendectomy, cardiac surgery in 2006, cholecystectomy, c olonoscopy 03/17/2017 and 03/18/2017 and 04/04/2021. Also duodenoscopy on 03/17/2017 and 03/19/2021. She had a small bowel capsule on 03/19/2017. She had a CT scan of her head on 08/01/2022 showing no acute ischemic or hemorrhagic changes. Allergies: PENICILLIN, FENTANYL, LORAZEPAM, PROMETHAZINE. Family History: Noncontributory. Laboratory Studies: White blood cell count 5.2, hemoglobin 9.8, hematocrit 30, platelets 393. Chemi stries: Sodium 138, potassium 3.9, chloride 102, carbon dioxide 34, BUN 23, creatinine 1.03, glucose ranged from 105 to 160, calcium 10.4, magnesium 1.9, albumin 3.3, prealbumin 22.4. Urinalysis shows 75 esterase, white blood cell count 10 to 20, trace protein, otherwise normal. Current Medications: Extra-strength Tylenol 500 mg every 4 hours as needed, Ventolin inhaler 2 puffs every 4 hours, amiodarone 200 mg daily, Eliquis 5 mg twice daily, atenolol 50 mg twice daily, Lipito r 10 mg at bedtime, vitamin D 2000 units daily, Celexa 20 mg daily, Aricept 10 mg at bedtime, ferrous sulfate 325 mg twice daily, Colace 100 mg daily, Lasix 20 mg daily, gabapentin 200 mg 3 times daily. She is nebulizer every 4 hours, Synthroid 0.05 mg daily, magnesium oxide 400 mg daily, A ntivert 12.5 mg 4 times daily, metformin 500 mg twice daily, Centrum Silver 1 tablet daily, Protonix 40 mg twice daily, prednisone 10 mg daily, Senokot S 1 tablet at bedtime. Physical Examination: Vital Signs: Blood pressure ranged from when lying 184/66, pulse of 52 to when sitting 127/76, pulse of 68. Oxygen saturation 97%. Temperature is 97, respiratory rate 14 to 17, and pulse 62 to 68. W eight 146 pounds, height 5 feet 1 inch, BMI 27.6. General: Ms. Martini is resting comfortably in bed. She is asleep but easily arousable. She has the right arm in a sling which is nonweightbearing. There is some mild edema in the right hand. Otherw ise, diffuse weakness in upper and lower extremities and no incoordination. HEENT: Otherwise, in terms of head normocephalic, atraumatic. Sclerae anicteric. Oropharynx moist. Neck: Supple. Chest: Good air movement. Abdomen: Soft. Extremities: Again no significant edema or cyanosis there. Current Level Of Functioning: Currently, moderate assistance for upper and lower body dressing, cont act guard for toileting and cleaning herself, ambulation 15 feet, moderate assistance, being held wit h gait belt and the therapist. Rehab And Medical Assessment And Plan: Ms. Martini is admitted to the rehabilitation unit with an imp airment category of 20, miscellaneous. Her impairment group code is 16, debility, noncardiac, nonpul monary. Her etiologic diagnosis is altered mental status. Comorbidities are altered mental status, anemia, coronary artery disease, congestive heart failure, dementia, dizziness, diabetes mellitus typ e 2, essential hypertension, hypothyroidism, peripheral vascular disease, shortness of breath, and ve rtigo with falls. Plan: 1.She will have physical, occupational, and speech therapy 3.5 hours, 5 of 7 days. 2.For constipation, Senokot S. For her shortness of breath, nebulizer treatment per protocol. For GE reflux, Protonix. For diabetes, she is on Glucophage and insulin sliding scale. For hypothyroidi sm, Synthroid 0.5 mg daily. For her asthma, Xopenex nebulizer. Gabapentin 200 mg 3 times daily for the neuropathic pain related to her fractures. Ferrous sulfate 325 mg daily for anemia. Aricept 10 mg twice daily for dementia. Celexa 10 mg daily for depression. Lipitor 10 mg at bedtime for dyslip idemia. Amiodarone 200 mg daily for rate control. Tylenol Extra Strength 500 mg every 4 hours for p ain. She may have Tylenol 3 every 4 hours for moderate to severe pain. Impact Of Comorbids: She has cognitive impairment, which may make it difficult for her to have full safety awareness. She also has significant vertigo resulting in multiple falls. So as she does ther apy, she will likely require perhaps taran walker with someone besides her as she may quickly lose bal ance and fall again. She also has atrial fibrillation and is on Eliquis, which places her at high ri sk of bleeding and will therefore again have fall precautions at all times. Rehab Specific Plan: 1.Ms. Martini will have physical, occupational, and speech therapy for 3.5 hours, 5 of 7 days to impr ove her ability to transfer from bed to shower to toilet, to be able to dress her upper and lower bod y and don and doff her shoes in addition to perform the toileting and bathing. 2.She will be able to ambulate household distances of at least 50 feet with nonweightbearing on the right upper extremity with using the left taran walker, a platform walker with the right arm on that. 3.She will have speech therapy for improving cognition, safety awareness, her planning of activities , and her communication. 4.She has a good understanding of the process of her admission to the inpatient rehabilitation unit. She has a potential to make improvement and will need physical, occupational, and speech therapy. If need be, services from the Respiratory Service, Nutrition Service, Wound Care, and Orthopedic Serv ice along with Cardiology will be consulted. Given her complex condition and risk of further medical complications, rehabilitation cannot be safely or effectively performed at a lower level of care suc h as retirement. Barriers To Discharge: The cognitive issues, nonweightbearing in the right upper extremity, her vert igo are all barriers that will be mitigated as she does therapy. Estimated Length Of Stay: About 12 to 14 days. Disposition: Home with family. Prognosis: Fair prognosis. Rehabilitation Goals: 1.Become independent with upper and lower body dressing. 2.Modified independence to independence with her transferring. 3.Modified independence with mobilization of household distance of 50 feet. 4.Modified independence with up and down 5 steps. 5.Modified independence with her cognitive functioning and decision making. I acknowledge I have personally performed a full physical examination on Ms. Martina Martini no later th an 24 hours after admission to the inpatient rehabilitation facility and determined that she is able to tolerate the above course of treatment at an intensive level for a reasonable period of time. A d etailed individualized plan of care for her will be completed by day 4 based on the preadmission screen, history and physical, and therapy ev aluations. ALAN/THADDEUS Voice ID: [id number]
[2022-08-03] MEDS ORDERED: CETIRIZINE HCL 5 MG TABLET PO PRN (19:03)
[2022-08-03] MEDS ORDERED: PRAMIPEXOLE 0.25 MG TAB PO SCH (20:00)
[2022-08-03] MEDS ORDERED: ASPIRIN EC 81 MG TAB PO SCH (21:00)
[2022-08-03] MEDS ORDERED: MECLIZINE HCL 12.5 MG TAB PO SCH ×2 (21:00)
[2022-08-03] MEDS: DONEPEZIL HCL 5 MG TAB PO SCH (21:19)
[2022-08-03] MEDS: ATORVASTATIN 10 MG TAB PO SCH (21:19)
[2022-08-04] MEDS: LIDOCAINE 4% PATCH TOP SCH (06:42)
[2022-08-04] MEDS: LEVOTHYROXINE SOD 0.05 MG TABLET PO SCH (06:58)
[2022-08-04] MEDS: PANTOPRAZOLE 40MG TABLET PO SCH ×2 (06:58→17:36)
[2022-08-04] MEDS: FUROSEMIDE 20 MG TABLET PO SCH (06:59)
[2022-08-04] MEDS: INSULIN -REGULAR HUMAN 50 UNIT/0.5 ML ML SQ SCH ×4 (07:07→20:10)
[2022-08-04] MEDS: AREDS PO SCH ×2 (08:00→20:00)
[2022-08-04] MEDS: APIXABAN 5 MG TABLET PO SCH ×2 (09:00→20:09)
[2022-08-04] MEDS: VITAMIN D 1000 UNIT TAB PO SCH (09:03)
[2022-08-04] MEDS: FERROUS SULFATE 325 MG TAB PO SCH ×2 (09:03→20:08)
[2022-08-04] MEDS: MECLIZINE HCL 12.5 MG TAB PO SCH ×4 (09:04→20:08)
[2022-08-04] MEDS: CITALOPRAM 10 MG TABLET PO SCH (09:04)
[2022-08-04] MEDS: GABAPENTIN 100 MG CAP PO SCH ×3 (09:05→20:09)
[2022-08-04] MEDS: MAGNESIUM OXIDE 400 MG TAB PO SCH (09:05)
[2022-08-04] MEDS: predniSONE 10 MG TAB PO SCH (09:05)
[2022-08-04] MEDS: MULTIVITAMIN TAB PO SCH (09:06)
[2022-08-04] MEDS: METFORMIN HCL 500 MG TAB PO SCH ×2 (09:06→17:36)
[2022-08-04] MEDS: FE SULF/FA/VIT B COMP & C TAB PO SCH (09:06)
[2022-08-04] MEDS: atenoloL 50 MG TAB PO SCH ×2 (09:09→20:09)
[2022-08-04] MEDS: ACETAMINOPHEN 500 MG TAB PO PRN (09:09)
[2022-08-04] MEDS: AMIODARONE HCL 200 MG TAB PO SCH ×2 (10:57→20:09)
[2022-08-04] MEDS: TRAMADOL HCL 50 MG TAB PO PRN ×2 (14:30→18:42)
[2022-08-04] MEDS: DONEPEZIL HCL 5 MG TAB PO SCH (20:08)
[2022-08-04] MEDS: ATORVASTATIN 10 MG TAB PO SCH (20:08)
[2022-08-05] MEDS: LEVOTHYROXINE SOD 0.05 MG TABLET PO SCH (05:01)
[2022-08-05] MEDS: INSULIN -REGULAR HUMAN 50 UNIT/0.5 ML ML SQ SCH ×2 (07:30→16:30)
[2022-08-05] MEDS: LIDOCAINE 4% PATCH TOP SCH (07:37)
[2022-08-05] MEDS: PANTOPRAZOLE 40MG TABLET PO SCH ×2 (07:37→16:33)
[2022-08-05] MEDS: CITALOPRAM 10 MG TABLET PO SCH (07:38)
[2022-08-05] MEDS: MAGNESIUM OXIDE 400 MG TAB PO SCH (07:38)
[2022-08-05] MEDS: METFORMIN HCL 500 MG TAB PO SCH ×2 (07:38→16:33)
[2022-08-05] MEDS: GABAPENTIN 100 MG CAP PO SCH ×3 (07:38→19:51)
[2022-08-05] MEDS: VITAMIN D 1000 UNIT TAB PO SCH (07:38)
[2022-08-05] MEDS: CRANBERRY FRUIT EXTRACT 200 MG CAP PO SCH ×2 (07:39→19:51)
[2022-08-05] MEDS: FERROUS SULFATE 325 MG TAB PO SCH ×2 (07:39→19:51)
[2022-08-05] MEDS: FE SULF/FA/VIT B COMP & C TAB PO SCH (07:39)
[2022-08-05] MEDS: predniSONE 10 MG TAB PO SCH (07:39)
[2022-08-05] MEDS: MECLIZINE HCL 12.5 MG TAB PO SCH ×4 (07:40→19:53)
[2022-08-05] MEDS: APIXABAN 5 MG TABLET PO SCH ×2 (07:40→19:51)
[2022-08-05] MEDS: AMIODARONE HCL 200 MG TAB PO SCH ×2 (07:40→19:53)
[2022-08-05] MEDS: MULTIVITAMIN TAB PO SCH (07:41)
[2022-08-05] MEDS: FUROSEMIDE 20 MG TABLET PO SCH (07:43)
[2022-08-05 07:45] LABS: Absolute Lymphocytes (CBC) 1.4 K/uL (0.7-4.9); Hematocrit 28.6 % (36.0-45.0); MPV 6.2 fL (7.6-11.3); RBC Red Blood Cell Count 2.75 M/uL (3.86-4.86)
[2022-08-05 08:00] LABS: Potassium 3.8 mEq/L (3.5-5.1)
[2022-08-05] MEDS: atenoloL 50 MG TAB PO SCH ×3 (08:00→19:54)
[2022-08-05] MEDS: AREDS PO SCH ×2 (08:00→19:52)
[2022-08-05] MEDS: TRAMADOL HCL 50 MG TAB PO PRN ×3 (08:05→22:59)
[2022-08-05] MEDS: ACETAMINOPHEN 500 MG TAB PO PRN (10:55)
[2022-08-05] MEDS: DONEPEZIL HCL 5 MG TAB PO SCH (19:51)
[2022-08-05] MEDS: ATORVASTATIN 10 MG TAB PO SCH (19:51)
[2022-08-06] MEDS: LEVOTHYROXINE SOD 0.05 MG TABLET PO SCH (05:24)
[2022-08-06] MEDS: TRAMADOL HCL 50 MG TAB PO PRN ×2 (05:24→20:35)
[2022-08-06] MEDS: PANTOPRAZOLE 40MG TABLET PO SCH ×2 (06:52→16:51)
[2022-08-06] MEDS: INSULIN -REGULAR HUMAN 50 UNIT/0.5 ML ML SQ SCH ×2 (07:05→16:30)
[2022-08-06] MEDS: VITAMIN D 1000 UNIT TAB PO SCH (07:06)
[2022-08-06] MEDS: AREDS PO SCH ×2 (07:06→20:00)
[2022-08-06] MEDS: FUROSEMIDE 20 MG TABLET PO SCH (07:07)
[2022-08-06] MEDS: CRANBERRY FRUIT EXTRACT 200 MG CAP PO SCH ×2 (07:08→19:58)
[2022-08-06] MEDS: GABAPENTIN 100 MG CAP PO SCH ×2 (07:09→13:34)
[2022-08-06] MEDS: CITALOPRAM 10 MG TABLET PO SCH (07:09)
[2022-08-06] MEDS: METFORMIN HCL 500 MG TAB PO SCH ×2 (07:09→16:51)
[2022-08-06] MEDS: APIXABAN 5 MG TABLET PO SCH ×2 (07:09→19:59)
[2022-08-06] MEDS: MULTIVITAMIN TAB PO SCH (07:09)
[2022-08-06] MEDS: MECLIZINE HCL 12.5 MG TAB PO SCH ×4 (07:10→19:59)
[2022-08-06] MEDS: FE SULF/FA/VIT B COMP & C TAB PO SCH (07:10)
[2022-08-06] MEDS: MAGNESIUM OXIDE 400 MG TAB PO SCH (07:10)
[2022-08-06] MEDS: AMIODARONE HCL 200 MG TAB PO SCH ×2 (07:11→19:59)
[2022-08-06] MEDS: predniSONE 10 MG TAB PO SCH (07:12)
[2022-08-06] MEDS: FERROUS SULFATE 325 MG TAB PO SCH ×2 (07:12→19:59)
[2022-08-06] MEDS: atenoloL 50 MG TAB PO SCH ×3 (08:00→19:59)
[2022-08-06] MEDS: ACETAMINOPHEN 500 MG TAB PO PRN (08:42)
[2022-08-06] MEDS: LIDOCAINE 4% PATCH TOP SCH (09:40)
[2022-08-06] MEDS ORDERED: LEVALBUTEROL 0.63 MG/3 ML NEB NEB PRN (12:00)
[2022-08-06] MEDS: DONEPEZIL HCL 5 MG TAB PO SCH (19:58)
[2022-08-06] MEDS: ATORVASTATIN 10 MG TAB PO SCH (19:59)
[2022-08-06] MEDS: GABAPENTIN 300 MG CAP PO SCH (20:00)
--- NOTE | 2022-08-06 21:46 | PN ---
Date of Progress Note: 08/06/2022 Time Of Service: 12:30 p.m. Subjective: Ms. Martini is resting in bed. She does report some mild increase in back pain, but jose mistry has been doing well with her therapy. She does not have complaints such as focal weakness in e ither face, arm, or leg; any significant incoordination; or any issues such as abdominal pain or ches t pain or shortness of breath. She has used incentive spirometry. Review of Systems: No fevers or chills. Some mild myalgias, arthralgias. No rash, headache, weight change. No active psychiatric or genitourinary issues. Physical Examination: Vital Signs: Blood pressure 113/56, pulse of 58, respiratory rate 20, temperature is 97.8. General: Ms. Martini again is resting comfortably in bed in between therapy sessions. HEENT: Appears normocephalic, atraumatic. Sclerae are anicteric. Oropharynx pink and moist. Neck: Supple. Chest: Clear. Heart: Regular. No significant edema or cyanosis. Neurological: Diffuse weakness in upper and lower extremities without focal deficits. Laboratory Studies: White blood cell count 4.9, hemoglobin 9.5, platelets 389. Sodium 138, potassiu m 3.8, chloride 102, carbon dioxide 33, BUN 25, creatinine 0.94, glucose ranged from 87 to 128, calci um 10.1. X-ray/imaging: Due to her ongoing pain where she has the fracture in the right humerus and in the ri ght forearm and in the finger of the right hand in the fifth digit, x-rays were done to evaluate the status of the fractures. Right hand two-view x-ray on 07/12 was a comparison for one done on 08/03. That study showed a mildly impacted fracture at the base of the proximal phalanx of the fifth digit. There was mild fracture sclerosis seen indicating partial healing. There is diffuse osteopenia and no dislocation. A humerus x-ray also done the same day on 08/03 identified a mildly impacted proxim al right humeral fracture, mild bony bridging likely present. There is no dislocation and that was c ompared to the right humerus study done on 07/12/2022 and current one 08/03. There is also a shoulde r x-ray done on the . The study showed an impacted proximal right humeral fracture. Mild bony b ridging is noted. There is fracture lucency present and no dislocation. Medications: Extra-strength Tylenol 500 mg every 4 hours, Ventolin inhaler 2 puffs every 4 hours, am iodarone 100 mg twice daily, Eliquis 5 mg twice a day, Tenormin 50 mg twice daily, Lipitor 10 mg at b edtime, Zyrtec mg daily as needed, vitamin D 2000 units daily, Celexa 20 mg daily, Aricept 10 mg at bedtime, Colace 100 mg daily, ferrous sulfate 325 mg daily, Lasix 20 mg daily, gabapentin 6 00 mg twice daily, Xopenex 0.6 mg nebulizer every 4 hours as needed, Synthroid 0.05 mg daily, lidocai ne 1 patch daily, magnesium oxide 400 mg daily, Antivert 12.5 mg 4 times daily, metformin 500 mg twic e daily, Hemocyte Plus 1 tablet with breakfast, Centrum Silver 1 tablet scheduled daily, prednisone 1 0 mg daily, Senokot S 1 at bedtime, tramadol 50 mg every 6 hours as needed. Current Functional Status: Today, she used taran walker with contact guard assistance covering 30 fee t 5 times. She was educated on the proper use of taran walker, emphasis placed on upright position. She did supine to sit transfers with minimum assistance for trunk control. With speech therapy, she worked on improving orientation skills, short-term memory, organizational thinking, and sustained att ention skills. She did require moderate assistance with temporal orientation task, sequencing tasks for organizing thinking and naming tasks. She could recall 2 of 3 items after 1 minute with moderate assistance and family members were educated and trained about activities needed to be done at home f or improving general cognitive skills and promoting independence and safety while returning home. Progress Towards Rehabilitation Goals: Ms. Martini is making fair to good overall progress with physi jasmine, occupational, and speech therapy. Her goals are to become independent with upper and lower body dressing, transferring, toileting, showering, and to perform cognitive functioning with independence . Assessment: Ms. Martini is admitted to the rehabilitation unit with debility in addition to multiple fractures in the right upper extremity. She has altered mental status with dementia, dizziness, diab etes mellitus type 2, coronary artery disease, congestive heart failure, hypertension, hypothyroidism , peripheral vascular disease, and vertigo with falls. Plan: 1.Continue physical, occupational, and speech therapy 3.5 hours, 5 of 7 days. 2.Continue gabapentin 200 mg 3 times daily for neuropathic pain. 3.Continue ferrous sulfate for anemia. 4.Continue Aricept 10 mg twice daily for dementia. 5.Continue Celexa for depression. 6.Continue Lipitor for dyslipidemia. 7.Continue amiodarone for heart rate control. 8.Continue Tylenol Extra Strength 500 mg every 4 hours along with Tylenol No. 3 every 4 hours as nee ded for neuropathic pain. 9.She is on a insulin scale for diabetes mellitus. 10.She has Synthroid 0.05 mg daily for hypothyroidism and Xopenex nebulizer for asthma. Progress towards rehabilitation goals: Ms. Martini is making again fair overall progress with her goa ls and is beginning to do well. She, however, requires more time to improve her performance of activ ities of daily living, her dressing, her mobilization, and cognitive functioning. Comorbidities That Continue To Impact Her Rehabilitation: Cognitive functioning with mild cognitive impairment is a limiting factor. However, she is working with Speech Therapy and is doing well. Jamie n is fairly well managed. She does have multiple fractures as noted in the right upper extremity and there is nonweightbearing to the right arm which is in a sling and that is somewhat of a barrier to her improving quickly. ALAN/THADDEUS Voice ID: [id number] Report ID: [id number]
[2022-08-07] MEDS: PANTOPRAZOLE 40MG TABLET PO SCH ×2 (06:47→17:02)
[2022-08-07] MEDS: LEVOTHYROXINE SOD 0.05 MG TABLET PO SCH (06:47)
[2022-08-07] MEDS: INSULIN -REGULAR HUMAN 50 UNIT/0.5 ML ML SQ SCH ×2 (07:30→16:30)
[2022-08-07] MEDS: TRAMADOL HCL 50 MG TAB PO PRN (07:38)
[2022-08-07] MEDS: FERROUS SULFATE 325 MG TAB PO SCH ×2 (07:39→19:37)
[2022-08-07] MEDS: CRANBERRY FRUIT EXTRACT 200 MG CAP PO SCH ×2 (07:39→19:37)
[2022-08-07] MEDS: METFORMIN HCL 500 MG TAB PO SCH ×2 (07:39→17:02)
[2022-08-07] MEDS: MAGNESIUM OXIDE 400 MG TAB PO SCH (07:39)
[2022-08-07] MEDS: LIDOCAINE 4% PATCH TOP SCH (07:39)
[2022-08-07] MEDS: MECLIZINE HCL 12.5 MG TAB PO SCH ×4 (07:39→19:37)
[2022-08-07] MEDS: GABAPENTIN 300 MG CAP PO SCH ×2 (07:39→19:36)
[2022-08-07] MEDS: APIXABAN 5 MG TABLET PO SCH ×2 (07:40→19:36)
[2022-08-07] MEDS: FE SULF/FA/VIT B COMP & C TAB PO SCH (07:40)
[2022-08-07] MEDS: CITALOPRAM 10 MG TABLET PO SCH (07:40)
[2022-08-07] MEDS: FUROSEMIDE 20 MG TABLET PO SCH (07:40)
[2022-08-07] MEDS: predniSONE 10 MG TAB PO SCH (07:40)
[2022-08-07] MEDS: VITAMIN D 1000 UNIT TAB PO SCH (07:40)
[2022-08-07] MEDS: MULTIVITAMIN TAB PO SCH (07:40)
[2022-08-07] MEDS: AMIODARONE HCL 200 MG TAB PO SCH ×2 (07:43→19:37)
[2022-08-07] MEDS: AREDS PO SCH ×2 (08:00→19:37)
[2022-08-07] MEDS: atenoloL 50 MG TAB PO SCH ×2 (10:11→19:36)
[2022-08-07] MEDS: ACETAMINOPHEN 500 MG TAB PO PRN (12:08)
[2022-08-07] MEDS: DONEPEZIL HCL 5 MG TAB PO SCH (19:37)
[2022-08-07] MEDS: ATORVASTATIN 10 MG TAB PO SCH (19:37)
--- NOTE | 2022-08-08 03:34 | PN ---
Date of Progress Note: 08/07/2022 [facility] Progress Note Visit Time Of Service: 1 p.m. Subjective: Ms. Martini is resting in bed. She is in no acute distress. She has no complaints, alth ough there is some right arm pain, where she has her fractures. The right arm is in a sling across h er chest. She is resting in between therapy sessions. Review of Systems: Mild myalgias and arthralgias especially in the right upper extremity where she has the multiple frac tures. She has no gastrointestinal or genitourinary complaints. Physical Examination: Vital Signs: Blood pressure 106/54, pulse 54, respiratory rate 16, temperature 97.1, oxygen saturati on 94%. General: Martina Martini is resting comfortably. HEENT: She is normocephalic, atraumatic. Sclerae anicteric. Extremities: Right arm is in a sling across the chest. No significant swelling noted. She does hav e some mild edema in the lower extremities. Neurologic: She is alert again and answers appropriately and communicates effectively. Laboratory Studies: Blood sugars ranged from 80 to 164. X-ray/imaging: No new x-rays or imaging. Medications: Her medications have been reviewed and remained unchanged. Current Functional Status: Today she did supine to sit transfers with standby assistance multiple si t-to-stand transfers with standby assistance and bed mobility with contact guard assistance. Hemiwal ker was used to ambulate 30 feet 5 times, 35 feet once, and 25 feet once. She did require some verba l cuing during ambulation. With speech therapy today, she worked on improving her temporal orientati on skills, short-term memory skills, organizational thinking, and sustained attention. She required minimal assistance for each task. She did independently recall 3 out of 3 unrelated items after 3 mi nutes. With occupational therapy; contact guard assistance for toilet transfers, sit to stand transf ers with impaired standing balance. Progress Towards Rehabilitation Goals: Ms. Martini is making slow progress overall in terms of her mo bilization. Cognitive functioning is improving, better and better pace. Her performance of activiti es of daily living, also improving fairly well. Assessment: Ms. Martini is an 82-year-old patient admitted to the rehabilitation unit with debility a nd altered mental status. She has multiple fractures of the right upper extremity. She has dizzines s, diabetes mellitus, coronary artery disease, hypertension, hypothyroidism, peripheral vascular dise ase, and vertigo with falls. Plan: 1.Continue with physical, occupational, and speech therapy for 3.5 hours, 5 of 7 days. 2.Continue gabapentin. 3.Continue ferrous sulfate. 4.Continue Aricept. 5.Continue Celexa. 6.Continue Lipitor. 7.Continue amiodarone. 8.Continue extra-strength Tylenol. 9.Continue insulin sliding scale. 10.Continue Synthroid. Comorbidities That Continue To Impact Rehabilitation Process: Her mild cognitive impairment does req uire reinforcement for her to do well, but she is overcoming that. She does have multiple fractures in the right lower extremity and that is nonweightbearing, that is also improving as she is using the hemiwalker. ALAN/THADDEUS Voice ID: [id number] Report ID: [id number]
[2022-08-08] MEDS: INSULIN -REGULAR HUMAN 50 UNIT/0.5 ML ML SQ SCH ×2 (07:30→16:30)
[2022-08-08] MEDS: AREDS PO SCH ×2 (08:00→19:38)
[2022-08-08] MEDS: AMIODARONE HCL 200 MG TAB PO SCH ×2 (08:00→19:37)
[2022-08-08] MEDS: atenoloL 50 MG TAB PO SCH ×3 (08:00→19:38)
[2022-08-08] MEDS: FUROSEMIDE 20 MG TABLET PO SCH (08:00)
[2022-08-08] MEDS: LEVOTHYROXINE SOD 0.05 MG TABLET PO SCH (08:16)
[2022-08-08] MEDS: METFORMIN HCL 500 MG TAB PO SCH ×2 (08:27→17:01)
[2022-08-08] MEDS: LIDOCAINE 4% PATCH TOP SCH (08:27)
[2022-08-08] MEDS: GABAPENTIN 300 MG CAP PO SCH ×2 (08:27→19:37)
[2022-08-08] MEDS: FERROUS SULFATE 325 MG TAB PO SCH ×2 (08:28→19:37)
[2022-08-08] MEDS: CITALOPRAM 10 MG TABLET PO SCH (08:28)
[2022-08-08] MEDS: VITAMIN D 1000 UNIT TAB PO SCH (08:28)
[2022-08-08] MEDS: PANTOPRAZOLE 40MG TABLET PO SCH ×2 (08:29→17:00)
[2022-08-08] MEDS: CRANBERRY FRUIT EXTRACT 200 MG CAP PO SCH ×2 (08:29→19:37)
[2022-08-08] MEDS: predniSONE 10 MG TAB PO SCH (08:30)
[2022-08-08] MEDS: MULTIVITAMIN TAB PO SCH (08:30)
[2022-08-08] MEDS: MECLIZINE HCL 12.5 MG TAB PO SCH ×4 (08:30→19:38)
[2022-08-08] MEDS: APIXABAN 5 MG TABLET PO SCH ×2 (08:31→19:38)
[2022-08-08] MEDS: MAGNESIUM OXIDE 400 MG TAB PO SCH (09:33)
[2022-08-08] MEDS: FE SULF/FA/VIT B COMP & C TAB PO SCH (09:36)
--- NOTE | 2022-08-08 15:34 | RAD REPORT ---
EXAM DESCRIPTION: RAD - Wrist Right 2 View - 08/08/2022 2:55 pm CLINICAL HISTORY: pain Pain COMPARISON: <Comparisons> FINDINGS: Diffuse osteopenia is noted. Mild soft tissue swelling about the wrist. No acute fracture or dislocation seen. If pain persists, repeat radiographs in 7-10 days would be recommended.
[2022-08-08] MEDS: FORMULATION-R RECTAL 57GM PR PRN (19:30)
[2022-08-08] MEDS: DOCUSATE NA/SENNA CONC 1 TAB PO PRN (19:31)
[2022-08-08] MEDS: DONEPEZIL HCL 5 MG TAB PO SCH (19:38)
[2022-08-08] MEDS: ATORVASTATIN 10 MG TAB PO SCH (19:38)
[2022-08-08] MEDS: TRAMADOL HCL 50 MG TAB PO PRN (20:21)
--- NOTE | 2022-08-08 22:41 | PN ---
Date of Progress Note: 08/08/2022 Time Of Service: 1:00 p.m. Subjective: Ms. Martini is resting in bed. She is in no significant distress. She has her right arm in a sling across her chest and is in between therapy sessions. However, the therapist did note ambika t earlier today she was refusing therapy. Her daughter did speak with her and she agreed to resume t herapy, but she seems to be going back and forth with not wanting to participate in therapy. Review of Systems: Mild pain in the right upper extremity where she has multiple fractures, but she rates around 3/10. No gastrointestinal, genitourinary, or other complaints. She does say she is ready to go home. Physical Examination: Vital Signs: Blood pressure 95/58, pulse 87, respiratory rate 16, temperature 97.7, oxygen saturatio n 94%. General: Ms. Martini is resting in bed. She is easily alerted and she is oriented to herself and tania ce. She does follow simple commands without instructions. Extremities: Right arm is in a sling across her chest. She can move the fingers up and down and the wrist. No significant pain there at this point. Left side: No weakness in upper and lower extremi ties. No other findings on examination. Laboratory Studies: Today, blood sugars ranged from 142 to 190. X-ray/imaging: Her wrist x-ray done today showed diffuse osteopenia. Mild soft tissue swelling on t he wrist. No acute fracture or dislocation seen. Medications: Medications have been reviewed and remained unchanged. Current Functional Status: Currently, she was able to ambulate with a taran walker with using the lef t hand with contact guard assistance covering 35 feet and 40 feet. She did have some extreme argumen tative conversations with the therapists about not wanting to participate in therapy. With speech, s he used external communication board to provide temporal information without cues. She, however, cou ld not recall information without looking at the board after 5 minutes. She did recall 2 of 3 unrela shelly pictures after 3 minutes, but could not recall any after an additional 3 minutes. With occupatio nal therapy, she did have impaired standing balance requiring moderate assistance with ambulation to the bathroom without an assistive device. Progress Towards Rehabilitation Goals: Ms. Martini is making slow progress so far overall with her ph ysical, occupational, and speech therapy. She at times does not want to participate in therapy and s ays she is ready to go home. She was told and did agree after discussion that she would participate more fully. There is a plan in place for her to be discharged this with continued therapy [facility]. Assessment: Ms. Martini is an 82-year-old patient in the rehabilitation unit with debility and altere d mental status along with multiple fractures in the right upper extremity. She has diabetes mellitu s, coronary artery disease, hypertension, hypothyroidism, peripheral vascular disease, and vertigo wi falls. Plan: 1.Continue with physical, occupational, and speech therapy for 3.5 hours, 5 of 7 days. 2.Continue with all of her comorbid condition medications including gabapentin, ferrous sulfate, Wilfredo cept, Celexa, Lipitor, amiodarone, insulin sliding scale, and Synthroid. Comorbids That Continue To Impact Rehabilitation Process: She is at times not willing to cooperate w ith therapy, but she did agree after her daughter spoke with her and after we had a long discussion a bout why it is important to participate in therapy. Further, she has multiple fractures in the right upper extremity and is nonweightbearing there and that is somewhat of a barrier. LB/MODL Voice ID: [id number] Report ID: [id number]
[2022-08-09 04:24] LABS: Absolute Lymphocytes (CBC) 1.8 K/uL (0.7-4.9); Hematocrit 32.2 % (36.0-45.0); Lymphocytes % 27.9 % (15.3-44.8); MCV 103.7 fL (80-100); MPV 6.7 fL (7.6-11.3); RBC Red Blood Cell Count 3.11 M/uL (3.86-4.86)
[2022-08-09 04:34] LABS: Albumin 3.2 g/dL (3.4-5.0); Potassium 4.4 mEq/L (3.5-5.1)
[2022-08-09] MEDS: LEVOTHYROXINE SOD 0.05 MG TABLET PO SCH (05:05)
[2022-08-09] MEDS: AREDS PO SCH ×2 (07:14→20:00)
[2022-08-09] MEDS: INSULIN -REGULAR HUMAN 50 UNIT/0.5 ML ML SQ SCH ×2 (07:18→16:11)
[2022-08-09] MEDS: PANTOPRAZOLE 40MG TABLET PO SCH ×2 (07:28→16:40)
[2022-08-09] MEDS: LIDOCAINE 4% PATCH TOP SCH (08:42)
[2022-08-09] MEDS: FERROUS SULFATE 325 MG TAB PO SCH ×2 (08:43→20:36)
[2022-08-09] MEDS: CRANBERRY FRUIT EXTRACT 200 MG CAP PO SCH ×2 (08:43→20:36)
[2022-08-09] MEDS: APIXABAN 5 MG TABLET PO SCH ×2 (08:43→20:39)
[2022-08-09] MEDS: predniSONE 10 MG TAB PO SCH (08:43)
[2022-08-09] MEDS: MECLIZINE HCL 12.5 MG TAB PO SCH ×4 (08:44→20:40)
[2022-08-09] MEDS: MULTIVITAMIN TAB PO SCH (08:44)
[2022-08-09] MEDS: FE SULF/FA/VIT B COMP & C TAB PO SCH (08:44)
[2022-08-09] MEDS: CITALOPRAM 10 MG TABLET PO SCH (08:44)
[2022-08-09] MEDS: VITAMIN D 1000 UNIT TAB PO SCH (08:44)
[2022-08-09] MEDS: METFORMIN HCL 500 MG TAB PO SCH ×2 (08:45→16:40)
[2022-08-09] MEDS: MAGNESIUM OXIDE 400 MG TAB PO SCH (08:45)
[2022-08-09] MEDS: GABAPENTIN 300 MG CAP PO SCH ×2 (08:45→20:36)
[2022-08-09] MEDS: FORMULATION-R RECTAL 57GM PR PRN (08:46)
[2022-08-09] MEDS: AMIODARONE HCL 200 MG TAB PO SCH ×2 (08:48→20:36)
[2022-08-09] MEDS: atenoloL 50 MG TAB PO SCH (12:01)
[2022-08-09] MEDS: FUROSEMIDE 20 MG TABLET PO SCH (12:01)
[2022-08-09] MEDS: atenoloL 25 MG TAB PO SCH (20:37)
[2022-08-09] MEDS: ATORVASTATIN 10 MG TAB PO SCH (20:37)
[2022-08-09] MEDS: TRAMADOL HCL 50 MG TAB PO PRN (20:38)
[2022-08-09] MEDS: MELATONIN 3 MG TABLET PO PRN (20:38)
[2022-08-09] MEDS: DONEPEZIL HCL 5 MG TAB PO SCH (20:39)
--- NOTE | 2022-08-09 20:39 | PN ---
Subjective: Ms. Martini is resting in bed. Right arm is held in a sling across the chest in between therapy sessions. She is more agreeable to therapy today and did not refuse therapy today as like ye sterday. Review of Systems: Mild myalgias, arthralgias of the right upper extremity. Otherwise, no significant arthralgias in th e other areas. No fevers, chills. No nausea, vomiting. Physical Examination: Vital signs; blood pressure 121/65, pulse 80, respiratory rate 16, temperature 97.5, oxygen saturatio n 92%. She did have an episode of very low blood pressure when standing. While she was sitting, it was 135/65, pulse of 67. While standing, it dropped to 75/53, pulse of 93. She does have abdominal binders and BETSEY hose in place. Her medications for blood pressure and fluid management were decreased that are Lasix decreased to __ mg daily, amlodipine to 100 mg twice daily from 200 mg twice daily. She is still on Tenormi n 25 mg twice daily. Laboratory Studies: White blood cell count 6.5, hemoglobin 10.7, platelets 440. Sodium 135, potassi um 4.4, BUN 49, creatinine 0.51, glucose 96-166, calcium 10.5, prealbumin 23. X-ray/imaging: No new x-rays or imaging. Medications: As noted medications were adjusted. She is still on Eliquis 5 mg twice daily for DVT p rophylaxis, again Tenormin 25 mg twice daily, Lipitor 10 mg at bedtime, Cordarone 100 mg twice daily, Ventolin inhaler 2 puffs every 4 hours as needed, Extra Strength Tylenol 500 mg every 4 hours, Zyrte c 10 mg daily, Celexa 20 mg daily, vitamin D 2000 units daily, Aricept 10 mg at bedtime, Colace 100 m g at night for constipation, ferrous sulfate 325 mg twice daily, Lasix 10 mg daily, gabapentin 600 mg twice daily, Xopenex 0.63 mg nebulizer every 4 hours as needed, Synthroid 0.05 mg daily, lidocaine p atch apply topically daily, magnesium oxide 400 mg daily, Antivert 12.5 mg 4 times daily, melatonin 3 mg at bedtime, Glucophage 500 mg twice daily, Hemocyte-Plus 1 tablet with breakfast, Centrum Silver 1 tablet daily, Protonix 40 mg daily, prednisone 10 mg daily, Senokot-S 2 at bedtime, Ultram 50 mg ev karlene 6 hours as needed. Current Functional Status: Currently, she ambulated 35 feet and 40 feet with contact guard assistanc e using a left taran-walker. She also ambulated with a quad cane with minimum assist 25 feet and 20 f eet with emphasis on proper use of the quad cane and the proximity to the taran-walker. With her occu pational therapy, engaged in dynamic standing balance exercises to improve dynamic standing balance, fair tolerance with that. Supine to sit and sit to supine, but mobility done with contact guard assi stance. With speech therapy, she answered temporal orientation question with 70% accuracy and modera te assistance, sustained attention used during a divergent naming task for 5 items per concrete categ ory with 77% accuracy and maximum assistance. Progress Towards Rehabilitation Goals: Ms. Martini is making slow to fair overall progress with her g oals of becoming independent with upper and lower body dressing, transferring, toileting, showering, and ambulating household distances. She is unable to go up and down steps at this point. Her cognit lesley functioning is fair and she is making again fair progress overall with that. She does have some slow processing and limitations of memory. Assessment: Ms. Martini is an 82-year-old patient in the rehabilitation unit with debility and altere d mental status. She has multiple fractures of the right upper extremity, diabetes mellitus, coronar y artery disease, hypertension, hypothyroidism, peripheral vascular disease, and vertigo. Plan: 1.Continue with physical, occupational, and speech therapy for 3.5 hours, 5 of 7 days. 2.She has multiple comorbid conditions, which are listed above. She will continue with gabapentin, ferrous sulfate, Celexa, Lipitor, amiodarone which has been decreased, Lasix also which has been decr eased, and Synthroid. Comorbids That Continued To Impact The Rehabilitation: Since she is unable to use the right arm from multiple fractures and is on weightbearing that is a significant limiting process, she will require longer time to heal, then allowed an inpatient rehabilitation. She did express good willingness to c ooperate today, which is much better than yesterday, but her tendency to refuse is impacting her prog ress at times. LB/MODL Voice ID: [id number] Report ID: [id number]
[2022-08-10] MEDS: LEVOTHYROXINE SOD 0.05 MG TABLET PO SCH (05:28)
[2022-08-10] MEDS: INSULIN -REGULAR HUMAN 50 UNIT/0.5 ML ML SQ SCH ×2 (06:20→16:30)
[2022-08-10] MEDS: PANTOPRAZOLE 40MG TABLET PO SCH ×2 (06:32→17:27)
[2022-08-10] MEDS: AREDS PO SCH ×2 (08:00→19:53)
[2022-08-10] MEDS: LIDOCAINE 4% PATCH TOP SCH (08:30)
[2022-08-10] MEDS: CRANBERRY FRUIT EXTRACT 200 MG CAP PO SCH ×2 (08:32→19:50)
[2022-08-10] MEDS: VITAMIN D 1000 UNIT TAB PO SCH (08:32)
[2022-08-10] MEDS: MECLIZINE HCL 12.5 MG TAB PO SCH ×4 (08:33→19:50)
[2022-08-10] MEDS: METFORMIN HCL 500 MG TAB PO SCH ×2 (08:33→17:27)
[2022-08-10] MEDS: APIXABAN 5 MG TABLET PO SCH ×2 (08:33→19:49)
[2022-08-10] MEDS: MULTIVITAMIN TAB PO SCH (08:33)
[2022-08-10] MEDS: GABAPENTIN 300 MG CAP PO SCH ×2 (08:33→19:50)
[2022-08-10] MEDS: FE SULF/FA/VIT B COMP & C TAB PO SCH (08:33)
[2022-08-10] MEDS: FERROUS SULFATE 325 MG TAB PO SCH ×2 (08:33→19:49)
[2022-08-10] MEDS: predniSONE 10 MG TAB PO SCH (08:33)
[2022-08-10] MEDS: CITALOPRAM 10 MG TABLET PO SCH (08:33)
[2022-08-10] MEDS: atenoloL 25 MG TAB PO SCH ×2 (08:34→19:53)
[2022-08-10] MEDS: MAGNESIUM OXIDE 400 MG TAB PO SCH (09:04)
[2022-08-10] MEDS: AMIODARONE HCL 200 MG TAB PO SCH ×2 (09:05→19:58)
[2022-08-10] MEDS: FUROSEMIDE 20 MG TABLET PO SCH (09:05)
[2022-08-10] MEDS: TRAMADOL HCL 50 MG TAB PO PRN (11:33)
[2022-08-10] MEDS ORDERED: NA CHLORIDE 0.9% 1,000 ML IV SCH (13:00)
--- NOTE | 2022-08-10 13:31 | P.RH.PN ---
Estimated Length of Stay: 12 Expected Discharge Date: 08/15/22 Discharge Disposition Plan: Home Family Support: Yes Vital Signs: Last Vital Signs Temp 97.2 F 08/10/22 07:13 Pulse 51 08/10/22 11:37 Resp 16 08/10/22 11:33 BP 123/62 08/10/22 11:37 Pulse Ox 97 08/10/22 11:33 Laboratory: Laboratory Last Values WBC 6.50 thou/uL (4.3-10.9) 08/09/22 03:52 RBC 3.11 M/uL (3.86-4.86) L 08/09/22 03:52 Hgb 10.7 g/dL (12.0-15.0) L 08/09/22 03:52 Hct 32.2 % (36.0-45.0) L 08/09/22 03:52 MCV 103.7 fL (80-100) H 08/09/22 03:52 MCH 34.4 pg (27.0-35.0) 08/09/22 03:52 MCHC 33.1 g/dL (32.0-36.0) 08/09/22 03:52 RDW 17.4 % (12.1-15.2) H 08/09/22 03:52 Plt Count 440 thou/uL (152-406) H 08/09/22 03:52 MPV 6.7 fL (7.6-11.3) L 08/09/22 03:52 Neutrophils % 57.1 % (41.7-73.7) 08/09/22 03:52 Lymphocytes % 27.9 % (15.3-44.8) 08/09/22 03:52 Monocytes % 12.7 % (3.3-12.3) H 08/09/22 03:52 Eosinophils % 1.6 % (0-4.4) 08/09/22 03:52 Basophils % 0.7 % (0-1.3) 08/09/22 03:52 Absolute Neutrophils 3.7 K/uL (1.8-8.0) 08/09/22 03:52 Absolute Lymphocytes 1.8 K/uL (0.7-4.9) 08/09/22 03:52 Absolute Monocytes 0.8 K/uL (0.1-1.3) 08/09/22 03:52 Absolute Eosinophils 0.1 K/uL (0-0.5) 08/09/22 03:52 Absolute Basophils 0.0 K/uL (0-0.5) 08/09/22 03:52 Sodium 135 mEq/L (136-145) L 08/09/22 03:52 Potassium 4.4 mEq/L (3.5-5.1) 08/09/22 03:52 Chloride 99 mEq/L (98-107) 08/09/22 03:52 Carbon Dioxide 33 mEq/L (21-32) H 08/09/22 03:52 Anion Gap 7.4 mEq/L (5.0-15.0) 08/09/22 03:52 BUN 49 mg/dL (7-18) H 08/09/22 03:52 Creatinine 1.51 mg/dL (0.55-1.02) H 08/09/22 03:52 Est GFR (CKD-EPI) 34 ml/min (=/>90) L 08/09/22 03:52 Glucose 98 mg/dL (74-106) 08/09/22 03:52 POC Glucose 87 mg/dL (65-120) 08/10/22 06:19 Calcium 10.5 mg/dL (8.5-10.1) H 08/09/22 03:52 Magnesium 2.0 mg/dL (1.6-2.4) 08/09/22 03:52 Albumin 3.2 g/dL (3.4-5.0) L 08/09/22 03:52 Prealbumin 23.0 mg/dL (20-40) 08/09/22 03:52 Urine Color Yellow (Yellow) 08/03/22 06:04 Urine Clarity Clear (Clear) 08/03/22 06:04 Urine pH 5.5 (5.0-7.0) 08/03/22 06:04 Ur Specific [place] 1.020 (1.005-1.030) 08/03/22 06:04 Glucose (UA)(Auto) Negative (Negative) 08/03/22 06:04 Urine Ketones Negative (Negative) 08/03/22 06:04 Urine Blood Negative (Negative) 08/03/22 06:04 Urine Nitrite Negative (Negative) 08/03/22 06:04 Urine Bilirubin Negative (Negative) 08/03/22 06:04 Urine Urobilinogen Normal (Normal) 08/03/22 06:04 Ur Leukocyte Esterase 75 [place]isa/uL (Negative) H 08/03/22 06:04 Urine RBC <5 /HPF (None Seen) 08/03/22 06:04 Urine WBC 10-20 /HPF (<5) H 08/03/22 06:04 Ur Squamous Epith Cells <5 /HPF (None Seen) 08/03/22 06:04 U Non-Squamous Epi Cells <5 /HPF (None Seen) 08/03/22 06:04 Urine Bacteria None seen /HPF (<20) 08/03/22 06:04 Hyaline Casts 0-5 /LPF (None Seen) 08/03/22 06:04 Urine Mucus Slight /HPF (None Seen) 08/03/22 06:04 Urine Culture Reflexed Reflexed 08/03/22 06:04 Urine Total Protein Trace (Negative) H 08/03/22 06:04 Weight: 146 lb Wound Present: No Closed Surgical Incision Present: No Negative Pressure Wound Therapy Present: No Physician Update: Labs were reviewed and show mild to moderate dehydration. She will have one L of NS and 75 cc/hr. Her right arm is in a sling due to fractures and nonweight bearing stutus. SLUMs 10, BIMS 4, improved short term memory. Difficulty focusing. Walkng 35' with CGA, SBA to sit to stand, other baptiste CGA. She requires encouragement to participate. Still needs moderate assistance with most ADLs and will need SNF. Summary: Patient's care plan and scale adjuster goals have been reviewed and revised as necessary. Please see the Rehabilitation Signature page for all necessary signatures.
[2022-08-10] MEDS: ATORVASTATIN 10 MG TAB PO SCH (19:49)
[2022-08-10] MEDS: DONEPEZIL HCL 5 MG TAB PO SCH (19:50)
[2022-08-10] MEDS: MELATONIN 3 MG TABLET PO PRN (19:51)
[2022-08-10] MEDS: DOCUSATE NA/SENNA CONC 1 TAB PO PRN (19:51)
[2022-08-11] MEDS: PANTOPRAZOLE 40MG TABLET PO SCH ×2 (06:56→17:14)
[2022-08-11] MEDS: LEVOTHYROXINE SOD 0.05 MG TABLET PO SCH (06:57)
[2022-08-11] MEDS: INSULIN -REGULAR HUMAN 50 UNIT/0.5 ML ML SQ SCH ×2 (06:58→16:30)
[2022-08-11] MEDS: AREDS PO SCH ×2 (07:09→19:18)
[2022-08-11] MEDS: FERROUS SULFATE 325 MG TAB PO SCH ×2 (08:34→19:21)
[2022-08-11] MEDS: CRANBERRY FRUIT EXTRACT 200 MG CAP PO SCH ×2 (08:34→19:21)
[2022-08-11] MEDS: LIDOCAINE 4% PATCH TOP SCH (08:34)
[2022-08-11] MEDS: FE SULF/FA/VIT B COMP & C TAB PO SCH (08:35)
[2022-08-11] MEDS: FUROSEMIDE 20 MG TABLET PO SCH (08:35)
[2022-08-11] MEDS: MULTIVITAMIN TAB PO SCH (08:35)
[2022-08-11] MEDS: CITALOPRAM 10 MG TABLET PO SCH (08:35)
[2022-08-11] MEDS: APIXABAN 5 MG TABLET PO SCH ×2 (08:46→19:22)
[2022-08-11] MEDS: MECLIZINE HCL 12.5 MG TAB PO SCH ×4 (08:46→19:22)
[2022-08-11] MEDS: VITAMIN D 1000 UNIT TAB PO SCH (08:46)
[2022-08-11] MEDS: predniSONE 10 MG TAB PO SCH (08:46)
[2022-08-11] MEDS: METFORMIN HCL 500 MG TAB PO SCH ×2 (08:47→17:14)
[2022-08-11] MEDS: GABAPENTIN 300 MG CAP PO SCH ×2 (08:48→19:22)
[2022-08-11] MEDS: atenoloL 25 MG TAB PO SCH ×2 (11:13→19:21)
[2022-08-11] MEDS: AMIODARONE HCL 200 MG TAB PO SCH ×2 (11:14→19:23)
[2022-08-11] MEDS: MAGNESIUM OXIDE 400 MG TAB PO SCH (11:47)
[2022-08-11] MEDS: DONEPEZIL HCL 5 MG TAB PO SCH (19:22)
[2022-08-11] MEDS: ATORVASTATIN 10 MG TAB PO SCH (19:22)
[2022-08-11 21:43] LABS: Urine Bacteria None Seen /HPF (<20); Urine Mucus Slight /HPF (None Seen); Urine RBC <5 /HPF (None Seen)
[2022-08-12] MEDS: LEVOTHYROXINE SOD 0.05 MG TABLET PO SCH (06:54)
[2022-08-12] MEDS: PANTOPRAZOLE 40MG TABLET PO SCH ×2 (07:02→16:35)
[2022-08-12] MEDS: INSULIN -REGULAR HUMAN 50 UNIT/0.5 ML ML SQ SCH ×2 (07:30→16:30)
[2022-08-12] MEDS: atenoloL 25 MG TAB PO SCH ×2 (07:52→20:22)
[2022-08-12] MEDS: LIDOCAINE 4% PATCH TOP SCH (07:52)
[2022-08-12] MEDS: APIXABAN 5 MG TABLET PO SCH ×2 (07:52→20:21)
[2022-08-12] MEDS: FUROSEMIDE 20 MG TABLET PO SCH (07:53)
[2022-08-12] MEDS: CRANBERRY FRUIT EXTRACT 200 MG CAP PO SCH ×2 (07:54→20:21)
[2022-08-12] MEDS: CITALOPRAM 10 MG TABLET PO SCH (07:54)
[2022-08-12] MEDS: MULTIVITAMIN TAB PO SCH (07:54)
[2022-08-12] MEDS: GABAPENTIN 300 MG CAP PO SCH ×2 (07:54→20:21)
[2022-08-12] MEDS: MAGNESIUM OXIDE 400 MG TAB PO SCH (07:54)
[2022-08-12] MEDS: VITAMIN D 1000 UNIT TAB PO SCH (07:54)
[2022-08-12] MEDS: FE SULF/FA/VIT B COMP & C TAB PO SCH (07:55)
[2022-08-12] MEDS: AMIODARONE HCL 200 MG TAB PO SCH ×2 (07:55→20:22)
[2022-08-12] MEDS: MECLIZINE HCL 12.5 MG TAB PO SCH ×4 (07:55→20:23)
[2022-08-12] MEDS: predniSONE 10 MG TAB PO SCH (07:55)
[2022-08-12] MEDS: FERROUS SULFATE 325 MG TAB PO SCH ×2 (07:55→20:21)
[2022-08-12] MEDS: METFORMIN HCL 500 MG TAB PO SCH ×2 (07:55→16:35)
[2022-08-12] MEDS: TRAMADOL HCL 50 MG TAB PO PRN (07:57)
[2022-08-12] MEDS: AREDS PO SCH ×2 (08:00→20:00)
[2022-08-12] MEDS: DOCUSATE NA/SENNA CONC 1 TAB PO PRN (20:21)
[2022-08-12] MEDS: ATORVASTATIN 10 MG TAB PO SCH (20:21)
[2022-08-12] MEDS: DONEPEZIL HCL 5 MG TAB PO SCH (20:21)
[2022-08-13] MEDS: LEVOTHYROXINE SOD 0.05 MG TABLET PO SCH (06:44)
[2022-08-13] MEDS: PANTOPRAZOLE 40MG TABLET PO SCH ×2 (07:13→16:54)
[2022-08-13] MEDS: TRAMADOL HCL 50 MG TAB PO PRN (07:13)
[2022-08-13] MEDS: FERROUS SULFATE 325 MG TAB PO SCH ×2 (07:14→19:58)
[2022-08-13] MEDS: CITALOPRAM 10 MG TABLET PO SCH (07:14)
[2022-08-13] MEDS: FE SULF/FA/VIT B COMP & C TAB PO SCH (07:14)
[2022-08-13] MEDS: METFORMIN HCL 500 MG TAB PO SCH ×2 (07:14→16:55)
[2022-08-13] MEDS: CRANBERRY FRUIT EXTRACT 200 MG CAP PO SCH ×2 (07:14→19:58)
[2022-08-13] MEDS: VITAMIN D 1000 UNIT TAB PO SCH (07:15)
[2022-08-13] MEDS: MAGNESIUM OXIDE 400 MG TAB PO SCH (07:15)
[2022-08-13] MEDS: MULTIVITAMIN TAB PO SCH (07:15)
[2022-08-13] MEDS: MECLIZINE HCL 12.5 MG TAB PO SCH ×4 (07:16→19:58)
[2022-08-13] MEDS: predniSONE 10 MG TAB PO SCH (07:16)
[2022-08-13] MEDS: AMIODARONE HCL 200 MG TAB PO SCH ×2 (07:16→19:59)
[2022-08-13] MEDS: APIXABAN 5 MG TABLET PO SCH ×2 (07:16→19:58)
[2022-08-13] MEDS: GABAPENTIN 300 MG CAP PO SCH ×2 (07:16→19:58)
[2022-08-13] MEDS: INSULIN -REGULAR HUMAN 50 UNIT/0.5 ML ML SQ SCH ×2 (07:30→16:30)
[2022-08-13] MEDS: FUROSEMIDE 20 MG TABLET PO SCH (07:35)
[2022-08-13] MEDS: atenoloL 25 MG TAB PO SCH ×2 (07:36→19:59)
[2022-08-13] MEDS: AREDS PO SCH ×2 (07:59→19:59)
[2022-08-13] MEDS: LIDOCAINE 4% PATCH TOP SCH (09:20)
[2022-08-13] MEDS: ACETAMINOPHEN 500 MG TAB PO PRN (15:22)
--- NOTE | 2022-08-13 17:33 | P.RH.PN ---
Estimated Length of Stay: 12 Expected Discharge Date: 08/15/22 Vital Signs: Last Vital Signs Temp 96.8 F 08/13/22 07:35 Pulse 66 08/13/22 07:36 Resp 16 08/13/22 08:13 BP 164/87 H 08/13/22 07:36 Pulse Ox 96 08/13/22 08:13 Laboratory: Laboratory Last Values WBC 6.50 thou/uL (4.3-10.9) 08/09/22 03:52 RBC 3.11 M/uL (3.86-4.86) L 08/09/22 03:52 Hgb 10.7 g/dL (12.0-15.0) L 08/09/22 03:52 Hct 32.2 % (36.0-45.0) L 08/09/22 03:52 MCV 103.7 fL (80-100) H 08/09/22 03:52 MCH 34.4 pg (27.0-35.0) 08/09/22 03:52 MCHC 33.1 g/dL (32.0-36.0) 08/09/22 03:52 RDW 17.4 % (12.1-15.2) H 08/09/22 03:52 Plt Count 440 thou/uL (152-406) H 08/09/22 03:52 MPV 6.7 fL (7.6-11.3) L 08/09/22 03:52 Neutrophils % 57.1 % (41.7-73.7) 08/09/22 03:52 Lymphocytes % 27.9 % (15.3-44.8) 08/09/22 03:52 Monocytes % 12.7 % (3.3-12.3) H 08/09/22 03:52 Eosinophils % 1.6 % (0-4.4) 08/09/22 03:52 Basophils % 0.7 % (0-1.3) 08/09/22 03:52 Absolute Neutrophils 3.7 K/uL (1.8-8.0) 08/09/22 03:52 Absolute Lymphocytes 1.8 K/uL (0.7-4.9) 08/09/22 03:52 Absolute Monocytes 0.8 K/uL (0.1-1.3) 08/09/22 03:52 Absolute Eosinophils 0.1 K/uL (0-0.5) 08/09/22 03:52 Absolute Basophils 0.0 K/uL (0-0.5) 08/09/22 03:52 Sodium 135 mEq/L (136-145) L 08/09/22 03:52 Potassium 4.4 mEq/L (3.5-5.1) 08/09/22 03:52 Chloride 99 mEq/L (98-107) 08/09/22 03:52 Carbon Dioxide 33 mEq/L (21-32) H 08/09/22 03:52 Anion Gap 7.4 mEq/L (5.0-15.0) 08/09/22 03:52 BUN 49 mg/dL (7-18) H 08/09/22 03:52 Creatinine 1.51 mg/dL (0.55-1.02) H 08/09/22 03:52 Est GFR (CKD-EPI) 34 ml/min (=/>90) L 08/09/22 03:52 Glucose 98 mg/dL (74-106) 08/09/22 03:52 POC Glucose 117 mg/dL (65-120) 08/13/22 16:32 Calcium 10.5 mg/dL (8.5-10.1) H 08/09/22 03:52 Magnesium 2.0 mg/dL (1.6-2.4) 08/09/22 03:52 Albumin 3.2 g/dL (3.4-5.0) L 08/09/22 03:52 Prealbumin 23.0 mg/dL (20-40) 08/09/22 03:52 Urine Color Yellow (Yellow) 08/03/22 06:04 Urine Clarity Clear (Clear) 08/03/22 06:04 Urine pH 5.5 (5.0-7.0) 08/03/22 06:04 Ur Specific [place] 1.020 (1.005-1.030) 08/03/22 06:04 Glucose (UA)(Auto) Negative (Negative) 08/03/22 06:04 Urine Ketones Negative (Negative) 08/03/22 06:04 Urine Blood Negative (Negative) 08/03/22 06:04 Urine Nitrite Negative (Negative) 08/03/22 06:04 Urine Bilirubin Negative (Negative) 08/03/22 06:04 Urine Urobilinogen Normal (Normal) 08/03/22 06:04 Ur Leukocyte Esterase 75 Risa/uL (Negative) H 08/03/22 06:04 Urine RBC <5 /HPF (None Seen) 08/11/22 20:15 Urine WBC <5 /HPF (<5) 08/11/22 20:15 Ur Squamous Epith Cells <5 /HPF (None Seen) 08/11/22 20:15 U Non-Squamous Epi Cells <5 /HPF (None Seen) 08/11/22 20:15 Amorphous Crystals Trace /HPF (None Seen) 08/11/22 20:15 Urine Bacteria None seen /HPF (<20) 08/11/22 20:15 Hyaline Casts 0-5 /LPF (None Seen) 08/11/22 20:15 Urine Mucus Slight /HPF (None Seen) 08/11/22 20:15 Urine Culture Reflexed Not needed 08/11/22 20:15 Urine Total Protein Trace (Negative) H 08/03/22 06:04 Weight: 151 lb 14.4 oz Wound Present: No Closed Surgical Incision Present: No Negative Pressure Wound Therapy Present: No Physician Update: Labs were reviewed. UA shows evidence UTI. Patient started on oral Cipro. Her right arm is in a sling due to fractures and nonweight bearing stutus. Patient participated in gait using a Hemiwalker with CGA 2 X 45'. Emphasis on proper use and proximity to Hemiwalker. Patient performed W/C Mobility X 75' to improve functional mobility with SBA and constant VC's to pa rticipate. Sit to supine and sit to stand independently. She requires encouragement to participate. She needs moderate assistance with most ADLs and will need SNF. Summary: Patient's care plan and assisted goals have been reviewed and revised as necessary. Please see the Rehabilitation Signature page for all necessary signatures.
--- NOTE | 2022-08-13 18:43 | P.PN ---
Subjective Date of Service: 08/13/22 Patient has no new complaint today She is participating well in physical therapy. Physical Examination - Vital Signs Temperature: 96.8 F Blood Pressure: 164/87 Pulse: 66 Respirations: 16 Pulse Ox (%): 96 - Physical Exam General: Alert, In no apparent distress, Oriented x3 HEENT: Mucous membr. moist/pink Neck: JVD not distended Respiratory: Clear to auscultation bilaterally, Normal air movement Cardiovascular: No edema, Regular rate/rhythm, Normal S1 S2 Gastrointestinal: Soft and benign, Non-distended Musculoskeletal: No swelling Integumentary: No rashes, No erythema Neurological: Normal strength at 5/5 x4 extr, Cranial nerves 3-12 intact Assessment And Plan - Plan Current Medications Acetaminophen (Acetaminophen 500 Mg Tab) 500 mg PO Q4H PRN PRN Reason: Pain scale 2-4 (Mild) Last Admin: 08/13/22 15:22 Dose: 500 mg Albuterol Sulfate (Albuterol Inhaler 60 Puff/8 Gm) 2 puff IH Q4H PRN PRN Reason: SHORTNESS OF BREATH Amiodarone HCl (Amiodarone Hcl 200 Mg Tab) 100 mg PO BID [facility] Last Admin: 08/13/22 07:16 Dose: 100 mg Apixaban (Apixaban 5 Mg Tablet) 5 mg PO BID [facility] Last Admin: 08/13/22 07:16 Dose: 5 mg Atenolol (Atenolol 25 Mg Tab) 25 mg PO BID [facility] Last Admin: 08/13/22 07:36 Dose: 25 mg Atorvastatin Calcium (Atorvastatin 10 Mg Tab) 10 mg PO BEDTIME [facility] Last Admin: 08/12/22 20:21 Dose: 10 mg Cetirizine HCl (Cetirizine Hcl 5 Mg Tablet) 10 mg PO DAILY PRN PRN Reason: ALLERGIES Cholecalciferol (Vitamin D 1000 Unit Tab) 2,000 unit PO DAILY [facility] Last Admin: 08/13/22 07:15 Dose: 2,000 unit Ciprofloxacin (Ciprofloxacin Hcl 500 Mg Tab) 500 mg PO BID [facility]; Protocol Stop: 08/18/22 08:01 Citalopram Hydrobromide (Citalopram 10 Mg Tablet) 20 mg PO DAILY [facility] Last Admin: 08/13/22 07:14 Dose: 20 mg Docusate Sodium (Docusate Na 100 Mg Cap) 100 mg PO DAILY PRN PRN Reason: CONSTIPATION - 1ST LINE Donepezil HCl (Donepezil Hcl 5 Mg Tab) 10 mg PO BEDTIME [facility] Last Admin: 08/12/22 20:21 Dose: 10 mg Ferrous Sulfate (Ferrous Sulfate 325 Mg Tab) 325 mg PO BID [facility] Last Admin: 08/13/22 07:14 Dose: 325 mg Furosemide (Furosemide 20 Mg Tablet) 10 mg PO DAILY [facility] Last Admin: 08/13/22 07:35 Dose: 10 mg Gabapentin (Gabapentin 300 Mg Cap) 600 mg PO BID [facility] Last Admin: 08/13/22 07:16 Dose: 600 mg Glucagon (Glucagon 1 Mg/Vial) 1 mg IM 1X PRN; Protocol PRN Reason: HYPOGLYCEMIA Home Med (Areds 2) 1 tab PO BID [facility] Last Admin: 08/13/22 07:59 Dose: Not Given Dextrose (Dextrose 10% Water Iv Soln.) 125 mls @ 0 mls/hr IV PRN PRN; Protocol PRN Reason: HYPOGLYCEMIA Insulin Human Regular (Insulin -Regular Human 50 Unit/0.5 Ml Ml) 0 unit SQ BIDAC [facility]; Protocol Last Admin: 08/13/22 16:30 Dose: Not Given Levalbuterol HCl (Levalbuterol 0.63 Mg/3 Ml Neb) 0.63 mg NEB [id number] PRN PRN Reason: Asthma Levothyroxine Sodium (Levothyroxine Sod 0.05 Mg Tablet) 0.05 mg PO DAILYAC [facility] Last Admin: 08/13/22 06:44 Dose: 0.05 mg Lidocaine (Lidocaine 4% Patch) 1 patch TOP DAILY [facility] Last Admin: 08/13/22 09:20 Dose: 1 patch Magnesium Oxide (Magnesium Oxide 400 Mg Tab) 400 mg PO DAILY [facility] Last Admin: 08/13/22 07:15 Dose: 400 mg Meclizine HCl (Meclizine Hcl 12.5 Mg Tab) 12.5 mg PO QID [facility] Stop: 09/02/22 09:01 Last Admin: 08/13/22 16:55 Dose: 12.5 mg Melatonin (Melatonin 3 Mg Tablet) 3 mg PO BEDTIME PRN PRN PRN Reason: INSOMNIA Last Admin: 08/10/22 19:51 Dose: 3 mg Metformin HCl (Metformin Hcl 500 Mg Tab) 500 mg PO BIDWM [facility] Last Admin: 08/13/22 16:55 Dose: 500 mg Multivitamins/Iron (Fe Sulf/Fa/Vit B Comp & C Tab) 1 tab PO DAILY WITH BREAKFAST [facility] Last Admin: 08/13/22 07:14 Dose: 1 tab Multivitamins/Minerals (Multivitamin Tab) 1 tab PO DAILY [facility] Last Admin: 08/13/22 07:15 Dose: 1 tab Pantoprazole Sodium (Pantoprazole 40mg Tablet) 40 mg PO BIDAC [facility]; Protocol Last Admin: 08/13/22 16:54 Dose: 40 mg Phenyleph/Shark Oil/Min Oil/Petrol (Formulation-R Rectal 57gm) 1 appl RI BID PRN PRN Reason: HEMORRHOIDS Last Admin: 08/09/22 08:46 Dose: 1 appl Prednisone (Prednisone 10 Mg Tab) 10 mg PO DAILY [facility] Last Admin: 08/13/22 07:16 Dose: 10 mg Senna/Docusate Sodium (Docusate Na/Senna Conc 1 Tab) 1 tab PO BEDTIME PRN PRN Reason: CONSTIPATION - 2ND LINE Last Admin: 08/12/22 20:21 Dose: 1 tab Tramadol HCl (Tramadol Hcl 50 Mg Tab) 50 mg PO Q6H PRN PRN Reason: Pain scale 5-7 (Moderate) Last Admin: 08/13/22 07:13 Dose: 50 mg Current Functional Status: atient participated in gait using a Hemiwalker with CGA 2 X 45'. Emphasis on proper use and proximity to Hemiwalker. Patient performed W/C Mobility X 75' to improve functional mobility with SBA and constant VC's to participate. Sit to supine and sit to stand independently. She requires encouragement to participate. She needs moderate assistance with most ADLs and will need SNF. Progress Towards Rehabilitation Goals: There is overall functional improvement and patient is progressing toward her goals of becoming independent with upper and lower body dressing, transferring, toileting, showering, and ambulating household distances. Assessment: Debility Mild cognitive deficit. Multiple fractures of the right upper extremity, Diabetes mellitus, coronary artery disease, Hypertension Hypothyroidism, Peripheral vascular disease UTI Plan: 1. Continue with physical, occupational, and speech therapy for 3.5 hours, 5 of 7 days. 2. Continue home medications which include gabapentin, ferrous sulfate, Celexa, Lipitor, amiodarone which has been decreased, Lasix also which has been decreased, and Synthroid. Started oral ciprofloxacin for UTI. Comorbids That Continued To Impact The Rehabilitation: Weightbearing is limited due to multiple fractures including upper extremity fracture. She will require longer time to heal, then allowed an inpatient rehabilitation.
--- NOTE | 2022-08-13 19:33 | EKG ---
Test Date: 2022-08-11 Test Time: 11:38:45 Cardiopulmonary Technician: JIMMY MEASUREMENT RESULTS: Intervals: Rate: 56 [place]: 218 QRSD: 92 QT: 464 QTc: 447 [place]: P: 94 [place]: 218 QRS: 41 T: 53 INTERPRETIVE STATEMENTS: Sinus bradycardia with 1st degree AV block Otherwise normal ECG Compared to ECG 08/18/2021 11:27:19 First degree AV block now present Atrial fibrillation no longer present ST (T wave) deviation no longer present Electronically Signed On 08-13-22 19:29:28 CDT by Meño Obrien
[2022-08-13] MEDS: CIPROFLOXACIN HCL 500 MG TAB PO SCH (19:58)
[2022-08-13] MEDS: DONEPEZIL HCL 5 MG TAB PO SCH (19:58)
[2022-08-13] MEDS: ATORVASTATIN 10 MG TAB PO SCH (19:58)
[2022-08-14] MEDS: LEVOTHYROXINE SOD 0.05 MG TABLET PO SCH (05:22)
[2022-08-14] MEDS: atenoloL 25 MG TAB PO SCH ×2 (06:40→19:23)
[2022-08-14] MEDS: PANTOPRAZOLE 40MG TABLET PO SCH ×2 (06:41→16:21)
[2022-08-14] MEDS: FUROSEMIDE 20 MG TABLET PO SCH (06:41)
[2022-08-14] MEDS: MECLIZINE HCL 12.5 MG TAB PO SCH ×4 (06:53→19:24)
[2022-08-14] MEDS: INSULIN -REGULAR HUMAN 50 UNIT/0.5 ML ML SQ SCH ×2 (07:30→16:30)
[2022-08-14] MEDS: AREDS PO SCH ×2 (07:59→19:21)
[2022-08-14] MEDS: CRANBERRY FRUIT EXTRACT 200 MG CAP PO SCH ×2 (08:27→19:21)
[2022-08-14] MEDS: VITAMIN D 1000 UNIT TAB PO SCH (08:27)
[2022-08-14] MEDS: CITALOPRAM 10 MG TABLET PO SCH (08:27)
[2022-08-14] MEDS: LIDOCAINE 4% PATCH TOP SCH (08:27)
[2022-08-14] MEDS: GABAPENTIN 300 MG CAP PO SCH ×2 (08:28→19:21)
[2022-08-14] MEDS: predniSONE 10 MG TAB PO SCH (08:28)
[2022-08-14] MEDS: APIXABAN 5 MG TABLET PO SCH ×2 (08:28→19:21)
[2022-08-14] MEDS: MAGNESIUM OXIDE 400 MG TAB PO SCH (08:28)
[2022-08-14] MEDS: FERROUS SULFATE 325 MG TAB PO SCH ×2 (08:28→19:21)
[2022-08-14] MEDS: METFORMIN HCL 500 MG TAB PO SCH ×2 (08:28→16:21)
[2022-08-14] MEDS: CIPROFLOXACIN HCL 500 MG TAB PO SCH ×2 (08:28→19:23)
[2022-08-14] MEDS: FE SULF/FA/VIT B COMP & C TAB PO SCH (08:28)
[2022-08-14] MEDS: AMIODARONE HCL 200 MG TAB PO SCH ×2 (08:29→19:22)
[2022-08-14] MEDS: MULTIVITAMIN TAB PO SCH (08:29)
[2022-08-14] MEDS: TRAMADOL HCL 50 MG TAB PO PRN ×2 (09:48→16:22)
[2022-08-14] MEDS: ATORVASTATIN 10 MG TAB PO SCH (19:23)
[2022-08-14] MEDS: DONEPEZIL HCL 5 MG TAB PO SCH (19:23)
[2022-08-15] MEDS: LEVOTHYROXINE SOD 0.05 MG TABLET PO SCH (05:24)
[2022-08-15 06:38] VITALS: TEMP 96.8
[2022-08-15] MEDS: TRAMADOL HCL 50 MG TAB PO PRN (07:20)
[2022-08-15] MEDS: FUROSEMIDE 20 MG TABLET PO SCH (07:21)
[2022-08-15] MEDS: PANTOPRAZOLE 40MG TABLET PO SCH (07:21)
[2022-08-15] MEDS: LIDOCAINE 4% PATCH TOP SCH (07:21)
[2022-08-15] MEDS: CIPROFLOXACIN HCL 500 MG TAB PO SCH (07:22)
[2022-08-15] MEDS: METFORMIN HCL 500 MG TAB PO SCH (07:23)
[2022-08-15] MEDS: MAGNESIUM OXIDE 400 MG TAB PO SCH (07:23)
[2022-08-15] MEDS: GABAPENTIN 300 MG CAP PO SCH (07:23)
[2022-08-15] MEDS: CRANBERRY FRUIT EXTRACT 200 MG CAP PO SCH (07:23)
[2022-08-15] MEDS: FERROUS SULFATE 325 MG TAB PO SCH (07:23)
[2022-08-15] MEDS: FE SULF/FA/VIT B COMP & C TAB PO SCH (07:23)
[2022-08-15] MEDS: CITALOPRAM 10 MG TABLET PO SCH (07:24)
[2022-08-15] MEDS: predniSONE 10 MG TAB PO SCH (07:24)
[2022-08-15] MEDS: APIXABAN 5 MG TABLET PO SCH (07:25)
[2022-08-15] MEDS: MULTIVITAMIN TAB PO SCH (07:25)
[2022-08-15] MEDS: VITAMIN D 1000 UNIT TAB PO SCH (07:25)
[2022-08-15] MEDS: MECLIZINE HCL 12.5 MG TAB PO SCH (07:25)
--- NOTE | 2022-08-15 07:28 | DS ---
The patient is an 82-year-old female who on 07/12 fell. She is referred now because of the fracture of little finger. She has a complex past medical history with multiple problems including stroke, we akness, dyslipidemia, diabetes, depression, coronary artery disease, atrial fibrillation, vertigo, co nstipation, peripheral vascular disease. After her fall, she was treated wrist, right hum erus, and right fifth finger fractures. She was treated conservatively. She was referred to me for evaluation of the finger fracture. X-ray of the finger fracture shows fracture of the proximal phala nx ulnar aspect looks to be proximally into the joint. However, she is now 1 month out. This time, she was treated with rachel taping. She needs to heal her humerus and wrist. After this i s done, we will see what needs to be done with her finger. She is going to a long-term care facility . After that, she can be referred if necessary. At this time, just recommend . AWILDA/THADDEUS Voice ID: [id number] Report ID: [id number]
[2022-08-15] MEDS: INSULIN -REGULAR HUMAN 50 UNIT/0.5 ML ML SQ SCH (07:30)
[2022-08-15] MEDS: AREDS PO SCH (07:40)
[2022-08-15] MEDS: atenoloL 25 MG TAB PO SCH (08:04)
[2022-08-15] MEDS: AMIODARONE HCL 200 MG TAB PO SCH (08:07)
[2022-08-15 08:08] VITALS: BP 139/63
--- NOTE | 2022-08-15 09:22 | P.DS ---
Admission Date: 08/02/22 Discharge Date: 08/15/22 Disposition: TRANSFER TO SNF - REHAB Discharge Condition: GOOD Consultations: Hand Surgeon - Dr. Matamoros Brief History of Present Illness: 82yo F, PMH: stroke, generalized weakness, dyslipidemia, diabetes mellitus type 2, depression, coronary artery disease, paroxysmal atrial fibrillation and paroxysmal positional vertigo along with constipation, peripheral vascular disease Patient who had an episode of vertigo that resulted in a fall on 07/12/2022. She was seen at [facility]. Imaging showed right wrist, right humerus and ring fifth digit fractures. She was treated conservatively with nonweightbearing with the right upper extremity. However, at home, she did require moderate to maximum assistance for transfers for her gait and could not perform her activities of daily living. In addition, over development of a few weeks, she had worsening urinary tract infection and came back to [facility] and then was sent directly to [facility] where she was diagnosed with a urinary tract infection and electrolyte abnormalities and with more debility. She then began therapy and it was determined that she needed moderate to maximum assistance for all activities of daily living. She was unable to mobilize with a rolling walker and had to keep the right upper extremity nonweightbearing with a sling and therefore was unable to go home without risk of significant complications. As a result, she was determined now to be a more appropriate candidate for inpatient rehabilitation for physical, occupational, and speech therapy to help with her return to her prior level of functioning prior to her fall. Hospital Course: Problem List: Debility Mild cognitive deficit Multiple fractures of the right upper extremity (humerus, wrist, 5th finger fracture) Diabetes mellitus coronary artery disease Hypertension Hypothyroidism Peripheral vascular disease UTI She did well and improved throughout her stay while working with PT/OT/ST. Urine culture grew klebsiella and was started on Ciprofloxacin (08/13). She is to complete a total of 5 days of treatment. She was noted to have orthostatic hypotension and borderline bradycardia. Her amiodarone and atenolol were adjusted to lower dose. She was deemed stable for discharge to SNF where she will continue to be monitored and work daily with physical therapy Physical Exam: GEN: Alert, oriented, NAD HEENT: Normal conjunctiva, sclera anicteric CV: Regular rate and rhythm, no edema Pulm: Nonlabored respirations on room air ABD: Soft, nontender, nondistended MSK: R arm in sling, finger rachel taped Neuro: Normal speech, normal affect Vital Signs/Physical Exam: Temp Pulse Resp BP Pulse Ox 96.8 F 60 16 139/63 96 08/15/22 06:38 08/15/22 08:04 08/15/22 07:20 08/15/22 08:04 08/15/22 07:20 Laboratory Data at Discharge: WBC 6.50 thou/uL (4.3-10.9) 08/09/22 03:52 Hgb 10.7 g/dL (12.0-15.0) L 08/09/22 03:52 Hct 32.2 % (36.0-45.0) L 08/09/22 03:52 Plt Count 440 thou/uL (152-406) H 08/09/22 03:52 Sodium 135 mEq/L (136-145) L 08/09/22 03:52 Potassium 4.4 mEq/L (3.5-5.1) 08/09/22 03:52 BUN 49 mg/dL (7-18) H 08/09/22 03:52 Creatinine 1.51 mg/dL (0.55-1.02) H 08/09/22 03:52 Glucose 98 mg/dL (74-106) 08/09/22 03:52 Magnesium 2.0 mg/dL (1.6-2.4) 08/09/22 03:52 Home Medications: Cholecalciferol (Vitamin D3) [Vitamin D3] 2,000 unit PO DAILY 08/07/21 Docusate [Colace Cap*] 100 mg PO DAILY PRN 08/07/21 Folic Acid/Multivit-Min/Lutein [Multi-Vitamin Gummies] 1 tab PO DAILY 08/07/21 Levalbuterol [Xopenex*] 1 in IN Q4H PRN 08/07/21 Pravastatin [Pravachol*] 40 mg PO DAILY 08/07/21 Sennosides [Senna] 1 tab PO DAILY PRN 08/07/21 predniSONE [Deltasone*] 10 mg PO DAILY 08/07/21 Donepezil [Aricept*] 10 mg PO BEDTIME #60 tab 08/22/21 Albuterol Sulfate [Proair Respiclick] 90 mcg IH Q4HP PRN 08/02/22 Apixaban [Eliquis] 5 mg PO BID 08/02/22 Aspirin [Aspirin EC 81 MG] 1 tab PO BEDTIME 08/02/22 Citalopram [Celexa*] 20 mg PO DAILY 08/02/22 Ferrous Sulfate [Ferrous Sulfate*] 325 mg PO BID 08/02/22 Furosemide [Lasix*] 20 mg PO DAILY 08/02/22 Levothyroxine [Synthroid*] 50 mcg PO DAILY 08/02/22 Magnesium Oxide [Mag 0X*] 250 mg PO DAILY 08/02/22 Meclizine HCl [Antivert*] 12.5 mg PO BEDTIME 08/02/22 Meclizine HCl [Antivert*] 12.5 mg PO QID 08/02/22 Metformin HCl [Glucophage*] 500 mg PO BIDWM 08/02/22 Omeprazole [Prilosec] 40 mg PO BID 08/02/22 Cetirizine HCl 10 mg PO DAILY 08/03/22 Vitc/E/Zinc/Copper/Lutein/Zeax [Icaps Areds2 Tablet] 1 each PO BID 08/03/22 Amiodarone HCl [Cordarone*] 100 mg PO BID tab 08/14/22 atenoloL [Tenormin*] 25 mg PO BID tab 08/14/22 traMADol HCL [Ultram*] 50 mg PO Q6H PRN tab 08/14/22 Physician Discharge Instructions: klebsiell pneumoniae in urine (08/11) Cipro 500mg BID started 08/13 - for 5 days total Time spent managing pt's care (in minutes): 45
== END 2022-08-15 10:20 | DRG 948 ==
LOC: 5TH 21:07
PROVIDERS: ADMIT Psychiatry & Neurology Neurology with Special Qualifications in Child Neurology; ATTEND Psychiatry & Neurology Neurology with Special Qualifications in Child Neurology
DX: R53.81 Other malaise (principal); N39.0 Urinary tract infection, site not specified; E78.5 Hyperlipidemia, unspecified; E11.9 Type 2 diabetes mellitus without complications; F32.A Depression, unspecified; I25.10 Atherosclerotic heart disease of native coronary artery without angina pectoris; I48.0 Paroxysmal atrial fibrillation; H81.10 Benign paroxysmal vertigo, unspecified ear; K59.00 Constipation, unspecified; I73.9 Peripheral vascular disease, unspecified; E87.8 Other disorders of electrolyte and fluid balance, not elsewhere classified; E03.9 Hypothyroidism, unspecified; F03.90 Unspecified dementia, unspecified severity, without behavioral disturbance, psychotic disturbance, mood disturbance, and anxiety; I50.9 Heart failure, unspecified; J45.909 Unspecified asthma, uncomplicated; M85.88 Other specified disorders of bone density and structure, other site; S62.616G Displaced fracture of proximal phalanx of right little finger, subsequent encounter for fracture with delayed healing; S42.301D Unspecified fracture of shaft of humerus, right arm, subsequent encounter for fracture with routine healing; S62.101D Fracture of unspecified carpal bone, right wrist, subsequent encounter for fracture with routine healing
CPT/HCPCS: 36415; 80048; 81001; 81015; 82040; 82947; 83735; 84134; 85025; 87077; 87086; 87088; 87186; 87635; 92523; 93005; 94010; 97110; 97116; 97124; 97129; 97163; 97165; 97530; 97542; J2001; J7030; J7512; J8597

== ENCOUNTER → 2023-03-31 | Emergency (ER) | payer OTHER, MEDICARE ==
[~2023-03-31] MED LIST: NA CHLORIDE 0.9% 1,000 ML ONE
[2023-03-31 03:29] LABS: Hematocrit 28.3 % (36.0-45.0); Lymphocytes % 11.9 % (15.3-44.8); MCV 100.6 fL (80-100); MPV 7.1 fL (7.6-11.3); Platelets 274 thou/uL (152-406); RBC Red Blood Cell Count 2.81 M/uL (3.86-4.86)
[2023-03-31 03:48] LABS: Bilirubin Total 0.3 mg/dL (0.2-1.0); Potassium 4.3 mEq/L (3.5-5.1); Protein, Total 6.6 g/dL (6.4-8.2)
[2023-03-31 05:25] LABS: Specific Gravity 1.023 (1.005-1.030); Urine Bacteria None Seen /HPF (<20); Urine Bilirubin NEGATIVE (Negative); Urine Blood Negative (Negative); Urine Clarity Clear (Clear); Urine Color Light-Yellow (Yellow); Urine Glucose NEGATIVE (Negative); Urine Mucus Slight /HPF (None Seen); Urine Protein TRACE (Negative); Urine RBC <5 /HPF (None Seen); Urine Urobilinogen Normal (Normal)
--- NOTE | 2023-03-31 05:40 | ER ---
Nurse's Notes [facility] Name: Martina Martini Age: 83 yrs Sex: Female : 1940 Arrival Date: 03/31/2023 Time: 01:50 Bed 7 Private MD: Diagnosis: Altered mental status, unspecified;Fall on same level, unspecified Presentation: 03/31 02:03 Chief complaint: EMS states: Pt called due to fall. Upon arrival pt was complaining of jb4 RUQ pain. No obvious injuries noted from the fall. Family reports pt has been coughing x 1 week and thinks she may have pulled a muscle. Coronavirus screen: At this time, the client does not indicate any symptoms associated with coronavirus-19. Ebola Screen: No symptoms or risks identified at this time. Initial Sepsis Screen: Does the patient meet any 2 criteria? No. Patient's initial sepsis screen is negative. Does the patient have a suspected source of infection? No. Patient's initial sepsis screen is negative. Risk Assessment: Do you want to hurt yourself or someone else? Patient reports no desire to harm self or others. Onset of symptoms was March 31, 2023. Transition of care: patient was received from another setting of care (long-term care facility), [facility]. 02:03 Method Of Arrival: EMS: [facility] jb4 02:03 Acuity: KRISTA 3 jb4 Historical: - Allergies: 02:05 Lorazepam; jb4 02:05 Fentanyl; jb4 02:05 PENICILLINS; jb4 02:05 Phenergan; jb4 02:05 "Pain meds make me crazy"; jb4 - PMHx: 02:05 Anemia; Dementia; Asthma; Diabetes - NIDDM; Hypothyroidism; Hypertension; jb4 Hyperlipidemia; Myocardial infarction; open heart sx; Screenin:54 [facility] ED Fall Risk Assessment (Adult) History of falling in the last 3 months, jb4 including since admission Yes- single mechanical fall (1 pt) Confusion or Disorientation Yes (5 pts). Abuse screen: Denies threats or abuse. Nutritional screening: No deficits noted. Tuberculosis screening: No symptoms or risk factors identified. Assessment: 02:17 General: Appears in no apparent distress. comfortable, Behavior is calm, cooperative, jb4 appropriate for age. Pain: Complains of pain in right upper quadrant Pain does not radiate. Pain currently is 8 out of 10 on a pain scale. Neuro: Level of Consciousness is awake, alert, obeys commands, Oriented to person, place. Cardiovascular: Patient's skin is warm and dry. Respiratory: Airway is patent Respiratory effort is even, unlabored, Respiratory pattern is regular. GI: No signs and/or symptoms were reported involving the gastrointestinal system. : No signs and/or symptoms were reported regarding the genitourinary system. EENT: No signs and/or symptoms were reported regarding the EENT system. Derm: Skin is intact, Skin is pink, warm \\T\\ dry. Musculoskeletal: Circulation, motion, and sensation intact. Range of motion: intact in all extremities. 03:44 Reassessment: Patient appears in no apparent distress at this time. Patient and/or jb4 family updated on plan of care and expected duration. Pain level reassessed. Pt remains A\\T\\Ox2. respirations are even and unlabored. 04:33 Reassessment: Patient appears in no apparent distress at this time. No changes from [facility] previously documented assessment. Patient and/or family updated on plan of care and expected duration. Pain level reassessed. 05:35 Reassessment: Patient appears in no apparent distress at this time. No changes from [facility] previously documented assessment. Patient and/or family updated on plan of care and expected duration. Pain level reassessed. 07:24 Reassessment: pt assisted to bedside commode. iw Vital Signs: 02:17 BP 119 / 69; Pulse 87; Resp 18; Temp 97.8(O); Pulse Ox 100% ; Weight 72.57 kg (R); jb4 Height 5 ft. 1 in. (R); Pain 8/10; 02:45 BP 115 / 66; Pulse 62; Resp 18; Pulse Ox 99% on R/A; km8 03:00 BP 125 / 68; Pulse 107; Resp 18; Pulse Ox 99% on R/A; km8 04:00 BP 117 / 81; Pulse 76; Resp 18; Pulse Ox 100% on R/A; km8 05:53 BP 118 / 84; Pulse 91; Resp 16; Pulse Ox 100% on R/A; jb4 02:17 Body Mass Index 30.23 (72.57 kg, 154.94 cm) [facility] 02:17 Pain Scale: Adult jb4 ED Course: 02:03 Patient arrived in ED. km8 02:05 Triage completed. jb4 02:05 Arm band placed on right wrist. jb4 02:15 Inserted saline lock: 20 gauge in right forearm, using aseptic technique. Blood oe collected. 02:18 Derrick Sommer MD is Attending Physician. ec2 02:50 CXR XRAY In Process Unspecified. EDMS 02:51 CT Head C Spine In Process Unspecified. EDMS 03:25 CBC with Diff Sent. oe 03:25 CMP Sent. oe 03:25 Lipase Sent. oe 05:44 Sushil called to ask if family would bring Pt, they stated they couldn't. Sushil wm stated they would call [facility] and call back with an ETA. 06:00 Elianabrittni, (Verna) called and stated that [facility] would transport with an ETA of 0800. wm 06:18 Derrick Sommer MD is Attending Physician. ec2 Administered Medications: 03:34 Drug: NS 0.9% IV 1000 ml IV at 1 bolus Per protocol; 1000 mL bolus Route: IV; Rate: 1 jb4 bolus; Site: right wrist; Outcome: 05:40 Discharge ordered by . ec2 08:36 Discharged to home via ambulance, iw 08:36 Condition: good 08:36 Discharge instructions given to family, Instructed on discharge instructions, follow up and referral plans. Demonstrated understanding of instructions, follow-up care, medications, 08:36 Patient left the ED. iw Signatures: Dispatcher [employer] Elsie Flores RN RN iw Abimael Red RN RN jb4 Eloy Peng Wendy Derrick Sommer MD MD ec2 Carlee Galan RN RN km8 Corrections: (The following items were deleted from the chart) 03:24 03:24 Inserted saline lock: 20 gauge in right forearm, using aseptic technique. Blood oe collected. oe 03:42 02:17 BP 119 / 69; Pulse 87bpm; Pulse Ox 100%; Temp 97.8F Oral; 72.57 kg Reported; jb4 Height 5 ft. 1 in. Reported; BMI: 30.2; Pain 8/10, Adult; jb4 04:33 02:17 Neuro: Level of Consciousness is awake, alert, obeys commands, Oriented to jb4 person, place, time, situation, jb4 04:33 03:44 Reassessment: Patient appears in no apparent distress at this time. Patient jb4 and/or family updated on plan of care and expected duration. Pain level reassessed. Patient is alert, oriented x 3, equal unlabored respirations, skin warm/dry/pink. jb4
--- NOTE | 2023-03-31 05:40 | EDPHYS ---
Physician Documentation [facility] Name: Martina Martini Age: 83 yrs Sex: Female : 1940 Arrival Date: 03/31/2023 Time: 01:50 Bed 7 Private MD: ED Physician Derrick Sommer HPI: 03/31 02:28 This 83 yrs old Female presents to ER via EMS with complaints of fall. ec2 02:29 Patient arrives today for evaluation after a fall. Patient reports that she woke up on ec2 the ground. History of dementia, history gathered from daughter. Patient also with frequent cough and having some right lower chest wall pain with coughing. No reported vomiting or diarrhea. Patient is a poor historian.. Historical: - Allergies: 02:05 Lorazepam; jb4 02:05 Fentanyl; jb4 02:05 PENICILLINS; jb4 02:05 Phenergan; jb4 02:05 "Pain meds make me crazy"; jb4 - PMHx: 02:05 Anemia; Dementia; Asthma; Diabetes - NIDDM; Hypothyroidism; Hypertension; jb4 Hyperlipidemia; Myocardial infarction; open heart sx; ROS: 02:29 Constitutional: as per hpi ec2 Exam: 02:29 Constitutional: GEN: NAD Head: atraumatic Eyes: EOMI Ears: External ears are ec2 normal. CV: regular rate. Chest wall: Right lateral lower chest wall TTP, no deformities or crepitus. LUNGS: no respiratory distress ABD: non-distended, soft, nontender, guarding, not rigid SKIN: no evidence of rashes MSK: no evidence of trauma NEURO: moves all extremities equally Vital Signs: 02:17 BP 119 / 69; Pulse 87; Resp 18; Temp 97.8(O); Pulse Ox 100% ; Weight 72.57 kg (R); jb4 Height 5 ft. 1 in. (R); Pain 8/10; 02:45 BP 115 / 66; Pulse 62; Resp 18; Pulse Ox 99% on R/A; km8 03:00 BP 125 / 68; Pulse 107; Resp 18; Pulse Ox 99% on R/A; km8 04:00 BP 117 / 81; Pulse 76; Resp 18; Pulse Ox 100% on R/A; km8 05:53 BP 118 / 84; Pulse 91; Resp 16; Pulse Ox 100% on R/A; jb4 02:17 Body Mass Index 30.23 (72.57 kg, 154.94 cm) jb4 02:17 Pain Scale: Adult jb4 MDM: 02:18 Patient medically screened. ec2 02:30 Data reviewed: vital signs. ED course: Patient arrives today for evaluation of a fall. ec2 Examination remarkable for well-appearing nontoxic individual is otherwise in no acute distress with a reassuring examination. Will obtain lab work, chest x-ray and CT imaging of the head and C-spine given the patient's age and dementia.. 04:31 ED course: CT scan of the head and C-spine without acute traumatic process. Chest x-ray ec2 shows CHF, patient without any respiratory distress or hypoxia. . 04:32 ED course: CBC shows slight anemia, metabolic profile with renal dysfunction with a GFR ec2 of 29. Lipase within normal ranges. Pending urine, will cath. . 05:28 ED course: Urine noninfectious appearing. On reassessment patient is well-appearing in ec2 no acute distress. Will discharge home. Return precautions given. Suspect possible progression of patient's dementia causing the patient's alteration in mental status. Instructed her to follow-up with a primary care doctor. . 03/31 02:28 Order name: CBC with Diff; Complete Time: 04:31 ec2 03/31 02:28 Order name: CMP; Complete Time: 04:31 ec2 03/31 02:28 Order name: Lipase; Complete Time: 04:31 ec2 03/31 02:28 Order name: Urinalysis w/ reflexes; Complete Time: 05:28 ec2 03/31 02:28 Order name: CXR XRAY ec2 03/31 02:29 Order name: CT Head C Spine ec2 03/31 02:28 Order name: IV Saline Lock; Complete Time: 03:25 ec2 18 02:28 Order name: Labs collected and sent; Complete Time: 03:25 ec2 Administered Medications: 03:34 Drug: NS 0.9% IV 1000 ml IV at 1 bolus Per protocol; 1000 mL bolus Route: IV; Rate: 1 jb4 bolus; Site: right wrist; Disposition Summary: 03/31/23 05:40 Discharge Ordered Notes: Location: Home ec2 Condition: Stable ec2 Diagnosis - Altered mental status, unspecified ec2 - Fall on same level, unspecified ec2 Followup: ec2 - With: Private Physician - When: - Reason: Re-evaluation by your physician Discharge Instructions: - Discharge Summary Sheet ec2 - Confusion ec2 Forms: - Medication Reconciliation Form ec2 - Thank You Letter ec2 - Antibiotic Education ec2 - Prescription Opioid Use ec2 - Patient Portal Instructions ec2 - Leadership Thank You Letter ec2 Prescriptions: - Robitussin Cough-Sore Throat 325-10 mg/10 mL Oral liquid - take 20 milliliter ORAL route every 4 hours as needed for cold symptoms; 400 ec2 milliliter; Refills: 0, Product Selection Permitted Signatures: Dispatcher [employer] EDAbimael Christina RN RN jb4 Derrick Sommer MD MD ec2 Corrections: (The following items were deleted from the chart) 02:30 02:29 Patient arrives today for evaluation after a fall. Patient reports that she woke ec2 up on the ground. History of dementia, history gathered from daughter. Patient also with frequent cough. No reported vomiting or diarrhea. Patient is a poor historian.. ec2 04:58 02:28 Samuels ordered. ec2 jb4
[2023-03-31 08:48] VITALS: BP 118/84; TEMP 97.8; O2SAT 100
--- NOTE | 2023-04-01 10:48 | RAD REPORT ---
EXAM DESCRIPTION: CT - Head C Spine Mpr Wo Con - 03/31/2023 6:44 am CLINICAL HISTORY: Female, 83 years old, fall COMPARISON: 01/24/2023 TECHNIQUE: CT acquisition of the head without contrast. CT acquisition of the cervical spine without contrast. Coronal and sagittal reformats provided. This exam was performed according to departmental dose-optimization program which includes automated exposure control, adjustment of the mA and/or kV according to patient size, and/or use of iterative reconstruction technique. FINDINGS: SUPPORTIVE DEVICES: None. HEAD: Brain: No evidence of intracranial hemorrhage, mass effect, midline shift, edema, or extra-axial flui d collection. Patchy to confluent areas of hypodensity are noted throughout the cerebral white matter most likely due to chronic microvascular ischemic changes. Senescent basal ganglia calcification. CSF Spaces: The ventricles and sulci are moderately enlarged consistent with moderate global parenchy mal volume loss. Skull: The calvarium is intact. Soft tissue: No evidence of scalp or soft tissue injury. Other: The imaged facial bones are intact. Prior lens surgery, otherwise unremarkable orbits. Left sp henoid mucosal thickening. CERVICAL SPINE: Morphology: Normal vertebral body heights. No identified fracture. Alignment: No traumatic listhesis. Straightening of normal cervical lordosis. Craniocervical Junction: Intact. Disc Levels: Moderate multilevel degenerative changes. Other: No acute finding of the neck soft tissues or imaged lung apices. Left thyroid and vascular jasmine cifications. IMPRESSION: 1. No acute intracranial abnormality. 2. No acute cervical osseous abnormality. Electronically signed by: Reyes Ga MD 03/31/2023 04:11 AM ATHLETIC COACH Due to temporary technical issues with the PACS/Fluency reporting system, reports are being signed by the in house radiologist without review as a courtesy to ensure prompt reporting. The interpreting r adiologist is fully responsible for the content of the report.
--- NOTE | 2023-04-01 10:49 | RAD REPORT ---
EXAM DESCRIPTION: RAD - Chest Single View - 03/31/2023 2:49 am CLINICAL HISTORY: Female, 83 years old, COUGH TECHNIQUE: 1 view COMPARISON: None available FINDINGS: SUPPORT DEVICES: None. LUNGS/PLEURA: Perihilar interstitial prominence. No consolidation, pleural effusion or pneumothorax. HEART/MEDIASTINUM: Moderate cardiomegaly with post-CABG changes. Enlarged central pulmonary vasculatu re. OTHER: Chronic fracture of the right humeral neck. Degenerative changes of the left shoulder and spin e. Median sternotomy wires. IMPRESSION: Heart failure pattern and post-CABG changes without acute cardiopulmonary findings. Electronically signed by: Reyes Ga MD 03/31/2023 04:08 AM DIRECTOR OF CORPORATE COMMUNICATIONS Due to temporary technical issues with the PACS/Fluency reporting system, reports are being signed by the in house radiologist without review as a courtesy to ensure prompt reporting. The interpreting r adiologist is fully responsible for the content of the report.
== END ==
LOC: ER 01:50
DX: R41.82 Altered mental status, unspecified (principal); W18.30XA Fall on same level, unspecified, initial encounter; R07.89 Other chest pain; R05.9 Cough, unspecified; Z88.0 Allergy status to penicillin; Z88.5 Allergy status to narcotic agent; Z88.8 Allergy status to other drugs, medicaments and biological substances
CPT/HCPCS: 85025; 81001; 36415; 83690; 80053; 70450; 72125; 71045; J7030

== ENCOUNTER 2023-12-09 19:22 | Inpatient (IN) | payer OTHER, MEDICARE ==
[2023-12-09 20:19] LABS: Absolute Eosinophils 0.2 K/uL (0-0.5); Absolute Lymphocytes (CBC) 1.8 K/uL (0.7-4.9); Absolute Neutrophil 4.1 K/uL (1.8-8.0); Basophils % 0.5 % (0-1.3); Eosinophils % 3.4 % (0-4.4); Hemoglobin 9.2 g/dL (12.0-15.0); Lymphocytes % 25.6 % (15.3-44.8); MCH 34.4 pg (27.0-35.0); MCHC 34.2 g/dL (32.0-36.0); MCV 100.4 fL (80-100); MPV 6.3 fL (7.6-11.3); Monocytes % 13.8 % (3.3-12.3); Neutrophils % 56.7 % (41.7-73.7); Nucleated Red Blood Cells % 0.1 % (0-0); Platelets 266 thou/uL (152-406); RBC Red Blood Cell Count 2.69 M/uL (3.86-4.86); Red Cell Distribution Width 14.4 % (12.1-15.2)
--- NOTE | 2023-12-09 20:22 | RAD REPORT ---
Procedure: Chest Single View HISTORY: Shortness of breath COMPARISON: March 2023 FINDINGS: The lungs appear clear of acute infiltrate. No significant pleural effusion noted. The heart is mildly enlarged. Post surgical changes involving the chest IMPRESSION: No acute abnormality is displayed.
[2023-12-09 20:23] LABS: PT Prothrombin Time 12.9 SECONDS (9.4-12.5); PTT, Activated Partial Thromb 39.3 SECONDS (24.3-36.9); Protime INR 1.16
[2023-12-09] MEDS ORDERED: METHYLPREDNISOLONE 125 MG INJ ONE (20:31)
[2023-12-09] MEDS ORDERED: LEVALBUTEROL 1.25 MG/3 ML NEB ONE (20:31)
[2023-12-09 20:37] LABS: SARS-CoV-2 Antigen CONTROL BLUE LINE VIS/BG OK; SARS-CoV-2 Antigen Rapid Res Negative (Negative)
[2023-12-09 20:39] LABS: Albumin/Globulin Ratio 0.8 (1.1-1.8); Anion Gap 9.4 mEq/L (5.0-15.0); Bilirubin Total 0.4 mg/dL (0.2-1.0); Globulin 3.7 g/dL (2.3-3.5); Magnesium 1.8 mg/dL (1.6-2.4); Potassium 4.4 mEq/L (3.5-5.1); Protein, Total 6.7 g/dL (6.4-8.2); Troponin High Sensitivity 8.8 pg/mL (<58.9)
--- NOTE | 2023-12-09 22:09 | ER ---
[facility] Name: Martina Martini Age: 83 yrs Sex: Female : 1940 Arrival Date: 12/09/2023 Time: 19:22 Bed 4 Private MD: Diagnosis: Acute on chronic combined systolic (congestive) and diastolic (congestive) heart failure Presentation: 12/08 19:33 Chief complaint: EMS states: coming from [facility] for difficulty al5 breathing since saturday. Coronavirus screen: cough unrelated to allergies, difficulty breathing. Ebola Screen: No symptoms or risks identified at this time. Initial Sepsis Screen: Does the patient meet any 2 criteria? HR > 90 bpm. Does the patient have a suspected source of infection? No. Patient's initial sepsis screen is negative. Risk Assessment: Do you want to hurt yourself or someone else? Patient reports no desire to harm self or others. Onset of symptoms was December 07, 2023. Care prior to arrival: Medication(s) given: Albuterol Neb x 1. 19:33 Method Of Arrival: EMS: [facility] al5 19:33 Acuity: KRISTA 3 al5 Triage Assessment: 19:35 General: Appears in no apparent distress. Behavior is calm, cooperative. Pain: Denies al5 pain. EENT: No signs and/or symptoms were reported regarding the EENT system. Neuro: Level of Consciousness is awake, alert, obeys commands, Oriented to person, place, time. Cardiovascular: Capillary refill < 3 seconds Patient's skin is warm and dry. Respiratory: Reports difficulty breathing Onset: The symptoms/episode began/occurred saturday, the patient has mild shortness of breath. GI: No signs and/or symptoms were reported involving the gastrointestinal system. : No signs and/or symptoms were reported regarding the genitourinary system. Derm: Skin is intact, Skin is pink, warm \T\ dry. normal. Musculoskeletal: No signs and/or symptoms reported regarding the musculoskeletal system. Historical: - Allergies: 19:35 Fentanyl; al5 19:35 Lorazepam; al5 19:35 PENICILLINS; al5 19:35 Phenergan; al5 - PMHx: 19:35 Anemia; Asthma; Dementia; Diabetes - NIDDM; Hyperlipidemia; Hypertension; al5 Hypothyroidism; Myocardial infarction; open heart sx; - Immunization history:: Adult Immunizations up to date. - Infectious Disease History:: Denies. - Social history:: Smoking status: Patient denies any tobacco usage or history of. Screenin:37 [facility] ED Fall Risk Assessment (Adult) History of falling in the last 3 months, al5 including since admission No falls in past 3 months (0 pts) Confusion or Disorientation No (0 pts) Intoxicated or Sedated No (0 pts) Impaired Gait Yes (1 pt) Mobility Assist Device Used Yes (1 pt) Altered Elimination Yes (1 pt) Score/Fall Risk Level 3 or more points = High Risk Oriented to surroundings, Maintained a safe environment, Hourly rounding (assess needs \T\ fall precautionary measures) done, Utilized family, sitter, or virtual medical scientist as indicated. Abuse screen: Denies threats or abuse. Denies injuries from another. Nutritional screening: No deficits noted. Tuberculosis screening: No symptoms or risk factors identified. Assessment: 19:37 Reassessment: see triage assessment. Cardiovascular: Rhythm is sinus tachycardia. al5 Respiratory: Airway is patent Respiratory effort is even, unlabored, Respiratory pattern is regular, symmetrical. Vital Signs: 19:33 BP 109 / 84; Pulse 130; Resp 19; Temp 97.8(O); Pulse Ox 100% on Nebulizer Mask; Weight al5 78.47 kg; Height 5 ft. 4 in. ; 20:30 BP 91 / 56; Pulse 84; Resp 19; Pulse Ox 100% ; dd2 21:00 BP 98 / 81; Pulse 97; Resp 18; Pulse Ox 100% on 2 lpm NC; dd2 22:00 BP 99 / 58; Pulse 91; Resp 19; Pulse Ox 91% ; dd2 23:00 BP 102 / 62; Pulse 90; Resp 18; Pulse Ox 91% ; dd2 12/09 00:00 BP 92 / 56; Pulse 88; Resp 18; Pulse Ox 100% on 2 lpm NC; dd2 01:12 BP 119 / 84; Pulse 93; Resp 17; Pulse Ox 100% ; dd2 12/08 19:33 Body Mass Index 29.70 (78.47 kg, 162.56 cm) al5 ED Course: 12/08 19:33 Patient arrived in ED. al5 19:33 Monty Patterson PA is PHCP. cp 19:34 Arya Cameron MD is Attending Physician. cp 19:35 Triage completed. al5 19:36 Arm band placed on right wrist. Patient placed in the treatment room, on a stretcher. al5 19:37 Patient has correct armband on for positive identification. Bed in low position. Call al5 light in reach. Side rails up X2. daughter with patient at bedside. Provided Education on: plan of care. 19:38 No provider procedures requiring assistance completed. al5 19:40 MARITO JHONSON, RN is Primary Nurse. dd2 19:55 Initial lab(s) drawn, by me, sent to lab. First set of blood cultures drawn EKG done, dd2 by ED staff, reviewed by Yohannes FARFAN COVID swab sent to lab. Flu and/or RSV swab sent to lab. Inserted saline lock: 22 gauge in left antecubital area, using aseptic technique. Blood collected. Flushed with 10 mL NS. 20:08 Chest Single View XRAY In Process Unspecified. EDMS 20:12 Derrick Sommer MD is Attending Physician. cp 20:15 PHCP role handed off by Monty Patterson PA dr5 20:15 Yohannes Everett FNP-C is PHCP. dr5 22:08 Dina Kaplan MD is Hospitalizing Provider. dr5 12/09 01:43 Chest For Pe Angio In Process Unspecified. EDMS 01:45 Patient admitted, IV remains in place. al5 Administered Medications: 12/08 20:46 Drug: Levalbuterol Inhalation 1.25 mg Inhalation once Route: Inhalation; dd2 20:46 Drug: MethylPrednisoLONE IVP 125 mg IVP once Route: IVP; Site: left antecubital; dd2 21:01 Follow up: Response: No adverse reaction dd2 Medication: 19:37 VIS not applicable for this client. al5 Outcome: 22:08 Decision to Hospitalize by Provider. dr5 12/09 02:03 Admitted to Med/surg accompanied by nurse, via stretcher, room 204, Report called to vcHue Benjamin RN Condition: good Instructed on discharge instructions, follow up and referral plans. medication usage, 02:04 Patient left the ED. vc1 Signatures: Dispatcher [employer] EDFL Monty Patterson PA PA cp Calcote, Vanessa, RN RN vc1 Becky Riddle RN RN al5 MARITO JOHNSON RN RN dd2 Yohannes Everett, C APPLICATION DEVELOPER-C C APPLICATION DEVELOPER-Cdr5
--- NOTE | 2023-12-09 22:09 | EDPHYS ---
Physician Documentation [facility] Name: Martina Martini Age: 83 yrs Sex: Female : 1940 Arrival Date: 12/09/2023 Time: 19:22 Bed 4 Private MD: ED Physician Derrick Sommer HPI: 12/08 19:30 This 83 yrs old Female presents to ER via Unassigned with complaints of Breathing cp Difficulty. 19:30 The patient has shortness of breath at rest. Onset: The symptoms/episode began/occurred cp 2 day(s) ago. Duration: The symptoms are continuous, and are steadily getting worse. Associated signs and symptoms: Pertinent negatives: fever. EMS reports no home oxygen. Patient with PMHX significant for COPD and CHF. Oxygen sats were in 80's upon presentation. Historical: - Allergies: 19:35 Fentanyl; al5 19:35 Lorazepam; al5 19:35 PENICILLINS; al5 19:35 Phenergan; al5 - PMHx: 19:35 Anemia; Asthma; Dementia; Diabetes - NIDDM; Hyperlipidemia; Hypertension; al5 Hypothyroidism; Myocardial infarction; open heart sx; - Immunization history:: Adult Immunizations up to date. - Infectious Disease History:: Denies. - Social history:: Smoking status: Patient denies any tobacco usage or history of. ROS: 19:33 Constitutional: Negative for fever, cp 19:33 Cardiovascular: Negative for chest pain, edema, cp 19:33 Respiratory: Positive for shortness of breath, at rest. wheezing, 19:33 Abdomen/GI: Negative for abdominal pain, vomiting, diarrhea, constipation, 19:33 Neuro: Negative for altered mental status, 19:33 All other systems are negative, 12/09 01:08 Constitutional: as per hpi dr5 Exam: 12/08 19:40 Head/Face: Normocephalic, atraumatic. cp Constitutional: The patient appears alert, awake, non-diaphoretic, non-toxic, well developed, well nourished, in obvious distress, moderately distressed, Eyes: Periorbital structures: appear normal, Conjunctiva: normal, no exudate, no injection, Sclera: no appreciated abnormality, Lids and lashes: appear normal, bilaterally, ENT: External ear(s): are unremarkable, Nose: is normal, Mouth: Lips: moist, Oral mucosa: moist, Posterior pharynx: Airway: no evidence of obstruction, patent, Neck: ROM/movement: is normal, is supple, without pain, no range of motions limitations, no meningismus, Chest/axilla: Inspection: normal, Cardiovascular: Rate: tachycardic, Edema: is not appreciated, JVD: is not appreciated, Respiratory: moderate respiratory distress is noted, Respirations: labored breathing, that is moderate, Breath sounds: stridor, is not appreciated, wheezing: that is mild, is heard in the right middle lobe, left lower lobe and right lower lobe, Abdomen/GI: Inspection: abdomen appears normal, Palpation: abdomen is soft and non-tender, in all quadrants, Neuro: Orientation: no acute changes, per EMS, Mentation: no acute changes, per EMS, Motor: moves all fours, no focal deficits, 20:12 ECG was reviewed by the Attending Physician. cp Vital Signs: 19:33 BP 109 / 84; Pulse 130; Resp 19; Temp 97.8(O); Pulse Ox 100% on Nebulizer Mask; Weight al5 78.47 kg; Height 5 ft. 4 in. ; 20:30 BP 91 / 56; Pulse 84; Resp 19; Pulse Ox 100% ; dd2 21:00 BP 98 / 81; Pulse 97; Resp 18; Pulse Ox 100% on 2 lpm NC; dd2 22:00 BP 99 / 58; Pulse 91; Resp 19; Pulse Ox 91% ; dd2 23:00 BP 102 / 62; Pulse 90; Resp 18; Pulse Ox 91% ; dd2 12/09 00:00 BP 92 / 56; Pulse 88; Resp 18; Pulse Ox 100% on 2 lpm NC; dd2 01:12 BP 119 / 84; Pulse 93; Resp 17; Pulse Ox 100% ; dd2 12/08 19:33 Body Mass Index 29.70 (78.47 kg, 162.56 cm) al5 MDM: 12/08 20:15 Medical Screening Exam initiated dr5 20:19 Transition of care: Care assumed from Monty FARAH. dr5 12/09 00:56 Differential diagnosis: Anemia CHF exacerbation, Chronic Obstructive Pulmonary Disease dr5 pneumonia. Antibiotic administration: Not indicated, the patient does not have an appreciated infiltrate. Data interpreted: surveillance system monitor: rate is 84 beats/min, rhythm is atrial fibrillation, Pulse oximetry: on 2L(s) per nasal canula. Data reviewed: vital signs, nurses notes. Consideration of Admission/Observation Patient was admitted/placed on observation. Management of patient was discussed with the following: Hospitalist: Romelia Ricketts. I considered the following discharge prescriptions or medication management in the emergency department Medications were administered in the Emergency Department. See MAR. Historians other than the Patient: Friend: . External Records Reviewed:. Care significantly affected by the following chronic conditions: Diabetes, Hypertension, Hypothyroidism, Asthma. Care significantly affected by the following Social Determinants of Health: Poor access to healthcare and/or lack of insurance, Poor access to transportation. Counseling: I had a detailed discussion with the patient and/or guardian regarding the historical points, exam findings, and any diagnostic results supporting the discharge/admit diagnosis, the presence of at least one elevated blood pressure reading (>120/80) during this emergency department visit, lab results, radiology results, the need for further work-up and treatment in the hospital. Awaiting: Admit to Floor. 12/08 19:39 Order name: Blood Culture Adult (2) cp 12/08 19:39 Order name: CBC with Diff; Complete Time: 20:23 cp 12/08 19:39 Order name: CMP; Complete Time: 21:11 cp 12/08 19:39 Order name: Lactate w/ 2H reflex if indic.; Complete Time: 21:11 cp 12/08 19:39 Order name: Protime (+inr); Complete Time: 21:11 cp 12/08 19:39 Order name: Ptt, Activated; Complete Time: 21:11 cp 12/08 19:39 Order name: Urinalysis w/ reflexes cp 12/08 19:39 Order name: Magnesium; Complete Time: 21:11 cp 12/08 19:39 Order name: NT PRO-BNP; Complete Time: 21:11 cp 12/08 19:39 Order name: Troponin HS; Complete Time: 21:11 cp 12/08 19:41 Order name: RSV; Complete Time: 21:11 cp 12/08 19:41 Order name: SARS RAPID; Complete Time: 21:11 cp 12/08 19:41 Order name: Influenza Screen (a \T\ B); Complete Time: 21:11 cp 12/09 01:18 Order name: Comprehensive Metabolic Panel EDMS 12/09 01:18 Order name: Creatine Phosphokinase EDMS 12/09 01:18 Order name: Lactate w/ 2H reflex if indic. EDMS 12/09 01:18 Order name: Magnesium EDMS 12/09 01:18 Order name: NT PRO-BNP EDMS 12/09 01:18 Order name: Phosphorus EDMS 12/09 01:18 Order name: Protime (+INR) EDMS 12/09 01:18 Order name: PTT, Activated Partial Thromb EDMS 12/09 01:18 Order name: Thyroid Stimulating Hormone EDMS 12/09 01:18 Order name: Urinalysis w/ reflexes EDMS 12/09 01:18 Order name: Lipid Profile EDMS 12/09 01:18 Order name: Lipid Profile EDMS 12/09 01:18 Order name: Troponin High Sensitivity EDMS 12/09 01:18 Order name: Troponin High Sensitivity EDMS 12/09 01:18 Order name: Troponin High Sensitivity EDMS 12/09 01:18 Order name: Troponin High Sensitivity EDMS 12/08 19:39 Order name: Chest Single View XRAY; Complete Time: 20:23 cp 12/09 01:33 Order name: Chest For Pe Angio EDMS 12/08 19:39 Order name: EKG; Complete Time: 19:40 cp 12/09 01:18 Order name: CONS Physician Consult EDMS 12/08 19:39 Order name: Accucheck; Complete Time: 20:47 cp 12/08 19:39 Order name: Cardiac monitoring; Complete Time: 20:47 cp 12/08 19:39 Order name: EKG - Nurse/Tech; Complete Time: 20:47 cp 12/08 19:39 Order name: IV Saline Lock - Large Bore; Complete Time: 20:47 cp 12/08 19:39 Order name: Labs collected and sent; Complete Time: 20:47 cp 12/08 19:39 Order name: O2 Per Protocol; Complete Time: 20:47 cp 12/08 19:39 Order name: O2 Sat Monitoring; Complete Time: 20:47 cp 12/08 19:39 Order name: Vital Signs; Complete Time: 20:47 cp 12/08 19:39 Order name: IV Saline Lock; Complete Time: 20:47 cp EC/28 20:12 Rate is 99 beats/min. Rhythm is irregular. QRS interval is normal. QT interval is cp normal. Interpreted by me. Reviewed by me. Administered Medications: 20:46 Drug: Levalbuterol Inhalation 1.25 mg Inhalation once Route: Inhalation; dd2 20:46 Drug: MethylPrednisoLONE IVP 125 mg IVP once Route: IVP; Site: left antecubital; dd2 21:01 Follow up: Response: No adverse reaction dd2 Disposition: 12/09 01:12 I agree with the assessment and plan of care. Patient arrives today with shortness of ec2 breath. Patient noted to have borderline hypotensive blood pressures with a normal lactic acid, patient is ultimately a DNR. also discussed with admitting LEELEE, agree would be reasonable to attempt small fluid bolus although patient does have elevated BNP. We discussed possible CT scan of the chest to evaluate for PE however this did not be management changing as patient's ultimately DNR would not want to be transferred for aggressive management. Patient to be admitted, will forego any aggressive management such as central line or pressor use. Disposition Summary: 12/09/23 22:08 Hospitalization Ordered Notes: Hospitalization Status: Inpatient Admission dr5 Provider: Dina Kaplan Location: Telemetry/MedSur (Inpatient) dr5 Condition: Stable dr5 Problem: chronic dr5 Symptoms: have worsened dr5 Bed/Room Type: Standard dr5 Room Assignment: 204(12/10/23 01:29) Diagnosis - Acute on chronic combined systolic (congestive) and diastolic (congestive) heart dr5 failure Forms: - Medication Reconciliation Form dr5 - SBAR form dr5 - Leadership Thank You Letter dr5 Signatures: Dispatcher [employer] EDMonty Cleary PA PA cp Garcia, Cindy, RN RN Derrick Sommer MD MD ec2 Becky Riddle RN RN al5 MARITO JOHNSON RN RN dd2 Yohannes Everett FNP-C FNP-5 Corrections: (The following items were deleted from the chart) 12/08 19:40 19:40 BLOOD CULTURE*+BA.LAB.BRZ ordered. EDPR EDMS 19:40 19:40 CBC+H.LAB.BRZ ordered. EDPR EDMS 19:40 19:40 COMPREHENSIVE METABOLIC PANEL+C.LAB.BRZ ordered. EDPR EDMS 19:40 19:40 LACTATE+C.LAB.BRZ ordered. EDPR EDMS 19:40 19:40 PROTIME (+INR)+COAG.LAB.BRZ ordered. EDMS EDMS 19:40 19:40 PTT, ACTIVATED+COAG.LAB.BRZ ordered. EDMS EDMS 19:40 19:40 Urinalysis+U.LAB.BRZ ordered. EDMS EDMS 19:40 19:40 MAGNESIUM+C.LAB.BRZ ordered. EDMS EDMS 19:40 19:40 PROBNP+C.LAB.BRZ ordered. EDMS EDMS 19:40 19:40 Troponin High Sensitivity+C.LAB.BRZ ordered. EDMS EDMS 12/09 01:12/08 22:08 dr5 cg 12/09 01:33 00:28 Chest Angio ordered. EDMS EDMS
[2023-12-10] MEDS ORDERED: SENOSIDES 8.6 MG TAB PO PRN ×2 (01:16→13:32)
[2023-12-10] MEDS ORDERED: DOCUSATE NA 100 MG CAP PO PRN (01:16)
--- NOTE | 2023-12-10 01:27 | P.HP ---
Certification for Inpatient With expected LOS: <2 Midnights Practitioner: I am a practitioner with admitting privileges, knowledge of patient current condition, hospital course, and medical plan of care. Services: Services provided to patient in accordance with Admission requirements found in Title 42 Section 412.3 of the Code of Federal Regulations Patient History Date of Service: 12/10/23 Reason for admission: hypotension, altered mental status, dementia History of Present Illness: 83-year-old woman with a past medical history significant for congestive heart failure, hypertension, Alzheimer's dementia, diabetes mellitus, atrial fibrillation, heartburn, anemia, asthma, neuropathy, and dyslipidemia presented to the emergency room complaining of shortness of breath at rest for the past 2 days. The patient resides in a long-term facility, but has a caregiver who is present at bedside right now. The patient is a poor historian-she is alert, and oriented to name only at this time. Patient is wheelchair-bound, but is still able to ambulate with wheelchair to bathroom and eat meals independently. Per the patient's caregiver, the patient has had a cough with mild chest congestion for the past week. The patient normally takes Robitussin cough medication and another cough medication to relieve her symptoms. However, the patient was unable to improve her cough and chest congestion after these medications earlier today. Upon arrival to the emergency department, the patient was given 2 breathing treatments and steroids. The patient's symptoms improved, and the patient is not showing any signs of distress. However, the patient remains hypotensive, and mildly tachycardic. Allergies Penicillins Allergy (Verified 08/03/22 06:52) Itching fentanyl Adverse Reaction (Verified 08/03/22 06:52) Shortness of breath lorazepam [From Ativan] Adverse Reaction (Verified 08/03/22 06:52) Shortness of breath promethazine [From Phenergan] Adverse Reaction (Verified 08/03/22 06:52) Shortness of breath Home Medications: Cholecalciferol (Vitamin D3) [Vitamin D3] 2,000 unit PO DAILY 08/07/21 Docusate [Colace Cap*] 100 mg PO DAILY PRN 08/07/21 Folic Acid/Multivit-Min/Lutein [Multi-Vitamin Gummies] 1 tab PO DAILY 08/07/21 Pravastatin [Pravachol*] 40 mg PO DAILY 08/07/21 Sennosides [Senna] 1 tab PO DAILY PRN 08/07/21 predniSONE [Deltasone*] 10 mg PO DAILY 08/07/21 Donepezil [Aricept*] 10 mg PO BEDTIME #60 tab 08/22/21 Albuterol Sulfate [Proair Respiclick] 90 mcg IH Q4HP PRN 08/02/22 Aspirin [Aspirin EC 81 MG] 1 tab PO BEDTIME 08/02/22 Citalopram [Celexa*] 20 mg PO DAILY 08/02/22 Ferrous Sulfate [Ferrous Sulfate*] 325 mg PO BID 08/02/22 Furosemide [Lasix*] 40 mg PO DAILY 08/02/22 Levothyroxine [Synthroid*] 50 mcg PO DAILY 08/02/22 Magnesium Oxide [Mag 0X*] 400 mg PO DAILY 08/02/22 Metformin HCl [Glucophage*] 500 mg PO BIDWM 08/02/22 Omeprazole [Prilosec] 40 mg PO BID 08/02/22 Cetirizine HCl 10 mg PO DAILY 08/03/22 Vitc/E/Zinc/Copper/Lutein/Zeax [Icaps Areds2 Tablet] 1 each PO BID 08/03/22 Amiodarone HCl [Cordarone*] 100 mg PO BID tab 08/14/22 atenoloL [Tenormin*] 25 mg PO BID tab 08/14/22 Budesonide/Formoterol Fumarate [Symbicort 160-4.5 Mcg Inhaler] 1 puff PO BID 01/25/23 Gabapentin [Neurontin*] 200 mg PO BID 01/25/23 Propylene Glycol [Systane Complete] 1 drop EACH EYE TID 01/25/23 Tiotropium [place] [Spiriva Respimat] 1 puff IH DAILY 01/25/23 traMADol HCL [Ultram*] 50 mg PO Q6H PRN #20 tab 01/28/23 - Past Medical/Surgical History Diabetic: Yes -: Diabetes mellitus type 2 -: Hypertension -: CAD -: Asthma -: Hypothyroidism -: Hyperlipidemia -: Diabetic neuropathy -: Anemia -: Obesity -: arthritis -: COPD -: dimentia -: Cholecystectomy -: CABG x3 vessels 2006 -: 08/02 Vertebroplasty Psychosocial/ Personal History: She is . - Family History Mother -: Heart disease, Cancer - Social History Alcohol use: No CD- Drugs: No Caffeine use: No Review of Systems Respiratory: Shortness of Breath Gastrointestinal: No Distention Genitourinary: Frequency Neurological: Confusion Physical Examination - Vital Signs Temperature: 98 F Blood Pressure: 86/61 Pulse: 80 Respirations: 18 Pulse Ox (%): 98 - Physical Exam General: Alert, Oriented x1 HEENT: Atraumatic, Normocephalic Neck: JVD not distended Respiratory: Normal air movement Cardiovascular: No gallops, No rubs, No murmurs Gastrointestinal: Normal bowel sounds, Non-distended Musculoskeletal: No warmth (left foot, cool to touch) Neurological: Dementia Urinary: Other (adult diaper) - Studies Laboratory Data (last 24 hrs) 12/09/23 12/09/23 12/09/23 19:55 19:55 19:55 WBC 7.20 Hgb 9.2 L Hct 27.0 L Plt Count 266 PT 12.9 H INR 1.16 APTT 39.3 H Sodium 133 L Potassium 4.4 BUN 19 H Creatinine 1.35 H Glucose 93 Magnesium 1.8 Total Bilirubin 0.4 AST 17 ALT 20 Alkaline Phosphatase 56 Microbiology Data (last 24 hrs): 12/09/23 19:55 Nasopharnyx Influenza Type A Antigen Screen - Final 12/09/23 19:55 Nasopharnyx Influenza Type B Antigen Screen - Final 12/09/23 19:55 Nasopharnyx Respiratory Syncytial Virus Ag Scrn - Final Assessment and Plan - Problems (Diagnosis) (1) Hypotension Current Visit: Yes Status: Acute - Plan Hypotension-admit to floor. Chest CT ordered to rule out pulmonary embolism. Will consider heparin if positive. 500 bolus of IV fluid ordered. Telemetry ordered. Cardiology consulted. The patient is DNR. Lab work ordered and pending at this time. - Advance Directives Does patient have a Living Will: Yes Does patient have a Durable POA for Healthcare: Yes - Code Status/Comfort Care Code Status: Do Not Attempt Resuscitat
[2023-12-10] MEDS: NA CHLORIDE 0.9% 500 ML IV ONE ×2 (04:26→06:07)
[2023-12-10 06:10] LABS: Albumin 2.7 g/dL (3.4-5.0); Albumin/Globulin Ratio 0.8 (1.1-1.8); Anion Gap 9.6 mEq/L (5.0-15.0); Bilirubin Total 0.3 mg/dL (0.2-1.0); Globulin 3.3 g/dL (2.3-3.5); Magnesium 1.9 mg/dL (1.6-2.4); PT Prothrombin Time 13.3 SECONDS (9.4-12.5); PTT, Activated Partial Thromb 39.8 SECONDS (24.3-36.9); Phosphorus 4.3 mg/dL (2.5-4.9); Potassium 5.6 mEq/L (3.5-5.1); Protime INR 1.19; Thyroid Stimulating Hormone 1.06 uIU/mL (0.358-3.740)
[2023-12-10] MEDS: NA CHLORIDE 0.9% 1,000 ML IV SCH (06:15)
[2023-12-10 07:43] VITALS: BMI 28.8
--- NOTE | 2023-12-10 07:51 | RAD REPORT ---
EXAMINATION: CTA CHEST PE CLINICAL INDICATION: Shortness of breath. TECHNIQUE: 100 cc 370 Isovue administered intravenously. This examination was performed according to an angiographic protocol with 3D post-processing. This involves 3D reconstructions, MIPs, volume rendered images and/or shaded surface rendering. One or more of the following dose reduction techniqu es were used: Automated exposure control, adjustment of the mA and/or kV according to patient size, and/or iterative reconstruction. Unless otherwise specified, incidental findings do not require dedic ated imaging follow-up. [id number]. COMPARISON: No prior exam. FINDINGS: A pulmonary embolus is not seen. An aortic aneurysm not noted. No pleural effusion. No pericardial effusion. Lungs are clear. IMPRESSION: No evidence of a pulmonary embolism
[2023-12-10] MEDS: ATORVASTATIN 10 MG TAB PO SCH (08:21)
[2023-12-10] MEDS: LEVOTHYROXINE SOD 0.05 MG TABLET PO SCH (08:21)
[2023-12-10] MEDS ORDERED: HOME MED 1 EA UNK (Pravastatin [Pravachol*] 40 MG/TAB Tab) PO SCH (09:00)
--- NOTE | 2023-12-10 12:55 | P.CNS ---
Date of Consult: 12/10/23 Chief Complaint: hypotension, altered mental status, dementia History of Present Illness: Patient with PMH of atrial fibrillation, heart failure, dementia, was brought to hospital due to persistent cough, congestion ,weakness, bed soaking with urine, denies chest pain, no syncope. Allergies Penicillins Allergy (Verified 08/03/22 06:52) Itching fentanyl Adverse Reaction (Verified 08/03/22 06:52) Shortness of breath lorazepam [From Ativan] Adverse Reaction (Verified 08/03/22 06:52) Shortness of breath promethazine [From Phenergan] Adverse Reaction (Verified 08/03/22 06:52) Shortness of breath Home medications list reviewed: Yes Home Medications: Donepezil [Aricept*] 10 mg PO BEDTIME #60 tab 08/22/21 Aspirin [Aspirin EC 81 MG] 1 tab PO DAILY 08/02/22 Citalopram [Celexa*] 20 mg PO DAILY 08/02/22 Ferrous Sulfate [Ferrous Sulfate*] 325 mg PO BID 08/02/22 Levothyroxine [Synthroid*] 50 mcg PO DAILY 08/02/22 Magnesium Oxide [Mag 0X*] 400 mg PO DAILY 08/02/22 Metformin HCl [Glucophage*] 500 mg PO BIDWM 08/02/22 Cetirizine HCl 10 mg PO DAILY 08/03/22 Gabapentin [Neurontin*] 200 mg PO BID 01/25/23 Acetaminophen [Tylenol] 650 mg PO Q4HP PRN 12/10/23 Albuterol Sulfate [Albuterol Sulfate Hfa] 2 puff IH Q4HP PRN 12/10/23 Amiodarone HCl 100 mg PO BID 12/10/23 Cholecalciferol (Vitamin D3) [Vitamin D3] 2,000 unit PO DAILY 12/10/23 Docusate Sodium 100 mg PO DAILYPRN PRN 12/10/23 Fluticasone Propion/Salmeterol [Fluticasone-Salmeterol 500-50] 1 each IH BID 12/10/23 Guaifenesin/Dextromethorphan [Coricidin Hbp Chest Daljit-Cough] 2 each PO Q8HP PRN 12/10/23 Ipratropium/Albuterol Sulfate [Iprat-Albut 0.5-3(2.5) mg/3 ml] 3 ml IH Q4HP PRN 12/10/23 Loperamide [Imodium] 2 mg PO PRN PRN 12/10/23 Meclizine HCl 25 mg PO Q8H 12/10/23 Memantine HCl 5 mg PO DAILY 12/10/23 Multivitamin [Daily Multivitamin] 1 each PO DAILY 12/10/23 Nystatin Powder [Mycostatin (Powder)] 1 appl TP BIDP PRN 12/10/23 Polyethyl Gly 3350 [Glycolax] 17 gm PO DAILY 12/10/23 Potassium Chloride 20 meq PO DAILY 12/10/23 Pravastatin [Pravachol] 40 mg PO DAILY 12/10/23 Propylene Glycol/Pf [Systane Complete Pf 0.6% Drop] 1 each EACH EYE TID 12/10/23 Ramelteon [Rozerem] 8 mg PO BEDTIME PRN PRN 12/10/23 Sennosides [Senna] 8.6 mg PO DAILYPRN PRN 12/10/23 Tamsulosin [Flomax] 0.4 mg PO BEDTIME 12/10/23 Tiotropium [place] [Spiriva] 1 spray IH DAILY 12/10/23 Tramadol HCl [Ultram] 50 mg PO Q12HP PRN 12/10/23 Vit C/E/Zn/Coppr/Lutein/Zeaxan [Preservision Areds 2 Chew Tab] 1 each PO BID 12/10/23 atenoloL [Atenolol] 50 mg PO DAILY 12/10/23 glucagon HCL [Glucagon Emergency Kit] 1 mg IJ SEECOM PRN 12/10/23 guaiFENesin [Robitussin 100MG/5ML] 10 ml PO Q6HP PRN 12/10/23 predniSONE [Deltasone] 10 mg PO Q48H 12/10/23 - Past Medical/Surgical History Diabetic: Yes -: Diabetes mellitus type 2 -: Hypertension -: CAD -: Asthma -: Hypothyroidism -: Hyperlipidemia -: Diabetic neuropathy -: Anemia -: Obesity -: arthritis -: COPD -: dimentia -: Cholecystectomy -: CABG x3 vessels 2006 -: 08/02 Vertebroplasty Psychosocial/ Personal History: She is . - Family History Mother Medical History: Heart disease, Cancer - Social History Smoking Status: Unknown if ever smoked Alcohol use: No CD- Drugs: No Caffeine use: Yes Place of Residence: [facility] Review of Systems 10-point ROS is otherwise unremarkable Physical Examination Temp Pulse Resp BP Pulse Ox 97.7 F 82 16 145/63 H 100 12/10/23 12:00 12/10/23 12:00 12/10/23 12:00 12/10/23 12:00 12/10/23 12:00 General: Alert, In no apparent distress HEENT: Atraumatic, PERRLA, Mucous membr. moist/pink, EOMI, Sclerae nonicteric Neck: Supple, 2+ carotid pulse no bruit, No LAD, Without JVD or thyroid abnormality Respiratory: Clear to auscultation bilaterally, Normal air movement Cardiovascular: Regular rate/rhythm, Normal S1 S2 Gastrointestinal: Normal bowel sounds, No tenderness Musculoskeletal: No tenderness Integumentary: No rashes Neurological: Normal gait, Normal speech, Normal tone, Normal affect Lymphatics: No axilla or inguinal lymphadenopathy Laboratory Data (last 24 hrs) 12/09/23 12/09/23 12/09/23 19:55 19:55 19:55 WBC 7.20 Hgb 9.2 L Hct 27.0 L Plt Count 266 PT 12.9 H INR 1.16 APTT 39.3 H Sodium 133 L Potassium 4.4 BUN 19 H Creatinine 1.35 H Glucose 93 Magnesium 1.8 Total Bilirubin 0.4 AST 17 ALT 20 Alkaline Phosphatase 56 - Problems (1) Atrial fibrillation Current Visit: Yes Status: Acute Plan: Patient is currently in AF, rate controlled, not candidate for anticoagulation due to recent fall and large hematoma to her side Continue Amiodarone 200 mg po BID Continue Atenolol 50 mg daily Continue ASA 81 mg daily (2) SAMARIA (acute kidney injury) Current Visit: Yes Status: Acute Plan: can be secondary to dehyrdation, CXR is clear despite elevated BNP, gentle IV fluid get Echo to check on volume status (3) Hypertension Onset Date: 07/16/16 Current Visit: No Status: Acute Plan: continue atenolol Qualifiers: Hypertension type: essential hypertension Qualified Code(s): I10 - Essential (primary) hypertension
[2023-12-10] MEDS: ALBUTEROL 2.5 MG/3 ML NEB SOL NEB SCH (13:02)
[2023-12-10] MEDS: IPRATROPIUM BROM 0.5MG/2.5ML NEB SCH (13:02)
--- NOTE | 2023-12-10 13:06 | P.PN ---
Subjective Date of Service: 12/10/23 Chief Complaint: hypotension, altered mental status, dementia Patient is more awake and noted to be wheezing. She reports shortness of breath. She is currently maintained on 3 L oxygen by nasal canula. Physical Examination - Vital Signs Temperature: 97.7 F Blood Pressure: 145/63 Pulse: 82 Respirations: 16 Pulse Ox (%): 100 - Studies Laboratory Data (last 24 hrs) 12/09/23 12/09/23 12/09/23 19:55 19:55 19:55 WBC 7.20 Hgb 9.2 L Hct 27.0 L Plt Count 266 PT 12.9 H INR 1.16 APTT 39.3 H Sodium 133 L Potassium 4.4 BUN 19 H Creatinine 1.35 H Glucose 93 Magnesium 1.8 Total Bilirubin 0.4 AST 17 ALT 20 Alkaline Phosphatase 56 Microbiology Data (last 24 hrs): 12/09/23 19:55 Nasopharnyx Influenza Type A Antigen Screen - Final 12/09/23 19:55 Nasopharnyx Influenza Type B Antigen Screen - Final 12/09/23 19:55 Nasopharnyx Respiratory Syncytial Virus Ag Scrn - Final Assessment And Plan - Plan Physical examination General: Alert and oriented x 2, NAD, HEENT: Conjunctiva not pale, anicteric sclera Neck: Supple, no elevated JVD Heart: Heart sounds 1 and 2 normal, regular rhythm, normal rate, no pedal edema Lungs: Bilateral wheezes, adequate breath sounds bilaterally, no crackles. Abdomen: Soft, nondistended, nontender, normal bowel sounds. Extremities: No tenderness, no deformity Skin: Normal skin turgor, no rash, no nodules or ulcers. Neuro: No focal motor deficit. Normal speech. Psychiatry: Normal mood, no agitation. Assessment and plan Acute metabolic encephalopathy Mental status has significantly improved. Possible causes include hypotension, CO2 retention or UTI. Obtain arterial blood gas to assess for CO2 retention Straight catheterized for urinalysis reflex culture. Neurochecks. Acute COPD exacerbation Scheduled bronchodilators IV steroid. Supplemental oxygen as needed. Clear chest x-ray. No indication for antibiotics for now. Hypotension Lactic acidosis SAMARIA Hypotension likely secondary to dehydration and antihypertensive use Reported poor oral intake. SAMARIA likely prerenal. Status post IV NS boluses Continue IV hydration and monitor renal function. Hold atenolol. Diabetes mellitus type 2 Diabetic neuropathy Insulin sliding scale for glucose management. Hypothyroidism Check TSH Continue home dose Synthroid. Chronic anemia Stable Monitor H&H and transfuse as needed Dementia Continue home medications Coronary disease disease Atenolol on hold Continue statin Continue aspirin. Atrial fibrillation Currently rate controlled. Cardiology input appreciated. DVT prophylaxis: SCD Advanced directive: Full code.
[2023-12-10] MEDS: PROPYLENE GLYCOL OPTH SCH (14:00)
[2023-12-10] MEDS: AMIODARONE HCL 200 MG TAB PO SCH (14:09)
[2023-12-10 14:45] LABS: Blood Gas Oxyhemoglobin 53.8 % (94-97); Blood Gas THB 8.1 g/dl (12-18)
[2023-12-10 19:39] LABS: Anion Gap 11.9 mEq/L (5.0-15.0); Potassium 4.9 mEq/L (3.5-5.1)
[2023-12-10] MEDS: METHYLPREDNISOLONE 40 MG INJ IV SCH (20:29)
[2023-12-10] MEDS: FERROUS SULFATE 325 MG TAB PO SCH (20:32)
[2023-12-10] MEDS: TAMSULOSIN 0.4 MG SR CAP PO SCH (20:32)
[2023-12-10] MEDS: DONEPEZIL HCL 5 MG TAB PO SCH (20:33)
[2023-12-10] MEDS: GABAPENTIN 100 MG CAP PO SCH (20:33)
[2023-12-10] MEDS: TRAMADOL HCL 50 MG TAB PO PRN (20:34)
[2023-12-10] MEDS: FLUTICASONE PROPION IH SCH (20:40)
[2023-12-10] MEDS: BLST W D IH SCH (20:40)
[2023-12-10] MEDS: SALMETEROL IH SCH (20:40)
[2023-12-11 05:10] LABS: Specific Gravity 1.017 (1.005-1.030); Sqamous Epithelial None Seen /HPF (None Seen); Urine Bacteria None Seen /HPF (<20); Urine Bilirubin NEGATIVE (Negative); Urine Blood 1+ (Negative); Urine Clarity Clear (Clear); Urine Color Colorless (Yellow); Urine Culture Reflex Order NOT NEEDED; Urine Glucose NEGATIVE (Negative); Urine Ketones NEGATIVE (Negative); Urine Micro Reflex YN NO BILL MICROSCOPIC; Urine Mucus Slight /HPF (None Seen); Urine Nitrite NEGATIVE (Negative); Urine Protein NEGATIVE (Negative); Urine RBC <5 /HPF (None Seen); Urine Urobilinogen Normal (Normal); Urine WBC <5 /HPF (<5)
[2023-12-11 05:18] LABS: Troponin High Sensitivity 10.7 pg/mL (<58.9)
[2023-12-11] MEDS: NA CHLORIDE 0.9% 1,000 ML IV SCH ×2 (07:45→12:23)
[2023-12-11] MEDS: POLYETHYL GLY 3350 17 GM/DOSE PO SCH (08:53)
[2023-12-11] MEDS: MULTIVITAMIN TAB PO SCH (08:54)
[2023-12-11] MEDS: CITALOPRAM 10 MG TABLET PO SCH (08:55)
[2023-12-11] MEDS: MEMANTINE HCL 10 MG TABLET PO SCH (08:57)
[2023-12-11] MEDS: VITAMIN D 1000 UNIT TAB PO SCH (08:58)
[2023-12-11] MEDS: TIOTROPIUM 5 SPRAYS/INHALER IH SCH (09:00)
[2023-12-11] MEDS ORDERED: HOME MED 1 EA UNK (Pravastatin [Pravachol*] 40 MG/TAB Tab) PO SCH (09:00)
--- NOTE | 2023-12-11 12:24 | ECHO ---
HEIGHT: 5 ft 4 in WEIGHT: 167 lb 12.8 oz DATE OF STUDY: 12/10/[address]: Tung Tracy MD 2-DIMENSIONAL: YES M.MODE: YES DOPPLER: YES COLOR FLOW: YES TDS: PORTABLE: YES DEFINITY: BUBBLE STUDY: DIAGNOSIS: CONGESTIVE HEART FAILURE CARDIAC HISTORY: CATHERIZATION: NO SURGERY: NO PROSTHETIC VALVE: NO PACEMAKER: NO MEASUREMENTS (cm) DIASTOLIC (NORMALS) SYSTOLIC (NORMALS) IVSd 1.2 (0.6-1.2) LA Diam 3.2 (1.9-4.0) LVEF 65% LVIDd 4.3 (3.5-5.7) LVIDs 2.6 (2.0-3.5) %FS 39% LVPWd 1.2 (0.6-1.2) Ao Diam 2.8 (2.0-3.7) 2 DIMENSIONAL ASSESSMENT: RIGHT ATRIUM: NORMAL LEFT ATRIUM: MODERATELY DILATED RIGHT VENTRICLE: NORMAL LEFT VENTRICLE: NORMAL TRICUSPID VALVE: MILD TRICUSPID REGURGITATION MITRAL VALVE: MILD MITRAL REGURGITATION PULMONIC VALVE: NORMAL AORTIC VALVE: MILD AORTIC STENOSIS PERICARDIAL EFFUSION: NONE AORTIC ROOT: NORMAL LEFT VENTRICULAR WALL MOTION: NORMAL DOPPLER/COLOR FLOW: DIASTOLIC DYSFUNCTION COMMENTS: 1. NORMAL LEFT VENTRICULAR SYSTOLIC FUNCTION, EJECTION FRACTION 65%, NORMAL WALL MOTION 2. DIASTOLIC DYSFUNCTION 3. MODERATELY DILATED LEFT ATRIUM 4. MILD TRICUSPID REGURGITATION, MITRAL REGURGITATION TECHNOLOGIST: KINGA BROCK
--- NOTE | 2023-12-11 13:05 | P.PN ---
Subjective Date of Service: 12/11/23 Chief Complaint: hypotension, altered mental status, dementia Subjective: No new changes, No C/O voiced, Tolerating diet, Ambulating, Improving Review of Systems 10-point ROS is otherwise unremarkable Physical Examination - Vital Signs Temperature: 97.0 F Blood Pressure: 136/67 Pulse: 71 Respirations: 17 Pulse Ox (%): 97 - Physical Exam General: Alert, In no apparent distress HEENT: Atraumatic, PERRLA, EOMI Neck: Supple, JVD not distended Respiratory: Crackles/rales Cardiovascular: Regular rate/rhythm, Normal S1 S2 Gastrointestinal: Normal bowel sounds, No tenderness Musculoskeletal: No tenderness Integumentary: No rashes Neurological: Normal speech, Normal tone, Normal affect Lymphatics: No axilla or inguinal lymphadenopathy - Studies Medications List Reviewed: Yes Assessment And Plan - Current Problems (Diagnosis) (1) Atrial fibrillation Current Visit: Yes Status: Acute Plan: Patient is currently in AF, rate controlled, not candidate for anticoagulation due to recent fall and large hematoma to her side Continue Amiodarone 200 mg po BID Continue Atenolol 50 mg daily Continue ASA 81 mg daily (2) SAMARIA (acute kidney injury) Current Visit: Yes Status: Acute Plan: Echo shows diastolic dysfunction, elevated BNP with lung exam shows crackles challenge patient with Lasix 40 mg IV BID Monitor input and output and kidney function. (3) Hypertension Onset Date: 07/16/16 Current Visit: No Status: Acute Plan: continue atenolol Qualifiers: Hypertension type: essential hypertension Qualified Code(s): I10 - Essential (primary) hypertension
--- NOTE | 2023-12-11 13:44 | RAD REPORT ---
EXAMINATION: US RENAL ULTRASOUND CLINICAL INDICATION: SAMARIA TECHNIQUE: Real-time ultrasonography of the abdomen was performed. COMPARISON: No prior exam. FINDINGS: RIGHT KIDNEY: Right renal length measurement: 9.9 x 4.4 x 4.4 cm. Normal in echogenicity and size. No calculus, solid mass or hydronephrosis. LEFT KIDNEY: Left renal length measurement: 10.5 x 4.5 x 3.8 cm. Normal in echogenicity and size. No calculus, solid mass or hydronephrosis. URINARY BLADDER: Decompressed by means of Samuels catheter. ADDITIONAL FINDINGS: None. IMPRESSION: Unremarkable renal ultrasound.
--- NOTE | 2023-12-11 14:01 | RAD REPORT ---
EXAMINATION: ONE VIEW CHEST XR CLINICAL INDICATION: Vascular congestion TECHNIQUE: Frontal chest projection is submitted. Examination is limited by patient positioning and t echnique. COMPARISON: 12/09/2023 FINDINGS: Moderate bilateral pulmonary opacities are noted likely representing pulmonary edema. The heart is mo derately enlarged with sternotomy wires present. No displaced fractures identified. IMPRESSION: Moderate CHF versus volume overload pattern, progressive since comparison study.
--- NOTE | 2023-12-11 14:31 | P.PN ---
Subjective Date of Service: 12/11/23 Chief Complaint: hypotension, altered mental status, dementia Patient is awake and alert and interactive. She is tolerating her diet. She reports significant improvement in her shortness of breath though still wheezing. She is tolerating 2 L oxygen by nasal cannula. Physical Examination - Vital Signs Temperature: 97.0 F Blood Pressure: 136/67 Pulse: 71 Respirations: 17 Pulse Ox (%): 97 - Studies Medications List Reviewed: Yes Assessment And Plan - Plan Physical examination General: Alert and oriented x 2, NAD, Neck: Supple, no elevated JVD Heart: Heart sounds 1 and 2 normal, regular rhythm, normal rate, no pedal edema Lungs: Bilateral wheezes, adequate breath sounds bilaterally, no crackles. Abdomen: Soft, nondistended, nontender, normal bowel sounds. Extremities: No tenderness, no deformity Skin: Normal skin turgor, no rash, no nodules or ulcers. Neuro: No focal motor deficit. Normal speech. Psychiatry: Normal mood, no agitation. Assessment and plan Acute metabolic encephalopathy Mental status has significantly improved. Possible causes include hypotension. No CO2 retention or UTI. Neurochecks. Acute COPD exacerbation Scheduled bronchodilators Continue IV steroid. Wean oxygen Clear chest x-ray. No indication for antibiotics for now. Hypotension Lactic acidosis SAMARIA Hypotension likely secondary to dehydration and antihypertensive use Reported poor oral intake. SAMARIA likely a combination prerenal. ATN from hypotension may also be contributing. Status post IV NS boluses. Nephrology Dr. Flowers input appreciated. Dr. Flowers is titrating IV fluid Atenolol is on hold. Diabetes mellitus type 2 Diabetic neuropathy Insulin sliding scale for glucose management. Hypothyroidism Normal TSH. Continue home dose Synthroid. Chronic anemia Stable Monitor H&H and transfuse as needed Dementia Continue home medications Coronary disease disease Atenolol on hold Continue statin Continue aspirin. Cardiology input appreciated. Atrial fibrillation Currently rate controlled. Cardiology input appreciated. DVT prophylaxis: SCD Advanced directive: Full code.
--- NOTE | 2023-12-11 14:54 | EKG ---
Test Date: 2023-12-09 Test Time: 20:08:01 Housing Liaison: SANCHEZ MEASUREMENT RESULTS: Intervals: Rate: 99 [place]: QRSD: 88 QT: 374 QTc: 479 [place]: P: TX: QRS: 53 T: 162 INTERPRETIVE STATEMENTS: Sinus tachycardia with AV dissociation and Accelerated Junctional rhythm with occasional premature ventricular complexes Nonspecific ST abnormality Abnormal QRS-T angle, consider primary T wave abnormality Abnormal ECG Compared to ECG 01/24/2023 19:42:03 Accelerated junctional rhythm now present Ventricular premature complex(es) now present AV dissociation now present T-wave abnormality now present Sinus bradycardia no longer present First degree AV block no longer present ST (T wave) deviation still present Electronically Signed On 12-11-23 14:47:37 CDT by Pieter Galvan
--- NOTE | 2023-12-11 16:30 | CON ---
Date of Consultation: 12/11/2023 Reason For Consultation: Elevated BUN and creatinine, fluid management. History Of Present Illness: All the information has been obtained from the record as the patient is pleasantly confused. This is an 83-year-old female with significant past medical history of atrial fibrillation, hypertension, hyperlipidemia, diabetes, dementia, lives in a skilled facility, the patient was brought for shortness of breath and over volume, found to have elevation in BUN and creatinine. For that reason, we have been consulted. Reviewing the record for the patient, the patient had contrast yesterday. At the [facility], the patient being on no LATANYA inhibitor. No diuresis. No ARB. Patient's lab data back on November 27, creatinine 1.4 with GFR of 39. As I mentioned, the patient had contrast yesterday. Blood pressure been stable. No hypotension. No other insult. Past Medical History: Includes: 1. Hypertension. 2. Hyperlipidemia. 3. CAD complicated with congestive heart failure. 4. Hypothyroidism. 5. Diabetes complicated with neuropathy. 6. COPD. 7. Alzheimer dementia. Past Surgical History: Includes cholecystectomy, CABG, vertebroplasty. Family History: Positive for cancer. Social History: Lives in [facility]. No smoking. No drinking. No drugs abuse. Review of Systems: None obtainable. Home Medications: Include cholecalciferol, folic acid, prednisone, metformin, levothyroxine, cetirizine, breathing treatment, amiodarone, tramadol. Review of Systems: None obtainable. Physical Examination: Vital Signs: When I saw the patient, blood pressure 145/64, pulse of 100. Chest: Crackles bilateral. Heart: S1, S2. Systolic murmur. Irregular. Abdomen: Soft, nontender. Extremities: +1 edema. Neurologic: Alert, confused, pleasant. No focality. Laboratory Data: Dated on admission on the , creatinine 1.3, GFR of 39. Today lab data; sodium 134, potassium 4.9, bicarb 23, BUN 34, creatinine 2.1, GFR 22, calcium 9.3. WBC 7.2, hemoglobin 9.5. Current Medications: The patient on include amiodarone, ferrous sulfate, citalopram, Namenda, IV fluid was started today, Solu-Medrol. Assessment And Plan: 1. Acute kidney injury multifactorial secondary to contrast-induced nephropathy superimposed with acute tubular necrosis secondary to low blood pressure, complicated with hyperkalemia. a. I agree with current hydration. I am going to decrease the IV fluid to avoid over volume to 50. We will monitor for the response. I agree with holding metformin. We will send for workup and we will follow up the patient. I do not see the need to initiate any renal replacement therapy yet. b. Avoid any LATANYA inhibitor or ARB. Avoid further contrast exposure. 2. Hypertension with the presence of acute kidney injury. Hold diuresis for the time being. 3. Congestive heart failure with exacerbation with acute kidney injury. We will hold the diuresis. We will resume tomorrow. Continue IV fluid. 4. Diabetes with the presence of acute kidney injury. Hold the metformin. 5. Anasarca secondary to cardiorenal. We will resume diuresis tomorrow. 6. Hyperkalemia secondary to renal failure, resolved. 7. Hyponatremia dilutional. Will be corrected with diuresis. Thank you Dr. Hernandez for allowing us to participate in the care of your patient. Time spent examining the patient [id number] reviewing data lab and the radiology placing order discussing the case with the patient/family member, discussing the case with the produce service team member including hospitalist and nursing staff more than 75 minutes OMAR Voice ID: [id number] Report ID: [id number] CINTIA
[2023-12-11] MEDS: guaiFENesin 100 MG/5 ML UCUP PO PRN (19:01)
[2023-12-11] MEDS ORDERED: METHYLPREDNISOLONE 40 MG INJ IV SCH (19:30)
[2023-12-12 00:27] LABS: Urine Protein/Creatinine Ratio 0.33 ratio (<0.15)
[2023-12-12 05:26] LABS: Absolute Lymphocytes (CBC) 0.2 K/uL (0.7-4.9); Absolute Monocytes 0.2 K/uL (0.1-1.3); Absolute Neutrophil 9.6 K/uL (1.8-8.0); Hematocrit 23.8 % (36.0-45.0); Hemoglobin 7.9 g/dL (12.0-15.0); Lymphocytes % 1.9 % (15.3-44.8); MCH 34.1 pg (27.0-35.0); MCHC 33.4 g/dL (32.0-36.0); MCV 102.2 fL (80-100); MPV 6.2 fL (7.6-11.3); Monocytes % 2.5 % (3.3-12.3); Neutrophils % 95.6 % (41.7-73.7); Percent Reticulocyte Count 2.88 % (0.4-2.05); Platelets 280 thou/uL (152-406); RBC Red Blood Cell Count 2.33 M/uL (3.86-4.86); Red Cell Distribution Width 14.7 % (12.1-15.2)
[2023-12-12 05:49] LABS: Albumin 2.9 g/dL (3.4-5.0); Anion Gap 12.8 mEq/L (5.0-15.0); Ferritin 22.8 ng/mL (8-252); Magnesium 1.7 mg/dL (1.6-2.4); Phosphorus 2.9 mg/dL (2.5-4.9); Potassium 4.8 mEq/L (3.5-5.1); Thyroid Stimulating Hormone 0.244 uIU/mL (0.358-3.740); Troponin High Sensitivity 17.4 pg/mL (<58.9); Uric Acid 5.2 mg/dL (2.6-6.0)
[2023-12-12 06:48] LABS: Basophilic Stippling 2+; Blood Morphology Comment NOTED (NOT SEEN); Hypochromasia 1+; Macrocytosis 1+; Platelet Estimate ADEQ; Polychromasia 1+; White Blood Cell Scan OK (OK)
[2023-12-12] MEDS: MAGNESIUM SULFATE 1 gm IVPB 1 GM/100 ML BAG IV ONE (08:08)
[2023-12-12] MEDS: SOD FERRIC GLUC COMPLX/SUCROSE 250 MG in NA CHLORIDE 0.9% 250 ML IV SCH (13:29)
--- NOTE | 2023-12-12 13:50 | P.PN ---
Subjective Date of Service: 12/12/23 Chief Complaint: hypotension, altered mental status, dementia Patient is awake and alert. Patient still maintaining oral 2 L oxygen by nasal cannula. She still has nonproductive cough She is tolerating her diet. Repeat chest x-ray shows pulmonary vascular congestion. No recorded fever. Renal function has improved. Physical Examination - Vital Signs Temperature: 97.6 F Blood Pressure: 151/81 Pulse: 91 Respirations: 20 Pulse Ox (%): 99 - Studies Medications List Reviewed: Yes Assessment And Plan - Plan Physical examination General: Alert and oriented x 2, NAD, Neck: Supple, no elevated JVD Heart: Heart sounds 1 and 2 normal, regular rhythm, normal rate, no pedal edema Lungs: Bilateral wheezes, bibasilar crackles, adequate breath sounds bilaterally. Abdomen: Soft, nondistended, nontender, normal bowel sounds. Extremities: No tenderness, no deformity Skin: Normal skin turgor, no rash, no nodules or ulcers. Neuro: No focal motor deficit. Normal speech. Psychiatry: Normal mood, no agitation. Assessment and plan Acute metabolic encephalopathy AMS resolved. Possible causes include hypotension. No CO2 retention or UTI. PT evaluation. Acute COPD exacerbation Scheduled bronchodilators Continue IV steroid. Wean oxygen No indication for antibiotics for now. Hypotension Lactic acidosis SAMARIA Hypotension likely secondary to dehydration and antihypertensive use Reported poor oral intake. SAMARIA likely a combination prerenal. ATN from hypotension may also be contributing. Status post IV NS boluses and IV fluid. Nephrology Dr. Flowers is following. SAMARIA significantly improved. Urine output significantly improved. IV fluid discontinued and patient started on IV Lasix. Patient is currently hypertensive. Resume atenolol. Diabetes mellitus type 2 Diabetic neuropathy Insulin sliding scale for glucose management. Hypothyroidism Normal TSH. Continue home dose Synthroid. Chronic anemia Stable Monitor H&H and transfuse as needed Dementia Continue home medications Coronary disease disease Resume atenolol Continue statin Continue aspirin. Cardiology input appreciated. Atrial fibrillation Currently rate controlled. Cardiology input appreciated. Resume atenolol Acute on chronic diastolic heart failure Chest x-ray report vascular congestion. Patient started on IV Lasix Monitor intake and output. DVT prophylaxis: SCD Advanced directive: Full code.
--- NOTE | 2023-12-12 16:34 | PN ---
Date of Progress Note: 12/12/2023 Subjective: Patient was admitted to the hospital with acute kidney injury secondary to contrast-induced nephropathy and cardiorenal. The patient was started on IV hydration. Kidney function has been improved. The patient is better. Still has shortness of breath. Objective: Vital Signs: Blood pressure 161/75, pulse of 85, afebrile. Chest: Crackles, bilateral. Heart: S1, S2. Systolic murmur. Abdomen: Soft, nontender. Extremities: Plus edema. Neurologic: Alert. No focality. Laboratory Data: Renal ultrasound: No hydronephrosis, 9.9/10.5. Chest x-ray: Cardiomegaly with congestion. WBC 10.1, hemoglobin 7.9, sodium 139, potassium 4.8, bicarb 25, BUN 26, creatinine 1.3, GFR of 37, calcium 9.7, phosphorus 2.9, magnesium 1.7, iron saturation 11, ferritin 22, albumin 2.9. TSH 0.2. PTH is still pending. Urinalysis negative for infection. PC ratio 0.3. Current Medications: The patient on: 1. IV fluid. 2. Donepezil. 3. Flomax. 4. Amiodarone. 5. Gabapentin. 6. Breathing treatment. Assessment And Plan: 1. Acute kidney injury secondary to contrast-induced nephropathy/cardiorenal syndrome, overvolume. I will discontinue IV fluid. Start the patient on Lasix 40 mg b.i.d. and we will monitor for recovery. 2. Hypertension, not controlled. We will utilize the blood pressure for more diuresis. Discontinue the IV fluid. Start the Lasix. 3. Hypomagnesemia. We will supplement. 4. Chronic kidney disease. Normal size kidney. Nonproteinuric secondary to cardiorenal/diabetes nephropathy/hypertension, nephrosclerosis, overvolume with acute kidney injury, as above. 5. Hyponatremia, dilutional. We will continue diuresis. 6. Hyperkalemia, resolved. 7. Iron-deficiency anemia with the presence of congestive heart failure. I am going to start the patient on IV iron, and we will follow up the patient. Time spent examining the patient [id number] reviewing data lab and the radiology placing order discussing the case with the patient/family member, discussing the case with the team facilitator including hospitalist and nursing staff more than 55 minutes OMAR Voice ID: [id number] Report ID: [id number] CINTIA
[2023-12-12] MEDS: FUROSEMIDE 40 MG/4 ML VIAL IV SCH (18:21)
[2023-12-13 06:36] LABS: Absolute Lymphocytes (CBC) 0.2 K/uL (0.7-4.9); Absolute Monocytes 0.4 K/uL (0.1-1.3); Absolute Neutrophil 8.9 K/uL (1.8-8.0); Hematocrit 23.6 % (36.0-45.0); Hemoglobin 7.9 g/dL (12.0-15.0); Lymphocytes % 2.2 % (15.3-44.8); MCH 34.1 pg (27.0-35.0); MCHC 33.5 g/dL (32.0-36.0); MCV 101.7 fL (80-100); MPV 6.3 fL (7.6-11.3); Monocytes % 4.4 % (3.3-12.3); Neutrophils % 93.4 % (41.7-73.7); Platelets 279 thou/uL (152-406); RBC Red Blood Cell Count 2.32 M/uL (3.86-4.86); Red Cell Distribution Width 14.5 % (12.1-15.2)
[2023-12-13 07:25] LABS: Anion Gap 9.2 mEq/L (5.0-15.0); Magnesium 1.6 mg/dL (1.6-2.4); Phosphorus 2.8 mg/dL (2.5-4.9); Potassium 4.2 mEq/L (3.5-5.1)
[2023-12-13 08:25] LABS: Troponin High Sensitivity 13.9 pg/mL (<58.9)
[2023-12-13] MEDS ORDERED: NYSTATIN PWDR 100000 UNIT/GM TOP PRN (12:53)
[2023-12-13] MEDS ORDERED: MECLIZINE HCL 25 MG PO SCH (13:00)
--- NOTE | 2023-12-13 13:02 | P.PN ---
Subjective Date of Service: 12/13/23 Chief Complaint: hypotension, altered mental status, dementia Patient is awake and alert. Patient states his coughing has improved. She is tolerating her diet. No recorded fever. Renal function continues to improve. Physical Examination - Vital Signs Temperature: 98.4 F Blood Pressure: 164/84 Pulse: 96 Respirations: 16 Pulse Ox (%): 94 - Studies Medications List Reviewed: Yes Assessment And Plan - Plan Physical examination General: Alert and oriented x 2, NAD, Neck: Supple, no elevated JVD Heart: Heart sounds 1 and 2 normal, regular rhythm, normal rate, no pedal edema Lungs: Bilateral wheezes, bibasilar crackles, adequate breath sounds bilaterally. Abdomen: Soft, nondistended, nontender, normal bowel sounds. Extremities: No tenderness, no deformity Skin: Normal skin turgor, no rash, no nodules or ulcers. Neuro: No focal motor deficit. Normal speech. Psychiatry: Normal mood, no agitation. Assessment and plan Acute metabolic encephalopathy AMS resolved. Possible causes include hypotension. No CO2 retention or UTI. Continue PT Acute COPD exacerbation Scheduled bronchodilators Continue IV steroid. Wean oxygen No indication for antibiotics for now. Hypotension Lactic acidosis SAMARIA Hypotension likely secondary to dehydration and antihypertensive use Reported poor oral intake. SAMARIA likely a combination prerenal. ATN from hypotension may also be contributing. Status post IV NS boluses and IV fluid. Nephrology Dr. Flowers is following. SAMARIA significantly improved and almost resolved. Urine output significantly improved. IV fluid discontinued and patient started on IV Lasix. Patient is hypertensive. Continue atenolol. Diabetes mellitus type 2 Diabetic neuropathy Insulin sliding scale for glucose management. Hypothyroidism Normal TSH. Continue home dose Synthroid. Chronic anemia Stable Monitor H&H and transfuse as needed Dementia Continue home medications Coronary disease disease Continue atenolol Continue statin Continue aspirin. Cardiology input appreciated. Atrial fibrillation Continue atenolol Cardiology input appreciated. Acute on chronic diastolic heart failure Chest x-ray report vascular congestion. Patient is on IV Lasix Monitor intake and output. DVT prophylaxis: SCD Advanced directive: Full code.
[2023-12-13] MEDS ORDERED: MECLIZINE HCL 12.5 MG TAB PO PRN (13:14)
[2023-12-13] MEDS: atenoloL 50 MG TAB PO SCH (15:46)
[2023-12-13] MEDS: MECLIZINE HCL 12.5 MG TAB PO SCH (15:46)
[2023-12-13] MEDS: CETIRIZINE HCL 5 MG TABLET PO SCH (15:46)
--- NOTE | 2023-12-13 21:51 | PN ---
Date of Progress Note: 12/13/2023 Chief Complaint: Acute kidney injury. History Of Present Illness: Patient is admitted to the hospital with acute kidney injury secondary t o contrast-induced nephropathy and cardiorenal syndrome. Patient was started on IV fluids for contra st induced nephropathy to prevent kidney failure. Kidney function has improved. The patient has onesimo e shortness of breath. Denies chest pain, palpitation. Review of Systems: General: Denies fever, chills. Eyes: Denies vision changes. Heart: Denies syncope, palpitations, chest pain. Physical Examination: Lungs: Crackles bilaterally at bases. Heart: S1 and S2. 2/6 systolic murmur. Abdomen: Soft, benign, nontender. Extremities: 1+ edema. Impression And Plan: 1.Acute kidney injury secondary to contrast-induced nephropathy, cardiorenal syndrome. IV fluids we re stopped. Patient was started on Lasix for hypervolemia and fluid overload. 2.Hypertension. Continue blood pressure medication. Continue Lasix. Continue low-sodium diet. Bl ood pressure is improving. 3.Hypomagnesemia. Supplementation as needed. 4.Chronic kidney disease. Kidney ultrasound was done to rule out obstructive uropathy. There is no hydronephrosis. 5.Cardiorenal syndrome. Continue low-sodium diet and Lasix. 6.Hyponatremia due to cardiorenal syndrome. Continue diuretics. 7.Hyperkalemia, resolved. Monitor renal function and avoid high potassium intake. SANDRINE/THADDEUS Voice ID: [id number] Report ID: [id number]
[2023-12-14 06:43] LABS: Absolute Lymphocytes (CBC) 0.3 K/uL (0.7-4.9); Absolute Monocytes 0.4 K/uL (0.1-1.3); Absolute Neutrophil 8.6 K/uL (1.8-8.0); Hematocrit 27.9 % (36.0-45.0); Lymphocytes % 3.7 % (15.3-44.8); MCH 33.1 pg (27.0-35.0); MCHC 32.4 g/dL (32.0-36.0); MPV 6.4 fL (7.6-11.3); Monocytes % 4.5 % (3.3-12.3); Neutrophils % 91.8 % (41.7-73.7); Nucleated Red Blood Cells % 0.1 % (0-0); Platelets 316 thou/uL (152-406); RBC Red Blood Cell Count 2.73 M/uL (3.86-4.86); Red Cell Distribution Width 14.3 % (12.1-15.2)
[2023-12-14 06:57] LABS: Albumin 3.2 g/dL (3.4-5.0); Anion Gap 9.8 mEq/L (5.0-15.0); Magnesium 1.7 mg/dL (1.6-2.4); Phosphorus 3.4 mg/dL (2.5-4.9); Potassium 3.8 mEq/L (3.5-5.1)
[2023-12-14 08:49] LABS: Blood Morphology Comment NOTED (NOT SEEN); Macrocytosis 1+; Platelet Estimate ADEQ; Toxic Granulation 1+; White Blood Cell Scan OK (OK)
[2023-12-14 08:50] LABS: Basophilic Stippling 1+; Polychromasia SLIGHT
[2023-12-14] MEDS ORDERED: HOME MED 1 EA UNK (Cetirizine Hcl [Cetirizine Hcl] 10 MG Tablet) PO SCH (09:00)
[2023-12-14] MEDS: MAGNESIUM OXIDE 400 MG TAB PO SCH (09:13)
[2023-12-14] MEDS: POTASSIUM CL SA 10 MEQ TAB PO ONE (11:11)
[2023-12-14] MEDS: MAGNESIUM SULFATE 1 gm IVPB 1 GM/100 ML BAG IV ONE (11:12)
--- NOTE | 2023-12-14 13:04 | P.PN ---
Subjective Date of Service: 12/14/23 Chief Complaint: hypotension, altered mental status, dementia Patient is awake and alert. She states she feels better today however noted patient has been coughing intermittently. She is tolerating her diet. No recorded fever. Physical Examination - Vital Signs Temperature: 97.8 F Blood Pressure: 140/62 Pulse: 92 Respirations: 16 Pulse Ox (%): 97 - Studies Medications List Reviewed: Yes Assessment And Plan - Plan Physical examination General: Alert and oriented x 2, NAD, Neck: Supple, no elevated JVD Heart: Heart sounds 1 and 2 normal, regular rhythm, normal rate, no pedal edema Lungs: Bilateral wheezes, mild bibasilar crackles, adequate breath sounds bilaterally. Abdomen: Soft, nondistended, nontender, normal bowel sounds. Extremities: No tenderness, no deformity Skin: Normal skin turgor, no rash, no nodules or ulcers. Neuro: No focal motor deficit. Normal speech. Psychiatry: Normal mood, no agitation. Assessment and plan Acute metabolic encephalopathy AMS resolved. Possible causes include hypotension. No CO2 retention or UTI. Continue PT. Increase activity as tolerated Acute COPD exacerbation Infective bronchitis Scheduled bronchodilators Continue IV steroid. Added oral antibiotics. Pulmonary is following Wean oxygen Hypotension Lactic acidosis SAMARIA Hypotension likely secondary to dehydration and antihypertensive use Reported poor oral intake. SAMARIA likely a combination prerenal. ATN from hypotension may also be contributing. Status post IV NS boluses and IV fluid. Nephrology Dr. Flowers is following. SAMARIA significantly improved and almost resolved. Urine output significantly improved. IV fluid discontinued Patient is hypertensive. Continue atenolol. Diabetes mellitus type 2 Diabetic neuropathy Insulin sliding scale for glucose management. Hypothyroidism Normal TSH. Continue home dose Synthroid. Chronic anemia Stable Monitor H&H and transfuse as needed Dementia Continue home medications Coronary disease disease Continue atenolol Continue statin Continue aspirin. Cardiology input appreciated. Atrial fibrillation Continue atenolol Cardiology input appreciated. Acute on chronic diastolic heart failure Chest x-ray report vascular congestion. Patient is on IV Lasix. Scale down Lasix to 40 mg daily. Monitor intake and output. DVT prophylaxis: SCD Advanced directive: Full code.
--- NOTE | 2023-12-14 18:46 | PN ---
Date of Progress Note: 12/14/2023 Subjective: No overnight event. Creatinine is slightly increasing. Continue Lasix. Still have mil d rales on examination. Continue inhalers. Objective: Vital Signs: Temperature 37.8, pulse rate 92, blood pressure 140/62. General: Awake and alert, not in distress. Neck: Supple. No elevated JVD. Heart: Regular rhythm. Normal S1, S2. Chest: Right basilar rales. Abdomen: Soft, nontender. Extremities: No edema. Laboratory Data: Sodium 137, potassium 3.8, BUN 42, creatinine 1.58, blood sugar 173, calcium 10.4. Assessment And Plan: 1.This is an 83-year-old woman, past medical history of congestive heart failure, chronic obstructiv e pulmonary disease, dementia, hypertension, and atrial fibrillation, who was admitted for shortness of breath. Symptoms improve on IV fluid inhaler, steroids, and diuretic. Nephrology consulted for c hronic kidney disease management and Nephrology consulted for abnormal renal function, acute kidney i njury possibly due to cardiorenal syndrome. Creatinine today slightly elevated. Continue Lasix. Av oid NSAID and contrast. Renal dose medication. 2.Hypertension. Blood pressure controlled. 3.Hypomagnesemia. Continue magnesium supplementation. 4.Anemia of chronic disease. Continue IV iron. Monitor H and H. 5.Chronic obstructive pulmonary disease. Continue steroids on oxygen inhalers. 6.Diabetes mellitus. Continue insulin. Continue to hold metformin. 7.Atrial fibrillation, currently rate controlled. Thanks for allowing me to participate in the patient's care. Total time spent 55 minutes, including documentation, reviewing labs, and discussing with the daughter at t he bedside. LUX Voice ID: [id number] Report ID: [id number]
[2023-12-14] MEDS: CEFUROXIME 250 MG TAB PO SCH (20:43)
[2023-12-14] MEDS: DOXYCYCLINE 100 MG CAP PO SCH (20:44)
--- NOTE | 2023-12-15 08:52 | P.PN ---
Subjective Date of Service: 12/15/23 Chief Complaint: hypotension, altered mental status, dementia Subjective: No overnight event. Creatinine is slightly increasing. Continue Lasix. rales on exam Continue inhalers. labs pending General: Awake and alert, not in distress. Neck: Supple. No elevated JVD. Heart: Regular rhythm. Normal S1, S2. Chest: Right basilar rales. Abdomen: Soft, nontender. Extremities: No edema. Assessment And Plan: #. This is an 83-year-old woman, past medical history of congestive heart failure, chronic obstructive pulmonary disease, dementia, hypertension, and atrial fibrillation, who was admitted for shortness of breath. Symptoms improve on IV fluid inhaler, steroids, and diuretic. Nephrology consulted for abnormal renal function, #acute kidney injury possibly due to cardiorenal syndrome. Cr trending up , lasix reduced . Continue Lasix. Avoid NSAID and contrast. Renal dose medication. #. Hypertension. Blood pressure controlled. #. Hypomagnesemia. Continue magnesium supplementation. #. Anemia of chronic disease. Continue IV iron. Monitor H and H. #. Chronic obstructive pulmonary disease. Continue steroids on oxygen inhalers. #. Diabetes mellitus. Continue insulin. Continue to hold metformin. #. Atrial fibrillation, currently rate controlled. Thanks for allowing me to participate in the patient's care. Total time spent 55 minutes, including documentation, reviewing labs, and discussing with the daughter at the bedside. Physical Examination - Vital Signs Temperature: 97.6 F Blood Pressure: 131/81 Pulse: 111 Respirations: 16 Pulse Ox (%): 92 - Studies Microbiology Data (last 24 hrs): 12/09/23 20:15 Blood - Blood Aerobic Blood Culture - Final No growth in 5 days. 12/09/23 20:15 Blood - Blood Anaerobic Blood Culture - Final No growth in 5 days. 12/09/23 19:55 Blood - Blood Aerobic Blood Culture - Final No growth in 5 days. 12/09/23 19:55 Blood - Blood Anaerobic Blood Culture - Final No growth in 5 days. Medications List Reviewed: Yes
[2023-12-15 08:59] LABS: Abnormal Protein Band 1 REPORT; Albumin, (SPE) 3.3 g/dL (3.8-4.8); Alpha-1-Globulins 0.3 g/dL (0.2-0.3); Alpha-2-Globulins 0.9 g/dL (0.5-0.9); Beta 1 Globulin 0.5 g/dL (0.4-0.6); Gamma Globulins 0.6 g/dL (0.8-1.7); INTERPRETATION REPORT; Total Protein 5.9 g/dL (6.1-8.1)
[2023-12-15] MEDS: FUROSEMIDE 40 MG TABLET PO SCH (09:20)
--- NOTE | 2023-12-15 10:08 | P.CNS ---
Date of Consult: 12/14/23 Reason for Consult: Cough congestion Chief Complaint: hypotension, altered mental status, dementia History of Present Illness: Patient is 83 years of age admitted with cough congestion she seems at this barking cough has been worse over the past week developed a cold on Saturday and became progressively worse nebulizers inhalers uses Symbicort and Spiriva at home was admitted to the hospital daughter present at the bedside Allergies Penicillins Allergy (Verified 08/03/22 06:52) Itching fentanyl Adverse Reaction (Verified 08/03/22 06:52) Shortness of breath lorazepam [From Ativan] Adverse Reaction (Verified 08/03/22 06:52) Shortness of breath promethazine [From Phenergan] Adverse Reaction (Verified 08/03/22 06:52) Shortness of breath Home Medications: Donepezil [Aricept*] 10 mg PO BEDTIME #60 tab 08/22/21 Aspirin [Aspirin EC 81 MG] 1 tab PO DAILY 08/02/22 Citalopram [Celexa*] 20 mg PO DAILY 08/02/22 Ferrous Sulfate [Ferrous Sulfate*] 325 mg PO BID 08/02/22 Levothyroxine [Synthroid*] 50 mcg PO DAILY 08/02/22 Magnesium Oxide [Mag 0X*] 400 mg PO DAILY 08/02/22 Metformin HCl [Glucophage*] 500 mg PO BIDWM 08/02/22 Cetirizine HCl 10 mg PO DAILY 08/03/22 Gabapentin [Neurontin*] 200 mg PO BID 01/25/23 Acetaminophen [Tylenol] 650 mg PO Q4HP PRN 12/10/23 Albuterol Sulfate [Albuterol Sulfate Hfa] 2 puff IH Q4HP PRN 12/10/23 Amiodarone HCl 100 mg PO BID 12/10/23 Cholecalciferol (Vitamin D3) [Vitamin D3] 2,000 unit PO DAILY 12/10/23 Docusate Sodium 100 mg PO DAILYPRN PRN 12/10/23 Fluticasone Propion/Salmeterol [Fluticasone-Salmeterol 500-50] 1 each IH BID 12/10/23 Guaifenesin/Dextromethorphan [Coricidin Hbp Chest Daljit-Cough] 2 each PO Q8HP PRN 12/10/23 Ipratropium/Albuterol Sulfate [Iprat-Albut 0.5-3(2.5) mg/3 ml] 3 ml IH Q4HP PRN 12/10/23 Loperamide [Imodium] 2 mg PO PRN PRN 12/10/23 Meclizine HCl 25 mg PO Q8HP PRN 12/10/23 Memantine HCl 5 mg PO DAILY 12/10/23 Multivitamin [Daily Multivitamin] 1 each PO DAILY 12/10/23 Nystatin Powder [Mycostatin (Powder)] 1 appl TP BIDP PRN 12/10/23 Polyethyl Gly 3350 [Glycolax] 17 gm PO DAILY 12/10/23 Potassium Chloride 20 meq PO DAILY 12/10/23 Pravastatin [Pravachol] 40 mg PO DAILY 12/10/23 Propylene Glycol/Pf [Systane Complete Pf 0.6% Drop] 1 each EACH EYE TID 12/10/23 Ramelteon [Rozerem] 8 mg PO BEDTIME PRN PRN 12/10/23 Sennosides [Senna] 8.6 mg PO DAILYPRN PRN 12/10/23 Tamsulosin [Flomax] 0.4 mg PO BEDTIME 12/10/23 Tiotropium [place] [Spiriva] 1 spray IH DAILY 12/10/23 Tramadol HCl [Ultram] 50 mg PO Q12HP PRN 12/10/23 Vit C/E/Zn/Coppr/Lutein/Zeaxan [Preservision Areds 2 Chew Tab] 1 each PO BID 12/10/23 atenoloL [Atenolol] 50 mg PO DAILY 12/10/23 glucagon HCL [Glucagon Emergency Kit] 1 mg IJ SEECOM PRN 12/10/23 guaiFENesin [Robitussin 100MG/5ML] 10 ml PO Q6HP PRN 12/10/23 predniSONE [Deltasone] 10 mg PO Q48H 12/10/23 - Past Medical/Surgical History Diabetic: Yes -: Diabetes mellitus type 2 -: Hypertension -: CAD -: Asthma -: Hypothyroidism -: Hyperlipidemia -: Diabetic neuropathy -: Anemia -: Obesity -: arthritis -: COPD -: dimentia -: Cholecystectomy -: CABG x3 vessels 2006 -: 08/02 Vertebroplasty Psychosocial/ Personal History: She is . - Family History Mother Medical History: Heart disease, Cancer - Social History Smoking Status: Unknown if ever smoked Alcohol use: No CD- Drugs: No Caffeine use: Yes Place of Residence: [place] Review of Systems General: Weakness Respiratory: Cough, Shortness of Breath Physical Examination Temp Pulse Resp BP Pulse Ox 97.6 F 111 H 16 131/81 92 12/15/23 08:51 12/15/23 09:20 12/15/23 08:51 12/15/23 09:20 12/15/23 08:51 General: Alert, Oriented x3 Neck: Supple Respiratory: Clear to auscultation bilaterally Cardiovascular: No edema, Normal S1 S2 Gastrointestinal: Normal bowel sounds, Soft and benign - Problems (1) Cough Current Visit: Yes Status: Acute Plan: Patient is 83 years of age with a history of obstructive airways disease apparently she has a history of asthma admitted with acute onset of cough she also has diastolic heart failure renal failure uses Symbicort Spiriva at home complaining of some wheezing changed to p.o. prednisone continue with bronchodilators x-ray is clear nation satisfactory patient has a mild microcytic anemia had a macrolide also add nebulized Brovana has Spiriva x-ray is clear Qualifiers: Cough type: acute Qualified Code(s): R05.1 - Acute cough
[2023-12-15] MEDS: predniSONE 20 MG TAB PO SCH (10:09)
[2023-12-15] MEDS: ARFORMOTEROL TARTRATE 15 MCG/2 ML VIAL.NEB NEB SCH (10:13)
[2023-12-15] MEDS ORDERED: ALBUTEROL 2.5 MG/3 ML NEB SOL NEB PRN (10:13)
[2023-12-15 10:24] LABS: Albumin 3.2 g/dL (3.4-5.0); Anion Gap 8.5 mEq/L (5.0-15.0); Magnesium 2.1 mg/dL (1.6-2.4); Phosphorus 3.4 mg/dL (2.5-4.9); Potassium 4.5 mEq/L (3.5-5.1)
[2023-12-15] MEDS: AZITHROMYCIN 250 MG TAB PO SCH (11:02)
--- NOTE | 2023-12-15 13:01 | P.PN ---
Subjective Date of Service: 12/15/23 Chief Complaint: hypotension, altered mental status, dementia Patient is awake and alert. Patient states she feels much better and only coughing intermittently She also feels it is easier to transfer. She is tolerating her diet. Physical Examination - Vital Signs Temperature: 97.6 F Blood Pressure: 131/81 Pulse: 111 Respirations: 16 Pulse Ox (%): 92 - Studies Microbiology Data (last 24 hrs): 12/09/23 20:15 Blood - Blood Aerobic Blood Culture - Final No growth in 5 days. 12/09/23 20:15 Blood - Blood Anaerobic Blood Culture - Final No growth in 5 days. 12/09/23 19:55 Blood - Blood Aerobic Blood Culture - Final No growth in 5 days. 12/09/23 19:55 Blood - Blood Anaerobic Blood Culture - Final No growth in 5 days. Medications List Reviewed: Yes Assessment And Plan - Plan Physical examination General: Alert and oriented x 2, NAD, Neck: No elevated JVD Heart: Heart sounds 1 and 2 normal, regular rhythm, normal rate, no pedal edema Lungs: Bilateral wheezes, mild bibasilar crackles, adequate breath sounds bilaterally. Abdomen: Soft, nondistended, nontender, normal bowel sounds. Extremities: No tenderness, no deformity Skin: Normal skin turgor, no rash, no nodules or ulcers. Neuro: No focal motor deficit. Normal speech. Psychiatry: Normal mood, no agitation. Assessment and plan Acute metabolic encephalopathy AMS resolved. Possible causes include hypotension. No CO2 retention or UTI. Continue PT. Increase activity as tolerated Acute COPD exacerbation Infective bronchitis Scheduled bronchodilators IV steroid transition to oral prednisone Continue oral antibiotics-Zithromax and cefuroxime Pulmonary input appreciated. Wean oxygen Chest physiotherapy. Hypotension Lactic acidosis SAMARIA Hypotension likely secondary to dehydration and antihypertensive use Reported poor oral intake. SAMARIA likely a combination prerenal. ATN from hypotension may also be contributing. Status post IV NS boluses and IV fluid. Nephrology Dr. Flowers is following. SAMARIA significantly improved and almost resolved. Urine output significantly improved. IV fluid discontinued Diabetes mellitus type 2 Diabetic neuropathy Insulin sliding scale for glucose management. Hypothyroidism Normal TSH. Continue home dose Synthroid. Chronic anemia Stable Monitor H&H and transfuse as needed Dementia Continue home medications Coronary disease disease Continue atenolol Continue statin Continue aspirin. Cardiology input appreciated. Atrial fibrillation Continue atenolol and amiodarone Cardiology input appreciated. Acute on chronic diastolic heart failure Chest x-ray report vascular congestion. Status post IV Lasix, scaled down Lasix to 40 mg daily. Monitor intake and output. Essential hypertension Blood pressure readings improved. Continue atenolol DVT prophylaxis: SCD Advanced directive: Full code.
[2023-12-15] MEDS: GUAIFENESIN 600 MG SA TAB PO SCH (20:15)
[2023-12-16 06:25] LABS: Albumin 2.9 g/dL (3.4-5.0); Anion Gap 7.1 mEq/L (5.0-15.0); Phosphorus 3.4 mg/dL (2.5-4.9); Potassium 4.1 mEq/L (3.5-5.1)
[2023-12-16 08:01] VITALS: O2SAT 100
--- NOTE | 2023-12-16 12:35 | P.DS ---
Admission Date: 12/10/23 Discharge Date: 12/16/23 Disposition: [place] HOME/HOME HEALTH CARE Discharge Condition: FAIR Reason for Admission: hypotension, altered mental status, dementia Brief History of Present Illness: Patient presented to the emergency room complaining of shortness of breath at rest for 2 days. Patient is wheelchair-bound, but is still able to ambulate with wheelchair to bathroom and eat meals independently. Per the patient's caregiver, the patient had a cough with mild chest congestion for week. The patient normally takes Robitussin cough medication and another cough medication to relieve her symptoms. However, the patient was unable to improve her cough and chest congestion after these medications earlier today. Upon arrival to the emergency department, the patient was given 2 breathing treatments and steroids. He was noted to be hypotensive and mildly tachycardic. Chest x-ray did not show any acute infiltrate. Patient appears somewhat confused. She was diagnosed with COPD exacerbation with altered mental status and hypotension. Patient was hospitalized for further management. Hospital Course: Patient admitted to the medical floor and the following medical problems addressed: Altered mental state Generalized weakness Deemed due to hypotension. Patient had no CO2 retention or UTI PT evaluated patient for generalized weakness. She was initially needing maximum assist for transfers. Altered mental status resolved. Her functional status improved to the point she was transferring with minimal assistance. Patient should benefit from continues PT about assisted living facility Acute COPD exacerbation Infective bronchitis Patient treated with scheduled bronchodilators, IV steroid and oral antibiotics. IV steroid transitioned to oral prednisone Pulmonary Dr. Payne evaluated patient and assisted with manage Patient was needed oxygen at rest. She could not wean off the oxygen. Her oxygen saturation today is 81% on room air, 92% with 2 L oxygen by nasal canula. Home oxygen prescribed. Chest physiotherapy with Acapella device recommended. Hypotension Lactic acidosis SAMARIA Hypotension likely secondary to dehydration and antihypertensive use Patient also reported poor oral intake. SAMARIA likely a combination prerenal. ATN from hypotension may also be contributing. She was given IV NS boluses and IV fluid maintenance. Nephrology Dr. Flowers evaluated patient who assisted with management SAMARIA significantly improved and almost resolved. Urine output significantly improved. IV fluid discontinued. Patient later needed Lasix for pulmonary vascular congestion. Diabetes mellitus type 2 Diabetic neuropathy Blood sugar was managed with insulin sliding scale. Patient's home dose metformin resumed on discharge. Hypothyroidism Normal TSH. Continued home dose Synthroid. Chronic anemia Was stable Dementia Continued home medications Coronary disease disease Continued atenolol Continued statin Continued aspirin. Cardiology evaluated patient and assisted with management Atrial fibrillation Stable Continued atenolol and amiodarone Cardiology evaluated patient and assisted with management. Patient is not anticoagulated. Acute on chronic diastolic heart failure Chest x-ray reportedvascular congestion. Patient given IV Lasix, and transitioned to oral Lasix to 40 mg daily. She is prescribed oral Lasix to be used as needed for shortness of breath and lower extremity swelling. Essential hypertension Stable with her home dose atenolol Vital Signs/Physical Exam: Temp Pulse Resp BP Pulse Ox 97.6 F 83 12 143/78 H 98 12/16/23 08:00 12/16/23 08:00 12/16/23 08:00 12/16/23 08:00 12/16/23 08:00 General: Alert, In no apparent distress, Oriented x3, Obese HEENT: Mucous membr. moist/pink, Sclerae nonicteric Neck: Supple, JVD not distended Respiratory: Clear to auscultation bilaterally, Normal air movement Cardiovascular: No edema, Normal S1 S2, Irregular heart rate/rhythm Gastrointestinal: Normal bowel sounds, Soft and benign, Non-distended, No tenderness Musculoskeletal: No swelling, No tenderness Integumentary: No rashes, No cyanosis Neurological: Normal speech, Normal strength at 5/5 x4 extr Laboratory Data at Discharge: WBC 9.30 thou/uL (4.3-10.9) 12/14/23 06:17 Hgb 9.0 g/dL (12.0-15.0) L D 12/14/23 06:17 Hct 27.9 % (36.0-45.0) L 12/14/23 06:17 Plt Count 316 thou/uL (152-406) 12/14/23 06:17 PT 13.3 SECONDS (9.4-12.5) H 12/10/23 05:23 INR 1.19 12/10/23 05:23 APTT 39.8 SECONDS (24.3-36.9) H 12/10/23 05:23 Sodium 138 mEq/L (136-145) 12/16/23 05:56 Potassium 4.1 mEq/L (3.5-5.1) 12/16/23 05:56 BUN 54 mg/dL (7-18) H 12/16/23 05:56 Creatinine 1.35 mg/dL (0.55-1.02) H 12/16/23 05:56 Glucose 193 mg/dL (74-106) H 12/16/23 05:56 Uric Acid 5.2 mg/dL (2.6-6.0) 12/12/23 05:08 Phosphorus 3.4 mg/dL (2.5-4.9) 12/16/23 05:56 Magnesium 2.0 mg/dL (1.6-2.4) 12/16/23 05:56 Total Bilirubin 0.3 mg/dL (0.2-1.0) 12/10/23 05:23 AST 13 U/L (15-37) L 12/10/23 05:23 ALT 16 U/L (13-56) 12/10/23 05:23 Alkaline Phosphatase 48 U/L (45-117) 12/10/23 05:23 Triglycerides 67 mg/dL (<150) 12/11/23 04:34 Cholesterol 147 mg/dL (<200) 12/11/23 04:34 HDL Cholesterol 58 mg/dL (40-60) 12/11/23 04:34 Cholesterol/HDL Ratio 2.53 12/11/23 04:34 Home Medications: Donepezil [Aricept*] 10 mg PO BEDTIME #60 tab 08/22/21 Aspirin [Aspirin EC 81 MG] 1 tab PO DAILY 08/02/22 Citalopram [Celexa*] 20 mg PO DAILY 08/02/22 Ferrous Sulfate [Ferrous Sulfate*] 325 mg PO BID 08/02/22 Levothyroxine [Synthroid*] 50 mcg PO DAILY 08/02/22 Magnesium Oxide [Mag 0X*] 400 mg PO DAILY 08/02/22 Metformin HCl [Glucophage*] 500 mg PO BIDWM 08/02/22 Cetirizine HCl 10 mg PO DAILY 08/03/22 Gabapentin [Neurontin*] 200 mg PO BID 01/25/23 Acetaminophen [Tylenol] 650 mg PO Q4HP PRN 12/10/23 Albuterol Sulfate [Albuterol Sulfate Hfa] 2 puff IH Q4HP PRN 12/10/23 Amiodarone HCl 100 mg PO BID 12/10/23 Cholecalciferol (Vitamin D3) [Vitamin D3] 2,000 unit PO DAILY 12/10/23 Docusate Sodium 100 mg PO DAILYPRN PRN 12/10/23 Fluticasone Propion/Salmeterol [Fluticasone-Salmeterol 500-50] 1 each IH BID 12/10/23 Meclizine HCl 25 mg PO Q8HP PRN 12/10/23 Memantine HCl 5 mg PO DAILY 12/10/23 Multivitamin [Daily Multivitamin] 1 each PO DAILY 12/10/23 Nystatin Powder [Mycostatin (Powder)*] 1 appl TP BIDP PRN 12/10/23 Polyethyl Gly 3350 [Glycolax*] 17 gm PO DAILY 12/10/23 Pravastatin [Pravachol*] 40 mg PO DAILY 12/10/23 Propylene Glycol/Pf [Systane Complete Pf 0.6% Drop] 1 each EACH EYE TID 12/10/23 Ramelteon [Rozerem] 8 mg PO BEDTIME PRN PRN 12/10/23 Sennosides [Senna] 8.6 mg PO DAILYPRN PRN 12/10/23 Tamsulosin [Flomax*] 0.4 mg PO BEDTIME 12/10/23 Tiotropium Sondheimer [Spiriva] 1 spray IH DAILY 12/10/23 Tramadol HCl [Ultram] 50 mg PO Q12HP PRN 12/10/23 Vit C/E/Zn/Coppr/Lutein/Zeaxan [Preservision Areds 2 Chew Tab] 1 each PO BID 12/10/23 atenoloL [Atenolol] 50 mg PO DAILY 12/10/23 glucagon HCL [Glucagon Emergency Kit] 1 mg IJ SEECOM PRN 12/10/23 guaiFENesin [Robitussin 100MG/5ML*] 10 ml PO Q6HP PRN 12/10/23 predniSONE [Deltasone*] 10 mg PO Q48H 12/10/23 Azithromycin Tab [Zithromax*] 500 mg PO DAILY #5 tab 12/16/23 Cefuroxime [Ceftin*] 500 mg PO BID #10 tab 12/16/23 Furosemide [Lasix*] 40 mg PO DAILY PRN #30 tab 12/16/23 Guaifenesin [Mucinex] 600 mg PO BID #14 tab 12/16/23 Ipratropium/Albuterol Sulfate [Iprat-Albut 0.5-3(2.5) mg/3 ml] 3 ml IH Q6H #120 amp 12/16/23 predniSONE [Prednisone*] 20 mg PO BID #10 tab 12/16/23 New Medications: Cefuroxime [Ceftin*] 500 mg PO BID #10 tab Ipratropium/Albuterol Sulfate [Iprat-Albut 0.5-3(2.5) mg/3 ml] 3 ml IH Q6H #120 amp Furosemide [Lasix*] 40 mg PO DAILY PRN #30 tab PRN Reason: Shortness Of Breath Guaifenesin [Mucinex] 600 mg PO BID #14 tab predniSONE [Prednisone*] 20 mg PO BID #10 tab Azithromycin Tab [Zithromax*] 500 mg PO DAILY #5 tab Physician Discharge Instructions: Patient presented to the emergency room complaining of shortness of breath at rest for 2 days. Patient is wheelchair-bound, but is still able to ambulate with wheelchair to bathroom and eat meals independently. Per the patient's caregiver, the patient had a cough with mild chest congestion for week. The patient normally takes Robitussin cough medication and another cough medication to relieve her symptoms. However, the patient was unable to improve her cough and chest congestion after these medications earlier today. Upon arrival to the emergency department, the patient was given 2 breathing treatments and steroids. He was noted to be hypotensive and mildly tachycardic. Chest x-ray did not show any acute infiltrate. Patient appears somewhat confused. She was diagnosed with COPD exacerbation with altered mental status and hypotension. Patient was hospitalized for further management. Patient admitted to the medical floor and the following medical problems addressed: Altered mental state Generalized weakness Deemed due to hypotension. Patient had no CO2 retention or UTI PT evaluated patient for generalized weakness. She was initially needing maximum assist for transfers. Altered mental status resolved. Her functional status improved to the point she was transferring with minimal assistance. Patient should benefit from continues PT about assisted living facility Acute COPD exacerbation Infective bronchitis Patient treated with scheduled bronchodilators, IV steroid and oral antibiotics. IV steroid transitioned to oral prednisone Pulmonary Dr. Payne evaluated patient and assisted with manage Patient was needed oxygen at rest. She could not wean off the oxygen. Her oxygen saturation today is 81% on room air, 92% with 2 L oxygen by nasal canula. Home oxygen prescribed. Chest physiotherapy with Acapella device recommended. Hypotension Lactic acidosis SAMARIA Hypotension likely secondary to dehydration and antihypertensive use Patient also reported poor oral intake. SAMARIA likely a combination prerenal. ATN from hypotension may also be contributing. She was given IV NS boluses and IV fluid maintenance. Nephrology Dr. Flowers evaluated patient who assisted with management SAMARIA significantly improved and almost resolved. Urine output significantly improved. IV fluid discontinued. Patient later needed Lasix for pulmonary vascular congestion. Diabetes mellitus type 2 Diabetic neuropathy Blood sugar was managed with insulin sliding scale. Patient's home dose metformin resumed on discharge. Home Health: [facility] P:[phone] F:[phone] Assisted Living Facility: [address] P:[phone] F:[phone] Followup: José Miguel Landa MD [Primary Care Provider] - Time spent managing pt's care (in minutes): 42
[2023-12-16 16:40] VITALS: BP 146/71; TEMP 97.4
--- NOTE | 2023-12-17 03:41 | PN ---
Date of Progress Note: 12/16/2023 Subjective: The patient was admitted to the hospital because of congestive heart failure, obstructiv e pulmonary disease, hypertension, atrial fibrillation. Nephrology consultation was requested for ac [place] kidney injury. Serum creatinine level was trending up and Lasix was reduced. Patient was on Las ix for cardiorenal syndrome. Review of Systems: The patient denies chest pain, palpitation. Denies fever, chills. Physical Examination: Lungs: Clear to auscultation bilaterally. Heart: S1, S2. Abdomen: Soft. Extremities: No edema. Assessment And Plan: The patient is an 83-year-old woman with history of congestive heart failure, c hronic obstructive pulmonary disease, dementia, hypertension, atrial fibrillation. She was admitted for shortness of breath. Symptoms improved with steroids and diuretic. 1.Acute kidney injury. Lasix dose was reduced. Avoid nephrotoxic medication. Avoid nonsteroidal a nti-inflammatory medication. Avoid IV contrast. 2.Hypertension. Blood pressure controlled. 3.Hypomagnesemia. Continue supplementation. 4.Anemia of chronic disease. Continue IV iron, monitor hemoglobin and hematocrit. 5.Chronic obstructive pulmonary disease. Continue steroids and oxygen therapy with inhalers. 6.Diabetes mellitus. Hold metformin and continue insulin. SANDRINE/THADDEUS Voice ID: [id number] Report ID: [id number]
== END 2023-12-16 18:35 | disposition home health service (06) | DRG 291 ==
LOC: ER 19:22 → 2ND 12-10 01:10
PROVIDERS: ADMIT Internal Medicine; ATTEND Internal Medicine
PROC: 4A033R1 Measurement of Arterial Saturation, Peripheral, Percutaneous Approach (ICD-10-PCS; principal; 2023-12-10)
DX: I13.0 Hypertensive heart and chronic kidney disease with heart failure and stage 1 through stage 4 chronic kidney disease, or unspecified chronic kidney disease (principal); G93.41 Metabolic encephalopathy; I50.43 Acute on chronic combined systolic (congestive) and diastolic (congestive) heart failure; N17.0 Acute kidney failure with tubular necrosis; J44.1 Chronic obstructive pulmonary disease with (acute) exacerbation; E87.20 Acidosis, unspecified; E87.1 Hypo-osmolality and hyponatremia; N18.9 Chronic kidney disease, unspecified; E11.22 Type 2 diabetes mellitus with diabetic chronic kidney disease; E11.40 Type 2 diabetes mellitus with diabetic neuropathy, unspecified; D63.1 Anemia in chronic kidney disease; E78.5 Hyperlipidemia, unspecified; I48.91 Unspecified atrial fibrillation; I95.9 Hypotension, unspecified; E03.9 Hypothyroidism, unspecified; E86.0 Dehydration; E87.5 Hyperkalemia; E66.9 Obesity, unspecified; J40 Bronchitis, not specified as acute or chronic; E83.42 Hypomagnesemia; G30.9 Alzheimer's disease, unspecified; I25.10 Atherosclerotic heart disease of native coronary artery without angina pectoris; F02.80 Dementia in other diseases classified elsewhere, unspecified severity, without behavioral disturbance, psychotic disturbance, mood disturbance, and anxiety; I25.2 Old myocardial infarction; Z66 Do not resuscitate; Z88.0 Allergy status to penicillin; Z99.3 Dependence on wheelchair; Z88.5 Allergy status to narcotic agent; Z95.1 Presence of aortocoronary bypass graft; Z88.8 Allergy status to other drugs, medicaments and biological substances; Z59.71 Insufficient health insurance coverage; Z59.82 Transportation insecurity; Z79.52 Long term (current) use of systemic steroids; Z79.82 Long term (current) use of aspirin; Z79.890 Hormone replacement therapy; Z79.899 Other long term (current) drug therapy; Z79.84 Long term (current) use of oral hypoglycemic drugs; Z68.28 Body mass index [BMI] 28.0-28.9, adult; Z11.52 Encounter for screening for COVID-19
CPT/HCPCS: 36415; 36600; 71045; 71275; 76770; 80048; 80053; 80061; 80069; 81001; 82550; 82570; 82728; 82805; 83540; 83605; 83735; 83880; 83970; 84100; 84156; 84165; 84443; 84466; 84484; 84550; 85025; 85044; 85610; 85730; 87040; 87804; 87807; 87811; 93005; 93306; 94640; 96374; 97161; 97530; 99285; J1940; J2916; J2919; J3475; J7030; J7040; J7050; J7512; J7605; J7613; J7614; J7644; J8597; Q9967

== ENCOUNTER 2023-12-22 21:32 | Inpatient (IN) | payer OTHER, MEDICARE ==
[2023-12-22] MEDS ORDERED: NA CHLORIDE 0.9% 500 ML ONE (22:05)
[2023-12-22 22:46] LABS: PT Prothrombin Time 11.9 SECONDS (9.4-12.5); PTT, Activated Partial Thromb 23.5 SECONDS (24.3-36.9); Protime INR 1.06
[2023-12-22 22:48] LABS: Absolute Eosinophils 0.1 K/uL (0-0.5); Absolute Lymphocytes (CBC) 1.6 K/uL (0.7-4.9); Absolute Monocytes 0.9 K/uL (0.1-1.3); Absolute Neutrophil 5.1 K/uL (1.8-8.0); Basophils % 0.1 % (0-1.3); Eosinophils % 0.9 % (0-4.4); Hematocrit 30.1 % (36.0-45.0); Lymphocytes % 20.6 % (15.3-44.8); MCH 34.8 pg (27.0-35.0); MCHC 33.3 g/dL (32.0-36.0); MCV 104.4 fL (80-100); MPV 6.9 fL (7.6-11.3); Neutrophils % 66.4 % (41.7-73.7); Nucleated Red Blood Cells % 0.2 % (0-0); Platelets 220 thou/uL (152-406); RBC Red Blood Cell Count 2.89 M/uL (3.86-4.86)
[2023-12-22 23:20] LABS: Albumin 2.7 g/dL (3.4-5.0); Albumin/Globulin Ratio 0.9 (1.1-1.8); Anion Gap 8.4 mEq/L (5.0-15.0); Bilirubin Total 0.4 mg/dL (0.2-1.0); Protein, Total 5.7 g/dL (6.4-8.2); Troponin High Sensitivity 14.2 pg/mL (<58.9)
[2023-12-22 23:21] LABS: Potassium 4.4 mEq/L (3.5-5.1)
[2023-12-22] MEDS ORDERED: D50W 25 GM/50 ML SYRINGE IV ONE (23:54)
[2023-12-23] MEDS ORDERED: CEFTRIAXONE 1000 MG/VIAL ONE (02:37)
[2023-12-23] MEDS ORDERED: FOLIC ACID 5 MG/ML VIAL ONE (02:39)
--- NOTE | 2023-12-23 03:31 | ER ---
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 systolic was 70 palpated, then given bolus and placed in trendelenburg, went up to 115/72. Coronavirus screen: Client denies travel out of the [place] in the last 14 days. Ebola Screen: No symptoms or risks identified at this time. Initial Sepsis Screen: Does the patient meet any 2 criteria? Altered Mental Status. No. Patient's initial sepsis screen is negative. Does the patient have a suspected source of infection? No. Patient's initial sepsis screen is negative. Risk Assessment: Do you want to hurt yourself or someone else? Patient reports no desire to harm self or others. Onset of symptoms was December 22, 2023. 21:40 Method Of Arrival: EMS: [facility] kj2 21:40 Acuity: KRISTA 3 kj2 Triage Assessment: 21:40 General: Appears in no apparent distress. Behavior is quiet. Pain: Denies pain. kj2 Historical: - Allergies: 22:02 Fentanyl; kj2 22:02 Lorazepam; kj2 22:02 PENICILLINS; kj2 22:02 Phenergan; kj2 - Immunization history:: Adult Immunizations unknown. - Infectious Disease History:: Denies. - Social history:: Smoking status: Patient denies any tobacco usage or history of. Screenin:40 [facility] ED Fall Risk Assessment (Adult) History of falling in the last 3 months, kj2 including since admission No falls in past 3 months (0 pts) Confusion or Disorientation No (0 pts) Intoxicated or Sedated No (0 pts) Impaired Gait Yes (1 pt) Mobility Assist Device Used No (0 pt) Altered Elimination No (0 pt) Score/Fall Risk Level 0 - 2 = Low Risk Maintained a safe environment, Hourly rounding (assess needs \T\ fall precautionary measures) done. Abuse screen: Denies threats or abuse. Denies injuries from another. Nutritional screening: No deficits noted. Tuberculosis screening: No symptoms or risk factors identified. Assessment: 21:40 Neuro: Level of Consciousness is awake, Oriented to person, place. kj2 21:40 Cardiovascular: Patient's skin is warm and dry. skin pale. kj2 21:45 General: see triage assessment. kj2 22:23 Reassessment: bloof glucose accucheck= 62. kj2 23:44 Reassessment: Patient appears in no apparent distress at this time. Patient and/or kj2 family updated on plan of care and expected duration. Pain level reassessed. Patient is alert, oriented x 3, equal unlabored respirations, skin warm/dry/pink. recheck blood glucose=57. 12/22 01:03 Reassessment: Patient appears in no apparent distress at this time. Patient and/or kj2 family updated on plan of care and expected duration. Pain level reassessed. Patient is alert, oriented x 3, equal unlabored respirations, skin warm/dry/pink. 02:00 Reassessment: Patient appears in no apparent distress at this time. Patient and/or kj2 family updated on plan of care and expected duration. Pain level reassessed. Patient is alert, oriented x 3, equal unlabored respirations, skin warm/dry/pink. 03:00 Reassessment: Patient appears in no apparent distress at this time. Patient and/or kj2 family updated on plan of care and expected duration. Pain level reassessed. Patient is alert, oriented x 3, equal unlabored respirations, skin warm/dry/pink. 04:00 Reassessment: Patient appears in no apparent distress at this time. Patient and/or kj2 family updated on plan of care and expected duration. Pain level reassessed. Patient is alert, oriented x 3, equal unlabored respirations, skin warm/dry/pink. 05:00 Reassessment: Patient appears in no apparent distress at this time. Patient and/or kj2 family updated on plan of care and expected duration. Pain level reassessed. Patient is alert, oriented x 3, equal unlabored respirations, skin warm/dry/pink. 06:00 Reassessment: Patient appears in no apparent distress at this time. Patient and/or kj2 family updated on plan of care and expected duration. Pain level reassessed. Patient is alert, oriented x 3, equal unlabored respirations, skin warm/dry/pink. Vital Signs: 12/21 21:40 BP 106 / 63; Pulse 74; Resp 16; Temp 98.2; Pulse Ox 100% on R/A; kj2 22:48 Weight 81.65 kg; kj2 23:45 BP 134 / 70; Pulse 70; Resp 18; kj2 12/22 00:00 BP 152 / 93; Pulse 67; kj2 01:03 BP 126 / 65; Pulse 75; Resp 18; Pulse Ox 100% ; kj2 03:00 BP 110 / 72; Pulse 76; Resp 18; Pulse Ox 100% on 3 lpm NC; kj2 07:12 BP 108 / 64; Pulse 72; Resp 18; Temp 98.9; Pulse Ox 100% on 3 lpm NC; kj2 07:16 BP 132 / 70; Pulse 68; Resp 18; Pulse Ox 100% on 3 lpm NC; kj2 ED Course: 12/21 21:38 Patient arrived in ED. cp4 21:40 Monty Patterson PA is PHCP. cp 21:40 Dony Tong MD is Attending Physician. cp 21:40 Maintain EMS IV. Dressing intact. Good blood return noted. Site clean \T\ dry. Gauge \T\ kj 2 site: 22g. Flushed with 10 mL NS. 21:40 Patient has correct armband on for positive identification. Bed in low position. Call kj2 light in reach. Adult w/ patient. Provided Education on: call light. 21:40 Arm band placed on Patient placed in an exam room, on a stretcher. kj2 21:56 Kinsey Tolbert, ABIMBOLA is Primary Nurse. kj2 22:02 Triage completed. kj2 22:28 Inserted saline lock: 22 gauge in left forearm, using aseptic technique. Blood kj2 collected. Flushed with 10 mL NS. 22:28 EKG done, by lead quality control technician. af3 22:38 Chest Single View XRAY In Process Unspecified. EDMS 22:45 CT Head C Spine In Process Unspecified. EDMS 22:45 CT Chest Abdomen Pelvis W/O Contrast In Process Unspecified. EDMS 12/22 03:30 Tejinder Iyer MD is Hospitalizing Provider. rn 05:51 Carotid Artery Bilateral In Process Unspecified. EDMS 07:45 No provider procedures requiring assistance completed. Patient admitted, IV remains in bp place. Administered Medications: 12/21 22:30 Drug: NS 0.9% IV 500 ml IV at bolus once; to be given as a bolus over 30 minutes Route: kj2 IV; Rate: bolus; Site: right wrist; 23:43 Follow up: IV Status: Completed infusion; IV Intake: 500ml kj2 12/22 00:00 Drug: [id number] IVP 50 ml IVP once; (1 amp) Route: IVP; Site: left forearm; kj2 01:57 Follow up: Response: No adverse reaction kj2 02:46 Drug: Rocephin IV 1 grams IV at calculated rate once; Given slow IV push per pharmacy kj2 instructions Route: IV; Rate: calculated rate; Site: right wrist; 07:47 Follow up: IV Status: Completed infusion bp 02:46 Drug: foLIC Acid IVPB 1 mg IVPB once Route: IVPB; Site: right wrist; kj2 07:46 Follow up: IV Status: Completed infusion bp Medication: 12/21 23:47 VIS not applicable for this client. kj2 Intake: 23:43 IV: 500ml; Total: 500ml. kj2 Outcome: 12/22 03:31 Decision to Hospitalize by Provider. rn 07:22 Admitted to Med/surg accompanied by tech, via stretcher, room 231, bp 07:22 Condition: stable 07:22 Instructed on the need for admit, 08:11 Patient left the ED. ll1 Signatures: Dispatcher [employer] EDMS Dony Tong MD MD rn Page, Corey, PA PA cp Peltier, Brian, RN RN Velma Moore RN RN ll1 Krystal Townsend cp4 Kinsey Tolbert RN RN kj2 Jazmyn Chavez
--- NOTE | 2023-12-23 03:31 | EDPHYS ---
Physician Documentation [facility] Name: Martina Martini Age: 83 yrs Sex: Female : 1940 Arrival Date: 12/22/2023 Time: 21:32 Bed 19 Private MD: ED Physician Dony Tong HPI: 12/21 21:30 This 83 yrs old Female presents to ER via EMS with complaints of Altered Mental Status. cp 21:30 The patient presents with decreased mental status. cp 21:30 Onset: The symptoms/episode began/occurred at an unknown time. cp 21:30 Patient presents to ED via EMS after reported sudden loss of consciousness and low cp blood pressure in the 70's upon EMS initial evaluation. Historical: - Allergies: 22:02 Fentanyl; kj2 22:02 Lorazepam; kj2 22:02 PENICILLINS; kj2 22:02 Phenergan; kj2 - Immunization history:: Adult Immunizations unknown. - Infectious Disease History:: Denies. - Social history:: Smoking status: Patient denies any tobacco usage or history of. ROS: 21:33 Neuro: Positive for altered mental status, syncope, cp 21:33 Eyes: Negative for injury, pain, redness, and discharge, cp 21:33 Constitutional: Negative for fever, 21:33 Cardiovascular: Negative for chest pain, 21:33 Respiratory: Positive for shortness of breath, Negative for wheezing, 21:33 Abdomen/GI: Negative for vomiting, diarrhea, constipation, 21:33 All other systems are negative, Exam: 21:35 Constitutional: The patient appears in no acute distress, alert, awake, cp non-diaphoretic, non-toxic, well developed, well nourished, 21:35 Head/Face: Normocephalic, atraumatic. cp 21:35 Eyes: Periorbital structures: appear normal, Conjunctiva: normal, no exudate, no injection, Sclera: no appreciated abnormality, Lids and lashes: appear normal, bilaterally, 21:35 ENT: External ear(s): are unremarkable, Nose: is normal, Mouth: Lips: moist, Oral mucosa: moist, Posterior pharynx: Airway: no evidence of obstruction, patent, 21:35 Chest/axilla: Inspection: normal, 21:35 Cardiovascular: Rate: normal, Rhythm: irregular, Edema: is not appreciated, JVD: is not appreciated, 21:35 Respiratory: the patient does not display signs of respiratory distress, Respirations: labored breathing, that is mild, 21:35 Abdomen/GI: Inspection: abdomen appears normal, Palpation: abdomen is soft and non-tender, in all quadrants, 21:35 Neuro: Orientation: Not oriented to place, situation, Mentation: confused, Motor: no focal deficits, 21:55 ECG was reviewed by the Attending Physician. Vital Signs: 21:40 BP 106 / 63; Pulse 74; Resp 16; Temp 98.2; Pulse Ox 100% on R/A; kj2 22:48 Weight 81.65 kg; kj2 23:45 BP 134 / 70; Pulse 70; Resp 18; kj2 12/22 00:00 BP 152 / 93; Pulse 67; kj2 01:03 BP 126 / 65; Pulse 75; Resp 18; Pulse Ox 100% ; kj2 03:00 BP 110 / 72; Pulse 76; Resp 18; Pulse Ox 100% on 3 lpm NC; kj2 07:12 BP 108 / 64; Pulse 72; Resp 18; Temp 98.9; Pulse Ox 100% on 3 lpm NC; kj2 07:16 BP 132 / 70; Pulse 68; Resp 18; Pulse Ox 100% on 3 lpm NC; kj2 MDM: 11 21:40 Medical Screening Exam initiated 12/22 03:30 Differential Diagnosis: CVA, electrolyte abnormality, volume depletion. Data reviewed: rn vital signs, nurses notes, lab test result(s), EKG, radiologic studies, and as a result, I will admit patient. Counseling: I had a detailed discussion with the patient and/or guardian regarding the historical points, exam findings, and any diagnostic results supporting the discharge/admit diagnosis, lab results, radiology results, the need for further work-up and treatment in the hospital. 12/21 21:45 Order name: Blood Culture Adult (2) 12/21 21:45 Order name: CBC with Diff; Complete Time: 23:34 12/21 23:35 Interpretation: Normal except: RBC 2.89; HGB 10.0; HCT 30.1; MCV 104.4; MPV 6.9. 12/21 21:45 Order name: CMP; Complete Time: 23:34 12/21 23:35 Interpretation: Normal except: CL 108; GLUC 62; BUN 32; CRE 1.56; GFR 32; TP 5.7; ALB cp 2.7; A/G 0.9. 12/21 21:45 Order name: Lactate w/ 2H reflex if indic.; Complete Time: 23:34 12/21 21:45 Order name: Protime (+inr); Complete Time: 23:34 12/21 21:45 Order name: Ptt, Activated; Complete Time: 23:34 12/21 21:45 Order name: Urinalysis w/ reflexes 12/21 21:45 Order name: Troponin HS; Complete Time: 23:34 12/21 22:33 Order name: Glucose, Ancillary Testing; Complete Time: 23:34 [facility] 12/21 23:53 Order name: Glucose, Ancillary Testing; Complete Time: 00:40 [facility] 12/22 05:09 Order name: Homocysteine [facility] 12/22 05:09 Order name: CBC with Automated Diff [facility] 12/22 05:09 Order name: CBC with Automated Diff [facility] 12/22 05:09 Order name: Comprehensive Metabolic Panel [facility] 12/22 05:09 Order name: Comprehensive Metabolic Panel [facility] 12/22 05:09 Order name: Lipid Profile [facility] 12/22 05:09 Order name: Lipid Profile [facility] 12/22 05:09 Order name: T4,Total [facility] 12/22 05:09 Order name: T4,Total [facility] 12/22 05:09 Order name: Thyroid Stimulating Hormone [facility] 12/22 05:09 Order name: Thyroid Stimulating Hormone [facility] 12/21 21:45 Order name: Chest Single View XRAY 12/21 21:45 Order name: CT Head C Spine 12/21 21:45 Order name: CT Chest Abdomen Pelvis W/O Contrast 12/22 05:09 Order name: Echo with Doppler [facility] 12/22 05:09 Order name: Carotid Artery Bilateral [facility] 12/22 05:13 Order name: Brain Wo Cont [facility] 12/22 05:09 Order name: CONS Physician Consult [facility] 12/22 05:09 Order name: IRF Screen [facility] 12/22 05:09 Order name: Physical Therapy Consult [facility] 12/22 05:09 Order name: Speech Therapy Consult [facility] 12/21 21:45 Order name: Accucheck; Complete Time: 22:23 12/21 21:45 Order name: Cardiac monitoring; Complete Time: 22:28 12/21 21:45 Order name: EKG - Nurse/Tech; Complete Time: 22:28 12/21 21:45 Order name: IV Saline Lock - Large Bore; Complete Time: 22:44 12/21 21:45 Order name: Labs collected and sent; Complete Time: 22:44 12/21 21:45 Order name: O2 Per Protocol; Complete Time: 22:28 12/21 21:45 Order name: O2 Sat Monitoring; Complete Time: 22:28 12/21 21:45 Order name: Vital Signs; Complete Time: 22:28 12/21 23:36 Order name: Accucheck Blood Glucose; Complete Time: 23:43 12/22 07:11 Order name: Labs - recollect needed: collect a red top; Complete Time: 07:37 bd EC/10 21:55 Rate is 78 beats/min. Rhythm is irregular. QRS interval is normal. QT interval is cp normal. Interpreted by me. Reviewed by me. Administered Medications: 22:30 Drug: NS 0.9% IV 500 ml IV at bolus once; to be given as a bolus over 30 minutes Route: kj2 IV; Rate: bolus; Site: right wrist; 23:43 Follow up: IV Status: Completed infusion; IV Intake: 500ml kj2 12/22 00:00 Drug: D50W IVP 50 ml IVP once; (1 amp) Route: IVP; Site: left forearm; kj2 01:57 Follow up: Response: No adverse reaction kj2 02:46 Drug: Rocephin IV 1 grams IV at calculated rate once; Given slow IV push per pharmacy kj2 instructions Route: IV; Rate: calculated rate; Site: right wrist; 07:47 Follow up: IV Status: Completed infusion bp 02:46 Drug: foLIC Acid IVPB 1 mg IVPB once Route: IVPB; Site: right wrist; kj2 07:46 Follow up: IV Status: Completed infusion bp Disposition: 08:19 Co-signature as Attending Physician, Dony Tong MD I reviewed the patient's care rn provided by the Advanced Practice Provider and agree with the diagnosis and treatment plan. Disposition Summary: 12/23/23 03:31 Hospitalization Ordered Notes: Hospitalization Status: Inpatient Admission rn Provider: Tejinder Iyer rn Condition: Stable rn Problem: new rn Symptoms: are unchanged rn Bed/Room Type: Standard rn Location: Telemetry/MedSurg (Inpatient)(12/23/23 06:47) natty Room Assignment: 231(12/23/23 06:47) natty Diagnosis - Altered mental status, unspecified rn - Cerebral infarction due to unspecified occlusion or stenosis of unspecified rn cerebellar artery Forms: - Medication Reconciliation Form rn - SBAR form rn - Leadership Thank You Letter rn Signatures: Dispatcher [employer] EDMO Doris Vitale Roman, MD MD rn Page, Corey, PA PA cp Garcia, Cindy, RN RN Jorge Luis Wynn, RN RN leandro1 Kathleen Florez, RN RN deepa3 Kinsey Tolbert RN RN julia2 Jose Goetz RN bp Corrections: (The following items were deleted from the chart) 12/21 21:46 21:46 BLOOD CULTURE*+BA.LAB.BRZ ordered. EDMO EDMO 21:46 21:46 CBC+H.LAB.BRZ ordered. EDMO EDMS 21:46 21:46 COMPREHENSIVE METABOLIC PANEL+C.LAB.BRZ ordered. EDMO EDMS 21:46 21:46 LACTATE+C.LAB.BRZ ordered. EDMO EDMS 21:46 21:46 PROTIME (+INR)+COAG.LAB.BRZ ordered. EDMO EDMS 21:46 21:46 PTT, ACTIVATED+COAG.LAB.BRZ ordered. EDMO EDMS 21:46 21:46 Urinalysis+U.LAB.BRZ ordered. EDMO EDMS 21:46 21:46 Troponin High Sensitivity+C.LAB.BRZ ordered. EDMO EDMS 21:46 21:46 Head C Spine MPR Wo Con+CT.RAD.BRZ ordered. EDMO EDMS 21:46 21:46 Chest Abdomen Pelvis Wo Con+CT.RAD.BRZ ordered. [facility] 12/22 04:34 02:17 Neck Angio+CT.RAD.BRZ ordered. [facility] EDMO 05:14 03:31 Telemetry/MedSurg (Inpatient) rn cg 05:14 03:31 rn cg 06:31 05:14 [facility] ER HOLD cg cg 06:31 05:14 ERHOLD- cg cg 06:39 06:31 Telemetry/MedSurg (Inpatient) cg lg3 06:39 06:31 cg lg3 06:47 06:39 [facility] ER [facility] lg3 ja1 06:47 06:39 ERHOLD- lg3 ja1
--- NOTE | 2023-12-23 04:44 | RAD REPORT ---
ADDENDUM #1 ADDENDUM: THIS REPORT CONTAINS FINDINGS THAT MAY BE CRITICAL TO PATIENT CARE: The findings were verba lly discussed via telephone conference with Dr. Charbel Tong MD by Dr. Selin Agee on 12/23/2023 1:18 AM [facility]. The results were acknowledged and understood. Electronically signed by: Selin Agee MD 12/23/2023 03:07 AM [facility] RP End of Addendum EXAM: CT Head and Cervical Spine Without Intravenous Contrast CLINICAL HISTORY: The patient is 83 years old and is Female; Syncope. TECHNIQUE: Axial computed tomography images of the head/brain and cervical spine without intravenou s contrast. Sagittal and coronal reformatted images were created and reviewed. This CT exam was performed using one or more of the following dose reduction techniques: automated exposure control, adjustment of the mA and/or kV according to patient size, and/or use of iterative reconstruction technique. COMPARISON: None available. (Reports from prior studies are available.) FINDINGS: Brain: No intracranial hemorrhage or extra-axial fluid collection.Wedge-shaped hypoattenuation with in the left cerebellum 1.2 cm x 2.4 cm x 0.8 cm. Ventricles: No hydrocephalus. Skull: No acute fracture. Sinuses: Mucosal thickening of the maxillary sinuses and left sphenoid sinus. Mastoid air cells: Bilateral mastoid effusions. Vertebrae: No acute fracture. 1 mm to 2 mm anterolisthesis C3 on C4 on a degenerative basis. Discs/ spinal canal/neural foramina: No acute findings. Disc space narrowing and endplate degenerative changes C4-5 and C5-6. Facet arthropathy with hypertrophy most notable on the left at C3-4 and right C2-3. No significant spinal canal stenosis. Soft tissues: No acute thickening. IMPRESSION: 1. No acute intracranial hemorrhage or extra-axial fluid collection. 2. Age-indeterminate infarct of the left cerebellum. May be acute/subacute. 3. No acute cervical spine fracture or traumatic malalignment. 4. Bilateral mastoid effusions. Electronically signed by: Selin Agee MD 12/23/2023 01:15 AM [facility] RP Due to temporary technical issues with the Portal Prof[employer]/Powerscribe reporting system, reports are being jimmie d by the in-house radiologist without review as a courtesy to ensure prompt reporting the interpreting radiologist is fully responsible for the content of the report. Transcribed Date/Time: 12/23/2023 4:44 AM
--- NOTE | 2023-12-23 04:45 | RAD REPORT ---
EXAM DESCRIPTION: CT CHEST ABDOMEN PELVIS WITHOUT IV CONTRAST CLINICAL HISTORY: Syncope. COMPARISON: CT Chest angiography with IV contrast 12/10/2023 (report only) and XR Pelvis 1-2 views 01/25/2023 (re port only) TECHNIQUE: Contiguous axial images of the chest, abdomen and pelvis were obtained followed by reconstruction ivonne ges. This exam was performed according to our departmental dose-optimization program, which includes automated exposure control, adjustment of the mA and/or kV according to patient size and/or use of iterative reconstruction technique. FINDINGS: There is atherosclerosis. There are coronary arterial calcifications. There are left pleural calcific ations and mild left pleural thickening. Linear bandlike opacities within the lungs may represent scar versus subsegmental atelectasis. Patient is status post cholecystectomy. Appendix was not visual ized, there is no pericecal inflammation. There is evidence of prior vertebroplasty at the lower thoracic and upper lumbar spine. The aorta is of normal contour and tapering. There is no pericardial or pleural fluid collection. The re is no parenchymal consolidation or pneumothorax. The liver, spleen, pancreas and kidneys are within normal limits. There is no hydronephrosis or renal stones. Adrenal glands are within normal limits. Aorta is of normal caliber and tapering. There is no free fluid in the abdomen or pelvis. There is no bowel obstruction. There is no stranding of the m esenteric fat to suggest an inflammatory response. IMPRESSION: No acute intrathoracic or intra-abdominal abnormality. Electronically signed by: Benedict Molina MD 12/23/2023 12:31 AM [facility] Due to temporary technical issues with the PACS/TapToLearn reporting system, reports are being jimmie d by the in-house radiologist without review as a courtesy to ensure prompt reporting the interpreting radiologist is fully responsible for the content of the report. Transcribed Date/Time: 12/23/2023 4:45 AM
--- NOTE | 2023-12-23 04:59 | P.HP ---
Certification for Inpatient Patient admitted to: Inpatient With expected LOS: >2 Midnights Practitioner: I am a practitioner with admitting privileges, knowledge of patient current condition, hospital course, and medical plan of care. Services: Services provided to patient in accordance with Admission requirements found in Title 42 Section 412.3 of the Code of Federal Regulations Patient History Date of Service: 12/23/23 Reason for admission: AMS History of Present Illness: 83-year-old female with a past medical history significant for congestive heart failure, hypertension, Alzheimer's dementia, diabetes mellitus, atrial fibrillation, GERD, anemia, asthma, neuropathy, and dyslipidemia who was recently been admitted to the hospital with CHF exacerbation and was discharged to assisted living. Wheelchair-bound. Brought to ER with altered mental status. Patient could not offer any history hence most of the history is obtained from the chart review and also talking with the ER physician and family member at the bedside. Patient passed out while using restroom with rolling of her eyes. Denies any seizure activities. She was brought to ER because of the altered mental status. Patient was assessed in the ER and had a CT which was showing acute/subacute infarct left cerebellum and was admitted for further management. Neurology was also consulted Allergies Penicillins Allergy (Verified 08/03/22 06:52) Itching fentanyl Adverse Reaction (Verified 08/03/22 06:52) Shortness of breath lorazepam [From Ativan] Adverse Reaction (Verified 08/03/22 06:52) Shortness of breath promethazine [From Phenergan] Adverse Reaction (Verified 08/03/22 06:52) Shortness of breath Home medications list reviewed: Yes Home Medications: Donepezil [Aricept*] 10 mg PO BEDTIME #60 tab 08/22/21 Aspirin [Aspirin EC 81 MG] 1 tab PO DAILY 08/02/22 Citalopram [Celexa*] 20 mg PO DAILY 08/02/22 Ferrous Sulfate [Ferrous Sulfate*] 325 mg PO BID 08/02/22 Levothyroxine [Synthroid*] 50 mcg PO DAILY 08/02/22 Magnesium Oxide [Mag 0X*] 400 mg PO DAILY 08/02/22 Metformin HCl [Glucophage*] 500 mg PO BIDWM 08/02/22 Cetirizine HCl 10 mg PO DAILY 08/03/22 Gabapentin [Neurontin*] 200 mg PO BID 01/25/23 Acetaminophen [Tylenol] 650 mg PO Q4HP PRN 12/10/23 Albuterol Sulfate [Albuterol Sulfate Hfa] 2 puff IH Q4HP PRN 12/10/23 Amiodarone HCl 100 mg PO BID 12/10/23 Cholecalciferol (Vitamin D3) [Vitamin D3] 2,000 unit PO DAILY 12/10/23 Docusate Sodium 100 mg PO DAILYPRN PRN 12/10/23 Fluticasone Propion/Salmeterol [Fluticasone-Salmeterol 500-50] 1 each IH BID 12/10/23 Meclizine HCl 25 mg PO Q8HP PRN 12/10/23 Memantine HCl 5 mg PO DAILY 12/10/23 Multivitamin [Daily Multivitamin] 1 each PO DAILY 12/10/23 Nystatin Powder [Mycostatin (Powder)*] 1 appl TP BIDP PRN 12/10/23 Polyethyl Gly 3350 [Glycolax*] 17 gm PO DAILY 12/10/23 Pravastatin [Pravachol*] 40 mg PO DAILY 12/10/23 Propylene Glycol/Pf [Systane Complete Pf 0.6% Drop] 1 each EACH EYE TID 12/10/23 Ramelteon [Rozerem] 8 mg PO BEDTIME PRN PRN 12/10/23 Sennosides [Senna] 8.6 mg PO DAILYPRN PRN 12/10/23 Tamsulosin [Flomax*] 0.4 mg PO BEDTIME 12/10/23 Tiotropium Kane [Spiriva] 1 spray IH DAILY 12/10/23 Tramadol HCl [Ultram] 50 mg PO Q12HP PRN 12/10/23 Vit C/E/Zn/Coppr/Lutein/Zeaxan [Preservision Areds 2 Chew Tab] 1 each PO BID 12/10/23 atenoloL [Atenolol] 50 mg PO DAILY 12/10/23 glucagon HCL [Glucagon Emergency Kit] 1 mg IJ SEECOM PRN 12/10/23 guaiFENesin [Robitussin 100MG/5ML*] 10 ml PO Q6HP PRN 12/10/23 predniSONE [Deltasone*] 10 mg PO Q48H 12/10/23 Azithromycin Tab [Zithromax*] 500 mg PO DAILY #5 tab 12/16/23 Cefuroxime [Ceftin*] 500 mg PO BID #10 tab 12/16/23 Furosemide [Lasix*] 40 mg PO DAILY PRN #30 tab 12/16/23 Guaifenesin [Mucinex] 600 mg PO BID #14 tab 12/16/23 Ipratropium/Albuterol Sulfate [Iprat-Albut 0.5-3(2.5) mg/3 ml] 3 ml IH Q6H #120 amp 12/16/23 predniSONE [Prednisone*] 20 mg PO BID #10 tab 12/16/23 - Past Medical/Surgical History Diabetic: Yes Past Medical History: Reviewed- Non-Contributory -: Diabetes mellitus type 2 -: Hypertension -: CAD -: Asthma -: Hypothyroidism -: Hyperlipidemia -: Diabetic neuropathy -: Anemia -: Obesity -: arthritis -: COPD -: dimentia Past Surgical History: Reviewed- Non-Contributory -: Cholecystectomy -: CABG x3 vessels 2006 -: 08/02 Vertebroplasty Psychosocial/ Personal History: She is . - Family History Mother -: Heart disease, Cancer - Social History Smoking Status: Never smoker Alcohol use: No CD- Drugs: No Caffeine use: Yes Review of Systems is unable to be obtained Physical Examination - Vital Signs Temperature: 97.2 F Blood Pressure: 142/76 Pulse: 78 Respirations: 18 Pulse Ox (%): 94 - Physical Exam General: Mild distress, Confused, Obese HEENT: Atraumatic, Normocephalic Neck: Supple Respiratory: Clear to auscultation bilaterally, Normal air movement Cardiovascular: Regular rate/rhythm, Normal S1 S2 Capillary refill: <2 Seconds Gastrointestinal: Soft and benign, W/out hepatosplenomegaly Musculoskeletal: No clubbing Integumentary: No rashes Neurological: Other (Drowsy ,) Lymphatics: No axilla or inguinal lymphadenopathy - Studies Laboratory Data (last 24 hrs) 12/22/23 12/22/23 12/22/23 22:23 22:23 22:23 WBC 7.70 Hgb 10.0 L Hct 30.1 L Plt Count 220 PT 11.9 INR 1.06 APTT 23.5 L Sodium 140 Potassium 4.4 BUN 32 H Creatinine 1.56 H Glucose 62 L Total Bilirubin 0.4 AST 30 ALT 37 Alkaline Phosphatase 46 Assessment and Plan - Plan Acute/subacute CVA Monitor closely on telemetry Started on aspirin and statin CT consistent with left cerebellar infarct CTA could not be done because of the CKD MRI brain ordered Monitor neuro vital signs Monitor under telemetry Neurology consulted Acute metabolic encephalopathy Possibly due to CVA Monitor neuro vital signs COPD with no exacerbation Bronchodilators as needed Oxygen support as needed Hypertension Antihypertensives titrated Continue home medications and titrate as needed Hyperlipidemia Continue statin CKD stage III Monitor renal parameters Electrolytes monitor and replace accordingly Diabetes Hypoglycemic Insulin sliding scale when hypoglycemia resolves Accu-Chek before every meal and at bedtime Hypothyroidism Will get a TSH level Continue home dose Synthroid. Chronic anemia Stable Monitor H&H and transfuse as needed Dementia Continue home medications Coronary disease disease Atrial fibrillation Not on anticoagulation Monitor closely under telemetry Will get an echocardiogram GI/DVT prophylaxis Advanced directive DNR Discharge Plan: Long Term Plan to discharge in: 48 Hours - Advance Directives Does patient have a Living Will: Yes Does patient have a Durable POA for Healthcare: Yes - Code Status/Comfort Care Code Status: Full Code Time Spent Managing Pts Care (In Minutes): 48
[2023-12-23] MEDS ORDERED: ONDANSETRON 4 MG/2 ML VIAL IV PRN (05:03)
[2023-12-23] MEDS ORDERED: ALBUTEROL 2.5 MG/3 ML NEB SOL NEB PRN (05:03)
[2023-12-23] MEDS ORDERED: IPRATROPIUM BROM 0.5MG/2.5ML NEB PRN (05:03)
[2023-12-23] MEDS ORDERED: FUROSEMIDE 40 MG TABLET PO PRN (05:07)
[2023-12-23] MEDS ORDERED: ACETAMINOPHEN 325 MG TABLET PO PRN (05:07)
--- NOTE | 2023-12-23 05:52 | RAD REPORT ---
EXAM DESCRIPTION: Chest Single View CLINICAL HISTORY: syncope COMPARISON: None TECHNIQUE: Single AP view of the chest. FINDINGS: Median sternotomy changes. Lung volumes adequate. Cardiac silhouette is normal in size. No pneumothorax. No large pleural effusion. No focal consolidation. No acute bony finding. Chronic appearing deformity the right proximal humerus. IMPRESSION: No acute cardiopulmonary findings. Electronically signed by: Elmer Siddiqui MD 12/23/2023 12:05 AM [facility] [id number] Due to temporary technical issues with the PACS/[employer] reporting system, reports are being jimmie d by the in-house radiologist without review as a courtesy to ensure prompt reporting the interpreting radiologist is fully responsible for the content of the report. Transcribed Date/Time: 12/23/2023 5:52 AM
[2023-12-23 06:53] VITALS: BMI 31.6
[2023-12-23 06:57] LABS: Specific Gravity 1.015 (1.005-1.030); Sqamous Epithelial <5 /HPF (None Seen); Transitional Epithelial <5 /HPF (None Seen); Urine Bacteria <20 /HPF (<20); Urine Bilirubin NEGATIVE (Negative); Urine Blood Negative (Negative); Urine Clarity Extremely Turbid (Clear); Urine Color Light-Yellow (Yellow); Urine Culture Reflex Order REFLEXED; Urine Glucose NEGATIVE (Negative); Urine Ketones NEGATIVE (Negative); Urine Microscopic Reflex YN ORDER UMIC; Urine Mucus Slight /HPF (None Seen); Urine Nitrite NEGATIVE (Negative); Urine Protein NEGATIVE (Negative); Urine RBC <5 /HPF (None Seen); Urine Urobilinogen Normal (Normal); Urine WBC 20-50 /HPF (<5)
[2023-12-23] MEDS: LEVOTHYROXINE SOD 0.05 MG TABLET PO SCH (07:30)
--- NOTE | 2023-12-23 07:30 | RAD REPORT ---
EXAMINATION: US CAROTID DUPLEX CLINICAL INDICATION: , 83 years old. CVA. TECHNIQUE: Real-time grayscale, color flow and spectral Doppler sonographic images were obtained of t extracranial carotid system using a linear transducer. [id number]. COMPARISON: No prior exam. FINDINGS: RIGHT: Common carotid artery: 37 cm/s Internal carotid artery: 80 cm/s External carotid artery: 84 cm/s Right ICA/CCA ratio: 1.9 Plaque None Vertebral artery Antegrade LEFT: Common carotid artery: 53 cm/s Internal carotid artery: 69 cm/s External carotid artery: 67 cm/s lEFT ICA/CCA ratio: 1.4 Plaque None Vertebral artery Antegrade IMPRESSION: No hemodynamically significant stenosis (greater than 50%) within the extracranial internal carotid [facility].
[2023-12-23] MEDS ORDERED: TIOTROPIUM 5 SPRAYS/INHALER IH SCH (09:00)
[2023-12-23] MEDS: VITAMIN D 1000 UNIT TAB PO SCH (09:00)
[2023-12-23] MEDS ORDERED: HOME MED 1 EA UNK (Pravastatin [Pravachol*] 40 MG/TAB Tab) PO SCH (09:00)
[2023-12-23] MEDS: SPIRIVA IH SCH (09:00)
[2023-12-23] MEDS: MEMANTINE HCL 10 MG TABLET PO SCH (11:38)
[2023-12-23] MEDS: atenoloL 50 MG TAB PO SCH (11:39)
[2023-12-23] MEDS: CITALOPRAM 10 MG TABLET PO SCH (11:39)
[2023-12-23] MEDS: ASPIRIN EC 81 MG TAB PO SCH (11:39)
[2023-12-23] MEDS: ATORVASTATIN 10 MG TAB PO SCH (11:40)
[2023-12-23] MEDS: AMIODARONE HCL 200 MG TAB PO SCH (11:42)
--- NOTE | 2023-12-23 12:03 | EKG ---
Test Date: 2023-12-22 Test Time: 21:48:21 [employer] Sales Manager: AF MEASUREMENT RESULTS: Intervals: Rate: 78 ID: [id number] QT: 430 QTc: 490 [place]: P: ID: [id number] T: 56 INTERPRETIVE STATEMENTS: Atrial fibrillation Septal infarct, age undetermined Abnormal ECG Compared to ECG 12/09/2023 20:08:01 Myocardial infarct finding now present Sinus tachycardia no longer present Accelerated junctional rhythm no longer present Ventricular premature complex(es) no longer present AV dissociation no longer present ST (T wave) deviation no longer present T-wave abnormality no longer present Electronically Signed On 12-23-23 12:01:48 FACULTY DEAN by Tung Tracy
[2023-12-23] MEDS: TAMSULOSIN 0.4 MG SR CAP PO SCH (20:30)
[2023-12-23] MEDS: DONEPEZIL HCL 5 MG TAB PO SCH (20:30)
[2023-12-24 08:03] VITALS: O2SAT 97
[2023-12-24] MEDS: HEPARIN 5000 UNIT/ML 1 ML VIAL SQ SCH (10:00)
--- NOTE | 2023-12-24 12:33 | P.DS ---
Admission Date: 12/23/23 Discharge Date: 12/24/23 Disposition: HOSPICE-HOME Reason for Admission: AMS - Problems (1) Cerebellar stroke Current Visit: Yes Status: Acute (2) Chronic respiratory failure with hypoxia Current Visit: Yes Status: Acute (3) Atrial fibrillation Current Visit: No Status: Acute (4) COPD (chronic obstructive pulmonary disease) Onset Date: 07/16/16 Current Visit: No Status: Acute Qualifiers: COPD type: COPD with acute exacerbation Qualified Code(s): J44.1 - Chronic obstructive pulmonary disease with (acute) exacerbation (5) Multiple falls Current Visit: No Status: Acute (6) Diabetes mellitus Onset Date: 07/16/16 Current Visit: No Status: Chronic Qualifiers: Diabetes mellitus type: type 2 Diabetes mellitus joint terminal attack controller insulin use: without jail use Diabetes mellitus complication status: with neurologic complications Diabetes mellitus complication detail: with polyneuropathy Qualified Code(s): E11.42 - Type 2 diabetes mellitus with diabetic polyneuropathy (7) Hyperlipidemia Onset Date: 07/16/16 Current Visit: No Status: Chronic Qualifiers: Hyperlipidemia type: unspecified Qualified Code(s): E78.5 - Hyperlipidemia, unspecified (8) Hypothyroidism Onset Date: 07/16/16 Current Visit: No Status: Chronic Qualifiers: Hypothyroidism type: unspecified Qualified Code(s): E03.9 - Hypothyroidism, unspecified Brief History of Present Illness: 83-year-old female with a past medical history significant for congestive heart failure, hypertension, Alzheimer's dementia, diabetes mellitus, atrial fibrillation, GERD, anemia, asthma, neuropathy, and dyslipidemia who was recently been admitted to the hospital with CHF exacerbation and was discharged to assisted living. She is wheelchair-bound. Patient was brought to ER with altered mental status. According to report, patient rolled her eyes upward and passed out while using the restroom. No witnessed seizures. Patient was assessed in the ER and had a CT which was showing acute/subacute infarct left cerebellum and was admitted for further management. Hospital Course: Patient was started on aspirin, continue with her home dose statin. She has a history of atrial fibrillation on amiodarone which was continued during the hospital stay. She passed bedside swallow evaluation. Patient blood pressure was stable during the hospital stay. Patient and family opted for hospice. Patient was evaluated by hospice and accepted. Patient was accepted to hospice before PT evaluation. Lipid profile checked recently on 12/11 2023 showed LDL of 76. Patient is discharged to home with hospice. Vital Signs/Physical Exam: Temp Pulse Resp BP Pulse Ox 97.2 F 79 18 93/53 L 100 12/24/23 08:00 12/24/23 08:00 12/24/23 08:00 12/24/23 08:00 12/24/23 08:00 General: Alert, In no apparent distress HEENT: Mucous membr. moist/pink Neck: JVD not distended Respiratory: Clear to auscultation bilaterally, Normal air movement Cardiovascular: No edema, Normal S1 S2, Irregular heart rate/rhythm Gastrointestinal: Normal bowel sounds, Soft and benign, Non-distended Laboratory Data at Discharge: WBC 7.70 thou/uL (4.3-10.9) 12/22/23 22:23 Hgb 10.0 g/dL (12.0-15.0) L 12/22/23 22:23 Hct 30.1 % (36.0-45.0) L 12/22/23 22:23 Plt Count 220 thou/uL (152-406) 12/22/23 22:23 PT 11.9 SECONDS (9.4-12.5) 12/22/23 22:23 INR 1.06 12/22/23 22:23 APTT 23.5 SECONDS (24.3-36.9) L 12/22/23 22:23 Sodium 140 mEq/L (136-145) 12/22/23 22:23 Potassium 4.4 mEq/L (3.5-5.1) 12/22/23 22:23 BUN 32 mg/dL (7-18) H 12/22/23 22:23 Creatinine 1.56 mg/dL (0.55-1.02) H 12/22/23 22:23 Glucose 62 mg/dL (74-106) L 12/22/23 22:23 Total Bilirubin 0.4 mg/dL (0.2-1.0) 12/22/23 22:23 AST 30 U/L (15-37) 12/22/23 22:23 ALT 37 U/L (13-56) 12/22/23 22:23 Alkaline Phosphatase 46 U/L (45-117) 12/22/23 22:23 Home Medications: Donepezil [Aricept*] 10 mg PO BEDTIME #60 tab 08/22/21 Aspirin [Aspirin EC 81 MG] 1 tab PO DAILY 08/02/22 Citalopram [Celexa*] 20 mg PO DAILY 08/02/22 Ferrous Sulfate [Ferrous Sulfate*] 325 mg PO BID 08/02/22 Levothyroxine [Synthroid*] 50 mcg PO DAILY 08/02/22 Magnesium Oxide [Mag 0X*] 400 mg PO DAILY 08/02/22 Cetirizine HCl 10 mg PO DAILY 08/03/22 Gabapentin [Neurontin*] 200 mg PO BID 01/25/23 Acetaminophen [Tylenol] 650 mg PO Q4HP PRN 12/10/23 Albuterol Sulfate [Albuterol Sulfate Hfa] 2 puff IH Q4HP PRN 12/10/23 Amiodarone HCl 100 mg PO BID 12/10/23 Cholecalciferol (Vitamin D3) [Vitamin D3] 2,000 unit PO DAILY 12/10/23 Docusate Sodium 100 mg PO DAILYPRN PRN 12/10/23 Fluticasone Propion/Salmeterol [Fluticasone-Salmeterol 500-50] 1 each IH BID 12/10/23 Meclizine HCl 25 mg PO Q8HP PRN 12/10/23 Memantine HCl 5 mg PO DAILY 12/10/23 Multivitamin [Daily Multivitamin] 1 each PO DAILY 12/10/23 Nystatin Powder [Mycostatin (Powder)*] 1 appl TP BIDP PRN 12/10/23 Polyethyl Gly 3350 [Glycolax*] 17 gm PO DAILY 12/10/23 Propylene Glycol/Pf [Systane Complete Pf 0.6% Drop] 1 each EACH EYE TID 12/10/23 Ramelteon [Rozerem] 8 mg PO BEDTIME PRN PRN 12/10/23 Sennosides [Senna] 8.6 mg PO DAILYPRN PRN 12/10/23 Tamsulosin [Flomax*] 0.4 mg PO BEDTIME 12/10/23 Tiotropium Accord [Spiriva] 1 spray IH DAILY 12/10/23 Tramadol HCl [Ultram] 50 mg PO Q12HP PRN 12/10/23 Vit C/E/Zn/Coppr/Lutein/Zeaxan [Preservision Areds 2 Chew Tab] 1 each PO BID 12/10/23 atenoloL [Atenolol] 50 mg PO DAILY 12/10/23 glucagon HCL [Glucagon Emergency Kit] 1 mg IJ SEECOM PRN 12/10/23 guaiFENesin [Robitussin 100MG/5ML*] 10 ml PO Q6HP PRN 12/10/23 predniSONE [Deltasone*] 10 mg PO Q48H 12/10/23 Furosemide [Lasix*] 40 mg PO DAILY PRN #30 tab 12/16/23 Guaifenesin [Mucinex] 600 mg PO BID #14 tab 12/16/23 Ipratropium/Albuterol Sulfate [Iprat-Albut 0.5-3(2.5) mg/3 ml] 3 ml IH Q6H #120 amp 12/16/23 Followup: HILLARY THORNTON [Primary Care Provider] - Time spent managing pt's care (in minutes): 36
[2023-12-24 13:12] VITALS: BP 113/63; TEMP 97.1
== END 2023-12-24 13:05 | disposition hospice, home (50) | DRG 64 ==
LOC: SUATTDRO 21:32 → ER 21:32 → ERHOLD 12-23 05:03 → 2ND 12-23 07:48
PROVIDERS: ADMIT Family Medicine; ATTEND Internal Medicine
DX: I63.9 Cerebral infarction, unspecified (principal); G93.41 Metabolic encephalopathy; I13.0 Hypertensive heart and chronic kidney disease with heart failure and stage 1 through stage 4 chronic kidney disease, or unspecified chronic kidney disease; J96.11 Chronic respiratory failure with hypoxia; J44.1 Chronic obstructive pulmonary disease with (acute) exacerbation; I50.9 Heart failure, unspecified; N18.30 Chronic kidney disease, stage 3 unspecified; E11.22 Type 2 diabetes mellitus with diabetic chronic kidney disease; E11.40 Type 2 diabetes mellitus with diabetic neuropathy, unspecified; E11.649 Type 2 diabetes mellitus with hypoglycemia without coma; G30.9 Alzheimer's disease, unspecified; F02.80 Dementia in other diseases classified elsewhere, unspecified severity, without behavioral disturbance, psychotic disturbance, mood disturbance, and anxiety; I48.91 Unspecified atrial fibrillation; K21.9 Gastro-esophageal reflux disease without esophagitis; E03.9 Hypothyroidism, unspecified; E78.5 Hyperlipidemia, unspecified; E66.9 Obesity, unspecified; I25.10 Atherosclerotic heart disease of native coronary artery without angina pectoris; R29.6 Repeated falls; Z99.3 Dependence on wheelchair; Z88.5 Allergy status to narcotic agent; Z88.0 Allergy status to penicillin; Z95.1 Presence of aortocoronary bypass graft; Z79.82 Long term (current) use of aspirin; Z79.890 Hormone replacement therapy; Z79.84 Long term (current) use of oral hypoglycemic drugs; Z79.899 Other long term (current) drug therapy; Z79.52 Long term (current) use of systemic steroids; Z68.31 Body mass index [BMI] 31.0-31.9, adult; Z90.49 Acquired absence of other specified parts of digestive tract; Z51.5 Encounter for palliative care
CPT/HCPCS: 36415; 70450; 71045; 71250; 72125; 74176; 80053; 81001; 82947; 83090; 83605; 84484; 85025; 85610; 85730; 87040; 87086; 87088; 92610; 93005; 93880; 96361; 96365; 96366; 96368; 96375; 99285; J0696; J7040